=== PATIENT | female | born 1940 | race African-American/Black ===

== ENCOUNTER 2018-06-08 21:39 | Observation (INO) | payer OTHER ==
[2018-06-08] MEDS ORDERED: ONDANSETRON 4 MG/2 ML VIAL ONE ×2 (22:14→22:33)
[2018-06-08 22:22] LABS: Absolute Lymphocytes (CBC) 4.7 K/uL (0.7-4.9); Absolute Monocytes 1.2 K/uL (0.1-1.3); Absolute Neutrophil 7.5 K/uL (1.8-8.0); Basophils % 0.4 % (0-1.3); Eosinophils % 1.3 % (0-4.4); Hematocrit 39.9 % (36.0-45.0); Lymphocytes % 34.2 % (15.3-44.8); MCH 27.9 pg (27.0-35.0); MCV 85.3 fL (80-100); MPV 10.9 fL (7.6-11.3); Monocytes % 8.7 % (3.3-12.3); RBC Red Blood Cell Count 4.68 M/uL (3.86-4.86)
[2018-06-08 22:26] LABS: Protime INR 1.12
[2018-06-08 22:46] LABS: ALT/SGPT 33 U/L (12-78); AST/SGOT 23 U/L (15-37); Albumin 3.1 g/dL (3.4-5.0); Alkaline Phosphatase 57 U/L (45-117); BUN Blood Urea Nitrogen 24 mg/dL (7-18); Bicarbonate 27 mmol/L (21-32); Bilirubin Direct 0.1 mg/dL (0-0.2); Bilirubin Total 0.5 mg/dL (0.2-1.0); CKMB Creatine Kinase MB < 1.0 ng/mL (0.3-3.6); Creatine Phosphokinase 33 U/L (26-192); Glucose Level 104 mg/dL (74-106); Magnesium 1.8 mg/dL (1.8-2.4); NT PRO-BNP 140 pg/mL (<450); Potassium 3.7 mmol/L (3.5-5.1); Protein, Total 7.8 g/dL (6.4-8.2); Sodium Level 140 mmol/L (136-145)
[2018-06-08] MEDS ORDERED: NA CHLORIDE 0.9% 1,000 ML ONE (22:56)
[2018-06-09 02:22] LABS: Urine Blood NEGATIVE (NEG); Urine Glucose NEGATIVE (NEG); Urine Protein NEGATIVE (NEG); Urine Specific Gravity 1.015 (1.005-1.030)
--- NOTE | 2018-06-09 02:23 | EDPHYS ---
Physician Documentation [facility] Name: Kimmy Gamez Age: 78 yrs Sex: Female : 1940 Arrival Date: 06/08/2018 Time: 21:47 Bed 5 Private MD: ED Physician James Delgado HPI: 06/08 22:10 This 78 yrs old Black Female presents to ER via EMS with complaints of general weakness.cp 22:10 The patient has experienced syncope, became unresponsive, lost consciousness. Onset: cp The symptoms/episode began/occurred just prior to arrival. Duration: This was a single episode, that lasted 2 minute(s). Context: the episode(s) was witnessed, by a significant other, , occurred at home, occurred while the patient was sitting, Just prior to the episode the patient experienced dizziness, weakness. Associated injury: The patient did not suffer any apparent associated injury. Associated signs and symptoms: Pertinent positives: headache, vomiting, general weakness, Pertinent negatives: abdominal pain, chest pain, diaphoresis, diarrhea. reports patient was walking to kitchen to fix plate of food when she suddenly complained of general weakness and dizziness. Patient was able to sit down prior to losing consciousness for approximately 2 minutes. Historical: - Allergies: 21:55 No Known Allergies; bb - Home Meds: 21:55 aspirin 81 mg Oral chew 1 tab once daily [Active]; prednisone 10 mg Oral tab once daily bb [Active]; bisoprolol-hydrochlorothiazide 5-6.25 mg oral tab 1 tab once daily [Active]; losartan potassium 100 mg daily [Active]; furosemide 40 mg Oral tab 1 tab once daily [Active]; colestipol 1 gram oral tab 1 tab 2 times per day [Active]; omeprazole 40 mg Oral cpDR 1 cap once daily [Active]; timolol maleate 0.25 % Opht drop 1 drop 2 times per day [Active]; Travatan Z 0.004 % ophthalmic drop 1 drop once daily [Active]; Azopt 1 % ophthalmic drps 1 drop 3 times per day [Active]; - PMHx: 21:55 Hypertension; Glaucoma; OSTEOARTHRITIS; bb - PSHx: 21:55 BACK SURGERY X 3; NECK SURGERY; Cholecystectomy; PLATE R WRIST; GLAUCOMA SURGERY; bb CATARACT SURGERY; Hysterectomy; - Immunization history:: Adult Immunizations up to date. - Social history:: Smoking status: Patient/guardian denies using tobacco, Patient/guardian denies using alcohol, street drugs. - Ebola Screening: : No symptoms or risks identified at this time. ROS: 22:15 Constitutional: Negative for body aches, chills, fever, poor PO intake. cp 22:15 Eyes: Negative for injury, pain, redness, and discharge. cp 22:15 ENT: Negative for drainage from ear(s), ear pain, sore throat, difficulty swallowing, difficulty handling secretions. 22:15 Cardiovascular: Negative for chest pain, edema, palpitations. 22:15 Respiratory: Negative for cough, shortness of breath, wheezing. 22:15 Abdomen/GI: Positive for nausea, vomiting, Negative for abdominal pain, diarrhea, constipation, black/tarry stool, rectal bleeding. 22:15 Back: Negative for pain at rest, pain with movement, radiated pain. 22:15 : Negative for urinary symptoms. 22:15 Skin: Negative for cellulitis, rash. 22:15 Neuro: Positive for dizziness, headache, syncope, general weakness, Negative for altered mental status, seizure activity. 22:15 All other systems are negative. Exam: 22:20 Constitutional: The patient appears in no acute distress, alert, awake, cp non-diaphoretic, non-toxic, well developed, well nourished. 22:20 Head/Face: Normocephalic, atraumatic. cp 22:20 Eyes: Periorbital structures: appear normal, Pupils: equal, round, and reactive to light and accomodation, Extraocular movements: intact throughout, Conjunctiva: normal, no exudate, no injection, Sclera: no appreciated abnormality, Lids and lashes: appear normal, bilaterally. 22:20 ENT: External ear(s): are unremarkable, Ear canal(s): are normal, clear, TM's: bulging, is not appreciated, bilaterally, dullness, bilaterally, erythema, is not appreciated, bilaterally, Nose: is normal, Mouth: Lips: moist, Oral mucosa: pink and intact, moist, Posterior pharynx: is normal, airway is patent, no erythema, no exudate. 22:20 Neck: ROM/movement: is normal, is supple, without pain, no range of motions limitations, no meningismus, no nuchal rigidity. 22:20 Chest/axilla: Inspection: normal, Palpation: is normal, no crepitus, no tenderness. 22:20 Cardiovascular: Rate: normal, Rhythm: regular, JVD: is not appreciated. 22:20 Respiratory: the patient does not display signs of respiratory distress, Respirations: normal, no use of accessory muscles, no retractions, no splinting, no tachypnea, labored breathing, is not present, Breath sounds: are clear throughout, no decreased breath sounds, no stridor, no wheezing. 22:20 Abdomen/GI: Inspection: obese Bowel sounds: active, all quadrants, Palpation: soft, in all quadrants, mild abdominal tenderness, in all quadrants, rebound tenderness, is not appreciated, voluntary guarding, is not appreciated, involuntary guarding, is not appreciated. 22:20 Skin: cellulitis, is not appreciated, no rash present. 22:20 Neuro: Orientation: to person, place \T\ time. Mentation: able to follow commands, slow to respond, Cerebellar function: Romberg testing is negative, Motor: moves all fours, general weakness w/o focal deficits, Sensation: no obvious gross deficits. 22:25 ECG was reviewed by the Attending Physician. Vital Signs: 21:37 BP 154 / 103; Pulse 100; Resp 20 S; Temp 97.8(O); Pulse Ox 96% on R/A; Weight 104.33 kg bb (R); Height 5 ft. 3 in. (160.02 cm) (R); Pain 0/10; 22:07 BP 110 / 89; Pulse 71; Resp 19; Pulse Ox 99% on R/A; ak1 23:15 BP 133 / 60; Pulse 65; Resp 15; Pulse Ox 99% on R/A; ak1 06/09 02:51 BP 147 / 71; Pulse 62; Resp 14; Temp 98.1; Pulse Ox 96% on R/A; ak1 06/08 21:37 Body Mass Index 40.74 (104.33 kg, 160.02 cm) [facility]: 06/08 21:58 Patient medically screened. 06/09 02:25 Data reviewed: vital signs, nurses notes, lab test result(s), EKG, radiologic studies, cp CT scan, plain films, and as a result, I will admit patient. 02:25 Test interpretation: by ED physician or midlevel provider: ECG, plain radiologic cp studies. 06/08 22:05 Order name: Basic Metabolic Panel; Complete Time: 22:54 cp 06/08 22:54 Interpretation: Normal except: BUN 24; CRE 1.70; GFR 35. cp 06/08 22:05 Order name: CBC with Diff; Complete Time: 22:36 06/08 22:36 Interpretation: Normal except: WBC 13.6; PLT 131. cp 06/08 22:05 Order name: Ckmb; Complete Time: 22:54 cp 06/08 22:05 Order name: CPK; Complete Time: 22:54 cp 06/08 22:05 Order name: LFT's; Complete Time: 22:54 cp 06/09 02:20 Interpretation: Normal except: ALB 3.1; GLOB 4.7; A/G 0.7. cp 06/08 22:05 Order name: Magnesium; Complete Time: 22:54 06/08 22:05 Order name: NT PRO-BNP; Complete Time: 22:54 06/08 22:05 Order name: PT-INR; Complete Time: 22:36 06/08 22:05 Order name: Ptt, Activated; Complete Time: 22:36 06/08 22:05 Order name: Troponin (emerg Dept Use Only); Complete Time: 22:54 06/09 01:50 Order name: Urine Dipstick--Ancillary (enter results); Complete Time: 02:23 az 06/09 02:23 Interpretation: Reviewed. 06/09 02:35 Order name: Basic Metabolic Panel [facility] 06/09 02:35 Order name: Basic Metabolic Panel [facility] 06/09 02:35 Order name: Troponin I [facility] 06/08 22:05 Order name: XRAY Chest (1 view) 06/08 22:05 Order name: EKG; Complete Time: 22:06 cp 06/08 22:05 Order name: CT Head Brain wo Cont 06/08 22:55 Order name: Abdomen [facility] 06/09 02:35 Order name: Regular [facility] 06/09 02:35 Order name: Troponin I [facility] 06/09 02:35 Order name: Troponin I [facility] 06/09 02:36 Order name: Echo with Doppler [facility] 06/09 02:36 Order name: CBC with Automated Diff [facility] 06/09 02:36 Order name: CBC with Automated Diff [facility] 06/09 02:36 Order name: Carotid Artery Bilateral [facility] 06/08 22:05 Order name: Cardiac monitoring; Complete Time: 22:06 cp 06/08 22:05 Order name: EKG - Nurse/Tech; Complete Time: 22:22 cp 06/08 22:05 Order name: IV Saline Lock; Complete Time: 22:06 cp 06/08 22:05 Order name: Labs collected and sent; Complete Time: 22:06 cp 06/08 22:05 Order name: O2 Per Protocol; Complete Time: 22:06 cp 06/08 22:05 Order name: O2 Sat Monitoring; Complete Time: 22:06 cp 06/08 22:05 Order name: Urine Dipstick-Ancillary (obtain specimen); Complete Time: 01:51 cp 06/09 02:36 Order name: EKG Electrocardiogram [facility] 06/09 02:36 Order name: EKG Electrocardiogram [facility] 06/09 02:36 Order name: EKG Electrocardiogram [facility] 06/09 02:36 Order name: EKG Electrocardiogram [facility] 06/09 02:49 Order name: Diet Heart Healthy; Complete Time: 02:49 cp EC/18 22:25 Rate is 69 beats/min. Rhythm is regular. MT interval is normal. QRS interval is normal. cp QT interval is normal. No ST changes noted. Interpreted by me. Reviewed by me. Administered Medications: 22:14 Drug: Zofran 2 mg Route: IVP; Site: right antecubital; ak1 22:21 Follow up: Response: No adverse reaction ak1 22:34 Drug: Zofran 2 mg Route: IVP; Site: right antecubital; ak1 22:52 Follow up: Response: No adverse reaction ak1 23:00 Drug: NS 0.9% 250 ml Route: IV; Rate: bolus; Site: right antecubital; ak1 06/09 01:32 Follow up: IV Status: Completed infusion ak1 06/08 23:00 Drug: NS 0.9% 1000 ml Route: IV; Rate: 75 ml/hr; Site: right antecubital; ak1 06/09 04:04 Follow up: IV Status: Infusion continued upon admission ak1 Disposition: 06:25 Co-signature as Attending Physician, James Delgado MD. Disposition: 06/09/18 02:23 Hospitalization ordered by Adan Camacho for Observation. Preliminary diagnosis are Syncope and collapse, Weakness - General, Nausea and vomiting. - Bed requested for Telemetry/MedSurg (observation). - Status is Observation. ak1 - Condition is Stable. - Problem is new. - Symptoms have improved. UTI on Admission? No Signatures: Dispatcher [employer] [facility] Jany Oliva RN RN Sidra Jo RN RN Roxanna Zimmerman RN RN ak1 Robert Greene PA PA cp Starr, Gregory, MD MD gs Corrections: (The following items were deleted from the chart) 06/08 22:55 22:37 Abdomen Pelvis W Con+CT.RAD.BRZ ordered. [facility] 06/09 01:51 01:14 Marshall ordered. cp ak1 03:42 02:23 Hospitalization Ordered by Adan Camacho MD for Observation. Preliminary diagnosis mw is Syncope and collapse; Weakness - General; Nausea and vomiting. Bed requested for Telemetry/MedSurg (observation). Status is Observation. Condition is Stable. Problem is new. Symptoms have improved. UTI on Admission? No. cp 04:03 03:42 06/09/2018 02:23 Hospitalization Ordered by Adan Camacho MD for Observation. ak1 Preliminary diagnosis is Syncope and collapse; Weakness - General; Nausea and vomiting. Bed requested for Telemetry/MedSurg (observation). Status is Observation. Condition is Stable. Problem is new. Symptoms have improved. UTI on Admission? No. mw
--- NOTE | 2018-06-09 02:23 | ER ---
Nurse's Notes [facility] Name: Kimmy Gamez Age: 78 yrs Sex: Female : 1940 Arrival Date: 06/08/2018 Time: 21:47 Bed 5 Private MD: Diagnosis: Syncope and collapse;Weakness-General;Nausea and vomiting Presentation: 06/08 21:37 Presenting complaint: EMS states: they were toned out for report of pt having nausea, bb vomiting, and feeling weak and dizzy pt vomited x 1. Transition of care: patient was not received from another setting of care. Onset of symptoms was June 08, 2018. Risk Assessment: Do you want to hurt yourself or someone else? Patient reports no desire to harm self or others. Initial Sepsis Screen: Does the patient meet any 2 criteria? No. Patient's initial sepsis screen is negative. Does the patient have a suspected source of infection? No. Patient's initial sepsis screen is negative. Care prior to arrival: Medication(s) given: zofran 4 mg, IV initiated. 20 GA, in the right antecubital area, Glucose check: 197. 21:37 Method Of Arrival: EMS: [facility] bb 21:37 Acuity: DWIGHT 3 bb Triage Assessment: 06/09 04:02 Pain: Denies pain. ak1 Historical: - Allergies: 06/08 21:55 No Known Allergies; bb - Home Meds: 21:55 aspirin 81 mg Oral chew 1 tab once daily [Active]; prednisone 10 mg Oral tab once daily bb [Active]; bisoprolol-hydrochlorothiazide 5-6.25 mg oral tab 1 tab once daily [Active]; losartan potassium 100 mg daily [Active]; furosemide 40 mg Oral tab 1 tab once daily [Active]; colestipol 1 gram oral tab 1 tab 2 times per day [Active]; omeprazole 40 mg Oral cpDR 1 cap once daily [Active]; timolol maleate 0.25 % Opht drop 1 drop 2 times per day [Active]; Travatan Z 0.004 % ophthalmic drop 1 drop once daily [Active]; Azopt 1 % ophthalmic drps 1 drop 3 times per day [Active]; - PMHx: 21:55 Hypertension; Glaucoma; OSTEOARTHRITIS; bb - PSHx: 21:55 BACK SURGERY X 3; NECK SURGERY; Cholecystectomy; PLATE R WRIST; GLAUCOMA SURGERY; bb CATARACT SURGERY; Hysterectomy; - Immunization history:: Adult Immunizations up to date. - Social history:: Smoking status: Patient/guardian denies using tobacco, Patient/guardian denies using alcohol, street drugs. - Ebola Screening: : No symptoms or risks identified at this time. Screenin:03 Abuse screen: Denies threats or abuse. Denies injuries from another. Nutritional ak1 screening: No deficits noted. Tuberculosis screening: No symptoms or risk factors identified. Fall Risk None identified. Assessment: 22:01 General: Appears in no apparent distress. obese, Behavior is calm, cooperative, drowsy. ak1 Neuro: Level of Consciousness is awake, alert, obeys commands, Oriented to person, place, time, situation, Medical Insurance Biller are equal bilaterally Weakness Speech is normal, Facial symmetry appears normal, Pupils are PERRLA. Cardiovascular: No deficits noted. Respiratory: No deficits noted. GI: Reports diarrhea, nausea, vomiting. : No signs and/or symptoms were reported regarding the genitourinary system. EENT: No signs and/or symptoms were reported regarding the EENT system. Derm: No signs and/or symptoms reported regarding the dermatologic system. Musculoskeletal: Reports generalized weakness. 22:35 Reassessment: pt began vomiting in CT. pt had an orange LEASING ASSISTANT. ak1 23:16 Reassessment: pt finished half the oral contrast, CT notified. ak1 23:22 Reassessment: Patient appears in no apparent distress at this time. Patient and/or ak1 family updated on plan of care and expected duration. Pain level reassessed. Patient is alert, oriented x 3, equal unlabored respirations, skin warm/dry/pink. pt and family informed of CT scan at 0030. 06/09 02:51 Reassessment: Patient appears in no apparent distress at this time. Patient and/or ak1 family updated on plan of care and expected duration. Pain level reassessed. Patient is alert, oriented x 3, equal unlabored respirations, skin warm/dry/pink. Vital Signs: 06/08 21:37 BP 154 / 103; Pulse 100; Resp 20 S; Temp 97.8(O); Pulse Ox 96% on R/A; Weight 104.33 kg bb (R); Height 5 ft. 3 in. (160.02 cm) (R); Pain 0/10; 22:07 BP 110 / 89; Pulse 71; Resp 19; Pulse Ox 99% on R/A; ak1 23:15 BP 133 / 60; Pulse 65; Resp 15; Pulse Ox 99% on R/A; ak1 06/09 02:51 BP 147 / 71; Pulse 62; Resp 14; Temp 98.1; Pulse Ox 96% on R/A; ak1 06/08 21:37 Body Mass Index 40.74 (104.33 kg, 160.02 cm) bb ED Course: 06/08 21:37 Arm band placed on Patient placed in an exam room, on a stretcher, on associate director of biostatistics, bb on pulse oximetry. 21:47 Patient arrived in ED. ak1 21:49 Triage completed. bb 21:56 Roxanna Larios, RN is Primary Nurse. ak1 21:57 Maintain EMS IV. Dressing intact. Good blood return noted. Site clean \T\ dry. Gauge \T\ ak 1 site: 20g right AC. 21:58 Robert Greene PA is PHCP. cp 21:58 James Delgado MD is Attending Physician. cp 22:03 Patient has correct armband on for positive identification. Placed in gown. Bed in low ak1 position. Call light in reach. Side rails up X 1. Adult w/ patient. ornamental ironworking supervisor on. Pulse ox on. NIBP on. 22:24 X-ray completed. Portable x-ray completed in exam room. Patient tolerated procedure bb2 well. 22:26 XRAY Chest (1 view) In Process Unspecified. EDMS 22:39 Radiology exam delayed due to lab results not completed at this time. (BUN/Creatinine). nj 22:40 CT Head Brain wo Cont In Process Unspecified. EDMS 22:44 CT completed. Patient tolerated procedure well. Patient moved back from CT. wy 06/09 00:49 Abdomen In Process Unspecified. EDMS 01:23 CT completed. Patient tolerated procedure well. Patient moved to CT via stretcher. Patient moved back from CT. 01:33 No provider procedures requiring assistance completed. ak1 02:22 Adan Camacho MD is Hospitalizing Provider. cp 04:03 Patient admitted, IV remains in place. ak1 Administered Medications: 06/08 22:14 Drug: Zofran 2 mg Route: IVP; Site: right antecubital; ak1 22:21 Follow up: Response: No adverse reaction ak1 22:34 Drug: Zofran 2 mg Route: IVP; Site: right antecubital; ak1 22:52 Follow up: Response: No adverse reaction ak1 23:00 Drug: NS 0.9% 250 ml Route: IV; Rate: bolus; Site: right antecubital; ak1 06/09 01:32 Follow up: IV Status: Completed infusion ak1 06/08 23:00 Drug: NS 0.9% 1000 ml Route: IV; Rate: 75 ml/hr; Site: right antecubital; ak1 06/09 04:04 Follow up: IV Status: Infusion continued upon admission ak1 Outcome: 02:23 Decision to Hospitalize by Provider. cp 04:02 Admitted to Med/surg accompanied by tech, family with patient, via wheelchair, room ak1 405, with chart, Report called to Amina 04:02 Condition: good 04:02 Instructed on the need for admit. 04:03 Patient left the ED. ak1 Signatures: Dispatcher [employer] ED[facility] Nikolai Read Brenda, RN RN bb Roxanna Larios RN RN ak1 Robert Greene PA PA cp Jordan, Nathan nj Bock, Brittany bb2 Corrections: (The following items were deleted from the chart) 06/08 21:58 21:37 BP 154 / 103; Pulse 100bpm; Resp 20bpm; Spontaneous; Pulse Ox 96% RA; 104.33 kg bb Reported; Height 5 ft. 3 in. Reported; BMI: 40.7; Pain 0/10; bb 22:44 22:44 Patient moved back from [facility] 23:17 23:15 Pulse 65bpm; Resp 15bpm; Pulse Ox 99% RA; ak1 ak1
[2018-06-09] MEDS ORDERED: ACETAMINOPHEN 500 MG TAB PO PRN (02:30)
[2018-06-09] MEDS ORDERED: ONDANSETRON 4 MG/2 ML VIAL IV PRN (02:30)
[2018-06-09 04:53] VITALS: BMI 39.0
--- NOTE | 2018-06-09 07:54 | RAD REPORT ---
EXAM DESCRIPTION: Tomi Single View06/08/2018 10:26 pm CLINICAL HISTORY: Chest pain COMPARISON: 2011 FINDINGS: The lungs appear clear of acute infiltrate. The heart is mildly enlarged. An ununited fracture involves the mid right clavicle
[2018-06-09] MEDS: ASPIRIN EC 81 MG TAB PO SCH (08:17)
--- NOTE | 2018-06-09 08:45 | RAD REPORT ---
EXAM DESCRIPTION: CT - Abdomen Pelvis Wo Contrast - 06/09/2018 6:48 am CLINICAL HISTORY: Abdominal pain with nausea and vomiting COMPARISON: 2011 TECHNIQUE: Computed axial tomography of the abdomen and pelvis was obtained. IV contrast was not req uested. Oral contrast was given All CT scans are performed using dose optimization technique as appropriate and may include automated exposure control or mA/KV adjustment according to patient size. FINDINGS: The evaluation of solid organs, and vessels is limited secondary to the lack of contrast administration. The liver, spleen, pancreas, adrenals and kidneys appear grossly normal. A diverticulum stems from the duodenum. A large number of diverticula stem from the colon without evidence of diverticulitis. Laxity of the anterior abdominal wall is present. Diastases of the rectus abdominis muscles of 7 cent imeters is present. Spondylosis involves the lumbar spine resulting spinal stenosis The gallbladder has been removed IMPRESSION: No acute abnormality is displayed.
--- NOTE | 2018-06-09 10:46 | RAD REPORT ---
EXAM DESCRIPTION: CT - Head Brain Wo Cont - 06/09/2018 6:48 am CLINICAL HISTORY: Dizziness COMPARISON: 2016 brain MRI TECHNIQUE: Computed axial tomography of the head was obtained. IV contrast was not requested. All CT scans are performed using dose optimization technique as appropriate and may include automated exposure control or mA/KV adjustment according to patient size. FINDINGS: An intracranial bleed is not seen . The ventricles are normal in caliber. No extra-axial fluid collection is noted. Mild to moderate low-density areas within periventricular, deep and subcortical white matter likely represent ischemic changes secondary to small vessel disease . Fluid within the sinuses/ mastoids is not seen. IMPRESSION: No acute intracranial abnormality is seen. If patient's symptoms persist MRI of the bra in would be recommended.
--- NOTE | 2018-06-09 11:44 | RAD REPORT ---
EXAM DESCRIPTION: VASCarotid Artery Bilateral06/09/2018 11:06 am CLINICAL HISTORY: Syncope COMPARISON: None FINDINGS: The velocity of the right internal carotid artery equals 85 cm/sec. The right ICA/CCA rati o 1.1 The velocity of the left internal carotid artery equals 68 cm/sec. The left ICA/CCA ratio 0.9 Minimal plaque is present within the carotid arteries. The vertebral arteries demonstrate antegrade flow IMPRESSION: Minimal plaque within the carotid arteries without evidence of a hemodynamically signifi cant stenosis
--- NOTE | 2018-06-09 12:11 | RAD REPORT ---
EXAM DESCRIPTION: MRI - Brain Wo Cont - 06/09/2018 10:29 am CLINICAL HISTORY: Syncope COMPARISON: June [address] TECHNIQUE: Axial, sagittal, and coronal magnetic images of the brain were obtained. Contrast was not requested FINDINGS: Mild to moderate signal is present within periventricular, deep and subcortical white hardy er likely secondary to ischemic changes secondary to small vessel disease. Diffusion-weighted/ADC mapping does not reveal evidence of acute infarction. The ventricles are normal caliber. An extra-axial fluid collection is not present The sinuses and mastoids are clear. IMPRESSION: Mild to moderate signal is present within periventricular, deep and subcortical white ma tter likely secondary to ischemic changes secondary to small vessel disease. No acute intracranial abnormality is seen
--- NOTE | 2018-06-09 13:54 | EKG ---
Test Date: 2018-06-08 Test Time: 22:16:36 Career Developer: RAPHAEL MEASUREMENT RESULTS: Intervals: Rate: 69 [place]: 174 QRSD: 74 QT: 428 QTc: 458 [place]: P: 12 [place]: 174 QRS: -5 T: 21 INTERPRETIVE STATEMENTS: Normal sinus rhythm Normal ECG Compared to ECG 03/13/2015 12:24:10 Left ventricular hypertrophy no longer present Electronically Signed On 06-09-18 13:52:00 CDT by Nate Soares
--- NOTE | 2018-06-09 14:05 | ECHO ---
HEIGHT: 5 ft 3 in WEIGHT: 220 lb 6.4 oz DATE OF STUDY: 06/09/[address]: Robert Greene PAC 2-DIMENSIONAL: YES M.MODE: YES DOPPLER: YES COLOR FLOW: YES TDS: YES PORTABLE: DEFINITY: BUBBLE STUDY: DIAGNOSIS: SYNCOPE CARDIAC HISTORY: CATHERIZATION: NO SURGERY: NO PROSTHETIC VALVE: NO PACEMAKER: NO MEASUREMENTS (cm) DIASTOLIC (NORMALS) SYSTOLIC (NORMALS) IVSd 1.3 (0.6-1.2) LA Diam 2.9 (1.9-4.0) LVEF 72% LVIDd 3.5 (3.5-5.7) LVIDs 2.1 (2.0-3.5) %FS 40% LVPWd 1.3 (0.6-1.2) Ao Diam 2.3 (2.0-3.7) 2 DIMENSIONAL ASSESSMENT: RIGHT ATRIUM: NORMAL LEFT ATRIUM: NORMAL RIGHT VENTRICLE: NORMAL LEFT VENTRICLE: LEFT VENTRICULAR HYPERTROPHY TRICUSPID VALVE: NORMAL MITRAL VALVE: NORMAL PULMONIC VALVE: NORMAL AORTIC VALVE: NORMAL PERICARDIAL EFFUSION: NONE AORTIC ROOT: NORMAL LEFT VENTRICULAR WALL MOTION: NORMAL DOPPLER/COLOR FLOW: NORMAL COMMENTS: TECHNICALLY DIFFICULT STUDY. LEFT VENTRICULAR HYPERTROPHY. NO WALL MOTION ABNORMALITY. NORMAL EJECTION FRACTION. NO EFFUSION. TECHNOLOGIST: KISHA MOJICA
--- NOTE | 2018-06-09 18:01 | P.SSS ---
Patient History Date of Service: 06/09/18 Reason for admission: PASSED OUT AT HOME History of Present Illness: MS. ULRICH AT HOME TRYING TO GET BF READY, SITTING ON RECLINER, ROLLED EYES AND PASSED OUT FOR A MINUTE OR SO. THIS IS PER . SHE HAS HAD NO CHEST PAIN, DYSPNEA OR GI ISSUES. MS. ULRICH HAS CHRONIC COMPLAINTS OF GLAUCOMA, HTN, TA, PMR,CHR PAIN, HISTORY OF HEP C. SHE IS ON CHRONIC STEROID THERAPY FOR SEVERE PAIN AND PMR. Allergies No Known Allergies Allergy (Verified 06/09/18 04:59) Home Medications: Aspirin [Aspirin EC 81 MG] 81 mg PO DAILY 06/09/18 Bisoprolol Fumarate/Hctz [Bisoprolol-Hctz 5-6.25 mg Tab] 1 tab PO DAILY Brimonidine Tartrate [Alphagan P] 1 drop LEFT EYE TID 06/09/18 Brinzolamide [Azopt] 1 drop LEFT EYE TID 06/09/18 Colestipol HCl [Colestid] 1 gm PO BID PRN 06/09/18 Estradiol 1 appl VAG SEECOM 06/09/18 Furosemide [Lasix*] 40 mg PO DAILY 06/09/18 Losartan Potassium [Cozaar] 100 mg PO DAILY 06/09/18 Omeprazole [Prilosec] 40 mg PO DAILY 06/09/18 Spironolactone [Aldactone*] 25 mg PO DAILY 06/09/18 Timolol Maleate 1 drop LEFT EYE BID 06/09/18 Venlafaxine HCl [Venlafaxine HCl ER] 37.5 mg PO DAILY 06/09/18 predniSONE [Deltasone*] 10 mg PO DAILY 06/09/18 - Past Medical/Surgical History Has patient received pneumonia vaccine in the past: Yes Diabetic: No -: hep c -: osteoarthritis -: glaucoma ira eyes -: GERD -: HTN -: cholecystectomy -: hysterectomy -: r leg- skin graft -: cervical fusion x 2- 2007 -: plate in Right arm - due to CVA - Family History Father -: Heart disease Mother -: Diabetes Sister -: Diabetes, Cancer Notes: colon ca Brother -: Diabetes - Social History Smoking Status: Never smoker Alcohol use: No CD- Drugs: No Caffeine use: Yes Place of Residence: Home Review of Systems 10-point ROS is otherwise unremarkable General: Weakness, Malaise Physical Examination - Vital Signs Temperature: 97.7 F Blood Pressure: 111/58 Pulse: 69 Respirations: 16 Pulse Ox (%): 95 - Physical Exam General: Alert, Acute distress, Obese HEENT: Atraumatic, PERRLA, Mucous membr. moist/pink, EOMI, Sclerae nonicteric Neck: Supple, 2+ carotid pulse no bruit, No LAD, Without JVD or thyroid abnormality Respiratory: Clear to auscultation bilaterally, Normal air movement Cardiovascular: Regular rate/rhythm, Normal S1 S2 Gastrointestinal: Normal bowel sounds, No tenderness Musculoskeletal: No tenderness Integumentary: No rashes Neurological: Normal gait, Normal speech, Normal strength at 5/5 x4 extr, Normal tone, Normal affect Lymphatics: No axilla or inguinal lymphadenopathy - Studies Laboratory Data (last 24 hrs) 06/08/18 21:55: PT 13.2 H, INR 1.12, APTT 21.4 L 06/08/18 21:55: WBC 13.6 H, Hgb 13.1, Hct 39.9, Plt Count 131 L 06/08/18 21:55: Sodium 140, Potassium 3.7, BUN 24 H, Creatinine 1.70 H, Glucose 104, Magnesium 1.8, Total Bilirubin 0.5, AST 23, ALT 33, Alkaline Phosphatase 57 - Diagnosis (Problem(s)) (1) Syncope and collapse Onset Date: 06/09/18 Current Visit: Yes Status: Acute Plan: UNCLEAR ETIOLOGY CE NEG NOT ORTHOSTATIC NO NEURO SIGNS MRI NEG FOR STROKE THIS CAN BE ATYPICAL SEIZURE IF CONTINUES TO HAPPEN I WILL START KEPPRA BID EEG CAN'T BE DONE UNTIL AM. - Disposition Disposition: ROUTINE DISCHARGE
[2018-06-10 06:43] LABS: Absolute Lymphocytes (CBC) 3.2 K/uL (0.7-4.9); Absolute Neutrophil 6.2 K/uL (1.8-8.0); Basophils % 0.4 % (0-1.3); Eosinophils % 1.2 % (0-4.4); Lymphocytes % 30.5 % (15.3-44.8); MCH 28.4 pg (27.0-35.0); MCV 85.3 fL (80-100); MPV 10.7 fL (7.6-11.3); Monocytes % 9.1 % (3.3-12.3); RBC Red Blood Cell Count 4.46 M/uL (3.86-4.86)
[2018-06-10 06:51] LABS: Potassium 3.7 mmol/L (3.5-5.1)
[2018-06-10] MEDS: ASPIRIN EC 81 MG TAB PO SCH (08:52)
[2018-06-10 08:55] VITALS: O2SAT 97
[2018-06-10 12:37] VITALS: BP 140/80; TEMP 97.9
--- NOTE | 2018-06-10 13:52 | P.DS ---
Admission Date: 06/09/18 Discharge Date: 06/10/18 Disposition: ROUTINE DISCHARGE Discharge Condition: FAIR Reason for Admission: PASSED OUT AT HOME - Problems (1) Syncope and collapse Onset Date: 06/09/18 Current Visit: Yes Status: Acute Brief History of Present Illness: MS. ULRICH AT HOME TRYING TO GET BF READY, SITTING ON RECLINER, ROLLED EYES AND PASSED OUT FOR A MINUTE OR SO. THIS IS PER . SHE HAS HAD NO CHEST PAIN, DYSPNEA OR GI ISSUES. MS. ULRICH HAS CHRONIC COMPLAINTS OF GLAUCOMA, HTN, TA, PMR,CHR PAIN, HISTORY OF HEP C. SHE IS ON CHRONIC STEROID THERAPY FOR SEVERE PAIN AND PMR. MS ULRICH HAS MAINLY DEHYDRATION FROM LASIX AND ALDACTONE. SHE IS ON BOTH ONE DID NOT WORK AND SHE KEPT ON COMPLAINING ABOUT SEVERE EDEMA. HER EDEMA IS FROM CHRONIC PREDNISONE THERAPY FOR PMR. SHE IS STABLE TO GO ON SMALLER DOSE OF LASIX AND ADVISE ON LOW SALT DIET. TODAY ON HER PLAE I SAW CHEESE LOADED PASTA AND FRIED CHICKEN. I HAVE ADIVSED HER TO WATCH DIET AND LOSE WEIGHT IN THE PAST. Vital Signs/Physical Exam: Temp Pulse Resp BP Pulse Ox 97.9 F 67 18 140/80 96 06/10/18 12:00 06/10/18 12:00 06/10/18 12:00 06/10/18 12:00 06/10/18 12:00 Laboratory Data at Discharge: WBC 10.5 K/uL (4.3-10.9) D 06/10/18 05:46 Hgb 12.7 g/dL (12.0-15.0) 06/10/18 05:46 Hct 38.0 % (36.0-45.0) 06/10/18 05:46 Plt Count 118 K/uL (152-406) L 06/10/18 05:46 PT 13.2 SECONDS (9.5-12.5) H 06/08/18 21:55 INR 1.12 06/08/18 21:55 APTT 21.4 SECONDS (24.3-36.9) L 06/08/18 21:55 Sodium 142 mmol/L (136-145) 06/10/18 05:46 Potassium 3.7 mmol/L (3.5-5.1) 06/10/18 05:46 BUN 24 mg/dL (7-18) H 06/10/18 05:46 Creatinine 1.40 mg/dL (0.55-1.3) H 06/10/18 05:46 Glucose 84 mg/dL (74-106) 06/10/18 05:46 Magnesium 1.8 mg/dL (1.8-2.4) 06/08/18 21:55 Total Bilirubin 0.5 mg/dL (0.2-1.0) 06/08/18 21:55 AST 23 U/L (15-37) 06/08/18 21:55 ALT 33 U/L (12-78) 06/08/18 21:55 Alkaline Phosphatase 57 U/L (45-117) 06/08/18 21:55 Troponin I < 0.02 ng/mL (0.0-0.045) 06/09/18 08:15 Home Medications: Aspirin [Aspirin EC 81 MG] 81 mg PO DAILY 06/09/18 Bisoprolol Fumarate/Hctz [Bisoprolol-Hctz 5-6.25 mg Tab] 1 tab PO DAILY Brimonidine Tartrate [Alphagan P] 1 drop LEFT EYE TID 06/09/18 Brinzolamide [Azopt] 1 drop LEFT EYE TID 06/09/18 Colestipol HCl [Colestid] 1 gm PO BID PRN 06/09/18 Estradiol 1 appl VAG SEECOM 06/09/18 Losartan Potassium [Cozaar] 100 mg PO DAILY 06/09/18 Omeprazole [Prilosec] 40 mg PO DAILY 06/09/18 Spironolactone [Aldactone*] 25 mg PO DAILY 06/09/18 Timolol Maleate 1 drop LEFT EYE BID 06/09/18 Venlafaxine HCl [Venlafaxine HCl ER] 37.5 mg PO DAILY 06/09/18 predniSONE [Deltasone*] 10 mg PO DAILY 06/09/18 Furosemide 20 mg PO DAILY #100 tablet 06/10/18 New Medications: Furosemide 20 mg PO DAILY #100 tablet
--- NOTE | 2018-06-10 18:50 | EKG ---
Test Date: 2018-06-10 Test Time: 09:55:17 Mold Designer: SARY MEASUREMENT RESULTS: Intervals: Rate: 66 SD: 172 QRSD: 74 QT: 392 QTc: 410 [place]: P: 18 SD: 172 QRS: 9 T: 43 INTERPRETIVE STATEMENTS: Normal sinus rhythm Normal ECG Compared to ECG 06/08/2018 22:16:36 No significant changes Electronically Signed On 06-10-18 18:47:31 CDT by Nate Soares
--- NOTE | 2018-06-11 00:28 | CON ---
Date of Consultation: 06/10/2018 Reason For Consultation: Syncope. History Of Present Illness: Ms. Gamez is a 78-year-old black woman who has had a known extensive his tory of hypertension, polymyalgia rheumatica, temporal arteritis. She has had a normal echocardiogra m already. An MRA of her brain showed chronic ischemic changes and negative carotid Doppler was also done. Her creatinine is 1.4. She had a white count of 13.6. She came in with multiple symptoms bu t mostly weakness and presyncope. No PND, orthopnea, pedal edema, or palpitation. Denied any chest pain, nausea, vomiting, or diaphoresis. Past Medical History: As stated above. Allergies: NONE. Review of Systems: Negative. Social History: Negative. Family History: Noncontributory. Medications: Aspirin, Aldactone, prednisone, bisoprolol with hydrochlorothiazide, Lasix, Cozaar, and Prilosec. Physical Examination: General: She appeared her stated age. She was in no acute distress. Vital Signs: Stable. She was afebrile. HEENT: Negative. Neck: Supple without any bruit, lymphadenopathy, JVD, or thyromegaly. Chest: Clear to auscultation and percussion. Cardiac: Regular rhythm and rate with S4 gallops. No murmurs or rubs. Abdomen: Benign. Extremities: Reveal no clubbing, cyanosis, or edema. Diagnostic Data: As stated earlier. Impression And Plan: Presyncope and weakness, secondary to orthostatic hypotension. Her creatinine was slightly elevated, probably secondary to dehydration. She has a white count and she may have abhi e kind of viral syndrome or urinary tract infection. I do not think we need to do any more extensive workup. She has already had a normal echocardiogram and a normal carotid and a normal EKG without a ny telemetry changes. I am concerned about the combination of her diuretics including hydrochlorothi azide, Aldactone, and Lasix, and I think she can certainly do without the Lasix if she going to take the HCT and the Aldactone. I will discuss the case further with Dr. Camacho. From my standpoint, she can go home whenever it is okay with him. LUAN/JHONATHANL Voice ID: [id number] Report ID: [id number]
--- NOTE | 2018-06-15 18:07 | EEG ---
CHART: [id number] TEST ID#: [id number] DATE OF STUDY: 06/10/2018 THE EEG WAS RECORDED PORTABLE IN THE PATIENTS ROOM ON A 17 CHANNEL MACHINE. ELECTRODES WERE APPLIED IN THE USUAL MANNER USING THE INTERNATIONAL 10-20 SYSTEM. THE WAKING BACKGROUND RHYTHM IN THIS RECORD CONSISTS OF WELL DEVELOPED AND WELL ORGANIZED WAVES OF 9.5 HZ., MAXIMAL IN THE POSTERIOR HEAD REGIONS WHICH ATTENUATE NORMALLY WITH EYE OPENING. THERE ARE NO FOCAL OR LATERALIZING FEATURES. NO EPILEPTIFORM ACTIVITY APPEARS. SLEEP OCCURRED NATURALLY. IN ADDITION TO NORMAL SLEEP PATTERNS ARE PRESENT. HYPERVENTILATION WAS NOT PREFORMED. PHOTIC STIMULATION PRODUCED FAIR DRIVING BILATERALLY. IMPRESSION: NORMAL EEG FOR THE AGE OF THE PATIENT IN [place], DROWSINESS AND SLEEP.
== END 2018-06-10 16:19 | disposition home or self-care (01) ==
LOC: ER 21:39 → ERHOLD 06-09 02:29 → 4TH 06-09 03:46
PROVIDERS: ADMIT Internal Medicine; ATTEND Internal Medicine
DX: R55 Syncope and collapse (principal); E86.0 Dehydration; H40.9 Unspecified glaucoma; I10 Essential (primary) hypertension; Z86.19 Personal history of other infectious and parasitic diseases; Z79.82 Long term (current) use of aspirin; K21.9 Gastro-esophageal reflux disease without esophagitis; M19.90 Unspecified osteoarthritis, unspecified site
CPT/HCPCS: 36415 ×2; 70450; 70551; 71045; 74176; 80048 ×2; 80076; 81003; 82550; 82553; 83735; 83880; 84484 ×3; 85025 ×2; 85610; 85730; 93005 ×2; 93306; 93880; 95819; 96361; 96365; 96366; 96375; 97163; 99285; G0378 ×2; J2405 ×2; J7030

== ENCOUNTER 2019-04-25 09:26 | Day surgery (SDC) | payer OTHER ==
[2019-04-25 10:21] LABS: Potassium 3.9 mmol/L (3.5-5.1)
--- NOTE | 2019-04-25 10:30 | RAD REPORT ---
EXAM DESCRIPTION: RAD - Chest Pa And Lat (2 Views) - 04/25/2019 10:14 am CLINICAL HISTORY: PREOP SAME DAY SURGERY BED 1 Chest pain. COMPARISON: Chest Single View dated 06/08/2018; CHEST SINGLE VIEW dated 03/13/2015; CHEST PA AND LAT 2 VIEW dated 01/23/2015; CHEST SINGLE VIEW dated 01/11/2012 FINDINGS: The lungs are clear. The heart is moderately enlarged in size. No displaced fractures. IMPRESSION: No acute or concerning finding suspected.
[2019-04-25] MEDS ORDERED: CEFAZOLIN/SWI 1gm 1 GM/10 ML SYR ONE (10:51)
[2019-04-25] MEDS ORDERED: Ringers Lactate 1,000 ML IV ONE (10:51)
[2019-04-25] MEDS ORDERED: LIDOCAINE 1% MPF 30 ML VIAL ONE (11:35)
--- NOTE | 2019-04-25 11:36 | EKG ---
Test Date: 2019-04-25 Test Time: 09:53:30 Chucking And Sawing Machine Operator: DILLON MEASUREMENT RESULTS: Intervals: Rate: 76 [place]: 170 QRSD: 74 QT: 372 QTc: 418 [place]: P: 33 [place]: 170 QRS: -2 T: 40 INTERPRETIVE STATEMENTS: Normal sinus rhythm Minimal voltage criteria for LVH, may be normal variant Borderline ECG Compared to ECG 06/10/2018 09:55:17 Left ventricular hypertrophy now present Electronically Signed On 04-25-19 11:35:27 CDT by Nate Soares
[2019-04-25] MEDS ORDERED: LABETALOL 20 MG/4ML SYRINGE IV ONE (13:27)
[2019-04-25] MEDS: MORPHINE 4 MG/ML SYR ONE ×2 (13:55→14:04)
[2019-04-25] MEDS ORDERED: CODEINE 30MG/APAP 300MG TAB PO ONE (15:20)
[2019-04-25] MEDS ORDERED: CODEINE 30MG/APAP 300MG TAB ONE (15:36)
[2019-04-25 15:45] VITALS: BP 156/78; TEMP 97.1; O2SAT 99
--- NOTE | 2019-04-25 20:22 | OP ---
Date of Procedure: 04/25/2019 Surgeon: Tobias Murphy MD Computer Network Support Specialist: LINK Francis. Preoperative Diagnosis: Headaches, rule out temporal arteritis. Postoperative Diagnosis: Headaches, rule out temporal arteritis. Procedure: Bilateral temporal artery biopsy, doppler guided. Estimated Blood Loss: Minimal. Specimen: Left and right temporal artery. Finding: As above. Anesthesia: General. Complications: None. Disposition: The patient tolerated the procedure in stable condition. Taken to Recovery in good gen eral condition. Procedure In Detail: The patient was brought to the OR and placed in supine position. General anest hesia began. The patient was prepped and draped in the sterile fashion. We began on the left side. Doppler device was used to identify the branch of the temporal artery, anterior and superior to the left ear. Then a 4 cm incision made after Marcaine 0.5% was infiltrated locally. Subcutaneous tissu e divided and a 4 cm segment of the artery was identified proximal and distal, and lateral control ob tained, and then the section excised, sent to Pathology labeled appropriately, 4-0 silk used to tie t he cut off branches, and then wound irrigated. Bleeding controlled with cautery, and 4-0 chromic use d to approximate the subcutaneous tissue and close skin. Exact same operation occurred on the right side with similar findings, and subsequently after both wounds were closed, the patient was awakened and taken to Recovery in good general condition. /MODL Voice ID: [id number] Report ID: [id number]
--- NOTE | 2019-04-25 20:22 | DS ---
Date of Discharge: 04/25/2019 The patient will go to Day Surgery and home when stable. Disposition: Home. Condition: Stable. Discharge Instructions: Resume home medications and diet. Activity as tolerated. No heavy lifting. Remove outer dressing in 2 days. Shower. Keep wound clean and dry. Follow up in my office in 1 [address] [place]. Call for appointment. Follow with Dr. Engel in 1 week. Follow up with me in 2 weeks. Tylenol No. 3 one tablet p.o. q.4 p.r.n. pain, and keep Steri-Strips on at all times. /MODL Voice ID: [id number] Report ID: [id number]
== END 2019-04-25 15:52 | disposition home or self-care (01) ==
LOC: OR 09:26
PROVIDERS: ATTEND Surgery
PROC: 03BS3ZX Excision of Right Temporal Artery, Percutaneous Approach, Diagnostic (ICD-10-PCS; 2019-04-25)
PROC: 03BT3ZX Excision of Left Temporal Artery, Percutaneous Approach, Diagnostic (ICD-10-PCS; principal; 2019-04-25 11:15)
DX: R51 Headache (principal); M31.6 Other giant cell arteritis; H40.9 Unspecified glaucoma; I10 Essential (primary) hypertension; Z86.19 Personal history of other infectious and parasitic diseases; K21.9 Gastro-esophageal reflux disease without esophagitis; Z79.82 Long term (current) use of aspirin; Z79.52 Long term (current) use of systemic steroids; Z79.899 Other long term (current) drug therapy; Z83.3 Family history of diabetes mellitus; Z82.49 Family history of ischemic heart disease and other diseases of the circulatory system
CPT/HCPCS: 37609; 93005; 80048; 36415; 88305; 71046; J0690

== ENCOUNTER 2019-06-30 10:35 | Emergency (ER) | payer OTHER ==
--- NOTE | 2019-06-30 11:34 | RAD REPORT ---
EXAM DESCRIPTION: RAD - Chest Single View - 06/30/2019 11:25 am CLINICAL HISTORY: SOB Chest pain. COMPARISON: Chest Pa And Lat (2 Views) dated 04/25/2019; Chest Single View dated 06/08/2018; CHEST SING LE VIEW dated 03/13/2015; CHEST PA AND LAT 2 VIEW dated 01/23/2015 FINDINGS: Portable technique limits examination quality. Mild interstitial pulmonary edema. The heart is moderately enlarged in size. No displaced fractures.C ervical hardware plate. IMPRESSION: Mild CHF.
[2019-06-30 11:40] LABS: Absolute Lymphocytes (CBC) 1.4 K/uL (0.7-4.9); Basophils % 0.1 % (0-1.3); Hematocrit 41.6 % (36.0-45.0); Lymphocytes % 16.7 % (15.3-44.8); MPV 9.6 fL (7.6-11.3)
[2019-06-30 11:47] LABS: Protime INR 1.01
[2019-06-30 11:54] LABS: ALT/SGPT 64 U/L (12-78); AST/SGOT 28 U/L (15-37); Albumin 3.1 g/dL (3.4-5.0); Alkaline Phosphatase 71 U/L (45-117); BUN Blood Urea Nitrogen 26 mg/dL (7-18); Bicarbonate 26 mmol/L (21-32); Bilirubin Direct 0.3 mg/dL (0-0.2); Bilirubin Total 0.7 mg/dL (0.2-1.0); Glucose Level 137 mg/dL (74-106); NT PRO-BNP 311 pg/mL (<450); Potassium 3.8 mmol/L (3.5-5.1); Protein, Total 6.1 g/dL (6.4-8.2); Sodium Level 143 mmol/L (136-145); Troponin (Emerg Dept Use Only) < 0.02 ng/mL (0.0-0.045)
--- NOTE | 2019-06-30 12:31 | RAD REPORT ---
EXAM DESCRIPTION: CT - Chest For Pe Angio - 06/30/2019 12:14 pm CLINICAL HISTORY: Chest pain. SOB COMPARISON: No comparisons TECHNIQUE: CT angiogram of the pulmonary arteries was performed with MIP. All CT scans are performed using dose optimization technique as appropriate and may include automated exposure control or mA/KV adjustment according to patient size. FINDINGS: Filling defect is seen in the posterior right lower lobe segmental pulmonary arterial bran ch compatible with pulmonary embolism. No definitive findings of RV strain. 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 The lungs are clear. No significant pericardial or pleural fluid. No concerning bony finding. IMPRESSION: Positive for pulmonary embolism posterior right lower lobe segmental branch. 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 The findings were discussed with MARIO Farrell on 06/30/19 at 12:30 pm by telephone.
--- NOTE | 2019-06-30 12:57 | EDPHYS ---
Physician Documentation [facility] Name: Kimmy Gamez Age: 79 yrs Sex: Female : 1940 Arrival Date: 06/30/2019 Time: 10:43 Bed 8 Private MD: Adan Camacho V ED Physician Tutu Guillen HPI: 06/30 11:03 This 79 yrs old Black Female presents to ER via Wheelchair with complaints of Abnormal kdr Lab Results \T\ SOB. 11:03 The patient was sent from Dr. Camacho's office after she had c/o SOB and he had performed kdr some blood tests which revealed and elevated D-Dimer. Dr. Camacho has concern for possible PE given the patient is largely immobile.. Onset: The symptoms/episode began/occurred at an unknown time. Severity of symptoms: At their worst the symptoms were mild in the emergency department the symptoms have resolved. The patient has not experienced similar symptoms in the past. Historical: - Allergies: 10:42 No Known Allergies; aa5 10:52 No Known Allergies; ph - Home Meds: 12:49 Azopt 1 % ophthalmic drps 1 drop 3 times per day [Active]; colestipol 1 gram Oral tab 1 ph tab 2 times per day [Active]; furosemide 40 mg Oral tab 1 tab once daily [Active]; losartan potassium 100 mg daily [Active]; omeprazole 40 mg Oral cpDR 1 cap once daily [Active]; prednisone 10 mg Oral tab once daily [Active]; bisoprolol-hydrochlorothiazide 5-6.25 mg Oral tab 1 tab once daily [Active]; timolol maleate 0.25 % Opht drop 1 drop 2 times per day [Active]; Travatan Z 0.004 % ophthalmic drop 1 drop once daily [Active]; - PMHx: 10:42 Hypertension; osteoarthritis; aa5 10:52 Glaucoma; ph - PSHx: 10:42 Cholecystectomy; GLAUCOMA SURGERY; CATARACT SURGERY; Appendectomy; Skin graft to right aa5 lower leg; 10:52 BACK SURGERY X 3; NECK SURGERY; PLATE R WRIST; Hysterectomy; ph - Immunization history:: Flu vaccine is not up to date. - Social history:: Smoking status: Patient/guardian denies using tobacco. - Ebola Screening: : No symptoms or risks identified at this time. ROS: 11:03 Constitutional: Negative for fever, chills, and weight loss, Eyes: Negative for injury, kdr pain, redness, and discharge, Neck: Negative for injury, pain, and swelling, Cardiovascular: Negative for chest pain, palpitations, and edema, Abdomen/GI: Negative for abdominal pain, nausea, vomiting, diarrhea, and constipation, Back: Negative for injury and pain, : Negative for injury, bleeding, discharge, and swelling, Neuro: Negative for headache, weakness, numbness, tingling, and seizure activity. Psych: Negative for depression, anxiety, suicide ideation, homicidal ideation, and hallucinations, Allergy/Immunology: Negative for hives, rash, and allergies, Endocrine: Negative for neck swelling, polydipsia, polyuria, polyphagia, and marked weight changes, Hematologic/Lymphatic: Negative for swollen nodes, abnormal bleeding, and unusual bruising. 11:03 Respiratory: Positive for dyspnea on exertion, shortness of breath, on exertion. 11:03 Skin: Positive for discoloration, ecchymosis, erythema, The patient has been having weeping from her right lower extremity - normally has wraps but did not wrap today. Exam: 11:03 Constitutional: This is a well developed, well nourished patient who is awake, alert, kdr and in no acute distress. Head/Face: Normocephalic, atraumatic. Eyes: Pupils equal round and reactive to light, extra-ocular motions intact. Lids and lashes normal. Conjunctiva and sclera are non-icteric and not injected. Cornea within normal limits. Periorbital areas with no swelling, redness, or edema. Neck: Trachea midline, no thyromegaly or masses palpated, and no cervical lymphadenopathy. Supple, full range of motion without nuchal rigidity, or vertebral point tenderness. No Meningismus. Chest/axilla: Normal chest wall appearance and motion. Nontender with no deformity. No lesions are appreciated. Cardiovascular: Regular rate and rhythm with a normal S1 and S2. No gallops, murmurs, or rubs. Normal PMI, no JVD. No pulse deficits. Respiratory: Lungs have equal breath sounds bilaterally, clear to auscultation and percussion. No rales, rhonchi or wheezes noted. No increased work of breathing, no retractions or nasal flaring. Abdomen/GI: Soft, non-tender, with normal bowel sounds. No distension or tympany. No guarding or rebound. No evidence of tenderness throughout. Back: No spinal tenderness. No costovertebral tenderness. Full range of motion. Neuro: Awake and alert, GCS 15, oriented to person, place, time, and situation. Cranial nerves II-XII grossly intact. Motor strength 5/5 in all extremities. Sensory grossly intact. Cerebellar exam normal. Normal gait. Psych: Awake, alert, with orientation to person, place and time. Behavior, mood, and affect are within normal limits. 11:03 Skin: The patient has considerable disfiguration of the RLE that is chronic - there is no apparent weeping of fluid at this time.. Vital Signs: 10:44 BP 116 / 76; Pulse 97; Resp 18 S; Temp 97.6(TE); Pulse Ox 96% on R/A; Weight 99.79 kg aa5 (R); Height 5 ft. 3 in. (160.02 cm) (R); Pain 2/10; 12:30 BP 117 / 72; Pulse 84; Resp 18; Pulse Ox 97% on R/A; ph 13:30 BP 121 / 68; Pulse 82; Resp 18; Temp 97.9; Pulse Ox 98% on R/A; ph 10:44 Body Mass Index 38.97 (99.79 kg, 160.02 cm) aa5 MDM: 11:03 Data reviewed: vital signs, nurses notes, lab test result(s), radiologic studies. kdr 12:56 Patient medically screened. kdr 13:12 Physician consultation: Adan Camacho MD regarding consult, patient's condition, [facility] outpatient follow-up, and will see patient in office, in 2-3 days, next week, would like medications started, Xarelto 15 mg PO BID. 06/30 10:58 Order name: Basic Metabolic Panel kdr 06/30 10:58 Order name: CBC with Diff kdr 06/30 10:58 Order name: LFT's; Complete Time: 12:22 kdr 06/30 10:58 Order name: Magnesium; Complete Time: 12:22 kdr 06/30 10:58 Order name: NT PRO-BNP; Complete Time: 12:22 kdr 06/30 10:58 Order name: PT-INR; Complete Time: 12:22 kdr 06/30 10:58 Order name: Troponin (emerg Dept Use Only); Complete Time: 12:22 kdr 06/30 10:58 Order name: XRAY Chest (1 view); Complete Time: 12:22 kdr 06/30 10:58 Order name: D-Dimer; Complete Time: 12:22 kdr 06/30 10:58 Order name: CT Chest For PE Angio; Complete Time: 12:41 kdr 06/30 10:59 Order name: Basic Metabolic Panel; Complete Time: 12:22 EDMS 06/30 10:59 Order name: CBC with Automated Diff EDMS 06/30 11:48 Order name: CBC Smear Scan EDNE 06/30 10:58 Order name: EKG; Complete Time: 11:00 kdr 06/30 10:58 Order name: Cardiac monitoring; Complete Time: 11:00 kdr 06/30 10:58 Order name: EKG - Nurse/Tech; Complete Time: 11:54 kdr 06/30 10:58 Order name: IV Saline Lock; Complete Time: 11:54 kdr 06/30 10:58 Order name: Labs collected and sent; Complete Time: 11:54 [facility] 06/30 10:58 Order name: O2 Per Protocol; Complete Time: 11:00 kdr 06/30 10:58 Order name: O2 Sat Monitoring; Complete Time: 11:00 kdr Administered Medications: 13:50 Drug: Lovenox 1 mg/kg Route: Sub-Q; Site: right lower abdomen; iw 14:10 Follow up: Response: No adverse reaction iw Disposition: 06/30/19 12:56 Discharged to Home. Impression: Pulmonary embolism, Shortness of breath. - Condition is Stable. - Discharge Instructions: Pulmonary Embolism, Shortness of Breath, [id number]. - Medication Reconciliation Form, Thank You Letter form. - Follow up: Adan Camacho MD; When: 2 - 3 days; Reason: If symptoms return, Further diagnostic work-up, Recheck today's complaints, Continuance of care, Re-evaluation by your physician. - Problem is new. - Symptoms have improved. - Notes: RX given for Xarelto. Follow-up with Dr. Camacho on Wednesday Signatures: Dispatcher [employer] EDNE Tutu Guillen MD MD kdr Kiana Armstrong RN RN Nighat Parker RN RN aa5 Linda Rodriguez RN RN ph Corrections: (The following items were deleted from the chart) 12:49 10:42 PMHx: Glaucoma; aa5 ph 12:49 10:42 PSHx: BACK SURGERY X 3; aa5 ph 12:49 10:42 PSHx: NECK SURGERY; aa5 ph 12:49 10:42 PSHx: PLATE R WRIST; aa5 ph 12:49 10:42 PSHx: Hysterectomy; aa5 ph 12:49 10:52 PMHx: Hypertension; ph ph 12:49 10:52 PMHx: osteoarthritis; ph ph 12:49 10:52 PSHx: Cholecystectomy; ph ph 12:49 10:52 PSHx: GLAUCOMA SURGERY; ph ph 12:49 10:52 PSHx: CATARACT SURGERY; ph ph 14:11 12:56 06/30/2019 12:56 Discharged to Home. Impression: Pulmonary embolism; Shortness of iw breath. Condition is Stable. Forms are Medication Reconciliation Form, Thank You Letter, Antibiotic Education, Prescription Opioid Use. Follow up: Adan Camacho; When: 2 - 3 days; Reason: If symptoms return, Further diagnostic work-up, Recheck today's complaints, Continuance of care, Re-evaluation by your physician. Problem is new. Symptoms have improved. kdr
--- NOTE | 2019-06-30 12:57 | ER ---
Nurse's Notes [facility] Name: Kimmy Gamez Age: 79 yrs Sex: Female : 1940 Arrival Date: 06/30/2019 Time: 10:43 Bed 8 Private MD: Adan Camacho V Diagnosis: Pulmonary embolism;Shortness of breath Presentation: 06/30 10:43 Presenting complaint: Patient states: "Dr. Camacho did some blood work yesterday and he aa5 sent me here because he thinks I have a blood clot". pt reports ira lower extremity swelling x 2-3 months ago. Pt reports chronic knee pain. Pt states "the only recent surgery I've had was on April 23 and it was for a biopsy from my temples". 10:43 Transition of care: patient was not received from another setting of care. Onset of aa5 symptoms was June 30, 2019. Risk Assessment: Do you want to hurt yourself or someone else? Patient reports no desire to harm self or others. Initial Sepsis Screen: Does the patient meet any 2 criteria? No. Patient's initial sepsis screen is negative. Does the patient have a suspected source of infection? No. Patient's initial sepsis screen is negative. Care prior to arrival: None. 10:43 Acuity: DWIGHT 3 aa5 10:43 Method Of Arrival: Wheelchair aa5 Historical: - Allergies: 10:42 No Known Allergies; aa5 10:52 No Known Allergies; ph - Home Meds: 12:49 Azopt 1 % ophthalmic drps 1 drop 3 times per day [Active]; colestipol 1 gram Oral tab 1 ph tab 2 times per day [Active]; furosemide 40 mg Oral tab 1 tab once daily [Active]; losartan potassium 100 mg daily [Active]; omeprazole 40 mg Oral cpDR 1 cap once daily [Active]; prednisone 10 mg Oral tab once daily [Active]; bisoprolol-hydrochlorothiazide 5-6.25 mg Oral tab 1 tab once daily [Active]; timolol maleate 0.25 % Opht drop 1 drop 2 times per day [Active]; Travatan Z 0.004 % ophthalmic drop 1 drop once daily [Active]; - PMHx: 10:42 Hypertension; osteoarthritis; aa5 10:52 Glaucoma; ph - PSHx: 10:42 Cholecystectomy; GLAUCOMA SURGERY; CATARACT SURGERY; Appendectomy; Skin graft to right aa5 lower leg; 10:52 BACK SURGERY X 3; NECK SURGERY; PLATE R WRIST; Hysterectomy; ph - Immunization history:: Flu vaccine is not up to date. - Social history:: Smoking status: Patient/guardian denies using tobacco. - Ebola Screening: : No symptoms or risks identified at this time. Screenin:13 Abuse screen: Denies threats or abuse. Denies injuries from another. Nutritional ph screening: No deficits noted. Tuberculosis screening: No symptoms or risk factors identified. Fall Risk No fall in past 12 months (0 pts). No secondary diagnosis (0 pts). IV access (20 points). Ambulatory Aid- Crutches/Cane/Walker (15 pts). Gait- Normal/Bed Rest/Wheelchair (0 pts) Mental Status- Oriented to own ability (0 pts). Total Fitch Fall Scale indicates Low Risk Score (25-44 pts). Fall prevention measures have been instituted. Side Rails Up X 2 Family Present and informed to notify staff if they need to leave bedside As available Patient and Family Educated on Fall Prevention Program and strategies. Assessment: 11:12 General: Appears in no apparent distress. comfortable, obese, well groomed, Behavior is ph calm, cooperative, appropriate for age, Denies fever, feeling ill. Pain: Denies pain. Neuro: Level of Consciousness is awake, alert, obeys commands, Oriented to person, place, time, situation. Cardiovascular: Denies chest pain, nausea, shortness of breath, Capillary refill < 3 seconds in bilateral fingers Patient's skin is warm and dry. Respiratory: Airway is patent Respiratory effort is even, unlabored, Respiratory pattern is regular, symmetrical, Denies cough, shortness of breath. GI: No signs and/or symptoms were reported involving the gastrointestinal system. Patient currently denies abdominal pain, nausea. Derm: Skin is healthy with good turgor, Skin is pink, warm \\T\\ dry. Musculoskeletal: Circulation, motion, and sensation intact. Range of motion: intact in all extremities. 12:30 Reassessment: Patient appears in no apparent distress at this time. Patient and/or ph family updated on plan of care and expected duration. Pain level reassessed. Patient is alert, oriented x 3, equal unlabored respirations, skin warm/dry/pink. 13:30 Reassessment: Patient appears in no apparent distress at this time. Patient and/or ph family updated on plan of care and expected duration. Pain level reassessed. Patient is alert, oriented x 3, equal unlabored respirations, skin warm/dry/pink. Vital Signs: 10:44 BP 116 / 76; Pulse 97; Resp 18 S; Temp 97.6(TE); Pulse Ox 96% on R/A; Weight 99.79 kg aa5 (R); Height 5 ft. 3 in. (160.02 cm) (R); Pain 2/10; 12:30 BP 117 / 72; Pulse 84; Resp 18; Pulse Ox 97% on R/A; ph 13:30 BP 121 / 68; Pulse 82; Resp 18; Temp 97.9; Pulse Ox 98% on R/A; ph 10:44 Body Mass Index 38.97 (99.79 kg, 160.02 cm) aa5 ED Course: 10:42 Linda Rodriguez RN is Primary Nurse. ph 10:43 Patient arrived in ED. as 10:43 Adan Camacho MD is Private Physician. as 10:43 Arm band placed on Patient placed in an exam room, on a stretcher. aa5 10:45 Tutu Guillen MD is Attending Physician. kdr 10:55 Triage completed. aa5 11:13 Patient has correct armband on for positive identification. Placed in gown. Bed in low ph position. Call light in reach. Side rails up X 1. dental office assistant on. Pulse ox on. NIBP on. Door closed. Noise minimized. Warm blanket given. Head of bed elevated. 11:13 Missed attempt(s): 22 gauge in left antecubital area. Bleeding controlled, band aid ph applied, catheter tip intact. Patient maintains SpO2 saturation greater than 95% on room air. 11:16 Inserted saline lock: 22 gauge in right antecubital area, using aseptic technique. ph Blood collected. insertedc by Nighat Art RN. 11:24 XRAY Chest (1 view) In Process Unspecified. EDMS 12:13 CT completed. Patient tolerated procedure well. Patient moved back from CT. vm2 12:15 CT Chest For PE Angio In Process Unspecified. EDMS 12:55 Adan Camacho MD is Referral Physician. kdr 14:10 No provider procedures requiring assistance completed. IV discontinued, intact, iw bleeding controlled, No redness/swelling at site. Pressure dressing applied. Administered Medications: 13:50 Drug: Lovenox 1 mg/kg Route: Sub-Q; Site: right lower abdomen; iw 14:10 Follow up: Response: No adverse reaction iw Outcome: 12:56 Discharge ordered by . kdr 14:10 Discharged to home via wheelchair, with family. iw 14:10 Condition: good 14:10 Discharge instructions given to patient, family, Instructed on discharge instructions, follow up and referral plans. medication usage, Demonstrated understanding of instructions, follow-up care, medications, Prescriptions given X 1. 14:11 Patient left the ED. iw Signatures: Dispatcher [employer] EDMS Tutu Guillen MD MD kdr Leonela Rivas Irene RN RN Nighat Parker RN RN Linda Garrison RN RN Diandra Contreras [facility] Corrections: (The following items were deleted from the chart) 10:56 10:43 Presenting complaint: Patient states: "Dr. Camacho did some blood work yesterday aa5 and he sent me here because he thinks I have a blood clot". pt reports ira lower extremity swelling x 2-3 months ago. Pt reports chronic knee pain. aa5 12:49 10:42 PMHx: Glaucoma; aa5 ph 12:49 10:42 PSHx: BACK SURGERY X 3; aa5 ph 12:49 10:42 PSHx: NECK SURGERY; aa5 ph 12:49 10:42 PSHx: PLATE R WRIST; aa5 ph 12:49 10:42 PSHx: Hysterectomy; aa5 ph 12:49 10:52 PMHx: Hypertension; ph ph 12:49 10:52 PMHx: osteoarthritis; ph ph 12:49 10:52 PSHx: Cholecystectomy; ph ph 12:49 10:52 PSHx: GLAUCOMA SURGERY; ph ph 12:49 10:52 PSHx: CATARACT SURGERY; ph ph
[2019-06-30 13:11] LABS: Urine White Blood Cell Casts OK
[2019-06-30 13:12] LABS: Blood Morphology Comment NOT SEEN (NOT SEEN); Platelet Estimate DECR
[2019-06-30] MEDS ORDERED: ENOXAPARIN 100 MG/ML SYR SQ ONE (13:50)
[2019-06-30 14:20] VITALS: BP 116/76; TEMP 97.6; O2SAT 96
--- NOTE | 2019-06-30 14:26 | EKG ---
Test Date: 2019-06-30 Test Time: 11:09:48 Cushion Sewer: AMELIA MEASUREMENT RESULTS: Intervals: Rate: 95 CA: 160 QRSD: 70 QT: 348 QTc: 437 [place]: P: 52 CA: 160 QRS: -15 T: 26 INTERPRETIVE STATEMENTS: Sinus rhythm and premature atrial complexes Otherwise normal ECG Compared to ECG 04/25/2019 09:53:30 Atrial premature complex(es) now present Left ventricular hypertrophy no longer present Electronically Signed On 06-30-19 14:26:12 CDT by Oj Malcolm
== END 2019-06-30 14:11 | disposition home or self-care (01) ==
LOC: ER 10:35
DX: I26.99 Other pulmonary embolism without acute cor pulmonale (principal); I10 Essential (primary) hypertension
CPT/HCPCS: 93005; 85025; 80048; 36415; 83735; 85610; 85379; 80076; 84484; 83880; 71275; 71045; 96372; 99285; Q9967; J1650

== ENCOUNTER 2019-07-06 16:22 | Emergency (ER) | payer OTHER ==
[2019-07-06 17:51] LABS: Absolute Lymphocytes (CBC) 1.8 K/uL (0.7-4.9); Basophils % 0.6 % (0-1.3); Hematocrit 35.1 % (36.0-45.0); Lymphocytes % 19.1 % (15.3-44.8); MPV 10.2 fL (7.6-11.3); RBC Red Blood Cell Count 3.93 M/uL (3.86-4.86)
[2019-07-06 17:52] LABS: Protime INR 3.49
[2019-07-06 18:08] LABS: Albumin 2.7 g/dL (3.4-5.0); Bilirubin Direct 0.2 mg/dL (0-0.2); Bilirubin Total 0.6 mg/dL (0.2-1.0); Magnesium 1.8 mg/dL (1.8-2.4); Potassium 3.8 mmol/L (3.5-5.1); Protein, Total 5.2 g/dL (6.4-8.2); Troponin (Emerg Dept Use Only) 0.02 ng/mL (0.0-0.045)
--- NOTE | 2019-07-06 18:34 | ER ---
Nurse's Notes [facility] Name: Kimmy Gamez Age: 79 yrs Sex: Female : 1940 Arrival Date: 07/06/2019 Time: 16:36 Bed 14 Private MD: Diagnosis: Gastrointestinal hemorrhage, unspecified;Pulmonary embolism;Syncope and collapse Presentation: 07/06 16:25 Presenting complaint: EMS states: 79 yr. old c/o generalized weakness. Was diagnosed rb1 with a PE 6 days ago. reports that the pt. was lethargic this morning. BP 116/63, P 96, BS 203. SR on the monitor. Breath sounds are clear per report. Bilateral edema noted to the lower extremities. Recently started taking Xarelto. Transition of care: patient was not received from another setting of care. Onset of symptoms is unknown. Risk Assessment: Do you want to hurt yourself or someone else? Patient reports no desire to harm self or others. Care prior to arrival: None. 16:25 Method Of Arrival: EMS: [facility] [place] [id number] 16:25 Acuity: DWIGHT 3 rb1 16:25 Initial Sepsis Screen: Does the patient have a suspected source of infection? No. rb1 Patient's initial sepsis screen is negative. 16:47 Initial Sepsis Screen: Does the patient meet any 2 criteria?. rb1 Triage Assessment: 16:25 General: Appears obese, Behavior is drowsy. Pain: Complains of pain in right lower leg rb1 Pain currently is 7 out of 10 on a pain scale. Neuro: Level of Consciousness is awake, alert, obeys commands, Oriented to person, place, time, situation. Cardiovascular: Capillary refill < 3 seconds is brisk in bilateral fingers. Respiratory: Airway is patent Respiratory effort is even, unlabored, Respiratory pattern is regular, symmetrical. GI: Reports diarrhea, bloody stool. : No signs and/or symptoms were reported regarding the genitourinary system. Derm: Bruising that is dark purple, on bilateral arms. Musculoskeletal: Range of motion: intact in all extremities, pt. uses walker at home. Historical: - Allergies: 16:25 No Known Allergies; rb1 - Home Meds: 16:25 aspirin 81 mg Oral chew 1 tab once daily [Active]; Azopt 1 % ophthalmic drps 1 drop 3 rb1 times per day [Active]; bisoprolol-hydrochlorothiazide 5-6.25 mg Oral tab 1 tab once daily [Active]; colestipol 1 gram Oral tab 1 tab 2 times per day [Active]; furosemide 40 mg Oral tab 1 tab once daily [Active]; losartan potassium 100 mg daily [Active]; omeprazole 40 mg Oral cpDR 1 cap once daily [Active]; prednisone 10 mg Oral tab once daily [Active]; timolol maleate 0.25 % Opht drop 1 drop 2 times per day [Active]; Travatan Z 0.004 % ophthalmic drop 1 drop once daily [Active]; - PMHx: 16:25 PE; rb1 - PSHx: 16:25 Cholecystectomy; GLAUCOMA SURGERY; CATARACT SURGERY; Appendectomy; rb1 16:25 Skin graft to right lower leg; BACK SURGERY X 3; NECK SURGERY; PLATE R WRIST; rb1 Hysterectomy; - Immunization history:: Adult Immunizations up to date. - Social history:: Smoking status: Patient/guardian denies using tobacco. - Ebola Screening: : Patient negative for fever greater than or equal to 101.5 degrees Fahrenheit, and additional compatible Ebola Virus Disease symptoms. Screenin:25 Abuse screen: Denies threats or abuse. Nutritional screening: No deficits noted. rb1 Tuberculosis screening: No symptoms or risk factors identified. Fall Risk No fall in past 12 months (0 pts). Secondary diagnosis (15 points) impaired mobility, IV access (20 points). Ambulatory Aid- Crutches/Cane/Walker (15 pts). Gait- Impaired (20 pts.). Mental Status- Oriented to own ability (0 pts). Total Fitch Fall Scale indicates High Risk Score (45 or more points). Fall prevention measures have been instituted. Side Rails Up X 2 Placed Close to Nursing Station 1:1 Attendant Assigned Frequent Obs/Assessments Occuring Family Present and informed to notify staff if the need to leave the bedside As available patient and family educated on Fall Prevention Program and Strategies. Assessment: 16:25 General: See triage assessment. rb1 17:25 Reassessment: Patient appears in no apparent distress at this time. Patient and/or rb1 family updated on plan of care and expected duration. Pain level reassessed. Patient is alert, oriented x 3, equal unlabored respirations, skin warm/dry/pink. Pt. is only in pain if she moves her right leg. She is awake and talking with family that is at the bedside. 18:25 Reassessment: Patient appears in no apparent distress at this time. No changes from rb1 previously documented assessment. 19:00 General: Appears in no apparent distress. comfortable, Behavior is calm, cooperative, jb4 appropriate for age. Pain: Denies pain. Neuro: Level of Consciousness is awake, alert, obeys commands, Oriented to person, place, time, situation. Cardiovascular: Patient's skin is warm and dry. Rhythm is sinus tachycardia. Respiratory: Airway is patent Respiratory effort is even, unlabored, Respiratory pattern is regular, symmetrical. GI: Reports rectal bleeding, bloody stool. : No deficits noted. No signs and/or symptoms were reported regarding the genitourinary system. EENT: No deficits noted. No signs and/or symptoms were reported regarding the EENT system. Derm: Skin is intact, Skin is dry, Skin is normal, Skin temperature is warm. Musculoskeletal: Circulation, motion, and sensation intact. Range of motion: intact in all extremities. 19:30 Reassessment: Pt assisted with bedpan. jb4 20:00 Reassessment: Patient appears in no apparent distress at this time. Patient and/or jb4 family updated on plan of care and expected duration. Pain level reassessed. Patient is alert, oriented x 3, equal unlabored respirations, skin warm/dry/pink. 22g IV to RFA removed due to infiltration. 20:34 Reassessment: Report called to ROSALINDA Escalante at receiving facility. jb4 21:24 Reassessment: Patient appears in no apparent distress at this time. Patient and/or jb4 family updated on plan of care and expected duration. Pain level reassessed. Patient is alert, oriented x 3, equal unlabored respirations, skin warm/dry/pink. 22:20 Reassessment: Patient appears in no apparent distress at this time. Patient and/or jb4 family updated on plan of care and expected duration. Pain level reassessed. Patient is alert, oriented x 3, equal unlabored respirations, skin warm/dry/pink. Assisted EMS with transferring [facility] to [facility]. IV Fluid infusion continued upon transfer. Vital Signs: 16:25 BP 134 / 50; Pulse 96; Resp 24; Temp 98.9(O); Pulse Ox 99% on R/A; Weight 99.79 kg (R); rb1 Height 5 ft. 3 in. (160.02 cm) (R); Pain 0/10; 17:25 BP 113 / 71; Pulse 95; Resp 23; Temp 98.8; Pulse Ox 98% on R/A; Pain 0/10; rb1 18:25 BP 105 / 65; Pulse 96; Resp 18; Temp 98.3(O); Pulse Ox 96% on R/A; Pain 0/10; rb1 19:00 BP 96 / 61; Pulse 96; Resp 16; Pulse Ox 96% on R/A; jb4 20:00 BP 124 / 74; Pulse 88; Resp 12; Pulse Ox 93% on R/A; jb4 21:24 BP 109 / 72; Pulse 88; Resp 13; Temp 98.2; Pulse Ox 95% on R/A; jb4 16:25 Body Mass Index 38.97 (99.79 kg, 160.02 cm) rb1 ED Course: 16:25 Arm band placed on right wrist. rb1 16:25 Patient has correct armband on for positive identification. Bed in low position. Call rb1 light in reach. Side rails up X 1. rn informatics on. Pulse ox on. NIBP on. Warm blanket given. 16:36 Patient arrived in ED. rb1 16:37 Basia Sousa, ROSALINDA is Primary Nurse. rb1 16:37 Tomer Augustin PA is PHCP. jmm 16:37 Robert Pereira MD is Attending Physician. jmm 16:40 Triage completed. rb1 17:04 XRAY Chest (1 view) In Process Unspecified. EDMS 17:14 EKG done, by gi technician. reviewed by Tomer MARTIN. sm3 17:30 Inserted saline lock: 22 gauge in right forearm, using aseptic technique. ,using rb1 aseptic technique. IV inserted by NGA Joshi Tech. 18:32 Adan Camacho MD is Hospitalizing Provider. jmm 18:43 CT Head Brain wo Cont In Process Unspecified. EDMS 19:00 Report given to ROSALINDA Pettit. rb1 20:15 IV discontinued, intact, bleeding controlled, No redness/swelling at site. Pressure fc dressing applied. 20:15 Inserted 18 gauge 10 cm midline to right upper brachial vein on first attempt. Line fc with good blood return and flushes well. 22:20 No provider procedures requiring assistance completed. jb4 Administered Medications: 19:33 Drug: NS 0.9% 1000 ml Route: IV; Rate: 1 bolus; Site: right forearm; jb4 20:10 Drug: ProTONIX 40 mg Route: IVP; Site: right upper arm; jb4 20:30 Follow up: Response: No adverse reaction jb4 20:12 Drug: Octreotide Infusion (50 mcg/hr) - (Octreotide 500 mcg, NS 0.9% 500 ml) Route: IV; jb4 Rate: 50 ml/hr; Site: right upper arm; 22:20 Follow up: Response: No adverse reaction; IV Status: Infusion continued upon transfer jb4 Outcome: 18:33 Decision to Hospitalize by Provider. [facility] 19:45 ER care complete, transfer ordered by MD. [facility] 22:20 Transferred by ground EMS Transfer form completed. jb4 22:20 Condition: stable 22:20 Discharge instructions given to patient, family, Instructed on the need for transfer, Demonstrated understanding of instructions. 22:25 Patient left the ED. jb4 Signatures: Dispatcher [employer] EDMS Tomer Augustin PA PA jmm Chretien, Felicia, RN RN Basia Hardwick, RN RN Dylan Chen RN RN jb Giuliana Barksdale 3
--- NOTE | 2019-07-06 18:34 | EDPHYS ---
Physician Documentation [facility] Name: Kimmy Gamez Age: 79 yrs Sex: Female : 1940 Arrival Date: 07/06/2019 Time: 16:36 Bed 14 Private MD: ED Physician Robert Pereira HPI: 07/06 16:37 This 79 yrs old Black Female presents to ER via EMS with complaints of General Weakness.[facility] 16:37 Onset: The symptoms/episode began/occurred today. This is a 79 year old female with a jmm history of PE that presents to the ED with complaints of generalized weakness worsening today. Patient states he had difficulty waking her. Patient states having bloody stools. Patient is currently taking xarelto 15 mg BID for a PE diagnosed on the of this month. Patient also complains of ongoing pain to her right lower leg. . Historical: - Allergies: 16:25 No Known Allergies; rb1 - Home Meds: 16:25 aspirin 81 mg Oral chew 1 tab once daily [Active]; Azopt 1 % ophthalmic drps 1 drop 3 rb1 times per day [Active]; bisoprolol-hydrochlorothiazide 5-6.25 mg Oral tab 1 tab once daily [Active]; colestipol 1 gram Oral tab 1 tab 2 times per day [Active]; furosemide 40 mg Oral tab 1 tab once daily [Active]; losartan potassium 100 mg daily [Active]; omeprazole 40 mg Oral cpDR 1 cap once daily [Active]; prednisone 10 mg Oral tab once daily [Active]; timolol maleate 0.25 % Opht drop 1 drop 2 times per day [Active]; Travatan Z 0.004 % ophthalmic drop 1 drop once daily [Active]; - PMHx: 16:25 PE; rb1 - PSHx: 16:25 Cholecystectomy; GLAUCOMA SURGERY; CATARACT SURGERY; Appendectomy; rb1 16:25 Skin graft to right lower leg; BACK SURGERY X 3; NECK SURGERY; PLATE R WRIST; rb1 Hysterectomy; - Immunization history:: Adult Immunizations up to date. - Social history:: Smoking status: Patient/guardian denies using tobacco. - Ebola Screening: : Patient negative for fever greater than or equal to 101.5 degrees Fahrenheit, and additional compatible Ebola Virus Disease symptoms. ROS: 16:37 Cardiovascular: Negative for chest pain, palpitations, and edema, Respiratory: Negative [facility] for shortness of breath, cough, wheezing, and pleuritic chest pain. 16:37 MS/Extremity: Negative for injury and deformity. 16:37 MS/Extremity: Negative for injury and deformity. 16:37 Constitutional: Positive for fatigue. 16:37 Abdomen/GI: Positive for rectal bleeding. 16:37 : Positive for 16:37 Neuro: Positive for weakness. 16:37 All other systems are negative. Exam: 16:37 Constitutional: This is a well developed, well nourished patient who is awake, alert, jmm and in no acute distress. Head/Face: atraumatic. Eyes: EOMI, no conjunctival erythema appreciated ENT: Moist Mucus Membranes Neck: Trachea midline, Supple Chest/axilla: Normal chest wall appearance and motion. Cardiovascular: Regular rate and rhythm. No edema appreciated Respiratory: Normal respirations, no respiratory distress appreciated 16:37 Back: Normal ROM Skin: General appearance color normal MS/ Extremity: Moves all extremities, no obvious deformities appreciated, no edema noted to the lower extremities Neuro: Awake and alert, normal gait Psych: Behavior is normal, Mood is normal, Patient is cooperative and pleasant 16:37 Abdomen/GI: Inspection: obese Bowel sounds: normal, Palpation: abdomen is soft and non-tender, Rectal exam: Stool: grossly bloody. 17:11 ECG was reviewed by the Attending Physician. [facility] Vital Signs: 16:25 BP 134 / 50; Pulse 96; Resp 24; Temp 98.9(O); Pulse Ox 99% on R/A; Weight 99.79 kg (R); rb1 Height 5 ft. 3 in. (160.02 cm) (R); Pain 0/10; 17:25 BP 113 / 71; Pulse 95; Resp 23; Temp 98.8; Pulse Ox 98% on R/A; Pain 0/10; rb1 18:25 BP 105 / 65; Pulse 96; Resp 18; Temp 98.3(O); Pulse Ox 96% on R/A; Pain 0/10; rb1 19:00 BP 96 / 61; Pulse 96; Resp 16; Pulse Ox 96% on R/A; jb4 20:00 BP 124 / 74; Pulse 88; Resp 12; Pulse Ox 93% on R/A; jb4 21:24 BP 109 / 72; Pulse 88; Resp 13; Temp 98.2; Pulse Ox 95% on R/A; jb4 16:25 Body Mass Index 38.97 (99.79 kg, 160.02 cm) rb1 MDM: 16:37 Patient medically screened. norah 18:31 Data reviewed: vital signs, nurses notes. Counseling: I had a detailed discussion with saurav the patient and/or guardian regarding: the historical points, exam findings, and any diagnostic results supporting the discharge/admit diagnosis, lab results, radiology results, the need for further work-up and treatment in the hospital. ED course: I discussed the patient with Dr. Eli whom stated Dr. Claudio will evaluate the patient tomorrow. Dr. Pereira discussed the patient with Dr. Camacho whom accepted admission and advised to discontinue xarelto. 19:41 ED course: Blood pressure is trending down. I discussed this with Dr. Eli whom advised saurav to transfer to his service at [facility]. I discussed the patient with ED provider whom accepted admission. Patient transferred to [facility] for continuity of care. . 07/06 16:37 Order name: Basic Metabolic Panel; Complete Time: 18:09 [facility] 07/06 16:37 Order name: CBC with Diff [facility] 07/06 16:37 Order name: LFT's; Complete Time: 18:09 [facility] 07/06 16:37 Order name: Magnesium; Complete Time: 18:09 [facility] 07/06 16:37 Order name: NT PRO-BNP; Complete Time: 18:09 [facility] 07/06 16:37 Order name: PT-INR; Complete Time: 17:56 [facility] 07/06 16:37 Order name: Troponin (emerg Dept Use Only); Complete Time: 18:09 [facility] 07/06 16:37 Order name: XRAY Chest (1 view); Complete Time: 18:58 [facility] 07/06 16:37 Order name: Type And Screen; Complete Time: 18:51 [facility] 07/06 18:28 Order name: CT Head Brain wo Cont; Complete Time: 18:58 [facility] 07/06 20:04 Order name: Manual Differential [facility] 07/06 16:37 Order name: EKG; Complete Time: 16:39 [facility] 07/06 16:37 Order name: Cardiac monitoring; Complete Time: 17:38 [facility] 07/06 16:37 Order name: EKG - Nurse/Tech; Complete Time: 18:59 [facility] 07/06 16:37 Order name: IV Saline Lock; Complete Time: 17:38 [facility] 07/06 16:37 Order name: Labs collected and sent; Complete Time: 19:00 [facility] 07/06 16:37 Order name: O2 Per Protocol; Complete Time: 17:38 [facility] 07/06 16:37 Order name: O2 Sat Monitoring; Complete Time: 17:38 jm EC:11 Rate is 93 beats/min. Rhythm is regular. QRS [place] is Normal. GA interval is normal. QRS jmm interval is normal. QT interval is normal. No Q waves. T waves are Normal. No ST changes noted. Reviewed by me. Administered Medications: 19:33 Drug: NS 0.9% 1000 ml Route: IV; Rate: 1 bolus; Site: right forearm; jb4 20:10 Drug: ProTONIX 40 mg Route: IVP; Site: right upper arm; jb4 20:30 Follow up: Response: No adverse reaction jb4 20:12 Drug: Octreotide Infusion (50 mcg/hr) - (Octreotide 500 mcg, NS 0.9% 500 ml) Route: IV; jb4 Rate: 50 ml/hr; Site: right upper arm; 22:20 Follow up: Response: No adverse reaction; IV Status: Infusion continued upon transfer jb4 Disposition: 07/07 08:22 Co-signature as Attending Physician, Robert Pereira MD I agree with the assessment and [facility] plan of care. Disposition: 07/06/19 19:45 Transfer ordered to Other Acute Care Facility. Diagnosis are Gastrointestinal hemorrhage, unspecified, Pulmonary embolism, Syncope and collapse. - Reason for transfer: Higher level of care. - Accepting physician is Cano. - Condition is Stable. - Problem is new. - Symptoms are unchanged. Signatures: Dispatcher [employer] Robert Murillo MD MD cha Mickail, Joel, PA PA [facility] Basia Sousa, Dylan Warren RN, RN RN jb4 Corrections: (The following items were deleted from the chart) 07/06 19:43 18:33 Hospitalization Ordered by Adan Camacho MD for Inpatient Admission. Preliminary [facility] diagnosis is Gastrointestinal hemorrhage, unspecified; Syncope and collapse. Bed requested for Telemetry/MedSurg (Inpatient). Status is Inpatient Admission. Condition is Stable. Problem is new. Symptoms are unchanged. UTI on Admission? No. saurav 22:25 19:45 07/06/2019 19:45 Transfer ordered to Other Acute Care Facility. Diagnosis is jb4 Gastrointestinal hemorrhage, unspecified; Pulmonary embolism; Syncope and collapse. Reason for transfer: Higher level of care. Accepting physician is Cano. Condition is Stable. Problem is new. Symptoms are unchanged. saurav
--- NOTE | 2019-07-06 18:55 | RAD REPORT ---
EXAM DESCRIPTION: CT - Head Brain Wo Cont - 07/06/2019 6:42 pm CLINICAL HISTORY: Syncope COMPARISON: None TECHNIQUE: Computed axial tomography of the head was obtained. IV contrast was not requested. All CT scans are performed using dose optimization technique as appropriate and may include automated exposure control or mA/KV adjustment according to patient size. FINDINGS: An intracranial bleed is not seen . The ventricles are normal in caliber. No extra-axial fluid collection is noted. Mild to moderate low-density areas within periventricular, deep and subcortical white matter likely r epresent ischemic changes secondary to small vessel disease. Fluid within the sinuses/ mastoids is not seen. IMPRESSION: No acute intracranial abnormality is seen. If patient's symptoms persist MRI of the bra in would be recommended.
--- NOTE | 2019-07-06 18:56 | RAD REPORT ---
EXAM DESCRIPTION: Tomi Single View07/06/2019 5:00 pm CLINICAL HISTORY: Chest pain COMPARISON: June 30, 2019 FINDINGS: The lungs appear clear of acute infiltrate. The heart is mildly enlarged IMPRESSION: No acute abnormalities displayed
[2019-07-06] MEDS ORDERED: NA CHLORIDE 0.9% 1,000 ML ONE (19:21)
[2019-07-06] MEDS ORDERED: PANTOPRAZOLE 40 MG INJ ONE (19:38)
[2019-07-06] MEDS ORDERED: NA CHLORIDE 0.9% 500 ML ONE (19:38)
[2019-07-06] MEDS ORDERED: OCTREOTIDE ACETATE 100 MCG/ML ONE (19:39)
[2019-07-06 20:03] LABS: Blood Morphology Comment NOTED (NOT SEEN); Platelet Estimate DECR
[2019-07-06 20:05] LABS: Anisocytosis 1+
[2019-07-06 23:19] VITALS: BP 109/72; TEMP 98.2; O2SAT 95
--- NOTE | 2019-07-07 11:47 | EKG ---
Test Date: 2019-07-06 Test Time: 17:04:40 Natural Developer: DILLON MEASUREMENT RESULTS: Intervals: Rate: 93 SC: 162 QRSD: 68 QT: 348 QTc: 432 [place]: P: 61 SC: 162 QRS: -9 T: 47 INTERPRETIVE STATEMENTS: Normal sinus rhythm Normal ECG Compared to ECG 06/30/2019 11:09:48 Atrial premature complex(es) no longer present Electronically Signed On 07-07-19 11:45:06 CDT by Nate Soares
== END 2019-07-06 22:25 ==
LOC: ER 16:22
DX: K92.2 Gastrointestinal hemorrhage, unspecified (principal); R55 Syncope and collapse; I26.99 Other pulmonary embolism without acute cor pulmonale; Z79.01 Long term (current) use of anticoagulants; Z79.82 Long term (current) use of aspirin
CPT/HCPCS: 96365; 93005; 85025; 80048; 36415; 86900; 83735; 86850; 85610; 86901; 80076; 84484; 83880; 70450; 71045; 96375; 99285; J2354; C9113; J7030

== ENCOUNTER 2019-10-04 03:31 | Emergency (ER) | payer OTHER ==
--- OUTSIDE RECORDS SUMMARY | 2019-10-04 03:35 | XMS REPORT ---
:1940 [facility] Address [address] [place] [address] Care Team Providers Name Role Phone Unavailable Unavailable Unavailable Payers Payer Name Policy Type Policy Number Effective Date Expiration Date Problems This patient has no known problems. Allergies, Adverse Reactions, Alerts Allergy Allergy Status Severity Reaction(s) Onset Inactive Treating Comments Name Type Date Date Clinician No Known DA Active U 2019-06 Allergies -16 00:00:0 0 Medications This patient has no known medications. Results Test Description Test Time Test Comments Text Results Atomic Results Result Comments CBC W/AUTO DIFF 2019-07-18 04:58:00 Test Item Value Reference Range Comments WHITE BLOOD CELL (test code=WBC) 5.2 K/mm3 3.5-11.0 RED BLOOD CELL (test code=RBC) 2.61 M/mm3 4.70-6.10 HEMOGLOBIN (test code=HGB) 7.6 G/DL 10.4-14.9 HEMATOCRIT (test code=HCT) 25.4 % 31.5-44.1 MEAN CELL VOLUME (test code=MCV) 97.3 Fl 84.5-98.6 MEAN CELL HGB (test code=MCH) 29.1 pg 27.0-34.2 MEAN CELL HGB CONCETRATION (test 29.9 G/DL 31.5-34.0 code=MCHC) RED CELL DISTRIBUTION WIDTH (test 19.3 SD 11.5-14.5 code=RDW) PLATELET COUNT (test code=PLT) 96.0 K/mm3 150-450 MEAN PLATELET VOLUME (test 11.30 fL 7.0-10.5 code=MPV) NEUTROPHIL % (test code=NT%) 47.7 % 40-76 LYMPHOCYTE % (test code=LY%) 36.5 % 20.5-51.1 MONOCYTE % (test code=MO%) 13.7 % 1.7-9.3 EOSINOPHIL % (test code=EO%) 1.7 % 0.0-6.0 BASOPHIL % (test code=BA%) 0.4 % 0.0-2.0 NEUTROPHIL # (test code=NT#) 2.48 K/mm3 1.8-7.6 LYMPHOCYTE # (test code=LY#) 1.9 K/mm3 0.6-3.2 MONOCYTE # (test code=MO#) 0.7 K/mm3 0.3-1.1 EOSINOPHIL # (test code=EO#) 0.1 K/mm3 0.0-0.4 BASOPHIL # (test code=BA#) 0.0 K/mm3 0.0-0.1 MANUAL DIFF REQUIRED (test NO DIFF/SCN CRITERIA SLIDE REVIEW CONSISTANT WITH code=MDIFF) AUTO DIFFERENTIAL.PLATELET COUNT REVIEWED AND VERIFIED. CBC W/AUTO [id number] 14:32:00 Test Item Value Reference Range Comments WHITE BLOOD CELL (test code=WBC) 5.3 K/mm3 3.5-11.0 RED BLOOD CELL (test code=RBC) 2.51 M/mm3 4.70-6.10 HEMOGLOBIN (test code=HGB) 7.5 G/DL 10.4-14.9 HEMATOCRIT (test code=HCT) 24.2 % 31.5-44.1 MEAN CELL VOLUME (test code=MCV) 96.4 Fl 84.5-98.6 MEAN CELL HGB (test code=MCH) 29.9 pg 27.0-34.2 MEAN CELL HGB CONCETRATION (test code=MCHC) 31.0 G/DL 31.5-34.0 RED CELL DISTRIBUTION WIDTH (test code=RDW) 19.5 SD 11.5-14.5 PLATELET COUNT (test code=PLT) 83.0 K/mm3 150-450 MEAN PLATELET VOLUME (test code=MPV) 11.70 fL 7.0-10.5 MANUAL DIFF REQUIRED (test code=MDIFF) YES DIFF/SCN CRITERIA WBC [id number] 14:32:00 Test Item Value Reference Range Comments SEGMENTED NEUTROPHILS (test 72 % 40-75 code=SEG) LYMPHOCYTE (test 23 % 18.7-40.6 code=LYMPH) MONOCYTE (test code=MON) 5 % 3.8-11.4 PLATELET ESTIMATE (test DECREASED THOUSAND ADEQUATE PLATELET COUNT REVIEWED code=PLTEST) AND VERIFIED. PLATELET MORPHOLOGY (test NORMAL code=PLTMORPH) CBC W/AUTO [id number] 11:35:00 Test Item Value Reference Range Comments WHITE BLOOD CELL (test code=WBC) 5.3 K/mm3 3.5-11.0 RED BLOOD CELL (test code=RBC) 2.51 M/mm3 4.70-6.10 HEMOGLOBIN (test code=HGB) 7.5 G/DL 10.4-14.9 HEMATOCRIT (test code=HCT) 24.2 % 31.5-44.1 MEAN CELL VOLUME (test code=MCV) 96.4 Fl 84.5-98.6 MEAN CELL HGB (test code=MCH) 29.9 pg 27.0-34.2 MEAN CELL HGB CONCETRATION (test code=MCHC) 31.0 G/DL 31.5-34.0 RED CELL DISTRIBUTION WIDTH (test code=RDW) 19.5 SD 11.5-14.5 PLATELET COUNT (test code=PLT) 83.0 K/mm3 150-450 MEAN PLATELET VOLUME (test code=MPV) 11.70 fL 7.0-10.5 MANUAL DIFF REQUIRED (test code=MDIFF) YES DIFF/SCN CRITERIA WBC [id number] 11:35:00 Test Item Value Reference Range Comments SEGMENTED NEUTROPHILS (test code=SEG) % 40-75 LYMPHOCYTE (test code=LYMPH) % 18.7-40.6 CBC W/AUTO [id number] 11:35:00 Test Item Value Reference Range Comments WHITE BLOOD CELL (test code=WBC) 5.3 K/mm3 3.5-11.0 RED BLOOD CELL (test code=RBC) 2.51 M/mm3 4.70-6.10 HEMOGLOBIN (test code=HGB) 7.5 G/DL 10.4-14.9 HEMATOCRIT (test code=HCT) 24.2 % 31.5-44.1 MEAN CELL VOLUME (test code=MCV) 96.4 Fl 84.5-98.6 MEAN CELL HGB (test code=MCH) 29.9 pg 27.0-34.2 MEAN CELL HGB CONCETRATION (test code=MCHC) 31.0 G/DL 31.5-34.0 RED CELL DISTRIBUTION WIDTH (test code=RDW) 19.5 SD 11.5-14.5 PLATELET COUNT (test code=PLT) 83.0 K/mm3 150-450 MEAN PLATELET VOLUME (test code=MPV) 11.70 fL 7.0-10.5 MANUAL DIFF REQUIRED (test code=MDIFF) YES DIFF/SCN CRITERIA WBC [id number] 11:35:00 Test Item Value Reference Range Comments SEGMENTED NEUTROPHILS (test code=SEG) % 40-75 LYMPHOCYTE (test code=LYMPH) % 18.7-40.6 BASIC METABOLIC [id number] 09:36:00 Test Item Value Reference Range Comments SODIUM (test code=NA) 143 mmol/L 134-147 POTASSIUM (test code=K) 4.2 mmol/L 3.4-5.0 CHLORIDE (test code=CL) 111 mmol/L 100-108 CARBON DIOXIDE (test code=CO2) 23 mmol/L 21-32 ANION GAP (test code=GAP) 9.0 GAP calc 4.0-15.0 GLUCOSE (test code=GLU) 103 MG/DL 70-110 BLOOD UREA NITROGEN (test code=BUN) 16 MG/DL 7-18 GLOMERULAR FILTRATION RATE (test code=GFR) 56 estGFR >60 CREATININE (test code=CREAT) 1.2 MG/DL 0.6-1.0 CALCIUM (test code=CA) 8.1 MG/DL 8.5-10.1 CBC W/AUTO [id number] 09:13:00 Test Item Value Reference Range Comments WHITE BLOOD CELL (test code=WBC) 5.3 K/mm3 3.5-11.0 RED BLOOD CELL (test code=RBC) 2.51 M/mm3 4.70-6.10 HEMOGLOBIN (test code=HGB) 7.5 G/DL 10.4-14.9 HEMATOCRIT (test code=HCT) 24.2 % 31.5-44.1 MEAN CELL VOLUME (test code=MCV) 96.4 Fl 84.5-98.6 MEAN CELL HGB (test code=MCH) 29.9 pg 27.0-34.2 MEAN CELL HGB CONCETRATION (test code=MCHC) 31.0 G/DL 31.5-34.0 RED CELL DISTRIBUTION WIDTH (test code=RDW) 19.5 SD 11.5-14.5 PLATELET COUNT (test code=PLT) 83.0 K/mm3 150-450 MEAN PLATELET VOLUME (test code=MPV) 11.70 fL 7.0-10.5 NEUTROPHIL % (test code=NT%) % 40-76 LYMPHOCYTE % (test code=LY%) % 20.5-51.1 MONOCYTE % (test code=MO%) % 1.7-9.3 EOSINOPHIL % (test code=EO%) % 0.0-6.0 BASOPHIL % (test code=BA%) % 0.0-2.0 NEUTROPHIL # (test code=NT#) K/mm3 1.8-7.6 LYMPHOCYTE # (test code=LY#) K/mm3 0.6-3.2 MONOCYTE # (test code=MO#) K/mm3 0.3-1.1 EOSINOPHIL # (test code=EO#) K/mm3 0.0-0.4 BASOPHIL # (test code=BA#) K/mm3 0.0-0.1 MANUAL DIFF REQUIRED (test code=MDIFF) DIFF/SCN CRITERIA CBC W/AUTO [id number] 08:23:00 Test Item Value Reference Range Comments WHITE BLOOD CELL (test code=WBC) 4.8 K/mm3 3.5-11.0 RED BLOOD CELL (test code=RBC) 2.52 M/mm3 4.70-6.10 HEMOGLOBIN (test code=HGB) 7.4 G/DL 10.4-14.9 HEMATOCRIT (test code=HCT) 24.5 % 31.5-44.1 MEAN CELL VOLUME (test code=MCV) 97.2 Fl 84.5-98.6 MEAN CELL HGB (test code=MCH) 29.4 pg 27.0-34.2 MEAN CELL HGB CONCETRATION (test code=MCHC) 30.2 G/DL 31.5-34.0 RED CELL DISTRIBUTION WIDTH (test code=RDW) 19.3 SD 11.5-14.5 PLATELET COUNT (test code=PLT) 79.0 K/mm3 150-450 MEAN PLATELET VOLUME (test code=MPV) 10.90 fL 7.0-10.5 NEUTROPHIL % (test code=NT%) 50.3 % 40-76 LYMPHOCYTE % (test code=LY%) 36.1 % 20.5-51.1 MONOCYTE % (test code=MO%) 11.7 % 1.7-9.3 EOSINOPHIL % (test code=EO%) 1.5 % 0.0-6.0 BASOPHIL % (test code=BA%) 0.4 % 0.0-2.0 NEUTROPHIL # (test code=NT#) 2.40 K/mm3 1.8-7.6 LYMPHOCYTE # (test code=LY#) 1.7 K/mm3 0.6-3.2 MONOCYTE # (test code=MO#) 0.6 K/mm3 0.3-1.1 EOSINOPHIL # (test code=EO#) 0.1 K/mm3 0.0-0.4 BASOPHIL # (test code=BA#) 0.0 K/mm3 0.0-0.1 MANUAL DIFF REQUIRED (test code=MDIFF) NO DIFF/SCN CRITERIA RBC [id number] 08:23:00 Test Item Value Reference Range Comments POLYCHROMASIA (test 2+ ON SCAN NONE code=POLC) PLATELET ESTIMATE (test DECREASED THOUSAND ADEQUATE PLATELET COUNT code=PLTEST) REVIEWED AND VERIFIED. PLATELET MORPHOLOGY (test NORMAL code=PLTMORPH) CBC W/AUTO [id number] 08:22:00 Test Item Value Reference Range Comments WHITE BLOOD CELL (test code=WBC) 4.8 K/mm3 3.5-11.0 RED BLOOD CELL (test code=RBC) 2.52 M/mm3 4.70-6.10 HEMOGLOBIN (test code=HGB) 7.4 G/DL 10.4-14.9 HEMATOCRIT (test code=HCT) 24.5 % 31.5-44.1 MEAN CELL VOLUME (test code=MCV) 97.2 Fl 84.5-98.6 MEAN CELL HGB (test code=MCH) 29.4 pg 27.0-34.2 MEAN CELL HGB CONCETRATION (test code=MCHC) 30.2 G/DL 31.5-34.0 RED CELL DISTRIBUTION WIDTH (test code=RDW) 19.3 SD 11.5-14.5 PLATELET COUNT (test code=PLT) 79.0 K/mm3 150-450 MEAN PLATELET VOLUME (test code=MPV) 10.90 fL 7.0-10.5 NEUTROPHIL % (test code=NT%) 50.3 % 40-76 LYMPHOCYTE % (test code=LY%) 36.1 % 20.5-51.1 MONOCYTE % (test code=MO%) 11.7 % 1.7-9.3 EOSINOPHIL % (test code=EO%) 1.5 % 0.0-6.0 BASOPHIL % (test code=BA%) 0.4 % 0.0-2.0 NEUTROPHIL # (test code=NT#) 2.40 K/mm3 1.8-7.6 LYMPHOCYTE # (test code=LY#) 1.7 K/mm3 0.6-3.2 MONOCYTE # (test code=MO#) 0.6 K/mm3 0.3-1.1 EOSINOPHIL # (test code=EO#) 0.1 K/mm3 0.0-0.4 BASOPHIL # (test code=BA#) 0.0 K/mm3 0.0-0.1 MANUAL DIFF REQUIRED (test code=MDIFF) NO DIFF/SCN CRITERIA CBC W/AUTO [id number] 08:22:00 Test Item Value Reference Range Comments WHITE BLOOD CELL (test code=WBC) 4.8 K/mm3 3.5-11.0 RED BLOOD CELL (test code=RBC) 2.52 M/mm3 4.70-6.10 HEMOGLOBIN (test code=HGB) 7.4 G/DL 10.4-14.9 HEMATOCRIT (test code=HCT) 24.5 % 31.5-44.1 MEAN CELL VOLUME (test code=MCV) 97.2 Fl 84.5-98.6 MEAN CELL HGB (test code=MCH) 29.4 pg 27.0-34.2 MEAN CELL HGB CONCETRATION (test code=MCHC) 30.2 G/DL 31.5-34.0 RED CELL DISTRIBUTION WIDTH (test code=RDW) 19.3 SD 11.5-14.5 PLATELET COUNT (test code=PLT) 79.0 K/mm3 150-450 MEAN PLATELET VOLUME (test code=MPV) 10.90 fL 7.0-10.5 NEUTROPHIL % (test code=NT%) 50.3 % 40-76 LYMPHOCYTE % (test code=LY%) 36.1 % 20.5-51.1 MONOCYTE % (test code=MO%) 11.7 % 1.7-9.3 EOSINOPHIL % (test code=EO%) 1.5 % 0.0-6.0 BASOPHIL % (test code=BA%) 0.4 % 0.0-2.0 NEUTROPHIL # (test code=NT#) 2.40 K/mm3 1.8-7.6 LYMPHOCYTE # (test code=LY#) 1.7 K/mm3 0.6-3.2 MONOCYTE # (test code=MO#) 0.6 K/mm3 0.3-1.1 EOSINOPHIL # (test code=EO#) 0.1 K/mm3 0.0-0.4 BASOPHIL # (test code=BA#) 0.0 K/mm3 0.0-0.1 MANUAL DIFF REQUIRED (test code=MDIFF) NO DIFF/SCN CRITERIA BASIC METABOLIC [id number] 07:49:00 Test Item Value Reference Range Comments SODIUM (test code=NA) 140 mmol/L 134-147 POTASSIUM (test code=K) 3.6 mmol/L 3.4-5.0 CHLORIDE (test code=CL) 107 mmol/L 100-108 CARBON DIOXIDE (test code=CO2) 25 mmol/L 21-32 ANION GAP (test code=GAP) 8.0 GAP calc 4.0-15.0 GLUCOSE (test code=GLU) 91 MG/DL 70-110 BLOOD UREA NITROGEN (test code=BUN) 16 MG/DL 7-18 GLOMERULAR FILTRATION RATE (test >=60 max estimate estGFR >60 code=GFR) CREATININE (test code=CREAT) 1.1 MG/DL 0.6-1.0 CALCIUM (test code=CA) 8.2 MG/DL 8.5-10.1 CBC W/AUTO [id number] 07:40:00 Test Item Value Reference Range Comments WHITE BLOOD CELL (test code=WBC) 4.8 K/mm3 3.5-11.0 RED BLOOD CELL (test code=RBC) 2.52 M/mm3 4.70-6.10 HEMOGLOBIN (test code=HGB) 7.4 G/DL 10.4-14.9 HEMATOCRIT (test code=HCT) 24.5 % 31.5-44.1 MEAN CELL VOLUME (test code=MCV) 97.2 Fl 84.5-98.6 MEAN CELL HGB (test code=MCH) 29.4 pg 27.0-34.2 MEAN CELL HGB CONCETRATION (test code=MCHC) 30.2 G/DL 31.5-34.0 RED CELL DISTRIBUTION WIDTH (test code=RDW) 19.3 SD 11.5-14.5 PLATELET COUNT (test code=PLT) 79.0 K/mm3 150-450 MEAN PLATELET VOLUME (test code=MPV) 10.90 fL 7.0-10.5 NEUTROPHIL % (test code=NT%) % 40-76 LYMPHOCYTE % (test code=LY%) % 20.5-51.1 MONOCYTE % (test code=MO%) % 1.7-9.3 EOSINOPHIL % (test code=EO%) % 0.0-6.0 BASOPHIL % (test code=BA%) % 0.0-2.0 NEUTROPHIL # (test code=NT#) K/mm3 1.8-7.6 LYMPHOCYTE # (test code=LY#) K/mm3 0.6-3.2 MONOCYTE # (test code=MO#) K/mm3 0.3-1.1 EOSINOPHIL # (test code=EO#) K/mm3 0.0-0.4 BASOPHIL # (test code=BA#) K/mm3 0.0-0.1 MANUAL DIFF REQUIRED (test code=MDIFF) DIFF/SCN CRITERIA UR SODIUM [id number] 14:09:00 Test Item Value Reference Range Comments UR SODIUM RANDOM (test 88 MEQ/L () The Reference Range and Method code=MERI) Performance specificationshave not been established for this fluid. The test resultshould be correlated into the clinical context forinterpretation. UR POTASSIUM [id number] 14:09:00 Test Item Value Reference Range Comments UR POTASSIUM RANDOM (test 13.2 MEQ/L () The Reference Range and Method code=KU) Performance specificationshave not been established for this fluid. The test resultshould be correlated into the clinical context forinterpretation. UR CHLORIDE [id number] 14:09:00 Test Item Value Reference Range Comments UR CHLORIDE RANDOM (test 72 mmol/L Not Estab. Performed At: [facility] code=CLU) [id number] [place], [place] [id number] Kyle L MD Ph:[phone] UR PROTEIN [id number] 14:09:00 Test Item Value Reference Range Comments UR PROTEIN TOTAL (test code=PROTU) 5.6 MG/DL 0.0-12.0 UR CREATININE [id number] 14:09:00 Test Item Value Reference Range Comments UR CREATININE RANDOM (test code=CREATU) 36.4 MG/DL 30-125 UR OSMOLALITY [id number] 14:09:00 Test Item Value Reference Range Comments UR OSMOLALITY RANDOM (test code=OSMOU) 284 MOS/KG 390-1090 UR SODIUM [id number] 02:55:00 Test Item Value Reference Range Comments UR SODIUM RANDOM (test 88 MEQ/L The Reference Range and Method code=MERI) Performance specificationshave not been established for this fluid. The test resultshould be correlated into the clinical context forinterpretation. UR POTASSIUM [id number] 02:55:00 Test Item Value Reference Range Comments UR POTASSIUM RANDOM (test 13.2 MEQ/L The Reference Range and Method code=KU) Performance specificationshave not been established for this fluid. The test resultshould be correlated into the clinical context forinterpretation. UR OSMOLALITY [id number] 02:55:00 Test Item Value Reference Range Comments UR OSMOLALITY RANDOM (test code=OSMOU) 284 MOS/KG 390-1090 UR SODIUM [id number] 02:55:00 Test Item Value Reference Range Comments UR SODIUM RANDOM (test 88 MEQ/L () The Reference Range and Method code=MERI) Performance specificationshave not been established for this fluid. The test resultshould be correlated into the clinical context forinterpretation. UR POTASSIUM [id number] 02:55:00 Test Item Value Reference Range Comments UR POTASSIUM RANDOM (test 13.2 MEQ/L () The Reference Range and Method code=KU) Performance specificationshave not been established for this fluid. The test resultshould be correlated into the clinical context forinterpretation. UR CHLORIDE [id number] 02:55:00 Test Item Value Reference Range Comments UR CHLORIDE RANDOM (test code=CLU) mmol/L >10 UR PROTEIN [id number] 02:55:00 Test Item Value Reference Range Comments UR PROTEIN TOTAL (test code=PROTU) 5.6 MG/DL 0.0-12.0 UR CREATININE [id number] 02:55:00 Test Item Value Reference Range Comments UR CREATININE RANDOM (test code=CREATU) 36.4 MG/DL 30-125 UR OSMOLALITY [id number] 02:55:00 Test Item Value Reference Range Comments UR OSMOLALITY RANDOM (test code=OSMOU) 284 MOS/KG 390-1090 UR SODIUM [id number] 02:52:00 Test Item Value Reference Range Comments UR SODIUM RANDOM (test 88 MEQ/L The Reference Range and Method code=MERI) Performance specificationshave not been established for this fluid. The test resultshould be correlated into the clinical context forinterpretation. UR POTASSIUM [id number] 02:52:00 Test Item Value Reference Range Comments UR POTASSIUM RANDOM (test 13.2 MEQ/L The Reference Range and Method code=KU) Performance specificationshave not been established for this fluid. The test resultshould be correlated into the clinical context forinterpretation. UR OSMOLALITY [id number] 02:52:00 Test Item Value Reference Range Comments UR OSMOLALITY RANDOM (test code=OSMOU) MOS/KG 390-1090 UR SODIUM [id number] 02:52:00 Test Item Value Reference Range Comments UR SODIUM RANDOM (test 88 MEQ/L () The Reference Range and Method code=MERI) Performance specificationshave not been established for this fluid. The test resultshould be correlated into the clinical context forinterpretation. UR POTASSIUM [id number] 02:52:00 Test Item Value Reference Range Comments UR POTASSIUM RANDOM (test 13.2 MEQ/L () The Reference Range and Method code=KU) Performance specificationshave not been established for this fluid. The test resultshould be correlated into the clinical context forinterpretation. UR CHLORIDE [id number] 02:52:00 Test Item Value Reference Range Comments UR CHLORIDE RANDOM (test code=CLU) mmol/L >10 UR PROTEIN [id number] 02:52:00 Test Item Value Reference Range Comments UR PROTEIN TOTAL (test code=PROTU) 5.6 MG/DL 0.0-12.0 UR CREATININE [id number] 02:52:00 Test Item Value Reference Range Comments UR CREATININE RANDOM (test code=CREATU) 36.4 MG/DL 30-125 UR OSMOLALITY [id number] 02:52:00 Test Item Value Reference Range Comments UR OSMOLALITY RANDOM (test code=OSMOU) MMO/KG 500-800 UR SODIUM [id number] 16:08:00 Test Item Value Reference Range Comments UR SODIUM RANDOM (test code=MERI) MEQ/L UR POTASSIUM [id number] 16:08:00 Test Item Value Reference Range Comments UR POTASSIUM RANDOM (test code=KU) mmol/L >0 UR CHLORIDE [id number] 16:08:00 Test Item Value Reference Range Comments UR CHLORIDE RANDOM (test code=CLU) mmol/L >10 UR PROTEIN [id number] 16:08:00 Test Item Value Reference Range Comments UR PROTEIN TOTAL (test code=PROTU) 5.6 MG/DL 0.0-12.0 UR CREATININE [id number] 16:08:00 Test Item Value Reference Range Comments UR CREATININE RANDOM (test code=CREATU) 36.4 MG/DL 30-125 UR OSMOLALITY [id number] 16:08:00 Test Item Value Reference Range Comments UR OSMOLALITY RANDOM (test code=OSMOU) MMO/KG 500-800 CBC W/AUTO [id number] 04:37:00 Test Item Value Reference Range Comments WHITE BLOOD CELL (test code=WBC) 7.9 K/mm3 3.5-11.0 RED BLOOD CELL (test code=RBC) 2.93 M/mm3 4.70-6.10 HEMOGLOBIN (test code=HGB) 8.8 G/DL 10.4-14.9 HEMATOCRIT (test code=HCT) 27.7 % 31.5-44.1 MEAN CELL VOLUME (test code=MCV) 94.5 Fl 84.5-98.6 MEAN CELL HGB (test code=MCH) 30.0 pg 27.0-34.2 MEAN CELL HGB CONCETRATION (test code=MCHC) 31.8 G/DL 31.5-34.0 RED CELL DISTRIBUTION WIDTH (test code=RDW) 18.7 SD 11.5-14.5 PLATELET COUNT (test code=PLT) 78.0 K/mm3 150-450 MEAN PLATELET VOLUME (test code=MPV) 11.60 fL 7.0-10.5 MANUAL DIFF REQUIRED (test code=MDIFF) YES DIFF/SCN CRITERIA WBC [id number] 04:37:00 Test Item Value Reference Range Comments SEGMENTED NEUTROPHILS 69 % 40-75 (test code=SEG) LYMPHOCYTE (test 27 % 18.7-40.6 code=LYMPH) MONOCYTE (test code=MON) 4 % 3.8-11.4 NUCLEATED RED BLOOD CELL 8 #/100WBC 0-0 (test code=NRBC) ANISOCYTOSIS (test TRACE NONE code=ANISO) PLATELET ESTIMATE (test SLIGHTLY DECREASED ADEQUATE PLATELET COUNT code=PLTEST) THOUSAND REVIEWED AND VERIFIED. PLATELET MORPHOLOGY (test NORMAL code=PLTMORPH) CBC W/AUTO [id number] 04:36:00 Test Item Value Reference Range Comments WHITE BLOOD CELL (test code=WBC) 7.9 K/mm3 3.5-11.0 RED BLOOD CELL (test code=RBC) 2.93 M/mm3 4.70-6.10 HEMOGLOBIN (test code=HGB) 8.8 G/DL 10.4-14.9 HEMATOCRIT (test code=HCT) 27.7 % 31.5-44.1 MEAN CELL VOLUME (test code=MCV) 94.5 Fl 84.5-98.6 MEAN CELL HGB (test code=MCH) 30.0 pg 27.0-34.2 MEAN CELL HGB CONCETRATION (test code=MCHC) 31.8 G/DL 31.5-34.0 RED CELL DISTRIBUTION WIDTH (test code=RDW) 18.7 SD 11.5-14.5 PLATELET COUNT (test code=PLT) 78.0 K/mm3 150-450 MEAN PLATELET VOLUME (test code=MPV) 11.60 fL 7.0-10.5 MANUAL DIFF REQUIRED (test code=MDIFF) YES DIFF/SCN CRITERIA WBC [id number] 04:36:00 Test Item Value Reference Range Comments SEGMENTED NEUTROPHILS (test code=SEG) % 40-75 LYMPHOCYTE (test code=LYMPH) % 18.7-40.6 CBC W/AUTO [id number] 04:36:00 Test Item Value Reference Range Comments WHITE BLOOD CELL (test code=WBC) 7.9 K/mm3 3.5-11.0 RED BLOOD CELL (test code=RBC) 2.93 M/mm3 4.70-6.10 HEMOGLOBIN (test code=HGB) 8.8 G/DL 10.4-14.9 HEMATOCRIT (test code=HCT) 27.7 % 31.5-44.1 MEAN CELL VOLUME (test code=MCV) 94.5 Fl 84.5-98.6 MEAN CELL HGB (test code=MCH) 30.0 pg 27.0-34.2 MEAN CELL HGB CONCETRATION (test code=MCHC) 31.8 G/DL 31.5-34.0 RED CELL DISTRIBUTION WIDTH (test code=RDW) 18.7 SD 11.5-14.5 PLATELET COUNT (test code=PLT) 78.0 K/mm3 150-450 MEAN PLATELET VOLUME (test code=MPV) 11.60 fL 7.0-10.5 MANUAL DIFF REQUIRED (test code=MDIFF) YES DIFF/SCN CRITERIA WBC [id number] 04:36:00 Test Item Value Reference Range Comments SEGMENTED NEUTROPHILS (test code=SEG) % 40-75 LYMPHOCYTE (test code=LYMPH) % 18.7-40.6 CBC W/AUTO [id number] 04:18:00 Test Item Value Reference Range Comments WHITE BLOOD CELL (test code=WBC) 7.9 K/mm3 3.5-11.0 RED BLOOD CELL (test code=RBC) 2.93 M/mm3 4.70-6.10 HEMOGLOBIN (test code=HGB) 8.8 G/DL 10.4-14.9 HEMATOCRIT (test code=HCT) 27.7 % 31.5-44.1 MEAN CELL VOLUME (test code=MCV) 94.5 Fl 84.5-98.6 MEAN CELL HGB (test code=MCH) 30.0 pg 27.0-34.2 MEAN CELL HGB CONCETRATION (test code=MCHC) 31.8 G/DL 31.5-34.0 RED CELL DISTRIBUTION WIDTH (test code=RDW) 18.7 SD 11.5-14.5 PLATELET COUNT (test code=PLT) 78.0 K/mm3 150-450 MEAN PLATELET VOLUME (test code=MPV) 11.60 fL 7.0-10.5 NEUTROPHIL % (test code=NT%) % 40-76 LYMPHOCYTE % (test code=LY%) % 20.5-51.1 MONOCYTE % (test code=MO%) % 1.7-9.3 EOSINOPHIL % (test code=EO%) % 0.0-6.0 BASOPHIL % (test code=BA%) % 0.0-2.0 NEUTROPHIL # (test code=NT#) K/mm3 1.8-7.6 LYMPHOCYTE # (test code=LY#) K/mm3 0.6-3.2 MONOCYTE # (test code=MO#) K/mm3 0.3-1.1 EOSINOPHIL # (test code=EO#) K/mm3 0.0-0.4 BASOPHIL # (test code=BA#) K/mm3 0.0-0.1 MANUAL DIFF REQUIRED (test code=MDIFF) DIFF/SCN CRITERIA CBC W/AUTO [id number] 05:22:00 Test Item Value Reference Range Comments WHITE BLOOD CELL (test 8.4 K/mm3 3.5-11.0 code=WBC) RED BLOOD CELL (test code=RBC) 2.86 M/mm3 4.70-6.10 HEMOGLOBIN (test code=HGB) 8.5 G/DL 10.4-14.9 HEMATOCRIT (test code=HCT) 27.1 % 31.5-44.1 MEAN CELL VOLUME (test 94.8 Fl 84.5-98.6 code=MCV) MEAN CELL HGB (test code=MCH) 29.7 pg 27.0-34.2 MEAN CELL HGB CONCETRATION 31.4 G/DL 31.5-34.0 (test code=MCHC) RED CELL DISTRIBUTION WIDTH 18.3 SD 11.5-14.5 (test code=RDW) PLATELET COUNT (test code=PLT) 74.0 K/mm3 150-450 MEAN PLATELET VOLUME (test 11.40 fL 7.0-10.5 code=MPV) NEUTROPHIL % (test code=NT%) 57.3 % 40-76 LYMPHOCYTE % (test code=LY%) 34.0 % 20.5-51.1 MONOCYTE % (test code=MO%) 8.0 % 1.7-9.3 EOSINOPHIL % (test code=EO%) 0.6 % 0.0-6.0 BASOPHIL % (test code=BA%) 0.1 % 0.0-2.0 NEUTROPHIL # (test code=NT#) 4.80 K/mm3 1.8-7.6 LYMPHOCYTE # (test code=LY#) 2.9 K/mm3 0.6-3.2 MONOCYTE # (test code=MO#) 0.7 K/mm3 0.3-1.1 EOSINOPHIL # (test code=EO#) 0.1 K/mm3 0.0-0.4 BASOPHIL # (test code=BA#) 0.0 K/mm3 0.0-0.1 MANUAL DIFF REQUIRED (test NO DIFF/SCN CRITERIA SLIDE REVIEW CONSISTANT code=MDIFF) WITH AUTO DIFFERENTIAL. THROMBOPLASTIN TIME [id number] 05:08:00 Test Item Value Reference Range Comments THROMBOPLASTIN TIME PARTIAL (test code=PTT) 22.4 SECONDS 26-35 CBC W/AUTO [id number] 05:07:00 Test Item Value Reference Range Comments WHITE BLOOD CELL (test code=WBC) 8.4 K/mm3 3.5-11.0 RED BLOOD CELL (test code=RBC) 2.86 M/mm3 4.70-6.10 HEMOGLOBIN (test code=HGB) 8.5 G/DL 10.4-14.9 HEMATOCRIT (test code=HCT) 27.1 % 31.5-44.1 MEAN CELL VOLUME (test code=MCV) 94.8 Fl 84.5-98.6 MEAN CELL HGB (test code=MCH) 29.7 pg 27.0-34.2 MEAN CELL HGB CONCETRATION (test code=MCHC) 31.4 G/DL 31.5-34.0 RED CELL DISTRIBUTION WIDTH (test code=RDW) 18.3 SD 11.5-14.5 PLATELET COUNT (test code=PLT) 74.0 K/mm3 150-450 MEAN PLATELET VOLUME (test code=MPV) 11.40 fL 7.0-10.5 NEUTROPHIL % (test code=NT%) % 40-76 LYMPHOCYTE % (test code=LY%) % 20.5-51.1 MONOCYTE % (test code=MO%) % 1.7-9.3 EOSINOPHIL % (test code=EO%) % 0.0-6.0 BASOPHIL % (test code=BA%) % 0.0-2.0 NEUTROPHIL # (test code=NT#) K/mm3 1.8-7.6 LYMPHOCYTE # (test code=LY#) K/mm3 0.6-3.2 MONOCYTE # (test code=MO#) K/mm3 0.3-1.1 EOSINOPHIL # (test code=EO#) K/mm3 0.0-0.4 BASOPHIL # (test code=BA#) K/mm3 0.0-0.1 MANUAL DIFF REQUIRED (test code=MDIFF) DIFF/SCN CRITERIA CBC W/AUTO [id number] 21:56:00 Test Item Value Reference Range Comments WHITE BLOOD CELL (test code=WBC) 10.5 K/mm3 3.5-11.0 RED BLOOD CELL (test code=RBC) 3.07 M/mm3 4.70-6.10 HEMOGLOBIN (test code=HGB) 9.1 G/DL 10.4-14.9 HEMATOCRIT (test code=HCT) 28.8 % 31.5-44.1 MEAN CELL VOLUME (test code=MCV) 93.8 Fl 84.5-98.6 MEAN CELL HGB (test code=MCH) 29.6 pg 27.0-34.2 MEAN CELL HGB CONCETRATION (test code=MCHC) 31.6 G/DL 31.5-34.0 RED CELL DISTRIBUTION WIDTH (test code=RDW) 18.5 SD 11.5-14.5 PLATELET COUNT (test code=PLT) 66.0 K/mm3 150-450 MEAN PLATELET VOLUME (test code=MPV) 11.10 fL 7.0-10.5 NEUTROPHIL % (test code=NT%) 62.7 % 40-76 LYMPHOCYTE % (test code=LY%) 30.2 % 20.5-51.1 MONOCYTE % (test code=MO%) 6.8 % 1.7-9.3 EOSINOPHIL % (test code=EO%) 0.2 % 0.0-6.0 BASOPHIL % (test code=BA%) 0.1 % 0.0-2.0 NEUTROPHIL # (test code=NT#) 6.60 K/mm3 1.8-7.6 LYMPHOCYTE # (test code=LY#) 3.2 K/mm3 0.6-3.2 MONOCYTE # (test code=MO#) 0.7 K/mm3 0.3-1.1 EOSINOPHIL # (test code=EO#) 0.0 K/mm3 0.0-0.4 BASOPHIL # (test code=BA#) 0.0 K/mm3 0.0-0.1 MANUAL DIFF REQUIRED (test code=MDIFF) NO DIFF/SCN CRITERIA RBC [id number] 21:56:00 Test Item Value Reference Range Comments PLATELET ESTIMATE (test MARKEDLY DECREASED ADEQUATE PLT EST 48,000-60,000 code=PLTEST) THOUSAND PLATELET MORPHOLOGY NORMAL (test code=PLTMORPH) CBC W/AUTO [id number] 21:54:00 Test Item Value Reference Range Comments WHITE BLOOD CELL (test code=WBC) 10.5 K/mm3 3.5-11.0 RED BLOOD CELL (test code=RBC) 3.07 M/mm3 4.70-6.10 HEMOGLOBIN (test code=HGB) 9.1 G/DL 10.4-14.9 HEMATOCRIT (test code=HCT) 28.8 % 31.5-44.1 MEAN CELL VOLUME (test code=MCV) 93.8 Fl 84.5-98.6 MEAN CELL HGB (test code=MCH) 29.6 pg 27.0-34.2 MEAN CELL HGB CONCETRATION (test code=MCHC) 31.6 G/DL 31.5-34.0 RED CELL DISTRIBUTION WIDTH (test code=RDW) 18.5 SD 11.5-14.5 PLATELET COUNT (test code=PLT) 66.0 K/mm3 150-450 MEAN PLATELET VOLUME (test code=MPV) 11.10 fL 7.0-10.5 NEUTROPHIL % (test code=NT%) 62.7 % 40-76 LYMPHOCYTE % (test code=LY%) 30.2 % 20.5-51.1 MONOCYTE % (test code=MO%) 6.8 % 1.7-9.3 EOSINOPHIL % (test code=EO%) 0.2 % 0.0-6.0 BASOPHIL % (test code=BA%) 0.1 % 0.0-2.0 NEUTROPHIL # (test code=NT#) 6.60 K/mm3 1.8-7.6 LYMPHOCYTE # (test code=LY#) 3.2 K/mm3 0.6-3.2 MONOCYTE # (test code=MO#) 0.7 K/mm3 0.3-1.1 EOSINOPHIL # (test code=EO#) 0.0 K/mm3 0.0-0.4 BASOPHIL # (test code=BA#) 0.0 K/mm3 0.0-0.1 MANUAL DIFF REQUIRED (test code=MDIFF) NO DIFF/SCN CRITERIA CBC W/AUTO [id number] 21:54:00 Test Item Value Reference Range Comments WHITE BLOOD CELL (test code=WBC) 10.5 K/mm3 3.5-11.0 RED BLOOD CELL (test code=RBC) 3.07 M/mm3 4.70-6.10 HEMOGLOBIN (test code=HGB) 9.1 G/DL 10.4-14.9 HEMATOCRIT (test code=HCT) 28.8 % 31.5-44.1 MEAN CELL VOLUME (test code=MCV) 93.8 Fl 84.5-98.6 MEAN CELL HGB (test code=MCH) 29.6 pg 27.0-34.2 MEAN CELL HGB CONCETRATION (test code=MCHC) 31.6 G/DL 31.5-34.0 RED CELL DISTRIBUTION WIDTH (test code=RDW) 18.5 SD 11.5-14.5 PLATELET COUNT (test code=PLT) 66.0 K/mm3 150-450 MEAN PLATELET VOLUME (test code=MPV) 11.10 fL 7.0-10.5 NEUTROPHIL % (test code=NT%) 62.7 % 40-76 LYMPHOCYTE % (test code=LY%) 30.2 % 20.5-51.1 MONOCYTE % (test code=MO%) 6.8 % 1.7-9.3 EOSINOPHIL % (test code=EO%) 0.2 % 0.0-6.0 BASOPHIL % (test code=BA%) 0.1 % 0.0-2.0 NEUTROPHIL # (test code=NT#) 6.60 K/mm3 1.8-7.6 LYMPHOCYTE # (test code=LY#) 3.2 K/mm3 0.6-3.2 MONOCYTE # (test code=MO#) 0.7 K/mm3 0.3-1.1 EOSINOPHIL # (test code=EO#) 0.0 K/mm3 0.0-0.4 BASOPHIL # (test code=BA#) 0.0 K/mm3 0.0-0.1 MANUAL DIFF REQUIRED (test code=MDIFF) NO DIFF/SCN CRITERIA BASIC METABOLIC [id number] 20:43:00 Test Item Value Reference Range Comments SODIUM (test code=NA) 136 mmol/L 134-147 POTASSIUM (test code=K) 4.0 mmol/L 3.4-5.0 CHLORIDE (test code=CL) 100 mmol/L 100-108 CARBON DIOXIDE (test code=CO2) 24 mmol/L 21-32 ANION GAP (test code=GAP) 12.0 GAP calc 4.0-15.0 GLUCOSE (test code=GLU) 224 MG/DL 70-110 BLOOD UREA NITROGEN (test code=BUN) 21 MG/DL 7-18 GLOMERULAR FILTRATION RATE (test code=GFR) 37 estGFR >60 CREATININE (test code=CREAT) 1.7 MG/DL 0.6-1.0 CALCIUM (test code=CA) 8.7 MG/DL 8.5-10.1 BASIC METABOLIC [id number] 20:38:00 Test Item Value Reference Range Comments SODIUM (test code=NA) 136 mmol/L 134-147 POTASSIUM (test code=K) 4.0 mmol/L 3.4-5.0 CHLORIDE (test code=CL) 100 mmol/L 100-108 CARBON DIOXIDE (test code=CO2) 24 mmol/L 21-32 ANION GAP (test code=GAP) 12.0 GAP calc 4.0-15.0 GLUCOSE (test code=GLU) 224 MG/DL 70-110 BLOOD UREA NITROGEN (test code=BUN) 21 MG/DL 7-18 GLOMERULAR FILTRATION RATE (test code=GFR) estGFR >60 CREATININE (test code=CREAT) MG/DL 0.6-1.0 CALCIUM (test code=CA) 8.7 MG/DL 8.5-10.1 CBC W/AUTO [id number] 20:38:00 Test Item Value Reference Range Comments WHITE BLOOD CELL (test code=WBC) 10.5 K/mm3 3.5-11.0 RED BLOOD CELL (test code=RBC) 3.07 M/mm3 4.70-6.10 HEMOGLOBIN (test code=HGB) 9.1 G/DL 10.4-14.9 HEMATOCRIT (test code=HCT) 28.8 % 31.5-44.1 MEAN CELL VOLUME (test code=MCV) 93.8 Fl 84.5-98.6 MEAN CELL HGB (test code=MCH) 29.6 pg 27.0-34.2 MEAN CELL HGB CONCETRATION (test code=MCHC) 31.6 G/DL 31.5-34.0 RED CELL DISTRIBUTION WIDTH (test code=RDW) 18.5 SD 11.5-14.5 PLATELET COUNT (test code=PLT) 66.0 K/mm3 150-450 MEAN PLATELET VOLUME (test code=MPV) 11.10 fL 7.0-10.5 NEUTROPHIL % (test code=NT%) % 40-76 LYMPHOCYTE % (test code=LY%) % 20.5-51.1 MONOCYTE % (test code=MO%) % 1.7-9.3 EOSINOPHIL % (test code=EO%) % 0.0-6.0 BASOPHIL % (test code=BA%) % 0.0-2.0 NEUTROPHIL # (test code=NT#) K/mm3 1.8-7.6 LYMPHOCYTE # (test code=LY#) K/mm3 0.6-3.2 MONOCYTE # (test code=MO#) K/mm3 0.3-1.1 EOSINOPHIL # (test code=EO#) K/mm3 0.0-0.4 BASOPHIL # (test code=BA#) K/mm3 0.0-0.1 MANUAL DIFF REQUIRED (test code=MDIFF) DIFF/SCN CRITERIA GLUCOSE BEDSIDE [id number] 20:21:00 Test Item Value Reference Range Comments GLUCOSE BEDSIDE TESTING (test code=GLUBED) 241 mg/dL 70-110 - XR CHEST 1 [id number] 20:13:00 Name: DAVID ULRICH [facility]ly [facility] : 1940 Age/S: 79 / F [id number] [address] [place] Unit #: [id number] Loc: [place] [address] Phys: Isma Faust MD Acct: [id number] Dis Date: Status: ADM IN PHONE #: [phone] Exam Date: 07/11/20191954 FAX #: Reason: RAPID RESPONSE, NEAR SYNCOPE EXAMS: CPT: [id number] XR CHEST 1 V 00625 Fluoro Time: DAP (Gy m2): Air Kerma (mGy): EXAMINATION: - XR CHEST 1 V. LOCATION: B2. HISTORY : RAPID RESPONSE, NEAR SYNCOPE. COMPARISON: Radiograph dated 07/07. TECHNIQUE: Single AP view of the chest was obtained.FINDINGS: There has been interval removal of the right IJ line. The heart is enlarged in size. The lungs are clear. There has been prior cervical spine surgery. No acute osseous abnormality is identified. IMPRESSION: Cardiomegaly with no acutepulmonary process. at 2013 Reported and signed by: Inez Jin M.D. CC: Malinda MARTIN; Isma Faust MD PAGE 1 Signed ReportName: DAVID ULRICH : 1940 Age/S: 79 / F [id number] [address] [place] Unit #: [id number] Loc: [facility] [id number] Phys: Isma Faust MD Acct:[id number] Dis Date: Status: ADM IN PHONE #: [phone] Exam Date: 07/11/20191954 FAX #: Reason: RAPID RESPONSE, NEAR SYNCOPE EXAMS: CPT: [id number] XR CHEST 1 V 46426 Fluoro Time: DAP (Gy m2): Air Kerma (mGy) : <Continued> Technologist: Vahid Dean RT(R)(CT)(MRI) Trnscb Date/Time: 07/11/2019 (2012) [id number] Orig Print D/T : S: 07/11/2019 (2015) PAGE 2 Signed ReportACUTE HEPATITIS [id number] 06:09:00 Test Item Value Reference Range Comments AB HEPATITIS A IGM (test Negative Negative code=HAVMAB) AG HEPATITIS B SURFACE (test Negative Negative code=HBSAG) AB HEPATITIS B CORE IGM Negative Negative (test code=HBCMAB) AB HEPATITIS C (test >11.0 0.0-0.9 INFCE Result Units: s/co ratio code=HCVAB) Negative: < 0.8 Indeterminate: 0.8 - 0.9 Positive: > 0.9 The CDC recommends that a positive HCV antibody result be followed up with a HCV Nucleic Acid Amplification test (420772).Performed At: [facility] [id number] [place], [place] [id number] Kyle L MD Ph:[phone] CBC W/AUTO [id number] 04:38:00 Test Item Value Reference Range Comments WHITE BLOOD CELL (test 7.3 K/mm3 3.5-11.0 code=WBC) RED BLOOD CELL (test 2.82 M/mm3 4.70-6.10 code=RBC) HEMOGLOBIN (test code=HGB) 8.3 G/DL 10.4-14.9 HEMATOCRIT (test code=HCT) 26.7 % 31.5-44.1 MEAN CELL VOLUME (test 94.7 Fl 84.5-98.6 code=MCV) MEAN CELL HGB (test code=MCH) 29.4 pg 27.0-34.2 MEAN CELL HGB CONCETRATION 31.1 G/DL 31.5-34.0 (test code=MCHC) RED CELL DISTRIBUTION WIDTH 17.9 SD 11.5-14.5 (test code=RDW) PLATELET COUNT (test 68.0 K/mm3 150-450 code=PLT) MEAN PLATELET VOLUME (test 10.90 fL 7.0-10.5 code=MPV) NEUTROPHIL % (test code=NT%) 56.9 % 40-76 LYMPHOCYTE % (test code=LY%) 35.1 % 20.5-51.1 MONOCYTE % (test code=MO%) 7.4 % 1.7-9.3 EOSINOPHIL % (test code=EO%) 0.5 % 0.0-6.0 BASOPHIL % (test code=BA%) 0.1 % 0.0-2.0 NUCLEATED RBC % (test 3.00 /100WBC% 0.0-1.0 code=NRBC%) NEUTROPHIL # (test code=NT#) 4.17 K/mm3 1.8-7.6 LYMPHOCYTE # (test code=LY#) 2.6 K/mm3 0.6-3.2 MONOCYTE # (test code=MO#) 0.5 K/mm3 0.3-1.1 EOSINOPHIL # (test code=EO#) 0.0 K/mm3 0.0-0.4 BASOPHIL # (test code=BA#) 0.0 K/mm3 0.0-0.1 MANUAL DIFF REQUIRED (test NO DIFF/SCN CRITERIA SLIDE REVIEW CONSISTANT code=MDIFF) WITH AUTO DIFFERENTIAL.PLATELET COUNT REVIEWED AND VERIFIED. THROMBOPLASTIN TIME [id number] 04:28:00 Test Item Value Reference Range Comments THROMBOPLASTIN TIME PARTIAL (test code=PTT) 16.6 SECONDS 26-35 CBC W/AUTO [id number] 04:18:00 Test Item Value Reference Range Comments WHITE BLOOD CELL (test code=WBC) 7.3 K/mm3 3.5-11.0 RED BLOOD CELL (test code=RBC) 2.82 M/mm3 4.70-6.10 HEMOGLOBIN (test code=HGB) 8.3 G/DL 10.4-14.9 HEMATOCRIT (test code=HCT) 26.7 % 31.5-44.1 MEAN CELL VOLUME (test code=MCV) 94.7 Fl 84.5-98.6 MEAN CELL HGB (test code=MCH) 29.4 pg 27.0-34.2 MEAN CELL HGB CONCETRATION (test code=MCHC) 31.1 G/DL 31.5-34.0 RED CELL DISTRIBUTION WIDTH (test code=RDW) 17.9 SD 11.5-14.5 PLATELET COUNT (test code=PLT) 68.0 K/mm3 150-450 MEAN PLATELET VOLUME (test code=MPV) 10.90 fL 7.0-10.5 NEUTROPHIL % (test code=NT%) % 40-76 LYMPHOCYTE % (test code=LY%) % 20.5-51.1 MONOCYTE % (test code=MO%) % 1.7-9.3 EOSINOPHIL % (test code=EO%) % 0.0-6.0 BASOPHIL % (test code=BA%) % 0.0-2.0 NEUTROPHIL # (test code=NT#) K/mm3 1.8-7.6 LYMPHOCYTE # (test code=LY#) K/mm3 0.6-3.2 MONOCYTE # (test code=MO#) K/mm3 0.3-1.1 EOSINOPHIL # (test code=EO#) K/mm3 0.0-0.4 BASOPHIL # (test code=BA#) K/mm3 0.0-0.1 MANUAL DIFF REQUIRED (test code=MDIFF) DIFF/SCN CRITERIA [id number] 15:08:00 Test Item Value Reference Range Comments HAPTOGLOBIN (test code=HAPT) 110 mg/dL 34-200 Performed At: [facility] [id number] Sanjai MD Ph:[phone] THROMBOPLASTIN TIME [id number] 12:09:00 Test Item Value Reference Range Comments THROMBOPLASTIN TIME PARTIAL (test code=PTT) 88.0 SECONDS 26-35 CBC W/AUTO [id number] 05:05:00 Test Item Value Reference Range Comments WHITE BLOOD CELL (test code=WBC) 8.2 K/mm3 3.5-11.0 RED BLOOD CELL (test code=RBC) 2.75 M/mm3 4.70-6.10 HEMOGLOBIN (test code=HGB) 8.0 G/DL 10.4-14.9 HEMATOCRIT (test code=HCT) 25.5 % 31.5-44.1 MEAN CELL VOLUME (test code=MCV) 92.7 Fl 84.5-98.6 MEAN CELL HGB (test code=MCH) 29.1 pg 27.0-34.2 MEAN CELL HGB CONCETRATION (test code=MCHC) 31.4 G/DL 31.5-34.0 RED CELL DISTRIBUTION WIDTH (test code=RDW) 17.2 SD 11.5-14.5 PLATELET COUNT (test code=PLT) 69.0 K/mm3 150-450 MEAN PLATELET VOLUME (test code=MPV) 11.00 fL 7.0-10.5 MANUAL DIFF REQUIRED (test code=MDIFF) YES DIFF/SCN CRITERIA WBC [id number] 05:05:00 Test Item Value Reference Range Comments SEGMENTED NEUTROPHILS (test 69 % 40-75 code=SEG) BAND NEUTROPHIL (test 4 % 0-8 code=BAND) LYMPHOCYTE (test 25 % 18.7-40.6 code=LYMPH) MONOCYTE (test code=MON) 2 % 3.8-11.4 NUCLEATED RED BLOOD CELL 6 #/100WBC 0-0 (test code=NRBC) ANISOCYTOSIS (test NORMAL NONE code=ANISO) PLATELET ESTIMATE (test DECREASED THOUSAND ADEQUATE PLATELET COUNT REVIEWED code=PLTEST) AND VERIFIED. PLATELET MORPHOLOGY (test NORMAL code=PLTMORPH) CBC W/AUTO [id number] 05:04:00 Test Item Value Reference Range Comments WHITE BLOOD CELL (test code=WBC) 8.2 K/mm3 3.5-11.0 RED BLOOD CELL (test code=RBC) 2.75 M/mm3 4.70-6.10 HEMOGLOBIN (test code=HGB) 8.0 G/DL 10.4-14.9 HEMATOCRIT (test code=HCT) 25.5 % 31.5-44.1 MEAN CELL VOLUME (test code=MCV) 92.7 Fl 84.5-98.6 MEAN CELL HGB (test code=MCH) 29.1 pg 27.0-34.2 MEAN CELL HGB CONCETRATION (test code=MCHC) 31.4 G/DL 31.5-34.0 RED CELL DISTRIBUTION WIDTH (test code=RDW) 17.2 SD 11.5-14.5 PLATELET COUNT (test code=PLT) 69.0 K/mm3 150-450 MEAN PLATELET VOLUME (test code=MPV) 11.00 fL 7.0-10.5 MANUAL DIFF REQUIRED (test code=MDIFF) YES DIFF/SCN CRITERIA WBC [id number] 05:04:00 Test Item Value Reference Range Comments SEGMENTED NEUTROPHILS (test code=SEG) % 40-75 LYMPHOCYTE (test code=LYMPH) % 18.7-40.6 CBC W/AUTO [id number] 05:04:00 Test Item Value Reference Range Comments WHITE BLOOD CELL (test code=WBC) 8.2 K/mm3 3.5-11.0 RED BLOOD CELL (test code=RBC) 2.75 M/mm3 4.70-6.10 HEMOGLOBIN (test code=HGB) 8.0 G/DL 10.4-14.9 HEMATOCRIT (test code=HCT) 25.5 % 31.5-44.1 MEAN CELL VOLUME (test code=MCV) 92.7 Fl 84.5-98.6 MEAN CELL HGB (test code=MCH) 29.1 pg 27.0-34.2 MEAN CELL HGB CONCETRATION (test code=MCHC) 31.4 G/DL 31.5-34.0 RED CELL DISTRIBUTION WIDTH (test code=RDW) 17.2 SD 11.5-14.5 PLATELET COUNT (test code=PLT) 69.0 K/mm3 150-450 MEAN PLATELET VOLUME (test code=MPV) 11.00 fL 7.0-10.5 MANUAL DIFF REQUIRED (test code=MDIFF) YES DIFF/SCN CRITERIA WBC [id number] 05:04:00 Test Item Value Reference Range Comments SEGMENTED NEUTROPHILS (test code=SEG) % 40-75 LYMPHOCYTE (test code=LYMPH) % 18.7-40.6 BASIC METABOLIC [id number] 04:33:00 Test Item Value Reference Range Comments SODIUM (test code=NA) 140 mmol/L 134-147 POTASSIUM (test code=K) 3.5 mmol/L 3.4-5.0 CHLORIDE (test code=CL) 104 mmol/L 100-108 CARBON DIOXIDE (test code=CO2) 28 mmol/L 21-32 ANION GAP (test code=GAP) 8.0 GAP calc 4.0-15.0 GLUCOSE (test code=GLU) 144 MG/DL 70-110 BLOOD UREA NITROGEN (test code=BUN) 27 MG/DL 7-18 GLOMERULAR FILTRATION RATE (test code=GFR) 43 estGFR >60 CREATININE (test code=CREAT) 1.5 MG/DL 0.6-1.0 CALCIUM (test code=CA) 8.0 MG/DL 8.5-10.1 [id number] 04:33:00 Test Item Value Reference Range Comments MAGNESIUM (test code=MAG) 1.5 MG/DL 1.8-2.4 THROMBOPLASTIN TIME [id number] 04:27:00 Test Item Value Reference Range Comments THROMBOPLASTIN TIME PARTIAL (test code=PTT) 92.9 SECONDS 26-35 CBC W/AUTO [id number] 04:17:00 Test Item Value Reference Range Comments WHITE BLOOD CELL (test code=WBC) 8.2 K/mm3 3.5-11.0 RED BLOOD CELL (test code=RBC) 2.75 M/mm3 4.70-6.10 HEMOGLOBIN (test code=HGB) 8.0 G/DL 10.4-14.9 HEMATOCRIT (test code=HCT) 25.5 % 31.5-44.1 MEAN CELL VOLUME (test code=MCV) 92.7 Fl 84.5-98.6 MEAN CELL HGB (test code=MCH) 29.1 pg 27.0-34.2 MEAN CELL HGB CONCETRATION (test code=MCHC) 31.4 G/DL 31.5-34.0 RED CELL DISTRIBUTION WIDTH (test code=RDW) 17.2 SD 11.5-14.5 PLATELET COUNT (test code=PLT) 69.0 K/mm3 150-450 MEAN PLATELET VOLUME (test code=MPV) 11.00 fL 7.0-10.5 NEUTROPHIL % (test code=NT%) % 40-76 LYMPHOCYTE % (test code=LY%) % 20.5-51.1 MONOCYTE % (test code=MO%) % 1.7-9.3 EOSINOPHIL % (test code=EO%) % 0.0-6.0 BASOPHIL % (test code=BA%) % 0.0-2.0 NEUTROPHIL # (test code=NT#) K/mm3 1.8-7.6 LYMPHOCYTE # (test code=LY#) K/mm3 0.6-3.2 MONOCYTE # (test code=MO#) K/mm3 0.3-1.1 EOSINOPHIL # (test code=EO#) K/mm3 0.0-0.4 BASOPHIL # (test code=BA#) K/mm3 0.0-0.1 MANUAL DIFF REQUIRED (test code=MDIFF) DIFF/SCN CRITERIA THROMBOPLASTIN TIME [id number] 21:58:00 Test Item Value Reference Range Comments THROMBOPLASTIN TIME PARTIAL (test code=PTT) 68.4 SECONDS 26-35 THROMBOPLASTIN TIME [id number] 14:02:00 Test Item Value Reference Range Comments THROMBOPLASTIN TIME PARTIAL (test code=PTT) 37.8 SECONDS 26-35 THROMBOPLASTIN TIME [id number] 09:13:00 Test Item Value Reference Range Comments THROMBOPLASTIN TIME PARTIAL (test code=PTT) >400 SECONDS 26-35 THROMBOPLASTIN TIME [id number] 07:46:00 Test Item Value Reference Range Comments THROMBOPLASTIN TIME PARTIAL (test code=PTT) >400 SECONDS 26-35 CBC W/AUTO [id number] 07:29:00 Test Item Value Reference Range Comments WHITE BLOOD CELL (test code=WBC) 6.4 K/mm3 3.5-11.0 RED BLOOD CELL (test code=RBC) 2.84 M/mm3 4.70-6.10 HEMOGLOBIN (test code=HGB) 8.4 G/DL 10.4-14.9 HEMATOCRIT (test code=HCT) 26.7 % 31.5-44.1 MEAN CELL VOLUME (test code=MCV) 94.0 Fl 84.5-98.6 MEAN CELL HGB (test code=MCH) 29.6 pg 27.0-34.2 MEAN CELL HGB CONCETRATION (test code=MCHC) 31.5 G/DL 31.5-34.0 RED CELL DISTRIBUTION WIDTH (test code=RDW) 17.2 SD 11.5-14.5 PLATELET COUNT (test code=PLT) 66.0 K/mm3 150-450 MEAN PLATELET VOLUME (test code=MPV) 11.20 fL 7.0-10.5 MANUAL DIFF REQUIRED (test code=MDIFF) YES DIFF/SCN CRITERIA WBC [id number] 07:29:00 Test Item Value Reference Range Comments SEGMENTED NEUTROPHILS (test 67 % 40-75 code=SEG) BAND NEUTROPHIL (test 5 % 0-8 code=BAND) LYMPHOCYTE (test 26 % 18.7-40.6 code=LYMPH) MONOCYTE (test code=MON) 2 % 3.8-11.4 NUCLEATED RED BLOOD CELL 4 #/100WBC 0-0 (test code=NRBC) ANISOCYTOSIS (test NORMAL NONE code=ANISO) PLATELET ESTIMATE (test DECREASED THOUSAND ADEQUATE PLATELET COUNT REVIEWED code=PLTEST) AND VERIFIED. PLATELET MORPHOLOGY (test NORMAL code=PLTMORPH) CBC W/AUTO [id number] 07:28:00 Test Item Value Reference Range Comments WHITE BLOOD CELL (test code=WBC) 6.4 K/mm3 3.5-11.0 RED BLOOD CELL (test code=RBC) 2.84 M/mm3 4.70-6.10 HEMOGLOBIN (test code=HGB) 8.4 G/DL 10.4-14.9 HEMATOCRIT (test code=HCT) 26.7 % 31.5-44.1 MEAN CELL VOLUME (test code=MCV) 94.0 Fl 84.5-98.6 MEAN CELL HGB (test code=MCH) 29.6 pg 27.0-34.2 MEAN CELL HGB CONCETRATION (test code=MCHC) 31.5 G/DL 31.5-34.0 RED CELL DISTRIBUTION WIDTH (test code=RDW) 17.2 SD 11.5-14.5 PLATELET COUNT (test code=PLT) 66.0 K/mm3 150-450 MEAN PLATELET VOLUME (test code=MPV) 11.20 fL 7.0-10.5 MANUAL DIFF REQUIRED (test code=MDIFF) YES DIFF/SCN CRITERIA WBC [id number] 07:28:00 Test Item Value Reference Range Comments SEGMENTED NEUTROPHILS (test code=SEG) % 40-75 LYMPHOCYTE (test code=LYMPH) % 18.7-40.6 CBC W/AUTO [id number] 07:28:00 Test Item Value Reference Range Comments WHITE BLOOD CELL (test code=WBC) 6.4 K/mm3 3.5-11.0 RED BLOOD CELL (test code=RBC) 2.84 M/mm3 4.70-6.10 HEMOGLOBIN (test code=HGB) 8.4 G/DL 10.4-14.9 HEMATOCRIT (test code=HCT) 26.7 % 31.5-44.1 MEAN CELL VOLUME (test code=MCV) 94.0 Fl 84.5-98.6 MEAN CELL HGB (test code=MCH) 29.6 pg 27.0-34.2 MEAN CELL HGB CONCETRATION (test code=MCHC) 31.5 G/DL 31.5-34.0 RED CELL DISTRIBUTION WIDTH (test code=RDW) 17.2 SD 11.5-14.5 PLATELET COUNT (test code=PLT) 66.0 K/mm3 150-450 MEAN PLATELET VOLUME (test code=MPV) 11.20 fL 7.0-10.5 MANUAL DIFF REQUIRED (test code=MDIFF) YES DIFF/SCN CRITERIA WBC [id number] 07:28:00 Test Item Value Reference Range Comments SEGMENTED NEUTROPHILS (test code=SEG) % 40-75 LYMPHOCYTE (test code=LYMPH) % 18.7-40.6 CBC W/AUTO [id number] 06:18:00 Test Item Value Reference Range Comments WHITE BLOOD CELL (test code=WBC) 6.4 K/mm3 3.5-11.0 RED BLOOD CELL (test code=RBC) 2.84 M/mm3 4.70-6.10 HEMOGLOBIN (test code=HGB) 8.4 G/DL 10.4-14.9 HEMATOCRIT (test code=HCT) 26.7 % 31.5-44.1 MEAN CELL VOLUME (test code=MCV) 94.0 Fl 84.5-98.6 MEAN CELL HGB (test code=MCH) 29.6 pg 27.0-34.2 MEAN CELL HGB CONCETRATION (test code=MCHC) 31.5 G/DL 31.5-34.0 RED CELL DISTRIBUTION WIDTH (test code=RDW) 17.2 SD 11.5-14.5 PLATELET COUNT (test code=PLT) 66.0 K/mm3 150-450 MEAN PLATELET VOLUME (test code=MPV) 11.20 fL 7.0-10.5 NEUTROPHIL % (test code=NT%) % 40-76 LYMPHOCYTE % (test code=LY%) % 20.5-51.1 MONOCYTE % (test code=MO%) % 1.7-9.3 EOSINOPHIL % (test code=EO%) % 0.0-6.0 BASOPHIL % (test code=BA%) % 0.0-2.0 NEUTROPHIL # (test code=NT#) K/mm3 1.8-7.6 LYMPHOCYTE # (test code=LY#) K/mm3 0.6-3.2 MONOCYTE # (test code=MO#) K/mm3 0.3-1.1 EOSINOPHIL # (test code=EO#) K/mm3 0.0-0.4 BASOPHIL # (test code=BA#) K/mm3 0.0-0.1 MANUAL DIFF REQUIRED (test code=MDIFF) DIFF/SCN CRITERIA PROTEIN ELECTROPHORESIS [id number] 05:53:00 Test Item Value Reference Range Comments TOTAL PROTEIN (test TEST NOT PERFORMED g/dL () Please refer to the code=PROTE) following specimen for additional labresults.Please see specimen # [id number] for testing.07/08/2019-[facility] ALBUMIN (test TEST NOT PERFORMED () Test not performed code=ALBE) [id number] (test TEST NOT PERFORMED () Test not performed code=A1G) [id number] (test TEST NOT PERFORMED () Test not performed code=A2G) BETA GLOBULIN (test TEST NOT PERFORMED () Test not performed code=BG) GAMMA GLOBULIN (test TEST NOT PERFORMED () Test not performed code=GG) LACTIC DEHYDROGENASE(LDH)2019-07-09 05:53:00 Test Item Value Reference Range Comments LACTIC DEHYDROGENASE(LDH) (test code=LDH) 340 Unit/L 84-246 FE W/TOTAL IRON BINDING CAP.2019-07-09 05:53:00 Test Item Value Reference Range Comments SERUM IRON (test code=IRON) 110 mcG/DL 50-170 TOTAL IRON BINDING CAPACITY (test code=TIBC) 200 mcG/DL 250-450 IRON SATURATION (test code=FESAT) 55 % calc 12-57 VITAMIN [id number] 05:53:00 Test Item Value Reference Range Comments VITAMIN B12 (test code=VITB12) 2803 PG/ML 183-986 FOLIC [id number] 05:53:00 Test Item Value Reference Range Comments FOLIC ACID (test code=FOL) 14.70 NG/ML 3.10-17.50 THYROID STIMULATING [id number] 05:53:00 Test Item Value Reference Range Comments THYROID STIMULATING HORMONE (test code=TSH) 0.111 mcIU/ML 0.340-4.820 THROMBOPLASTIN TIME [id number] 22:44:00 Test Item Value Reference Range Comments THROMBOPLASTIN TIME PARTIAL (test code=PTT) 146.1 SECONDS 26-35 ANTINUCLEAR ANTIBODIES [id number] 15:28:00 Test Item Value Reference Range Comments HARSH TITER (test Negative () code=ANATITR) Negative <1:80 Borderline 1:80 Positive >1:80Performed At: [facility] [address] [id number] Patricio MD Ph:[phone] ANTINUCLEAR ANTIBODIES [id number] 13:09:00 Test Item Value Reference Range Comments HARSH TITER (test code=ANATITR) Negative () Negative <1:80 Borderline 1:80 Positive >1:80Performed At: [facility] [address] [id number] Patricio MD Ph:[phone] HARSH COMMENT (test code=ANACOM) PROTEIN ELECTROPHORESIS [id number] 10:09:00 Test Item Value Reference Range Comments TOTAL PROTEIN (test code=PROTE) g/dL () Please refer to the following specimen for additional labresults.Please see specimen # [id number] for testing.07/08/2019-[facility] ALBUMIN (test code=ALBE) () Test not performed [id number]-1-[id number] (test () Test not performed code=A1G) [id number]-[id number] (test () Test not performed code=A2G) BETA GLOBULIN (test code=BG) () Test not performed GAMMA GLOBULIN (test code=GG) () Test not performed LACTIC DEHYDROGENASE(LDH)2019-07-08 10:09:00 Test Item Value Reference Range Comments LACTIC DEHYDROGENASE(LDH) (test code=LDH) 340 Unit/L 84-246 FE W/TOTAL IRON BINDING CAP.2019-07-08 10:09:00 Test Item Value Reference Range Comments SERUM IRON (test code=IRON) 110 mcG/DL 50-170 TOTAL IRON BINDING CAPACITY (test code=TIBC) 200 mcG/DL 250-450 IRON SATURATION (test code=FESAT) 55 % calc 12-57 VITAMIN [id number] 10:09:00 Test Item Value Reference Range Comments VITAMIN B12 (test code=VITB12) 2803 PG/ML 183-986 FOLIC [id number] 10:09:00 Test Item Value Reference Range Comments FOLIC ACID (test code=FOL) 14.70 NG/ML 3.10-17.50 THYROID STIMULATING [id number] 10:09:00 Test Item Value Reference Range Comments THYROID STIMULATING HORMONE (test code=TSH) 0.111 mcIU/ML 0.340-4.820 CBC W/AUTO [id number] 08:39:00 Test Item Value Reference Range Comments WHITE BLOOD CELL (test 7.6 K/mm3 3.5-11.0 code=WBC) RED BLOOD CELL (test code=RBC) 2.91 M/mm3 4.70-6.10 HEMOGLOBIN (test code=HGB) 8.5 G/DL 10.4-14.9 HEMATOCRIT (test code=HCT) 27.0 % 31.5-44.1 MEAN CELL VOLUME (test 92.8 Fl 84.5-98.6 code=MCV) MEAN CELL HGB (test code=MCH) 29.2 pg 27.0-34.2 MEAN CELL HGB CONCETRATION 31.5 G/DL 31.5-34.0 (test code=MCHC) RED CELL DISTRIBUTION WIDTH 17.2 SD 11.5-14.5 (test code=RDW) PLATELET COUNT (test code=PLT) 68.0 K/mm3 150-450 MEAN PLATELET VOLUME (test 11.00 fL 7.0-10.5 code=MPV) NEUTROPHIL % (test code=NT%) 68.4 % 40-76 LYMPHOCYTE % (test code=LY%) 24.8 % 20.5-51.1 MONOCYTE % (test code=MO%) 6.3 % 1.7-9.3 EOSINOPHIL % (test code=EO%) 0.4 % 0.0-6.0 BASOPHIL % (test code=BA%) 0.1 % 0.0-2.0 NEUTROPHIL # (test code=NT#) 5.18 K/mm3 1.8-7.6 LYMPHOCYTE # (test code=LY#) 1.9 K/mm3 0.6-3.2 MONOCYTE # (test code=MO#) 0.5 K/mm3 0.3-1.1 EOSINOPHIL # (test code=EO#) 0.0 K/mm3 0.0-0.4 BASOPHIL # (test code=BA#) 0.0 K/mm3 0.0-0.1 MANUAL DIFF REQUIRED (test NO DIFF/SCN CRITERIA SLIDE REVIEW CONSISTANT code=MDIFF) WITH AUTO DIFFERENTIAL. RBC [id number] 08:39:00 Test Item Value Reference Range Comments PLATELET ESTIMATE (test SLIGHTLY DECREASED ADEQUATE PLT ESTIMATE 88,000 TO code=PLTEST) THOUSAND 110,000 PLATELET MORPHOLOGY LARGE PLATELETS (test code=PLTMORPH) CBC W/AUTO [id number] 08:38:00 Test Item Value Reference Range Comments WHITE BLOOD CELL (test 7.6 K/mm3 3.5-11.0 code=WBC) RED BLOOD CELL (test code=RBC) 2.91 M/mm3 4.70-6.10 HEMOGLOBIN (test code=HGB) 8.5 G/DL 10.4-14.9 HEMATOCRIT (test code=HCT) 27.0 % 31.5-44.1 MEAN CELL VOLUME (test 92.8 Fl 84.5-98.6 code=MCV) MEAN CELL HGB (test code=MCH) 29.2 pg 27.0-34.2 MEAN CELL HGB CONCETRATION 31.5 G/DL 31.5-34.0 (test code=MCHC) RED CELL DISTRIBUTION WIDTH 17.2 SD 11.5-14.5 (test code=RDW) PLATELET COUNT (test code=PLT) 68.0 K/mm3 150-450 MEAN PLATELET VOLUME (test 11.00 fL 7.0-10.5 code=MPV) NEUTROPHIL % (test code=NT%) 68.4 % 40-76 LYMPHOCYTE % (test code=LY%) 24.8 % 20.5-51.1 MONOCYTE % (test code=MO%) 6.3 % 1.7-9.3 EOSINOPHIL % (test code=EO%) 0.4 % 0.0-6.0 BASOPHIL % (test code=BA%) 0.1 % 0.0-2.0 NEUTROPHIL # (test code=NT#) 5.18 K/mm3 1.8-7.6 LYMPHOCYTE # (test code=LY#) 1.9 K/mm3 0.6-3.2 MONOCYTE # (test code=MO#) 0.5 K/mm3 0.3-1.1 EOSINOPHIL # (test code=EO#) 0.0 K/mm3 0.0-0.4 BASOPHIL # (test code=BA#) 0.0 K/mm3 0.0-0.1 MANUAL DIFF REQUIRED (test NO DIFF/SCN CRITERIA SLIDE REVIEW CONSISTANT code=MDIFF) WITH AUTO DIFFERENTIAL. CBC W/AUTO [id number] 08:38:00 Test Item Value Reference Range Comments WHITE BLOOD CELL (test 7.6 K/mm3 3.5-11.0 code=WBC) RED BLOOD CELL (test code=RBC) 2.91 M/mm3 4.70-6.10 HEMOGLOBIN (test code=HGB) 8.5 G/DL 10.4-14.9 HEMATOCRIT (test code=HCT) 27.0 % 31.5-44.1 MEAN CELL VOLUME (test 92.8 Fl 84.5-98.6 code=MCV) MEAN CELL HGB (test code=MCH) 29.2 pg 27.0-34.2 MEAN CELL HGB CONCETRATION 31.5 G/DL 31.5-34.0 (test code=MCHC) RED CELL DISTRIBUTION WIDTH 17.2 SD 11.5-14.5 (test code=RDW) PLATELET COUNT (test code=PLT) 68.0 K/mm3 150-450 MEAN PLATELET VOLUME (test 11.00 fL 7.0-10.5 code=MPV) NEUTROPHIL % (test code=NT%) 68.4 % 40-76 LYMPHOCYTE % (test code=LY%) 24.8 % 20.5-51.1 MONOCYTE % (test code=MO%) 6.3 % 1.7-9.3 EOSINOPHIL % (test code=EO%) 0.4 % 0.0-6.0 BASOPHIL % (test code=BA%) 0.1 % 0.0-2.0 NEUTROPHIL # (test code=NT#) 5.18 K/mm3 1.8-7.6 LYMPHOCYTE # (test code=LY#) 1.9 K/mm3 0.6-3.2 MONOCYTE # (test code=MO#) 0.5 K/mm3 0.3-1.1 EOSINOPHIL # (test code=EO#) 0.0 K/mm3 0.0-0.4 BASOPHIL # (test code=BA#) 0.0 K/mm3 0.0-0.1 MANUAL DIFF REQUIRED (test NO DIFF/SCN CRITERIA SLIDE REVIEW CONSISTANT code=MDIFF) WITH AUTO DIFFERENTIAL. COMPREHENSIVE METABOLIC [id number] 06:42:00 Test Item Value Reference Range Comments SODIUM (test code=NA) 142 mmol/L 134-147 POTASSIUM (test code=K) 3.7 mmol/L 3.4-5.0 CHLORIDE (test code=CL) 107 mmol/L 100-108 CARBON DIOXIDE (test code=CO2) 29 mmol/L 21-32 ANION GAP (test code=GAP) 6.0 GAP calc 4.0-15.0 GLUCOSE (test code=GLU) 147 MG/DL 70-110 BLOOD UREA NITROGEN (test code=BUN) 43 MG/DL 7-18 GLOMERULAR FILTRATION RATE (test code=GFR) 35 estGFR >60 CREATININE (test code=CREAT) 1.8 MG/DL 0.6-1.0 TOTAL PROTEIN (test code=PROT) 4.7 G/DL 6.4-8.2 ALBUMIN (test code=ALB) 2.6 G/DL 3.4-5.0 GLOBULIN (test code=GLOB) 2.1 GM/dL ALBUMIN/GLOBULIN RATIO (test code=A/G) 1.2 RATIO 1.2-2.2 CALCIUM (test code=CA) 8.3 MG/DL 8.5-10.1 BILIRUBIN TOTAL (test code=BILT) 0.60 MG/DL 0.2-1.2 SGOT/AST (test code=AST) 40 Unit/L 15-37 SGPT/ALT (test code=ALT) 77 Unit/L 12-78 ALKALINE PHOSPHATASE TOTAL (test code=ALKP) 34 Unit/L 45-117 PROTHROMBIN [id number] 06:41:00 Test Item Value Reference Range Comments PT PATIENT (test code=PTP) 19.0 SECONDS 9.3-12.9 INTERNATIONAL NORMAL RATIO (test code=INR) 1.64 INR Unit 0.8-1.2 THROMBOPLASTIN TIME [id number] 06:41:00 Test Item Value Reference Range Comments THROMBOPLASTIN TIME PARTIAL (test code=PTT) 20.4 SECONDS 26-35 COMPREHENSIVE METABOLIC [id number] 06:37:00 Test Item Value Reference Range Comments SODIUM (test code=NA) 142 mmol/L 134-147 POTASSIUM (test code=K) 3.7 mmol/L 3.4-5.0 CHLORIDE (test code=CL) 107 mmol/L 100-108 CARBON DIOXIDE (test code=CO2) 29 mmol/L 21-32 ANION GAP (test code=GAP) 6.0 GAP calc 4.0-15.0 GLUCOSE (test code=GLU) 147 MG/DL 70-110 BLOOD UREA NITROGEN (test code=BUN) 43 MG/DL 7-18 GLOMERULAR FILTRATION RATE (test code=GFR) estGFR >60 CREATININE (test code=CREAT) MG/DL 0.6-1.0 TOTAL PROTEIN (test code=PROT) G/DL 6.4-8.2 ALBUMIN (test code=ALB) G/DL 3.4-5.0 GLOBULIN (test code=GLOB) GM/dL ALBUMIN/GLOBULIN RATIO (test code=A/G) RATIO 1.2-2.2 CALCIUM (test code=CA) 8.3 MG/DL 8.5-10.1 BILIRUBIN TOTAL (test code=BILT) MG/DL 0.2-1.2 SGOT/AST (test code=AST) Unit/L 15-37 SGPT/ALT (test code=ALT) Unit/L 12-78 ALKALINE PHOSPHATASE TOTAL (test code=ALKP) Unit/L 45-117 CBC W/AUTO [id number] 06:30:00 Test Item Value Reference Range Comments WHITE BLOOD CELL (test code=WBC) 7.6 K/mm3 3.5-11.0 RED BLOOD CELL (test code=RBC) 2.91 M/mm3 4.70-6.10 HEMOGLOBIN (test code=HGB) 8.5 G/DL 10.4-14.9 HEMATOCRIT (test code=HCT) 27.0 % 31.5-44.1 MEAN CELL VOLUME (test code=MCV) 92.8 Fl 84.5-98.6 MEAN CELL HGB (test code=MCH) 29.2 pg 27.0-34.2 MEAN CELL HGB CONCETRATION (test code=MCHC) 31.5 G/DL 31.5-34.0 RED CELL DISTRIBUTION WIDTH (test code=RDW) 17.2 SD 11.5-14.5 PLATELET COUNT (test code=PLT) 68.0 K/mm3 150-450 MEAN PLATELET VOLUME (test code=MPV) 11.00 fL 7.0-10.5 NEUTROPHIL % (test code=NT%) % 40-76 LYMPHOCYTE % (test code=LY%) % 20.5-51.1 MONOCYTE % (test code=MO%) % 1.7-9.3 EOSINOPHIL % (test code=EO%) % 0.0-6.0 BASOPHIL % (test code=BA%) % 0.0-2.0 NEUTROPHIL # (test code=NT#) K/mm3 1.8-7.6 LYMPHOCYTE # (test code=LY#) K/mm3 0.6-3.2 MONOCYTE # (test code=MO#) K/mm3 0.3-1.1 EOSINOPHIL # (test code=EO#) K/mm3 0.0-0.4 BASOPHIL # (test code=BA#) K/mm3 0.0-0.1 MANUAL DIFF REQUIRED (test code=MDIFF) DIFF/SCN CRITERIA RETIC COUNT (AUTOMATED)2019-07-08 02:31:00 Test Item Value Reference Range Comments RETIC COUNT (AUTOMATED) (test code=RETICA) 2.6 % 0.3-2.3 RETIC COUNT (AUTOMATED)2019-07-08 02:30:00 Test Item Value Reference Range Comments RETIC COUNT (AUTOMATED) (test code=RETICA) 2.6 % 0.3-2.3 HGB [id number] 21:05:00 Test Item Value Reference Range Comments HEMOGLOBIN (test code=HGB) 9.1 G/DL 10.4-14.9 HEMATOCRIT (test code=HCT) 28.7 % 31.5-44.1 PROTEIN ELECTROPHORESIS [id number] 17:59:00 Test Item Value Reference Range Comments TOTAL PROTEIN (test code=PROTE) ALBUMIN (test code=ALBE) QCBPP-6-SDVNKEFZ (test code=A1G) CGOPK-8-SYBUEPLB (test code=A2G) BETA GLOBULIN (test code=BG) GAMMA GLOBULIN (test code=GG) M-SPIKE,SERUM (test code=MSPIKES) GLOBULIN ELECT (test code=GLOBE) ALBUMIN/GLOBULIN RATIO (test code=AGE) PROT.ELECTROPH.INTERPRETATION (test code=ELEINT) LACTIC DEHYDROGENASE(LDH)2019-07-07 17:59:00 Test Item Value Reference Range Comments LACTIC DEHYDROGENASE(LDH) (test code=LDH) 340 Unit/L 84-246 FE W/TOTAL IRON BINDING CAP.2019-07-07 17:59:00 Test Item Value Reference Range Comments SERUM IRON (test code=IRON) 110 mcG/DL 50-170 TOTAL IRON BINDING CAPACITY (test code=TIBC) 200 mcG/DL 250-450 IRON SATURATION (test code=FESAT) 55 % calc 12-57 VITAMIN [id number] 17:59:00 Test Item Value Reference Range Comments VITAMIN B12 (test code=VITB12) 2803 PG/ML 183-986 FOLIC [id number] 17:59:00 Test Item Value Reference Range Comments FOLIC ACID (test code=FOL) 14.70 NG/ML 3.10-17.50 THYROID STIMULATING [id number] 17:59:00 Test Item Value Reference Range Comments THYROID STIMULATING HORMONE (test code=TSH) 0.111 mcIU/ML 0.340-4.820 PROTEIN ELECTROPHORESIS [id number] 17:07:00 Test Item Value Reference Range Comments TOTAL PROTEIN (test code=PROTE) ALBUMIN (test code=ALBE) OVLIH-5-WXWBNEQP (test code=A1G) YSMHF-9-JSWRFZQH (test code=A2G) BETA GLOBULIN (test code=BG) GAMMA GLOBULIN (test code=GG) M-SPIKE,SERUM (test code=MSPIKES) GLOBULIN ELECT (test code=GLOBE) ALBUMIN/GLOBULIN RATIO (test code=AGE) PROT.ELECTROPH.INTERPRETATION (test code=ELEINT) LACTIC DEHYDROGENASE(LDH)2019-07-07 17:07:00 Test Item Value Reference Range Comments LACTIC DEHYDROGENASE(LDH) (test code=LDH) 340 Unit/L 84-246 FE W/TOTAL IRON BINDING CAP.2019-07-07 17:07:00 Test Item Value Reference Range Comments SERUM IRON (test code=IRON) 110 mcG/DL 50-170 TOTAL IRON BINDING CAPACITY (test code=TIBC) 200 mcG/DL 250-450 IRON SATURATION (test code=FESAT) 55 % calc 12-57 VITAMIN [id number] 17:07:00 Test Item Value Reference Range Comments VITAMIN B12 (test code=VITB12) PG/ML 183-986 FOLIC [id number] 17:07:00 Test Item Value Reference Range Comments FOLIC ACID (test code=FOL) 14.70 NG/ML 3.10-17.50 THYROID STIMULATING [id number] 17:07:00 Test Item Value Reference Range Comments THYROID STIMULATING HORMONE (test code=TSH) 0.111 mcIU/ML 0.340-4.820 PROTEIN ELECTROPHORESIS [id number] 16:11:00 Test Item Value Reference Range Comments TOTAL PROTEIN (test code=PROTE) ALBUMIN (test code=ALBE) CFMLH-6-UGHLVDTF (test code=A1G) KQFHF-6-QBIMGSLJ (test code=A2G) BETA GLOBULIN (test code=BG) GAMMA GLOBULIN (test code=GG) M-SPIKE,SERUM (test code=MSPIKES) GLOBULIN ELECT (test code=GLOBE) ALBUMIN/GLOBULIN RATIO (test code=AGE) PROT.ELECTROPH.INTERPRETATION (test code=ELEINT) LACTIC DEHYDROGENASE(LDH)2019-07-07 16:11:00 Test Item Value Reference Range Comments LACTIC DEHYDROGENASE(LDH) (test code=LDH) 340 Unit/L 84-246 FE W/TOTAL IRON BINDING CAP.2019-07-07 16:11:00 Test Item Value Reference Range Comments SERUM IRON (test code=IRON) 110 mcG/DL 50-170 TOTAL IRON BINDING CAPACITY (test code=TIBC) 200 mcG/DL 250-450 IRON SATURATION (test code=FESAT) 55 % calc 12-57 VITAMIN [id number] 16:11:00 Test Item Value Reference Range Comments VITAMIN B12 (test code=VITB12) PG/ML 183-986 FOLIC [id number] 16:11:00 Test Item Value Reference Range Comments FOLIC ACID (test code=FOL) NG/ML 3.10-17.50 THYROID STIMULATING [id number] 16:11:00 Test Item Value Reference Range Comments THYROID STIMULATING HORMONE (test code=TSH) 0.111 mcIU/ML 0.340-4.820 - US GUIDANCE VASC [id number] 15:35:00 [facility] 1940 Age/S: 79 / F [address] [address] Unit #: [id number] Loc: [place] [address] Phys: Isma Faust MD Acct: [id number] Dis Date: Status : ADM IN PHONE #: [phone] Exam Date: 07/07/2019 1500 FAX #: Reason: IV ACCESS EXAMS: CPT: [id number] US GUIDANCE VASC ACCESS 62064 C3 Central Venous Catheter Placement Under Ultrasound Guidance DATE OF EXAMINATION:07/07/2019 CLINICAL INDICATION: Central venous access. OPERATING PHYSICIANS: Mazin Morales M.D. ACCESS: Right internal jugular vein CONTRAST: None COMPLICATIONS: None CATHETER: 16 cm triple-lumen central venous catheter. TECHNIQUE: Informed, written consent was obtained from the patient after explaining the risks and benefits of the procedure. With the patient in the supine position, the right neck and upper chest were prepped and draped in the usual sterile fashion. The skin and subcutaneous tissues were infiltrated with 2% Lidocaine without epinephrine.Under direct ultrasound guidance, the right internal jugular vein was successfully cannulated using a micropuncture needle and an image was stored to PACS. An 0.018 wire was advanced through the needle into the vein and was exchanged for an 0.035 wire. The tract was dilated and the central venous catheter was advanced over the wire. The catheter was secured to the skin with 2-0 proline. A sterile dressing was applied. The patient tolerated the procedure well and remained in stable condition throughout the stay in the angiography suite. The catheter was flushed, heparinized, and a sterile dressing was applied. FINDINGS: 1. Patent right internal jugular vein by ultrasound. Needle entry was documented, and an image was stored to PACS. IMPRESSION: Successful image-guided placement of a central venous catheter as described above. PAGE 1 Signed Report (CONTINUED) Name: DAVID ULRICH [place] : 1939 Age/S: 79 / F [address] [address] Unit #: [id number] Loc: [place] [address] Phys: Isma Faust MD Acct: [id number] Dis Date: Status: ADM IN PHONE #: [phone] Exam Date: 07/07/2019 1500 FAX #: Reason: IV ACCESS EXAMS: CPT: [id number] US GUIDANCE VASC ACCESS 73658 <Continued> at 1535 Reported and signed by: Mazin Morales M.D.CC: Isma Faust MD Technologist: Ioana Townsend, RT(R),RDMS(AB) Trnscb Date/Time: 07/07/2019 (1535) t.ARNOLDR.SI1 PAGE 2 Signed Report Name: DAVID ULRICH [place] : 1940 Age/S: 79 / F [address] [address] Unit #: [id number] Loc: [place] [address] Phys: Isma Faust MD Acct: [id number] Dis Date: Status: ADM IN PHONE #: [phone] Exam Date: 1500 FAX #: Reason: IV ACCESS EXAMS: CPT: [id number] US GUIDANCE VASC ACCESS 02215 <Continued> Orig Print D/T: S: 07/07/2019 (1538) Probe: PAGE 3 Signed Report- XR CHEST 1 [id number] 15:33:00 Name: DAVID ULRICH [place] : 1940 Age/S: 79 / F [address] [address] Unit #: [id number] Loc: [place] [address] Phys: Mazin Morales MD Acct: [id number] Dis Date: Status: ADM IN PHONE #: [phone] Exam Date: 07/07/2019 1521 FAX #: Reason: S/P CENTRAL LINE PLACEMENT EXAMS: CPT: [id number] XR CHEST 1 V 82788 Fluoro Time: DAP (Gy m2): Air Kerma (mGy): C3 TIME OF STUDY: 07/07/2019 3:13 PM REASON FOR EXAM: S/P CENTRAL LINE PLACEMENT COMPARISON: None. FINDINGS: AP view of the chest was obtained. Support devices: Right-sided central venous catheter in place with the tip at the atriocaval junction. Lungs: Normal lung volume. No mass, or consolidation. Normal pulmonary vascularity. Pleura: No pleural effusion or pneumothorax. Heart and Mediastinum: Normal cardiomediastinal silhouette and mild central vascular congestion. Bones: Cervical fusion hardware seen. IMPRESSION : 1. Right-sided central venous catheter in place with the tip at the atriocaval junction. No pneumothorax. at 1533 Reported and signed by: Mazin Morales M.D. CC: Mazin Morales MD; Isma Faust MD PAGE 1 Signed Report Name: DAVID ULRICH CELESTINE [place] : 1940 Age/S: 79 / F [address] [address] Unit #: [id number] Loc: [place] [address] Phys : Mazin Morales MD Acct: [id number] Dis Date: Status: ADM IN PHONE #: [phone] Exam Date: 07/07/2019 1521 FAX #: Reason: S/P CENTRAL LINE PLACEMENT EXAMS: CPT: [id number] XR CHEST 1 V 89064 Fluoro Time: DAP (Gy m2): Air Kerma (mGy): <Continued> Technologist: Vahid Dean RT(R)(CT)(MRI) Trnscb Date /Time: 07/07/2019 (1533) EllieSI1 PAGE 2 Signed [id number] 14:54:00 Test Item Value Reference Range Comments FIBRINOGEN (test code=FIB) 141 mg/dL 185-453 - US ABDOMEN [id number] 14:16:00 Name: DAVID ULRICH CELESTINE [place] : 1940 Age/S: 79 / F [address] [address] Unit #: [id number] Loc: [place] [address] Phys: Adela Bejarano MD Acct: [id number] Dis Date: Status: ADM IN PHONE #: [phone] Exam Date: 07/07/2019 1312 FAX #: Reason: thrombocytopenia, evaluate for liver disease EXAMS: CPT: [id number] US ABDOMEN LTD 18725 C3 TIME OF STUDY: 07/07/2019 8:44 AM REASON FOR EXAM: thrombocytopenia, evaluate for liver disease COMPARISON: None. TECHNIQUE: Liver/gallbladder ultrasound. B- mode grayscale, color Doppler, and spectral Doppler images are obtained. FINDINGS: The liver is normal in size and shape. The liver echogenicity is diffusely increased. This limits evaluation for focal lesions. No intrahepatic biliary dilatation is present. Thecommon bile duct is age-appropriate and measures 8 mm. Doppler images demonstrate a patent portal vein with hepatopetal flow. Gallbladder is surgically absent. The pancreas is not well visualized due to overlying bowel gas. The right kidney measures approximately 8.8 cm in length and has a normal appearance. IMPRESSION: 1. Postcholecystectomy. 2. Hepatic steatosis. at 1416 Reported and signed by: Mazin Morales M.D. CC: Adela Bejarano MD; Isma Faust MD Technologist: Ioana Townsend, RT(R),RDMS(AB) Trnscb Date/Time: 07/07/2019 (1416) tLEIGHTONR.[email or web address] PAGE 1 Signed Report Name: DAVID ULRICH [facility] : 1940 Age/S: 79 / F [address] [facility] Unit #: [id number] Loc: [place] [address] Phys: Adela Bejarano MD Acct: [id number] Dis Date:Status: ADM IN PHONE #: [phone] Exam Date: 07/07/2019 1312 FAX #: Reason: thrombocytopenia, evaluate for liver disease EXAMS: CPT: [id number] US ABDOMEN LTD 07018 <Continued> Orig Print D/T : S: 07/07/2019 (7129) Probe: PAGE 2 Signed Report- DUP VEIN [id number] 14:16:00 Name: DAVID ULRICH : 1939 Age/S: 79 / F [address] [address] Unit #: [id number] Loc: [place] [address] Phys: Isma Faust MD Acct: [id number] Dis Date : Status: ADM IN PHONE #: [phone] Exam Date: 07/07/2019 1350 FAX #: Reason: HX OF PE, BLE EDEMA EXAMS: CPT: [id number] DUP VEIN CLIFF 03415 C3 TIME OF STUDY : 07/07/2019 12:09 AM REASON FOR EXAM: HX OF PE, BLE EDEMA COMPARISON: None. TECHNIQUE: Doppler, maharaj-scale and color-flow imaging of thebilateral lower extremity venous system was performed. FINDINGS: The common femoral vein, superficial femoral vein, profunda femoris, and popliteal veins are normal in appearance. The vessels show normal compressibility, color flow and doppler augmentation. Thedeep calf veins on the right demonstrate no distinct intraluminal thrombus. The left calf veins aren't able to be visualized due to swelling and patient body habitus. IMPRESSION: 1. No evidence of deep venous thrombosis in the bilateral lower extremities. 2. Soft tissue edema. at 1416 Reported and signed by: Mazin Morales M.D. CC: Malinda MARTIN; Isma Faust MD Technologist: Ioana Townsend, RT(R),ZACHARYMS(AB) Trnscb Date/Time: 07/07/2019 (1416) t.SDR.SI1 PAGE 1 Signed Report Name: DAVID ULRICH : 1940 Age/S: 79 / F [address] [address] Unit # : [id number] Loc: [place] [address] Phys: Isma Faust MD Acct: [id number] Dis Date: Status: ADM IN PHONE #: [phone] Exam Date: 07/07/2019 1350 FAX #: Reason: HX OF PE, BLE EDEMA EXAMS: CPT: [id number] DUP VEIN CLIFF [address] <Continued> Orig Print D/T: S: 07/07/2019 (9671) Probe: PAGE 2 Signed ReportPROTHROMBIN [id number] 14:10:00 Test Item Value Reference Range Comments PT PATIENT (test code=PTP) 28.8 SECONDS 9.3-12.9 INTERNATIONAL NORMAL RATIO (test code=INR) 2.46 INR Unit 0.8-1.2 HGB [id number] 14:00:00 Test Item Value Reference Range Comments HEMOGLOBIN (test code=HGB) 8.8 G/DL 10.4-14.9 HEMATOCRIT (test code=HCT) 28.3 % 31.5-44.1 HGB [id number] 07:53:00 Test Item Value Reference Range Comments HEMOGLOBIN (test code=HGB) 10.1 G/DL 10.4-14.9 HEMATOCRIT (test code=HCT) 31.8 % 31.5-44.1 COMPREHENSIVE METABOLIC [id number] 01:03:00 Test Item Value Reference Range Comments SODIUM (test code=NA) 143 mmol/L 134-147 POTASSIUM (test code=K) 4.7 mmol/L 3.4-5.0 CHLORIDE (test code=CL) 107 mmol/L 100-108 CARBON DIOXIDE (test code=CO2) 28 mmol/L 21-32 ANION GAP (test code=GAP) 8.0 GAP calc 4.0-15.0 GLUCOSE (test code=GLU) 194 MG/DL 70-110 BLOOD UREA NITROGEN (test code=BUN) 39 MG/DL 7-18 GLOMERULAR FILTRATION RATE (test code=GFR) 31 estGFR >60 CREATININE (test code=CREAT) 2.0 MG/DL 0.6-1.0 TOTAL PROTEIN (test code=PROT) 5.3 G/DL 6.4-8.2 ALBUMIN (test code=ALB) 2.9 G/DL 3.4-5.0 GLOBULIN (test code=GLOB) 2.4 GM/dL ALBUMIN/GLOBULIN RATIO (test code=A/G) 1.2 RATIO 1.2-2.2 CALCIUM (test code=CA) 8.6 MG/DL 8.5-10.1 BILIRUBIN TOTAL (test code=BILT) 0.90 MG/DL 0.2-1.2 SGOT/AST (test code=AST) 41 Unit/L 15-37 SGPT/ALT (test code=ALT) 83 Unit/L 12-78 ALKALINE PHOSPHATASE TOTAL (test code=ALKP) 41 Unit/L 45-117 NT PRO-BRAIN NATRIURETIC [id number] 01:03:00 Test Item Value Reference Range Comments NT PRO-BRAIN NATRIURETIC PEPTI (test code=PROBNP) 236 PG/ML 0-100 CBC W/AUTO [id number] 01:02:00 Test Item Value Reference Range Comments WHITE BLOOD CELL (test 9.0 K/mm3 3.5-11.0 code=WBC) RED BLOOD CELL (test code=RBC) 3.78 M/mm3 4.70-6.10 HEMOGLOBIN (test code=HGB) 11.0 G/DL 10.4-14.9 HEMATOCRIT (test code=HCT) 34.8 % 31.5-44.1 MEAN CELL VOLUME (test 92.1 Fl 84.5-98.6 code=MCV) MEAN CELL HGB (test code=MCH) 29.1 pg 27.0-34.2 MEAN CELL HGB CONCETRATION 31.6 G/DL 31.5-34.0 (test code=MCHC) RED CELL DISTRIBUTION WIDTH 17.4 SD 11.5-14.5 (test code=RDW) PLATELET COUNT (test code=PLT) 70.0 K/mm3 150-450 MEAN PLATELET VOLUME (test 11.60 fL 7.0-10.5 code=MPV) NEUTROPHIL % (test code=NT%) 85.6 % 40-76 LYMPHOCYTE % (test code=LY%) 10.6 % 20.5-51.1 MONOCYTE % (test code=MO%) 3.8 % 1.7-9.3 EOSINOPHIL % (test code=EO%) 0.0 % 0.0-6.0 BASOPHIL % (test code=BA%) 0.0 % 0.0-2.0 NEUTROPHIL # (test code=NT#) 7.72 K/mm3 1.8-7.6 LYMPHOCYTE # (test code=LY#) 1.0 K/mm3 0.6-3.2 MONOCYTE # (test code=MO#) 0.3 K/mm3 0.3-1.1 EOSINOPHIL # (test code=EO#) 0.0 K/mm3 0.0-0.4 BASOPHIL # (test code=BA#) 0.0 K/mm3 0.0-0.1 MANUAL DIFF REQUIRED (test NO DIFF/SCN CRITERIA SLIDE REVIEW CONSISTANT code=MDIFF) WITH AUTO DIFFERENTIAL.PLATELET COUNT REVIEWED AND VERIFIED. PROTHROMBIN [id number] 00:52:00 Test Item Value Reference Range Comments PT PATIENT (test code=PTP) 40.0 SECONDS 9.3-12.9 INTERNATIONAL NORMAL RATIO (test code=INR) 3.39 INR Unit 0.8-1.2 THROMBOPLASTIN TIME [id number] 00:52:00 Test Item Value Reference Range Comments THROMBOPLASTIN TIME PARTIAL (test code=PTT) 25.1 SECONDS 26-35 CBC W/AUTO [id number] 00:50:00 Test Item Value Reference Range Comments WHITE BLOOD CELL (test code=WBC) 9.0 K/mm3 3.5-11.0 RED BLOOD CELL (test code=RBC) 3.78 M/mm3 4.70-6.10 HEMOGLOBIN (test code=HGB) 11.0 G/DL 10.4-14.9 HEMATOCRIT (test code=HCT) 34.8 % 31.5-44.1 MEAN CELL VOLUME (test code=MCV) 92.1 Fl 84.5-98.6 MEAN CELL HGB (test code=MCH) 29.1 pg 27.0-34.2 MEAN CELL HGB CONCETRATION (test code=MCHC) 31.6 G/DL 31.5-34.0 RED CELL DISTRIBUTION WIDTH (test code=RDW) 17.4 SD 11.5-14.5 PLATELET COUNT (test code=PLT) 70.0 K/mm3 150-450 MEAN PLATELET VOLUME (test code=MPV) 11.60 fL 7.0-10.5 NEUTROPHIL % (test code=NT%) % 40-76 LYMPHOCYTE % (test code=LY%) % 20.5-51.1 MONOCYTE % (test code=MO%) % 1.7-9.3 EOSINOPHIL % (test code=EO%) % 0.0-6.0 BASOPHIL % (test code=BA%) % 0.0-2.0 NEUTROPHIL # (test code=NT#) K/mm3 1.8-7.6 LYMPHOCYTE # (test code=LY#) K/mm3 0.6-3.2 MONOCYTE # (test code=MO#) K/mm3 0.3-1.1 EOSINOPHIL # (test code=EO#) K/mm3 0.0-0.4 BASOPHIL # (test code=BA#) K/mm3 0.0-0.1 MANUAL DIFF REQUIRED (test code=MDIFF) DIFF/SCN CRITERIA
[2019-10-04] MEDS ORDERED: LIDOCAINE 1% W/EPI 1:100,000 MDV 20 ML VIAL ONE (03:53)
[2019-10-04] MEDS ORDERED: TETANUS & DIPHTHERIA TOX,ADULT 0.5 ML VIAL ONE (03:53)
[2019-10-04] MEDS ORDERED: Mastisol Adhesive Liq ONE (04:31)
[2019-10-04 04:51] LABS: Absolute Lymphocytes (CBC) 1.8 K/uL (0.7-4.9); Basophils % 0.4 % (0-1.3); Hematocrit 36.5 % (36.0-45.0); Lymphocytes % 23.2 % (15.3-44.8); MPV 10.4 fL (7.6-11.3); RBC Red Blood Cell Count 4.37 M/uL (3.86-4.86)
[2019-10-04 05:09] LABS: Platelet Estimate DECR; Urine White Blood Cell Casts OK
[2019-10-04 05:10] LABS: Anisocytosis 1+; Blood Morphology Comment NOTED (NOT SEEN)
--- NOTE | 2019-10-04 05:44 | ER ---
Nurse's Notes [facility] Name: Kimmy Gamez Age: 79 yrs Sex: Female : 1940 Arrival Date: 10/04/2019 Time: 03:33 Bed 7 Private MD: Diagnosis: Fall (on)(from) incline;Pain in left knee;Laceration without foreign body, right lower leg;Edema, unspecified;Obesity, unspecified Presentation: 10/04 03:35 Presenting complaint: EMS states: they were toned out for report of pt having fallen pt bb uses a walker at home and was trying to move a basket of laundry and fell back landing on her butt and shoulders receiving a laceration to lateral right lower extremity, pt denied LOC. Care prior to arrival: None. Mechanism of Injury: Fall from standing position. Trauma event details: Injury occurred in the [facility], Injury occurred: at home. Injury occurred: October 04, 2019. 03:35 Acuity: DWIGHT 3 bb 03:35 Method Of Arrival: EMS: [facility] bb 03:55 Transition of care: patient was not received from another setting of care. Onset of bb symptoms was October 04, 2019. Risk Assessment: Do you want to hurt yourself or someone else? Patient reports no desire to harm self or others. Initial Sepsis Screen: Does the patient meet any 2 criteria? No. Patient's initial sepsis screen is negative. Does the patient have a suspected source of infection? No. Patient's initial sepsis screen is negative. Trauma Activation: Alert Physician: ED Physician; Name: Randall; Notified At: 03:38; Arrived At: 03:38 Physician: General Surgeon; Name: ; Notified At: 03:38; Arrived At: Physician: Radiology; Name: ; Notified At: 03:38; Arrived At: Physician: Respiratory; Name: ; Notified At: 03:38; Arrived At: Physician: Lab; Name: ; Notified At: 03:38; Arrived At: Historical: - Allergies: 03:50 No Known Allergies; bb - Home Meds: 03:50 prednisone 15 mg Oral tab once daily [Active]; Lasix Oral [Active]; Eliquis oral oral bb [Active]; Meclizine Oral [Active]; Protonix Oral [Active]; Myrbetriq oral oral [Active]; Iron CR Oral [Active]; omeprazole 40 mg Oral cpDR 1 cap once daily [Active]; Travatan Z 0.004 % ophthalmic drop 1 drop once daily [Active]; Azopt 1 % ophthalmic drps 1 drop 3 times per day [Active]; - PMHx: 03:50 PE; Glaucoma; GERD; Bladder problem; bb - PSHx: 03:50 Hysterectomy; Cholecystectomy; eye surgery; right wrist surgery; bb - Immunization history: Last tetanus immunization: unknown. - Family history:: not pertinent. - Social history:: Smoking status: Patient/guardian denies using tobacco. - Ebola Screening: : No symptoms or risks identified at this time. Screenin:35 Abuse screen: Denies threats or abuse. Tuberculosis screening: No symptoms or risk bb factors identified. 03:50 Nutritional screening: No deficits noted. Fall Risk Fall in past 12 months (25 points). bb Secondary diagnosis (15 points) impaired mobility, IV access (20 points). Ambulatory Aid- Crutches/Cane/Walker (15 pts). Gait- Impaired (20 pts.). Mental Status- Oriented to own ability (0 pts). Total Fitch Fall Scale indicates High Risk Score (45 or more points). Fall prevention measures have been instituted. Side Rails Up X 2 Family Present and informed to notify staff if the need to leave the bedside As available patient and family educated on Fall Prevention Program and Strategies. Primary Survey: 03:35 NO uncontrolled hemorrhage observed. A: The patient is alert. Airway: patent. bb Breathing/Chest: Respiratory pattern: regular, Respiratory effort: spontaneous, unlabored, Breath sounds: clear, Chest inspection: symmetrical rise and fall of the chest. Circulation: Heart tones present. Disability Alert. Exposure/Environment: All clothing and personal items were removed. Forensic evidence collection is not deemed to be indicated at this time. Items placed in patient belonging bag. 04:21 Reassessment Airway Airway Patent Breathing/Chest Respiratory pattern Regular bb Respiratory effort Spontaneous Circulation Heart tones Present Disability Alert. Secondary Survey: 03:35 HEENT: No deficits noted. Gastrointestinal: No deficits noted. : No deficits noted. bb No signs and/or symptoms were reported regarding the genitourinary system. Musculoskeletal: Swelling present in bilateral lower extremities. Assessment: 03:35 General: Appears in no apparent distress. uncomfortable, Behavior is calm, cooperative. bb Pain: Complains of pain in buttocks Pain currently is 3 out of 10 on a pain scale. Neuro: Level of Consciousness is awake, alert, obeys commands, Oriented to person, place, time, situation. Cardiovascular: Heart tones S1 S2 present Capillary refill < 3 seconds Patient's skin is warm and dry. Edema is 3+ to left midcalf, left ankle, left foot, right midcalf, right ankle and right foot. Respiratory: Respiratory effort is even, unlabored, Respiratory pattern is regular, symmetrical. GI: No deficits noted. No signs and/or symptoms were reported involving the gastrointestinal system. Derm: Wound noted lateral aspect of right calf. Musculoskeletal: Circulation, motion, and sensation intact. Reports pain in right leg and left leg since one month ago. 03:55 Reassessment: pt to CT via stretcher with die cast technician. bb 04:20 Reassessment: Patient is alert, oriented x 3, equal unlabored respirations, skin bb warm/dry/pink. Dr Pereira at bedside for laceration repair of right leg. 05:30 Reassessment: Patient is alert, oriented x 3, equal unlabored respirations, skin bb warm/dry/pink. sutures to right lower leg in place with steri-strips, awaiting diagnostic results, family at bedside. 06:23 Reassessment: Patient is alert, oriented x 3, equal unlabored respirations, skin bb warm/dry/pink. pt verbalized understanding of and agrees to plan of care discharge instructions given, suture line intact, pt assisted to exit via wheelchair accompanied by family. Vital Signs: 03:35 BP 161 / 99; Pulse 84; Resp 16 S; Temp 98.5(O); Pulse Ox 99% on R/A; Weight 99.79 kg bb (R); Height 5 ft. 3 in. (160.02 cm) (R); Pain 3/10; 04:21 BP 159 / 98; Pulse 81; Resp 16 S; Pulse Ox 100% on R/A; bb 05:00 BP 155 / 87; Pulse 83; Resp 16 S; Pulse Ox 99% on R/A; bb 05:45 BP 154 / 85; Pulse 79; Resp 16 S; Pulse Ox 98% on R/A; bb 03:35 Body Mass Index 38.97 (99.79 kg, 160.02 cm) bb [place] Coma Score: 03:35 Eye Response: spontaneous(4). Verbal Response: oriented(5). Motor Response: obeys bb commands(6). Total: 15. Trauma Score (Adult): 03:35 Eye Response: spontaneous(1); Verbal Response: oriented(1); Motor Response: obeys bb commands(2); Systolic BP: > 89 mm Hg(4); Respiratory Rate: 10 to 29 per min(4); Ibis Score: 15; Trauma Score: 12 ED Course: 03:33 Patient arrived in ED. bb 03:34 Sidra Jo, RN is Primary Nurse. bb 03:35 Patient has correct armband on for positive identification. Placed in gown. Bed in low bb position. Call light in reach. Side rails up X2. Pulse ox on. NIBP on. 03:35 Patient maintains SpO2 saturation greater than 95% on room air. bb 03:38 Triage completed. bb 03:40 Robert Pereira MD is Attending Physician. norah 03:45 Thermoregulation: warm blanket given to patient. bb 03:55 Arm band placed on. bb 04:17 Assist provider with laceration repair on right leg that was between 2.6 to 7.5 cm bb using sutures. Set up tray. Performed by Robert Pereira MD Patient tolerated well. 04:22 CT Head C Spine In Process Unspecified. EDMS 04:46 Dressings: Steri strips 1/4 " X 1;. jb5 05:10 Lab(s) recollected, by me, sent to lab. jb5 06:24 Patient did not have IV access during this emergency room visit. bb 06:53 Tib Fib Right XRAY In Process Unspecified. EDMS 06:53 Knee Left 2 View XRAY In Process Unspecified. EDMS 06:53 Ankle Right 3 View XRAY In Process Unspecified. EDMS Administered Medications: 04:16 Drug: Lidocaine-Epinephrine -1%: (1:100,000) 10 ml {Note: by Dr Pereira to affected bb area.} Volume: 20 ml; Route: Infiltration; 04:35 Follow up: Response: No adverse reaction bb 04:35 Drug: Tetanus-Diphtheria Toxoid Adult 0.5 ml {Port Warden: [email or web address]. Exp: bb 04/27/2021. Lot #: [id number]. } Route: IM; Site: right deltoid; 05:40 Not Given (Duplicate Order): Ancef 1 grams IVPB once [facility] 06:04 Drug: KeFLEX 500 mg Route: PO; lp1 06:20 Follow up: Response: No adverse reaction bb Intake: 03:35 PO: 0ml; Total: 0ml. bb Outcome: 05:43 Discharge ordered by . norah 06:24 Discharged to home via wheelchair, with family. bb 06:24 Condition: stable 06:24 Discharge instructions given to patient, Instructed on discharge instructions, follow up and referral plans. medication usage, wound care, Demonstrated understanding of instructions, follow-up care, medications, wound care, Prescriptions given X 2. 06:24 Patient's length of stay in the Emergency Department was greater than 2 hours. bb 06:24 Patient left the ED. bb Signatures: Dispatcher [employer] EDRobert Starks MD MD cha Ballard, Brenda, RN RN Мария Conde, RN RN lp1 Valery Sellers jb5
--- NOTE | 2019-10-04 05:44 | EDPHYS ---
Physician Documentation [facility] Name: Kimmy Gamez Age: 79 yrs Sex: Female : 1940 Arrival Date: 10/04/2019 Time: 03:33 Bed 7 Private MD: ED Physician Robert Pereira HPI: 10/04 03:44 This 79 yrs old Black Female presents to ER via EMS with complaints of Fall Injury. [facility] 03:44 Details of fall: The patient fell from an upright position, while standing, while norah walking. Onset: The symptoms/episode began/occurred just prior to arrival. Associated injuries: The patient sustained injury to the head, neck injury, lateral aspect of right calf, laceration, painful injury, swelling. Historical: - Allergies: 03:50 No Known Allergies; bb - Home Meds: 03:50 prednisone 15 mg Oral tab once daily [Active]; Lasix Oral [Active]; Eliquis oral oral bb [Active]; Meclizine Oral [Active]; Protonix Oral [Active]; Myrbetriq oral oral [Active]; Iron CR Oral [Active]; omeprazole 40 mg Oral cpDR 1 cap once daily [Active]; Travatan Z 0.004 % ophthalmic drop 1 drop once daily [Active]; Azopt 1 % ophthalmic drps 1 drop 3 times per day [Active]; - PMHx: 03:50 PE; Glaucoma; GERD; Bladder problem; bb - PSHx: 03:50 Hysterectomy; Cholecystectomy; eye surgery; right wrist surgery; bb - Immunization history: Last tetanus immunization: unknown. - Family history:: not pertinent. - Social history:: Smoking status: Patient/guardian denies using tobacco. - Ebola Screening: : No symptoms or risks identified at this time. ROS: 03:44 Constitutional: Negative for fever, chills, and weight loss, Eyes: Negative for injury, norah pain, redness, and discharge, ENT: Negative for injury, pain, and discharge, Neck: Negative for injury, pain, and swelling, Cardiovascular: Negative for chest pain, palpitations, and edema, Respiratory: Negative for shortness of breath, cough, wheezing, and pleuritic chest pain, Abdomen/GI: Negative for abdominal pain, nausea, vomiting, diarrhea, and constipation, Back: Negative for injury and pain, : Negative for injury, bleeding, discharge, and swelling, Skin: Negative for injury, rash, and discoloration, Neuro: Negative for headache, weakness, numbness, tingling, and seizure, Psych: Negative for depression, anxiety, suicide ideation, homicidal ideation, and hallucinations, Allergy/Immunology: Negative for hives, rash, and allergies, Endocrine: Negative for neck swelling, polydipsia, polyuria, polyphagia, and marked weight changes, Hematologic/Lymphatic: Negative for swollen nodes, abnormal bleeding, and unusual bruising. 03:44 MS/extremity: Positive for decreased range of motion, pain, tenderness, of the right leg and left leg. Exam: 03:44 Constitutional: This is a well developed, well nourished patient who is awake, alert, norah and in no acute distress. Head/Face: Normocephalic, atraumatic. Eyes: Pupils equal round and reactive to light, extra-ocular motions intact. Lids and lashes normal. Conjunctiva and sclera are non-icteric and not injected. Cornea within normal limits. Periorbital areas with no swelling, redness, or edema. ENT: Nares patent. No nasal discharge, no septal abnormalities noted. Tympanic membranes are normal and external auditory canals are clear. Oropharynx with no redness, swelling, or masses, exudates, or evidence of obstruction, uvula midline. Mucous membranes moist. Chest/axilla: Normal chest wall appearance and motion. Nontender with no deformity. No lesions are appreciated. Cardiovascular: Regular rate and rhythm with a normal S1 and S2. No gallops, murmurs, or rubs. Normal PMI, no JVD. No pulse deficits. Respiratory: Lungs have equal breath sounds bilaterally, clear to auscultation and percussion. No rales, rhonchi or wheezes noted. No increased work of breathing, no retractions or nasal flaring. Abdomen/GI: Soft, non-tender, with normal bowel sounds. No distension or tympany. No guarding or rebound. No evidence of tenderness throughout. Back: No spinal tenderness. No costovertebral tenderness. Full range of motion. Female : Normal external genitalia. Skin: Warm, dry with normal turgor. Normal color with no rashes, no lesions, and no evidence of cellulitis. Neuro: Awake and alert, GCS 15, oriented to person, place, time, and situation. Cranial nerves II-XII grossly intact. Motor strength 5/5 in all extremities. Sensory grossly intact. Cerebellar exam normal. Normal gait. Psych: Awake, alert, with orientation to person, place and time. Behavior, mood, and affect are within normal limits. 03:44 Neck: External neck: is normal, C-spine: appears grossly normal, no acute changes, Thyroid: appears normal, no acute changes, Trachea: is midline with no obvious abnormalities, no acute changes, ROM/movement: limited range of motion, that is mild, with flexion, with extension. Vital Signs: 03:35 BP 161 / 99; Pulse 84; Resp 16 S; Temp 98.5(O); Pulse Ox 99% on R/A; Weight 99.79 kg bb (R); Height 5 ft. 3 in. (160.02 cm) (R); Pain 3/10; 04:21 BP 159 / 98; Pulse 81; Resp 16 S; Pulse Ox 100% on R/A; bb 05:00 BP 155 / 87; Pulse 83; Resp 16 S; Pulse Ox 99% on R/A; bb 05:45 BP 154 / 85; Pulse 79; Resp 16 S; Pulse Ox 98% on R/A; bb 03:35 Body Mass Index 38.97 (99.79 kg, 160.02 cm) bb [place] Coma Score: 03:35 Eye Response: spontaneous(4). Verbal Response: oriented(5). Motor Response: obeys bb commands(6). Total: 15. Trauma Score (Adult): 03:35 Eye Response: spontaneous(1); Verbal Response: oriented(1); Motor Response: obeys bb commands(2); Systolic BP: > 89 mm Hg(4); Respiratory Rate: 10 to 29 per min(4); Ibis Score: 15; Trauma Score: 12 Laceration: 03:44 Wound Repair of 6cm ( 2.4in ) subcutaneous laceration to lateral aspect of right calf. norah Irregularly shaped.. Skin/tissue flap noted.. Distal neuro/vascular/tendon intact. Anesthesia: Local anesthetic administered with 10 mls of 1% lidocaine w/ Epi. Wound prep: Moderate cleansing by mt. Skin closed with 5 4-0 Prolene using vertical mattress sutures and sterile technique. Dressed with Neosporin. MDM: 03:44 Data reviewed: vital signs, nurses notes, lab test result(s), EKG, radiologic studies, [facility] CT scan, plain films. 03:[address] [facility] 10/04 03:43 Order name: CBC with Diff; Complete Time: 05:17 [facility] 10/04 03:43 Order name: Comprehensive Metabolic Panel; Complete Time: 06:13 [facility] 10/04 03:43 Order name: Tib Fib Right XRAY [facility] 10/04 03:43 Order name: CT Head C Spine [facility] 10/04 03:43 Order name: Knee Left [address] [facility] 10/04 05:11 Order name: CBC Smear Scan; Complete Time: 05:17 EDMS 10/04 03:43 Order name: EKG - Nurse/Tech; Complete Time: 05:54 [facility] 10/04 03:43 Order name: Prolene, Sutures; Complete Time: 03:51 [facility] 10/04 05:17 Order name: Ankle Right [address] [facility] 10/04 03:43 Order name: Dressing - Wound; Complete Time: 04:16 [facility] 10/04 03:43 Order name: Gloves, Sterile; Complete Time: 03:51 [facility] 10/04 03:43 Order name: Setup Suture Tray; Complete Time: 03:51 [facility] 10/04 05:42 Order name: Misc. Order: mastisol, steristrips; Complete Time: 05:53 [facility] Administered Medications: 04:16 Drug: Lidocaine-Epinephrine -1%: (1:100,000) 10 ml {Note: by Dr Pereira to affected bb area.} Volume: 20 ml; Route: Infiltration; 04:35 Follow up: Response: No adverse reaction 04:35 Drug: Tetanus-Diphtheria Toxoid Adult 0.5 ml {Legal Entity Controller: [employer]. Exp: bb 04/27/2021. Lot #: [id number]. } Route: IM; Site: right deltoid; 05:40 Not Given (Duplicate Order): Ancef [address] [facility] 06:04 Drug: KeFLEX 500 mg Route: PO; lp1 06:20 Follow up: Response: No adverse reaction bb Disposition: 10/04/19 05:43 Discharged to Home. Impression: Fall (on)(from) incline, Pain in left knee, Laceration without foreign body, right lower leg, Edema, unspecified, Obesity, unspecified. - Condition is Stable. - Discharge Instructions: Edema, Laceration Care, Adult, Musculoskeletal Pain, Knee Pain, Laceration Care, Adult, [id number], Edema, [id number]-[id number], Knee Pain, [id number]-[id number], Peripheral Edema. - Prescriptions for Keflex 500 mg Oral Capsule - take 1 capsule by ORAL route every 6 hours for 7 days; 28 capsule. Tylenol- Codeine #3 300-30 mg Oral Tablet - take 2 tablets by ORAL route every 6 hours As needed; 24 tablet. - Medication Reconciliation Form, Thank You Letter, Antibiotic Education, Prescription Opioid Use form. - Follow up: Private Physician; When: 2 - 3 days; Reason: Recheck today's complaints, Continuance of care, Re-evaluation by your physician. - Problem is new. - Symptoms have improved. Signatures: Dispatcher [employer] EDRobert Starks MD MD cha Ballard, Brenda, RN RN bb Мария Ordonez RN RN lp1 Corrections: (The following items were deleted from the chart) 06:24 05:43 10/04/2019 05:43 Discharged to Home. Impression: Fall (on)(from) incline; Pain in bb left knee; Laceration without foreign body, right lower leg; Edema, unspecified; Obesity, unspecified. Condition is Stable. Discharge Instructions: Edema, Laceration Care, Adult, Musculoskeletal Pain, Knee Pain, Laceration Care, Adult, [id number], Edema, Ojym-ml-[id number], Knee Pain, Ywxw-[id number], Peripheral Edema. Prescriptions for Keflex 500 mg Oral Capsule - take 1 capsule by ORAL route every 6 hours for 7 days; 28 capsule, Tylenol-Codeine #3 300-30 mg Oral Tablet - take 2 tablets by ORAL route every 6 hours As needed; 24 tablet. and Forms are Medication Reconciliation Form, Thank You Letter, Antibiotic Education, Prescription Opioid Use. Follow up: Private Physician; When: 2 - 3 days; Reason: Recheck today's complaints, Continuance of care, Re-evaluation by your physician. Problem is new. Symptoms have improved. norah
[2019-10-04 05:58] LABS: Albumin 3.3 g/dL (3.4-5.0); Bilirubin Total 0.2 mg/dL (0.2-1.0); Potassium 3.5 mmol/L (3.5-5.1)
[2019-10-04] MEDS ORDERED: CEPHALEXIN 250 MG CAP ONE (05:58)
--- NOTE | 2019-10-04 08:42 | RAD REPORT ---
EXAM DESCRIPTION: RAD - Tib Fib Right - 10/04/2019 6:52 am CLINICAL HISTORY: Fall, right leg pain COMPARISON: None. FINDINGS: No fracture is identified. There is no dislocation or periosteal reaction noted. Degenerat elba changes present at the knee joint with spurring and meniscal calcifications. Knee joint and ankle joint are not adequately visualized for full assessment. Edema changes are present in the soft tissues. No foreign body. IMPRESSION: No fracture of the tibia or fibula identified. Knee and ankle joints are too obscured to allow assessment.
--- NOTE | 2019-10-04 08:44 | RAD REPORT ---
EXAM DESCRIPTION: RAD - Knee Left 2 View - 10/04/2019 6:52 am CLINICAL HISTORY: Fall, left knee pain COMPARISON: February 2019 FINDINGS: No fracture, dislocation or periosteal reaction.No joint effusion seen. Narrowing of the m ediolateral compartments noted with meniscal calcifications. Spurring is present at the patella origi n and quadriceps insertion to the patella. Medial and lateral compartment marginal spurs are present along with spurring at the articular margins of the patella. Soft tissue edema is present. No air or foreign body in the soft tissues. Knee is not substantially different from comparison. IMPRESSION: Prominent knee joint degenerative change as detailed. No fracture or acute finding.
--- NOTE | 2019-10-04 08:45 | RAD REPORT ---
EXAM DESCRIPTION: RAD - Ankle Right 3 View - 10/04/2019 6:52 am CLINICAL HISTORY: Fall, right ankle pain COMPARISON: None. FINDINGS: No fracture, dislocation or periosteal reaction. No joint effusion seen. Tibiotalar joint space is narrowed slightly. There degenerative changes along the articular margins of the fibula, sg us and distal tibia. Plantar arch is flattened. Talus -navicular joint degenerative changes are prese nt. Degenerative changes are present at the calcaneus articulation with the cuboid. Soft tissue edema surrounds the ankle joint. No air or foreign body. IMPRESSION: Soft tissue swelling and degenerative changes are present. No fracture identified.
[2019-10-04 11:28] VITALS: TEMP 98.5
--- NOTE | 2019-10-04 11:33 | RAD REPORT ---
EXAM DESCRIPTION: CT - [id number] - 10/04/2019 5:08 am CLINICAL HISTORY: PAIN COMPARISON: 07/06/2019 TECHNIQUE: Axial CT of the head obtained from the skull apex to the skull base without contrast. Axi al CT images of the cervical spine obtained from the skull base through the thoracic inlet. Sagittal and coronal reformatted images available. FINDINGS: CT head: No acute intracranial hemorrhage identified. No mass, mass effect, shift of the midline, abnormal ext ra-axial fluid collection or CT evidence of acute ischemic change identified. The ventricular system is unremarkable. Scattered areas of hypodensity throughout the supratentorial white matter are nons pecific and may represent sequela of chronic small vessel ischemic change. Mucosal thickening of the paranasal sinuses. Mastoid air cells are well aerated. No skull fracture id entified. Visualized orbits and globes are unremarkable. Cervical CT: Straightening of the cervical lordosis may be secondary to patient positioning. ACDF at C3-C6 without hardware abnormality. The atlantoaxial, atlantodental, and occipitoatlantal intervals are preserve d. No fracture identified. Vertebral body height preserved. Prevertebral soft tissues are unremar kable. Endplate spondylosis and facet arthropathy throughout the cervical spine. Visualized skull base is intact. No fracture of the visualized facial bones. Visualized mastoid air c ells and paranasal sinuses are well aerated. Visualized thyroid is unremarkable. No cervical lymphadenopathy. No pneumothorax in the visualized lung apices. IMPRESSION: 1. No acute intracranial abnormality. 2. No acute fracture or subluxation of the cervical spine. 3. ACDF at C3-C6. This exam was performed according to our departmental dose-optimization program, which includes autom ated exposure control, adjustment of the mA and/or kV according to patient size and/or use of iterati ve reconstruction technique. Electronically signed by: Kvng Lara 10/04/2019 4:33 AM NUCLEAR POWERPLANT MECHANIC HELPER Due to temporary technical issues with the PACS/Fluency reporting system, reports are being signed by the in house radiologist as a courtesy to ensure prompt reporting. The interpreting radiologist is f ully responsible for the content of the report.
[2019-10-04 11:34] VITALS: BP 154/85; O2SAT 98
== END 2019-10-04 06:24 | disposition home or self-care (01) ==
LOC: ER 03:31
PROC: 0JQN0ZZ Repair Right Lower Leg Subcutaneous Tissue and Fascia, Open Approach (ICD-10-PCS; principal; 2019-10-04)
DX: S81.811A Laceration without foreign body, right lower leg, initial encounter (principal); R60.9 Edema, unspecified; E66.9 Obesity, unspecified; W19.XXXA Unspecified fall, initial encounter; Y93.01 Activity, walking, marching and hiking; Y92.9 Unspecified place or not applicable; Z79.01 Long term (current) use of anticoagulants; Z23 Encounter for immunization
CPT/HCPCS: 36415; 70450; 72125; 80053; 85025; 90471; 90714; 99285

== ENCOUNTER 2019-10-29 11:55 | Inpatient (IN) | payer OTHER ==
--- OUTSIDE RECORDS SUMMARY | 2019-10-29 12:00 | XMS REPORT ---
:1940 [facility] Address [address] [place] [address] Care Team Providers Name Role Phone Unavailable [...] DIFFERENTIAL.PLATELET COUNT REVIEWED AND VERIFIED. CBC W/AUTO [id number] 14:32:00 Test Item Value Reference Range Comments [...] REQUIRED (test code=MDIFF) YES DIFF/SCN CRITERIA WBC [id number] 14:32:00 Test Item Value Reference Range Comments SEGMENTED NEUTROPHILS (test 72 % 40-75 code=SEG) LYMPHOCYTE (test 23 % 18.7-40.6 code=LYMPH) MONOCYTE (test code=MON) 5 % 3.8-11.4 PLATELET ESTIMATE (test DECREASED THOUSAND ADEQUATE PLATELET COUNT REVIEWED code=PLTEST) AND VERIFIED. PLATELET MORPHOLOGY (test NORMAL code=PLTMORPH) CBC W/AUTO [id number] 11:35:00 Test Item Value Reference Range Comments [...] REQUIRED (test code=MDIFF) YES DIFF/SCN CRITERIA WBC [id number] 11:35:00 Test Item Value Reference Range Comments SEGMENTED NEUTROPHILS (test code=SEG) % 40-75 LYMPHOCYTE (test code=LYMPH) % 18.7-40.6 CBC W/AUTO [id number] 11:35:00 Test Item Value Reference Range Comments [...] REQUIRED (test code=MDIFF) YES DIFF/SCN CRITERIA WBC [id number] 11:35:00 Test Item Value Reference Range Comments SEGMENTED NEUTROPHILS (test code=SEG) % 40-75 LYMPHOCYTE (test code=LYMPH) % 18.7-40.6 BASIC METABOLIC [id number] 09:36:00 Test Item Value Reference Range Comments [...] (test code=CA) 8.1 MG/DL 8.5-10.1 CBC W/AUTO [id number] 09:13:00 Test Item Value Reference Range Comments [...] REQUIRED (test code=MDIFF) DIFF/SCN CRITERIA CBC W/AUTO [id number] 08:23:00 Test Item Value Reference Range Comments [...] REQUIRED (test code=MDIFF) NO DIFF/SCN CRITERIA RBC [id number] 08:23:00 Test Item Value Reference Range Comments POLYCHROMASIA (test 2+ ON SCAN NONE code=POLC) PLATELET ESTIMATE (test DECREASED THOUSAND ADEQUATE PLATELET COUNT code=PLTEST) REVIEWED AND VERIFIED. PLATELET MORPHOLOGY (test NORMAL code=PLTMORPH) CBC W/AUTO [id number] 08:22:00 Test Item Value Reference Range Comments [...] (test code=MDIFF) NO DIFF/SCN CRITERIA CBC W/AUTO [id number] 08:22:00 Test Item Value Reference Range Comments [...] (test code=MDIFF) NO DIFF/SCN CRITERIA BASIC METABOLIC [id number] 07:49:00 Test Item Value Reference Range Comments [...] (test code=CA) 8.2 MG/DL 8.5-10.1 CBC W/AUTO [id number] 07:40:00 Test Item Value Reference Range Comments [...] REQUIRED (test code=MDIFF) DIFF/SCN CRITERIA UR SODIUM [id number] 14:09:00 Test Item Value Reference Range Comments UR SODIUM RANDOM (test 88 MEQ/L () The Reference Range and Method code=MERI) Performance specificationshave not been established for this fluid. The test resultshould be correlated into the clinical context forinterpretation. UR POTASSIUM [id number] 14:09:00 Test Item Value Reference Range Comments UR POTASSIUM RANDOM (test 13.2 MEQ/L () The Reference Range and Method code=KU) Performance specificationshave not been established for this fluid. The test resultshould be correlated into the clinical context forinterpretation. UR CHLORIDE [id number] 14:09:00 Test Item Value Reference Range Comments UR CHLORIDE RANDOM (test 72 mmol/L Not Estab. Performed At: [facility] code=CLU) [id number] [place], [place] [id number] Kyle L MD Ph:[phone] UR PROTEIN [id number] 14:09:00 Test Item Value Reference Range Comments UR PROTEIN TOTAL (test code=PROTU) 5.6 MG/DL 0.0-12.0 UR CREATININE [id number] 14:09:00 Test Item Value Reference Range Comments UR CREATININE RANDOM (test code=CREATU) 36.4 MG/DL 30-125 UR OSMOLALITY [id number] 14:09:00 Test Item Value Reference Range Comments UR OSMOLALITY RANDOM (test code=OSMOU) 284 MOS/KG 390-1090 UR SODIUM [id number] 02:55:00 Test Item Value Reference Range Comments UR SODIUM RANDOM (test 88 MEQ/L The Reference Range and Method code=MERI) Performance specificationshave not been established for this fluid. The test resultshould be correlated into the clinical context forinterpretation. UR POTASSIUM [id number] 02:55:00 Test Item Value Reference Range Comments UR POTASSIUM RANDOM (test 13.2 MEQ/L The Reference Range and Method code=KU) Performance specificationshave not been established for this fluid. The test resultshould be correlated into the clinical context forinterpretation. UR OSMOLALITY [id number] 02:55:00 Test Item Value Reference Range Comments UR OSMOLALITY RANDOM (test code=OSMOU) 284 MOS/KG 390-1090 UR SODIUM [id number] 02:55:00 Test Item Value Reference Range Comments UR SODIUM RANDOM (test 88 MEQ/L () The Reference Range and Method code=MERI) Performance specificationshave not been established for this fluid. The test resultshould be correlated into the clinical context forinterpretation. UR POTASSIUM [id number] 02:55:00 Test Item Value Reference Range Comments UR POTASSIUM RANDOM (test 13.2 MEQ/L () The Reference Range and Method code=KU) Performance specificationshave not been established for this fluid. The test resultshould be correlated into the clinical context forinterpretation. UR CHLORIDE [id number] 02:55:00 Test Item Value Reference Range Comments UR CHLORIDE RANDOM (test code=CLU) mmol/L >10 UR PROTEIN [id number] 02:55:00 Test Item Value Reference Range Comments UR PROTEIN TOTAL (test code=PROTU) 5.6 MG/DL 0.0-12.0 UR CREATININE [id number] 02:55:00 Test Item Value Reference Range Comments UR CREATININE RANDOM (test code=CREATU) 36.4 MG/DL 30-125 UR OSMOLALITY [id number] 02:55:00 Test Item Value Reference Range Comments UR OSMOLALITY RANDOM (test code=OSMOU) 284 MOS/KG 390-1090 UR SODIUM [id number] 02:52:00 Test Item Value Reference Range Comments UR SODIUM RANDOM (test 88 MEQ/L The Reference Range and Method code=MERI) Performance specificationshave not been established for this fluid. The test resultshould be correlated into the clinical context forinterpretation. UR POTASSIUM [id number] 02:52:00 Test Item Value Reference Range Comments UR POTASSIUM RANDOM (test 13.2 MEQ/L The Reference Range and Method code=KU) Performance specificationshave not been established for this fluid. The test resultshould be correlated into the clinical context forinterpretation. UR OSMOLALITY [id number] 02:52:00 Test Item Value Reference Range Comments UR OSMOLALITY RANDOM (test code=OSMOU) MOS/KG 390-1090 UR SODIUM [id number] 02:52:00 Test Item Value Reference Range Comments UR SODIUM RANDOM (test 88 MEQ/L () The Reference Range and Method code=MERI) Performance specificationshave not been established for this fluid. The test resultshould be correlated into the clinical context forinterpretation. UR POTASSIUM [id number] 02:52:00 Test Item Value Reference Range Comments UR POTASSIUM RANDOM (test 13.2 MEQ/L () The Reference Range and Method code=KU) Performance specificationshave not been established for this fluid. The test resultshould be correlated into the clinical context forinterpretation. UR CHLORIDE [id number] 02:52:00 Test Item Value Reference Range Comments UR CHLORIDE RANDOM (test code=CLU) mmol/L >10 UR PROTEIN [id number] 02:52:00 Test Item Value Reference Range Comments UR PROTEIN TOTAL (test code=PROTU) 5.6 MG/DL 0.0-12.0 UR CREATININE [id number] 02:52:00 Test Item Value Reference Range Comments UR CREATININE RANDOM (test code=CREATU) 36.4 MG/DL 30-125 UR OSMOLALITY [id number] 02:52:00 Test Item Value Reference Range Comments UR OSMOLALITY RANDOM (test code=OSMOU) MMO/KG 500-800 UR SODIUM [id number] 16:08:00 Test Item Value Reference Range Comments UR SODIUM RANDOM (test code=MERI) MEQ/L UR POTASSIUM [id number] 16:08:00 Test Item Value Reference Range Comments UR POTASSIUM RANDOM (test code=KU) mmol/L >0 UR CHLORIDE [id number] 16:08:00 Test Item Value Reference Range Comments UR CHLORIDE RANDOM (test code=CLU) mmol/L >10 UR PROTEIN [id number] 16:08:00 Test Item Value Reference Range Comments UR PROTEIN TOTAL (test code=PROTU) 5.6 MG/DL 0.0-12.0 UR CREATININE [id number] 16:08:00 Test Item Value Reference Range Comments UR CREATININE RANDOM (test code=CREATU) 36.4 MG/DL 30-125 UR OSMOLALITY [id number] 16:08:00 Test Item Value Reference Range Comments UR OSMOLALITY RANDOM (test code=OSMOU) MMO/KG 500-800 CBC W/AUTO [id number] 04:37:00 Test Item Value Reference Range Comments [...] REQUIRED (test code=MDIFF) YES DIFF/SCN CRITERIA WBC [id number] 04:37:00 Test Item Value Reference Range Comments SEGMENTED NEUTROPHILS 69 % 40-75 (test code=SEG) LYMPHOCYTE (test 27 % 18.7-40.6 code=LYMPH) MONOCYTE (test code=MON) 4 % 3.8-11.4 NUCLEATED RED BLOOD CELL 8 #/100WBC 0-0 (test code=NRBC) ANISOCYTOSIS (test TRACE NONE code=ANISO) PLATELET ESTIMATE (test SLIGHTLY DECREASED ADEQUATE PLATELET COUNT code=PLTEST) THOUSAND REVIEWED AND VERIFIED. PLATELET MORPHOLOGY (test NORMAL code=PLTMORPH) CBC W/AUTO [id number] 04:36:00 Test Item Value Reference Range Comments [...] REQUIRED (test code=MDIFF) YES DIFF/SCN CRITERIA WBC [id number] 04:36:00 Test Item Value Reference Range Comments SEGMENTED NEUTROPHILS (test code=SEG) % 40-75 LYMPHOCYTE (test code=LYMPH) % 18.7-40.6 CBC W/AUTO [id number] 04:36:00 Test Item Value Reference Range Comments [...] REQUIRED (test code=MDIFF) YES DIFF/SCN CRITERIA WBC [id number] 04:36:00 Test Item Value Reference Range Comments SEGMENTED NEUTROPHILS (test code=SEG) % 40-75 LYMPHOCYTE (test code=LYMPH) % 18.7-40.6 CBC W/AUTO [id number] 04:18:00 Test Item Value Reference Range Comments [...] REQUIRED (test code=MDIFF) DIFF/SCN CRITERIA CBC W/AUTO [id number] 05:22:00 Test Item Value Reference Range Comments [...] CONSISTANT code=MDIFF) WITH AUTO DIFFERENTIAL. THROMBOPLASTIN TIME [id number] 05:08:00 Test Item Value Reference Range Comments THROMBOPLASTIN TIME PARTIAL (test code=PTT) 22.4 SECONDS 26-35 CBC W/AUTO [id number] 05:07:00 Test Item Value Reference Range Comments [...] REQUIRED (test code=MDIFF) DIFF/SCN CRITERIA CBC W/AUTO [id number] 21:56:00 Test Item Value Reference Range Comments [...] REQUIRED (test code=MDIFF) NO DIFF/SCN CRITERIA RBC [id number] 21:56:00 Test Item Value Reference Range Comments PLATELET ESTIMATE (test MARKEDLY DECREASED ADEQUATE PLT EST 48,000-60,000 code=PLTEST) THOUSAND PLATELET MORPHOLOGY NORMAL (test code=PLTMORPH) CBC W/AUTO [id number] 21:54:00 Test Item Value Reference Range Comments [...] (test code=MDIFF) NO DIFF/SCN CRITERIA CBC W/AUTO [id number] 21:54:00 Test Item Value Reference Range Comments [...] (test code=MDIFF) NO DIFF/SCN CRITERIA BASIC METABOLIC [id number] 20:43:00 Test Item Value Reference Range Comments [...] (test code=CA) 8.7 MG/DL 8.5-10.1 BASIC METABOLIC [id number] 20:38:00 Test Item Value Reference Range Comments [...] (test code=CA) 8.7 MG/DL 8.5-10.1 CBC W/AUTO [id number] 20:38:00 Test Item Value Reference Range Comments [...] REQUIRED (test code=MDIFF) DIFF/SCN CRITERIA GLUCOSE BEDSIDE [id number] 20:21:00 Test Item Value Reference Range Comments GLUCOSE BEDSIDE TESTING (test code=GLUBED) 241 mg/dL 70-110 - XR CHEST 1 [id number] 20:13:00 Name: DAVID ULRICH [facility] : 1940 Age/S: 79 / F [address] Unit #: [id number] Loc: [place] [address] Phys: Isma Faust MD Acct: [id number] Dis Date: Status: ADM IN PHONE #: [phone] Exam Date: 07/11/20191954 FAX #: Reason: RAPID RESPONSE, NEAR SYNCOPE EXAMS: CPT: [id number] XR CHEST 1 V 23372 Fluoro Time: DAP (Gy m2): Air Kerma [...] ULRICH : 1940 Age/S: 79 / F [address] Unit #: [id number] Loc: [place], [place] Phys: Isma Faust MD Acct:[id number] Dis Date: Status: ADM IN PHONE #: [phone] Exam Date: 07/11/20191954 FAX #: Reason: RAPID RESPONSE, NEAR SYNCOPE EXAMS: CPT: [id number] XR CHEST 1 V 40481 Fluoro Time: DAP (Gy m2): Air Kerma (mGy) : <Continued> Technologist: Vahid Dean RT(R)(CT)(MRI) Trnscb Date/Time: 07/11/2019 (2012) ElliePR7 Orig Print D/T : S: 07/11/2019 (2015) PAGE 2 Signed ReportACUTE HEPATITIS [id number] 06:09:00 Test Item Value Reference Range Comments [...] with a HCV Nucleic Acid Amplification test ([id number]).Performed At: [facility] [id number] [place], [place] [id number] Eduard Patricio MD Ph:[phone] CBC W/AUTO [id number] 04:38:00 Test Item Value Reference Range Comments [...] DIFFERENTIAL.PLATELET COUNT REVIEWED AND VERIFIED. THROMBOPLASTIN TIME [id number] 04:28:00 Test Item Value Reference Range Comments THROMBOPLASTIN TIME PARTIAL (test code=PTT) 16.6 SECONDS 26-35 CBC W/AUTO [id number] 04:18:00 Test Item Value Reference Range Comments [...] MANUAL DIFF REQUIRED (test code=MDIFF) DIFF/SCN CRITERIA [id number] 15:08:00 Test Item Value Reference Range Comments HAPTOGLOBIN (test code=HAPT) 110 mg/dL 34-200 Performed At: [address] [id number] Sanjai MD Ph:[phone] THROMBOPLASTIN TIME [id number] 12:09:00 Test Item Value Reference Range Comments THROMBOPLASTIN TIME PARTIAL (test code=PTT) 88.0 SECONDS 26-35 CBC W/AUTO [id number] 05:05:00 Test Item Value Reference Range Comments [...] REQUIRED (test code=MDIFF) YES DIFF/SCN CRITERIA WBC [id number] 05:05:00 Test Item Value Reference Range Comments [...] PLATELET MORPHOLOGY (test NORMAL code=PLTMORPH) CBC W/AUTO [id number] 05:04:00 Test Item Value Reference Range Comments [...] REQUIRED (test code=MDIFF) YES DIFF/SCN CRITERIA WBC [id number] 05:04:00 Test Item Value Reference Range Comments SEGMENTED NEUTROPHILS (test code=SEG) % 40-75 LYMPHOCYTE (test code=LYMPH) % 18.7-40.6 CBC W/AUTO [id number] 05:04:00 Test Item Value Reference Range Comments [...] REQUIRED (test code=MDIFF) YES DIFF/SCN CRITERIA WBC [id number] 05:04:00 Test Item Value Reference Range Comments SEGMENTED NEUTROPHILS (test code=SEG) % 40-75 LYMPHOCYTE (test code=LYMPH) % 18.7-40.6 BASIC METABOLIC [id number] 04:33:00 Test Item Value Reference Range Comments [...] 0.6-1.0 CALCIUM (test code=CA) 8.0 MG/DL 8.5-10.1 [id number] 04:33:00 Test Item Value Reference Range Comments MAGNESIUM (test code=MAG) 1.5 MG/DL 1.8-2.4 THROMBOPLASTIN TIME [id number] 04:27:00 Test Item Value Reference Range Comments THROMBOPLASTIN TIME PARTIAL (test code=PTT) 92.9 SECONDS 26-35 CBC W/AUTO [id number] 04:17:00 Test Item Value Reference Range Comments [...] REQUIRED (test code=MDIFF) DIFF/SCN CRITERIA THROMBOPLASTIN TIME [id number] 21:58:00 Test Item Value Reference Range Comments THROMBOPLASTIN TIME PARTIAL (test code=PTT) 68.4 SECONDS 26-35 THROMBOPLASTIN TIME [id number] 14:02:00 Test Item Value Reference Range Comments THROMBOPLASTIN TIME PARTIAL (test code=PTT) 37.8 SECONDS 26-35 THROMBOPLASTIN TIME [id number] 09:13:00 Test Item Value Reference Range Comments THROMBOPLASTIN TIME PARTIAL (test code=PTT) >400 SECONDS 26-35 THROMBOPLASTIN TIME [id number] 07:46:00 Test Item Value Reference Range Comments THROMBOPLASTIN TIME PARTIAL (test code=PTT) >400 SECONDS 26-35 CBC W/AUTO [id number] 07:29:00 Test Item Value Reference Range Comments [...] REQUIRED (test code=MDIFF) YES DIFF/SCN CRITERIA WBC [id number] 07:29:00 Test Item Value Reference Range Comments [...] PLATELET MORPHOLOGY (test NORMAL code=PLTMORPH) CBC W/AUTO [id number] 07:28:00 Test Item Value Reference Range Comments [...] REQUIRED (test code=MDIFF) YES DIFF/SCN CRITERIA WBC [id number] 07:28:00 Test Item Value Reference Range Comments SEGMENTED NEUTROPHILS (test code=SEG) % 40-75 LYMPHOCYTE (test code=LYMPH) % 18.7-40.6 CBC W/AUTO [id number] 07:28:00 Test Item Value Reference Range Comments [...] REQUIRED (test code=MDIFF) YES DIFF/SCN CRITERIA WBC [id number] 07:28:00 Test Item Value Reference Range Comments SEGMENTED NEUTROPHILS (test code=SEG) % 40-75 LYMPHOCYTE (test code=LYMPH) % 18.7-40.6 CBC W/AUTO [id number] 06:18:00 Test Item Value Reference Range Comments [...] REQUIRED (test code=MDIFF) DIFF/SCN CRITERIA PROTEIN ELECTROPHORESIS [id number] 05:53:00 Test Item Value Reference Range Comments TOTAL PROTEIN (test TEST NOT PERFORMED g/dL () Please refer to the code=PROTE) following specimen for additional labresults.Please see specimen # [id number] for testing.07/08/2019-[facility]ugan ALBUMIN (test TEST NOT PERFORMED () Test not performed code=ALBE) [id number]-7-[id number] (test TEST NOT PERFORMED () Test not performed code=A1G) [id number]-3-[id number] (test TEST NOT PERFORMED () Test not [...] (test code=FESAT) 55 % calc 12-57 VITAMIN [id number] 05:53:00 Test Item Value Reference Range Comments VITAMIN B12 (test code=VITB12) 2803 PG/ML 183-986 FOLIC [id number] 05:53:00 Test Item Value Reference Range Comments FOLIC ACID (test code=FOL) 14.70 NG/ML 3.10-17.50 THYROID STIMULATING [id number] 05:53:00 Test Item Value Reference Range Comments THYROID STIMULATING HORMONE (test code=TSH) 0.111 mcIU/ML 0.340-4.820 THROMBOPLASTIN TIME [id number] 22:44:00 Test Item Value Reference Range Comments THROMBOPLASTIN TIME PARTIAL (test code=PTT) 146.1 SECONDS 26-35 ANTINUCLEAR ANTIBODIES [id number] 15:28:00 Test Item Value Reference Range Comments HARSH TITER (test Negative () code=ANATITR) Negative <1:80 Borderline 1:80 Positive >1:80Performed At: [facility] [address] [id number] Patricio MD Ph:[phone] ANTINUCLEAR ANTIBODIES [id number] 13:09:00 Test Item Value Reference Range Comments HARSH TITER (test code=ANATITR) Negative () Negative <1:80 Borderline 1:80 Positive >1:80Performed At: [facility] [address] [id number] Patricio MD Ph:[phone] HARSH COMMENT (test code=ANACOM) PROTEIN ELECTROPHORESIS [id number] 10:09:00 Test Item Value Reference Range Comments TOTAL PROTEIN (test code=PROTE) g/dL () Please refer to the following specimen for additional labresults.Please see specimen # [id number] for testing.07/08/2019-Dugan ALBUMIN (test code=ALBE) () Test not performed BYTIX-9-NQQWPTOT (test () Test not performed code=A1G) [id number]-9-[id number] (test () Test not performed code=A2G) BETA [...] (test code=FESAT) 55 % calc 12-57 VITAMIN [id number] 10:09:00 Test Item Value Reference Range Comments VITAMIN B12 (test code=VITB12) 2803 PG/ML 183-986 FOLIC [id number] 10:09:00 Test Item Value Reference Range Comments FOLIC ACID (test code=FOL) 14.70 NG/ML 3.10-17.50 THYROID STIMULATING [id number] 10:09:00 Test Item Value Reference Range Comments THYROID STIMULATING HORMONE (test code=TSH) 0.111 mcIU/ML 0.340-4.820 CBC W/AUTO [id number] 08:39:00 Test Item Value Reference Range Comments [...] REVIEW CONSISTANT code=MDIFF) WITH AUTO DIFFERENTIAL. RBC [id number] 08:39:00 Test Item Value Reference Range Comments PLATELET ESTIMATE (test SLIGHTLY DECREASED ADEQUATE PLT ESTIMATE 88,000 TO code=PLTEST) THOUSAND 110,000 PLATELET MORPHOLOGY LARGE PLATELETS (test code=PLTMORPH) CBC W/AUTO [id number] 08:38:00 Test Item Value Reference Range Comments [...] CONSISTANT code=MDIFF) WITH AUTO DIFFERENTIAL. CBC W/AUTO [id number] 08:38:00 Test Item Value Reference Range Comments [...] CONSISTANT code=MDIFF) WITH AUTO DIFFERENTIAL. COMPREHENSIVE METABOLIC [id number] 06:42:00 Test Item Value Reference Range Comments [...] TOTAL (test code=ALKP) 34 Unit/L 45-117 PROTHROMBIN [id number] 06:41:00 Test Item Value Reference Range Comments PT PATIENT (test code=PTP) 19.0 SECONDS 9.3-12.9 INTERNATIONAL NORMAL RATIO (test code=INR) 1.64 INR Unit 0.8-1.2 THROMBOPLASTIN TIME [id number] 06:41:00 Test Item Value Reference Range Comments THROMBOPLASTIN TIME PARTIAL (test code=PTT) 20.4 SECONDS 26-35 COMPREHENSIVE METABOLIC [id number] 06:37:00 Test Item Value Reference Range Comments [...] TOTAL (test code=ALKP) Unit/L 45-117 CBC W/AUTO [id number] 06:30:00 Test Item Value Reference Range Comments [...] (AUTOMATED) (test code=RETICA) 2.6 % 0.3-2.3 HGB [id number] 21:05:00 Test Item Value Reference Range Comments HEMOGLOBIN (test code=HGB) 9.1 G/DL 10.4-14.9 HEMATOCRIT (test code=HCT) 28.7 % 31.5-44.1 PROTEIN ELECTROPHORESIS [id number] 17:59:00 Test Item Value Reference Range Comments TOTAL PROTEIN (test code=PROTE) ALBUMIN (test code=ALBE) MGLPW-4-NBYOOSKM (test code=A1G) SKBKE-5-QXSKUJMW (test code=A2G) BETA GLOBULIN (test code=BG) GAMMA [...] (test code=FESAT) 55 % calc 12-57 VITAMIN [id number] 17:59:00 Test Item Value Reference Range Comments VITAMIN B12 (test code=VITB12) 2803 PG/ML 183-986 FOLIC [id number] 17:59:00 Test Item Value Reference Range Comments FOLIC ACID (test code=FOL) 14.70 NG/ML 3.10-17.50 THYROID STIMULATING [id number] 17:59:00 Test Item Value Reference Range Comments THYROID STIMULATING HORMONE (test code=TSH) 0.111 mcIU/ML 0.340-4.820 PROTEIN ELECTROPHORESIS [id number] 17:07:00 Test Item Value Reference Range Comments TOTAL PROTEIN (test code=PROTE) ALBUMIN (test code=ALBE) LXFVA-8-RBMBOMRP (test code=A1G) CJYIU-7-LPANVGWU (test code=A2G) BETA GLOBULIN (test code=BG) GAMMA [...] (test code=FESAT) 55 % calc 12-57 VITAMIN [id number] 17:07:00 Test Item Value Reference Range Comments VITAMIN B12 (test code=VITB12) PG/ML 183-986 FOLIC [id number] 17:07:00 Test Item Value Reference Range Comments FOLIC ACID (test code=FOL) 14.70 NG/ML 3.10-17.50 THYROID STIMULATING [id number] 17:07:00 Test Item Value Reference Range Comments THYROID STIMULATING HORMONE (test code=TSH) 0.111 mcIU/ML 0.340-4.820 PROTEIN ELECTROPHORESIS [id number] 16:11:00 Test Item Value Reference Range Comments TOTAL PROTEIN (test code=PROTE) ALBUMIN (test code=ALBE) WSIZF-4-XWADDCDI (test code=A1G) AILQL-1-BDOTBCJJ (test code=A2G) BETA GLOBULIN (test code=BG) GAMMA [...] (test code=FESAT) 55 % calc 12-57 VITAMIN [id number] 16:11:00 Test Item Value Reference Range Comments VITAMIN B12 (test code=VITB12) PG/ML 183-986 FOLIC [id number] 16:11:00 Test Item Value Reference Range Comments FOLIC ACID (test code=FOL) NG/ML 3.10-17.50 THYROID STIMULATING [id number] 16:11:00 Test Item Value Reference Range Comments THYROID STIMULATING HORMONE (test code=TSH) 0.111 mcIU/ML 0.340-4.820 - [place] GUIDANCE VASC [id number] 15:35:00 Name: DAVID ULRICH [facility] : 1940 Age/S: 79 / F [address] Unit #: [id number] Loc: [place] [address] Phys: Isma Faust MD Acct: [id number] Dis Date: Status : ADM IN PHONE #: [phone] Exam Date: 07/07/2019 1500 FAX #: Reason: IV ACCESS EXAMS: CPT: [id number] US GUIDANCE VASC ACCESS 40091 C3 Central Venous Catheter Placement Under Ultrasound [...] PAGE 1 Signed Report (CONTINUED) Name: DAVID ULRICHland : 1939 Age/S: 79 / F [address] Unit #: [id number] Loc: [place] [address] Phys: Isma Faust MD Acct: [id number] Dis Date: Status: ADM IN PHONE #: [phone] Exam Date: 07/07/2019 1500 FAX #: Reason: IV ACCESS EXAMS: CPT: [id number] US GUIDANCE VASC ACCESS 37035 <Continued> at 1535 Reported and signed by: Mazin Moraels M.D.CC: Isma Faust MD Technologist: Ioana Townsend, RT(R),RDMS(AB) Trnmsb Date/Time: 07/07/2019 (1535) [email or web address] PAGE 2 Signed Report Name: DAVID ULRICH [place] : 1940 Age/S: 79 / F [id number] [address] Unit #: [id number] Loc: [place] [address] Phys: Isma Faust MD Acct: [id number] Dis Date: Status: ADM IN PHONE #: [phone] Exam Date: 1500 FAX #: Reason: IV ACCESS EXAMS: CPT: [id number] US GUIDANCE VASC ACCESS 05544 <Continued> Orig Print D/T: S: 07/07/2019 (1538) Probe: PAGE 3 Signed Report- XR CHEST 1 [id number] 15:33:00 Name: DAVID ULRICH [place] : 1940 Age/S: 79 / F [id number] [address] Unit #: [id number] Loc: [place] [address] Phys: Mazin Morales MD Acct: [id number] Dis Date: Status: ADM IN PHONE #: [phone] Exam Date: 07/07/2019 1521 FAX #: Reason: S/P CENTRAL LINE PLACEMENT EXAMS: CPT: [id number] XR CHEST 1 V 78524 Fluoro Time: DAP (Gy m2): Air Kerma [...] and signed by: Mazin Morales M.D. CC: Mzain Morales MD; Isma Faust MD PAGE 1 Signed Report Name: DAVID ULRICH [place] : 1940 Age/S: 79 / F [id number] Unit #: [id number] Loc: [place] [address] Phys : Mazin Morales MD Acct: [id number] Dis Date: Status: ADM IN PHONE #: [phone] Exam Date: 07/07/2019 1521 FAX #: Reason: S/P CENTRAL LINE PLACEMENT EXAMS: CPT: [id number] XR CHEST 1 V 92800 Fluoro Time: DAP (Gy m2): Air Kerma (mGy): <Continued> Technologist: Vahid Dean RT(R)(CT)(MRI) Trnscb Date /Time: 07/07/2019 (1533) EllieSI1 PAGE 2 Signed [id number]- 16 14:54:00 Test Item Value Reference Range Comments FIBRINOGEN (test code=FIB) 141 mg/dL 185-453 - US ABDOMEN [id number] 14:16:00 Name: DAVID ULRICH : 1940 Age/S: 79 / F [id number] Unit #: [id number] Loc: [place] [address] Phys: Adela Bejarano MD Acct: [id number] Dis Date: Status: ADM IN PHONE #: [phone] Exam Date: 07/07/2019 1312 FAX #: Reason: thrombocytopenia, evaluate for liver disease EXAMS: CPT: [id number] US ABDOMEN LTD 02849 C3 TIME OF STUDY: 07/07/2019 8:44 AM [...] Bejarano MD; Isma Faust MD Technologist: Ioana Townsend RT(R),RDMS(AB) Trnscb Date/Time: 07/07/2019 (8676) t.[email or web address].[email or web address] PAGE 1 Signed Report Name: DAVID ULRICH [facility] : 1940 Age/S: 79 / F [address] [facility] Unit #: [id number] Loc: [place] [address] Phys: Adela Bejarano MD Acct: [id number] Dis Date:Status: ADM IN PHONE #: [phone] Exam Date: 07/07/2019 1312 FAX #: Reason: thrombocytopenia, evaluate for liver disease EXAMS: CPT: [id number] US ABDOMEN LTD [address] <Continued> Orig Print D/T : S: 07/07/2019 (8438) Probe: PAGE 2 Signed Report- DUP VEIN [id number] 14:16:00 Name: DAVID ULRICH [place] : 1939 Age/S: 79 / F [address] Unit #: [id number] Loc: [place] [address] Phys: Isma Faust MD Acct: [id number] Dis Date : Status: ADM IN PHONE #: [phone] Exam Date: 07/07/2019 1350 FAX #: Reason: HX OF PE, BLE EDEMA EXAMS: CPT: [id number] [place] [address] C3 TIME OF STUDY : 07/07/2019 12:09 [...] Isma Faust MD Technologist: Ioana Townsend, RT(R),ZACHARYMS(AB) Trnmsb Date/Time: 07/07/2019 (1416) t.[email or web address].[email or web address] PAGE 1 Signed Report Name: DAVID ULRICH : 1940 Age/S: 79 / F [address] # : [id number] Loc: [place] [address] Phys: Isma Faust MD Acct: [id number] Dis Date: Status: ADM IN PHONE #: [phone] Exam Date: 07/07/2019 1350 FAX #: Reason: HX OF PE, BLE EDEMA EXAMS: CPT: [id number] [place] [address] <Continued> Orig Print D/T: S: 07/07/2019 (1419) Probe: PAGE 2 Signed ReportPROTHROMBIN [id number] 14:10:00 Test Item Value Reference Range Comments PT PATIENT (test code=PTP) 28.8 SECONDS 9.3-12.9 INTERNATIONAL NORMAL RATIO (test code=INR) 2.46 INR Unit 0.8-1.2 HGB [id number] 14:00:00 Test Item Value Reference Range Comments HEMOGLOBIN (test code=HGB) 8.8 G/DL 10.4-14.9 HEMATOCRIT (test code=HCT) 28.3 % 31.5-44.1 HGB [id number] 07:53:00 Test Item Value Reference Range Comments HEMOGLOBIN (test code=HGB) 10.1 G/DL 10.4-14.9 HEMATOCRIT (test code=HCT) 31.8 % 31.5-44.1 COMPREHENSIVE METABOLIC [id number] 01:03:00 Test Item Value Reference Range Comments [...] code=ALKP) 41 Unit/L 45-117 NT PRO-BRAIN NATRIURETIC [id number] 01:03:00 Test Item Value Reference Range Comments NT PRO-BRAIN NATRIURETIC PEPTI (test code=PROBNP) 236 PG/ML 0-100 CBC W/AUTO [id number] 01:02:00 Test Item Value Reference Range Comments [...] AUTO DIFFERENTIAL.PLATELET COUNT REVIEWED AND VERIFIED. PROTHROMBIN [id number] 00:52:00 Test Item Value Reference Range Comments PT PATIENT (test code=PTP) 40.0 SECONDS 9.3-12.9 INTERNATIONAL NORMAL RATIO (test code=INR) 3.39 INR Unit 0.8-1.2 THROMBOPLASTIN TIME [id number] 00:52:00 Test Item Value Reference Range Comments THROMBOPLASTIN TIME PARTIAL (test code=PTT) 25.1 SECONDS 26-35 CBC W/AUTO [id number] 00:50:00 Test Item Value Reference Range Comments [...]
[2019-10-29] MEDS ORDERED: PANTOPRAZOLE 40 MG INJ ONE (12:10)
[2019-10-29] MEDS ORDERED: WATER FOR INJ,STERILE 20 ML ONE (12:10)
[2019-10-29] MEDS ORDERED: NA CHLORIDE 0.9% 0 ML ONE (12:50)
[2019-10-29 13:26] LABS: Albumin 2.9 g/dL (3.4-5.0); Bilirubin Direct 0.1 mg/dL (0-0.2); Bilirubin Total 0.4 mg/dL (0.2-1.0); Potassium 3.8 mmol/L (3.5-5.1); Protein, Total 5.6 g/dL (6.4-8.2)
--- NOTE | 2019-10-29 14:41 | RAD REPORT ---
EXAM DESCRIPTION: CT - Abdomen Pelvis W Contrast - 10/29/2019 2:03 pm CLINICAL HISTORY: Abd pain;GI bleed COMPARISON: CT study December 2011 TECHNIQUE: Biphasic, helical CT imaging of the abdomen and pelvis was performed following 100 ml non -ionic IV contrast. No oral contrast. All CT scans are performed using dose optimization technique as appropriate and may include automated exposure control or mA/KV adjustment according to patient size. FINDINGS: No suspicious findings in the lung bases. The liver, spleen, and pancreas show no suspicious findings. Gallbladder is absent. Biliary tree is p rominent but not outside of normal range for post cholecystectomy status. Symmetric renal function is seen with no hydronephrosis or suspicious renal mass. No pyelonephritis o r acute parenchymal process. Urinary bladder is mostly contracted. No abnormality seen. Uterus is abs ent. Ovaries are absent or atrophic. No adrenal abnormalities. No stomach or small bowel abnormality. Patient has prominent diverticulosis most notable in the sigmo id colon. No mass or diverticulitis findings identifiable. No free air, free fluid or inflammatory stranding. No mass or bulky lymphadenopathy. There is foca l laxity of the abdominal wall of the umbilicus. No acute finding in this region. Then abdominal wall fascia extends to the skin surface. Prominent disc and bony degenerative change present without acute finding. IMPRESSION: Prominent colonic diverticulosis without diverticulitis. No acute GI process seen. No acute finding. Contracted bladder shows no suspicious finding.
[2019-10-29 15:06] LABS: Absolute Lymphocytes (CBC) 2.4 K/uL (0.7-4.9); Basophils % 0.3 % (0-1.3); Lymphocytes % 26.3 % (15.3-44.8); MPV 9.8 fL (7.6-11.3); RBC Red Blood Cell Count 4.19 M/uL (3.86-4.86)
[2019-10-29 15:07] LABS: Protime INR 1.11
[2019-10-29 15:33] LABS: Anisocytosis 1+; Blood Morphology Comment NOTED (NOT SEEN); Platelet Estimate DECR; Urine White Blood Cell Casts OK
--- NOTE | 2019-10-29 15:33 | ER ---
Nurse's Notes [facility] Name: Kimmy Gamez Age: 79 yrs Sex: Female : 1940 Arrival Date: 10/29/2019 Time: 11:57 Bed 3 Private MD: Diagnosis: Syncope and collapse;GI Bleed Presentation: 10/29 11:57 Presenting complaint: EMS states: patient's said that the patient slumped over sr5 while on the toilet this morning, for approx 1 min. Bright red in toilet. Reports taking Eloquist. EMS states patient was AA\T\Ox4 upon arrival, FSBS 140, BP 93/54, HR 82. Skin cool/dry/nc. Denies CP/SOB/abd pain. Reports history of GI bleed, PE, HTN, lymphedema with wound care currently treating wound on RIGHT lower leg. Transition of care: patient was not received from another setting of care. Onset of symptoms was October 29, 2019. Risk Assessment: Do you want to hurt yourself or someone else? Patient reports no desire to harm self or others. Initial Sepsis Screen: Does the patient meet any 2 criteria? No. Patient's initial sepsis screen is negative. Does the patient have a suspected source of infection? Yes: Skin breakdown/wound. Care prior to arrival: IV initiated. 20 GA, in the right antecubital area, Glucose check: 140. 11:57 Method Of Ar[facility]: [facility] 11:57 Acuity: DWIGHT 2 sr5 Triage Assessment: 12:20 General: Appears in no apparent distress. Behavior is calm, cooperative. Pain: Denies sr5 pain. Neuro: Level of Consciousness is awake, alert, obeys commands, Oriented to person, place, time, situation, Speech is normal, Reports reports pt had a syncopal event while on the toilet this AM. Cardiovascular: skin cool/dry/nc. Rhythm is sinus rhythm. Respiratory: Respiratory effort is even, unlabored, Respiratory pattern is regular, symmetrical. GI: Reports bright red stool Patient currently denies abdominal pain. : No signs and/or symptoms were reported regarding the genitourinary system. Derm: Reports wound care visits on Wednesday for wound on RIGHT lower leg. Musculoskeletal: No signs and/or symptoms reported regarding the musculoskeletal system. 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 - Social history:: Smoking status: Patient/guardian denies using tobacco. - Ebola Screening: : Patient negative for fever greater than or equal to 101.5 degrees Fahrenheit, and additional compatible Ebola Virus Disease symptoms Patient denies exposure to infectious person Patient denies travel to an Ebola-affected area in the 21 days before illness onset No symptoms or risks identified at this time. Screenin:32 Abuse screen: Denies threats or abuse. Denies injuries from another. Nutritional ca1 screening: No deficits noted. Tuberculosis screening: No symptoms or risk factors identified. Fall Risk Fall in past 12 months (25 points). Secondary diagnosis (15 points) impaired mobility, IV access (20 points). Ambulatory Aid- Crutches/Cane/Walker (15 pts). Gait- Weak (10 pts.). Total Fitch Fall Scale indicates High Risk Score (45 or more points). Fall prevention measures have been instituted. Side Rails Up X 2 Family Present and informed to notify staff if the need to leave the bedside As available patient and family educated on Fall Prevention Program and Strategies. Assessment: 12:32 General: Appears in no apparent distress. comfortable, ill, Behavior is calm, ca1 cooperative, appropriate for age. Pain: Denies pain. Neuro: Level of Consciousness is awake, alert, obeys commands, Oriented to person, place, time, situation. Cardiovascular: Heart tones S1 S2 present Capillary refill is > 3 seconds Rhythm is. Respiratory: Airway is patent Respiratory effort is even, unlabored, Respiratory pattern is regular, symmetrical, Breath sounds are clear bilaterally. GI: Abdomen is round non-distended, Bowel sounds present X 4 quads. Abd is soft and non tender X 4 quads. Reports rectal bleeding, since this morning. : No deficits noted. No signs and/or symptoms were reported regarding the genitourinary system. EENT: No deficits noted. No signs and/or symptoms were reported regarding the EENT system. Derm: Skin is intact, is healthy with good turgor, Skin is dry, Skin is pale, Skin temperature is warm. Musculoskeletal: Circulation, motion, and sensation intact. Capillary refill is > 3 seconds, is sluggish, Range of motion: intact in all extremities. 12:50 Reassessment: engine test cell technician was able to draw 2mls of blood. Notified Dr. Guillen. IVF ca1 ordered. 12:50 Reassessment: Family at bedside. ca1 13:41 Reassessment: PT TO CT. bp 14:33 Reassessment: Patient appears in no apparent distress at this time. Patient is alert, ca1 oriented x 3, equal unlabored respirations, skin warm/dry/pink. 15:52 Reassessment: Patient appears in no apparent distress at this time. Patient and/or ca1 family updated on plan of care and expected duration. Pain level reassessed. Patient is alert, oriented x 3, equal unlabored respirations, skin warm/dry/pink. Consent for EGD signed. Daughter at bedside. 17:30 Reassessment: PT NOTED TO BE GROSSLY HYPOTENSIVE, MD NOTIFIED AND AT B/S FOR RE-EVAL. bp 18:00 Reassessment: MD AT B/S FOR CVC PLACEMENT. bp 19:51 Reassessment: pt earrings and ring given to family at bedside. OR nurses assisted with ak1 linen and brief change. pt A\T\OX4 given history to OR crew. pt family followed OR crew and pt to OR. pt left with NS 1L bolus, dopamine at 10 and cipro infusing to central line at left jaw. Vital Signs: 12:20 BP 121 / 70; Pulse 88; Resp 18; Temp 98.1(O); Pulse Ox 96% on R/A; Pain 0/10; sr5 13:03 BP 138 / 100; Pulse 94; Resp 19 S; Pulse Ox 96% on R/A; ca1 13:30 BP 157 / 102; Pulse 87; Resp 12 S; Pulse Ox 98% on R/A; ca1 14:33 BP 152 / 94; Pulse 87; Resp 15 S; Pulse Ox 95% on R/A; ca1 15:30 BP 131 / 76; Pulse 89; Resp 14 S; Pulse Ox 99% on R/A; ca1 16:00 BP 127 / 82; Pulse 86; Resp 15 S; Pulse Ox 100% on R/A; ca1 16:30 BP 140 / 93; Pulse 89; Resp 14 S; Pulse Ox 100% on R/A; ca1 17:00 BP 113 / 63; Pulse 92; Resp 13 S; Pulse Ox 99% on R/A; ca1 17:00 BP 63 / 47; Pulse 70; Resp 21 S; Pulse Ox 98% on R/A; ca1 17:38 BP 53 / 37; Pulse 67; Resp 17 S; Pulse Ox 96% on R/A; ca1 17:43 BP 58 / 33; Pulse 67; Resp 21 S; Pulse Ox 96% on R/A; ca1 17:58 BP 145 / 67; Pulse 84; Resp 24 S; Pulse Ox 100% on R/A; ca1 18:00 BP 139 / 80; Pulse 90; Resp 17 S; Pulse Ox 98% on R/A; ca1 18:04 BP 160 / 77; Pulse 103; Resp 21; Pulse Ox 98% on R/A; ca1 18:08 BP 166 / 90; Pulse 111; Resp 30; Pulse Ox 98% on R/A; ca1 18:10 BP 148 / 66; Pulse 112; Resp 28; Pulse Ox 100% on R/A; ca1 18:12 BP 158 / 127; Pulse 112; Resp 29 S; Pulse Ox 100% on R/A; ca1 18:16 BP 93 / 72; Pulse 114; Resp 18; Pulse Ox 100% on R/A; ca1 18:28 BP 137 / 76; Pulse 106; Resp 15; Pulse Ox 100% on R/A; ca1 18:40 BP 128 / 78; Pulse 110; Resp 20; Pulse Ox 97% on R/A; ca1 18:50 BP 167 / 77; Pulse 124; Resp 24 S; Pulse Ox 94% on R/A; ca1 19:00 BP 93 / 68; Pulse 97; Resp 15 S; Pulse Ox 95% on R/A; ca1 19:10 BP 63 / 43; Pulse 78; Resp 17 S; Pulse Ox 97% on R/A; ca1 19:12 BP 72 / 45; Pulse 95; Resp 17; Pulse Ox 100% on R/A; ak1 19:14 BP 87 / 61; Pulse 94; Resp 17; Pulse Ox 100% on R/A; ak1 19:20 BP 143 / 77; Pulse 86; Resp 21; Pulse Ox 97% on R/A; ak1 19:22 BP 151 / 82; Pulse 84; Resp 16; Pulse Ox 96% ; ak1 19:23 BP 150 / 83; Pulse 103; Resp 23; Pulse Ox 94% on R/A; ak1 19:32 BP 94 / 61; Pulse 107; Resp 15; Pulse Ox 96% on R/A; ak1 19:42 BP 98 / 72; Pulse 93; Resp 21; Pulse Ox 100% on R/A; ak1 19:44 BP 140 / 82; Pulse 119; Resp 24; Pulse Ox 98% on R/A; ak1 19:14 dopamine increased to 10 ak1 19:23 pt nausea and vomiting. ak1 19:42 dopamine remains at 10 ak1 19:44 pt vomiting, zofran 4mg IV adminitered, pt taking via OR team. ak1 ED Course: 11:57 Patient arrived in ED. bp 11:59 Aletha Mercedes, ROSALINDA is Primary Nurse. ca1 12:02 Tutu Guillen MD is Attending Physician. kdr 12:17 Triage completed. sr5 12:20 Arm band placed on Patient placed in an exam room, on a stretcher, on director of cardiac rehabilitation, sr5 on pulse oximetry. 12:25 Missed attempt(s): 22 gauge in left forearm. Bleeding controlled, band aid applied, ca1 catheter tip intact. 12:32 Patient has correct armband on for positive identification. Placed in gown. Bed in low ca1 position. Call light in reach. Side rails up X2. cardiac rehabilitation program director on. Pulse ox on. NIBP on. 12:32 Inserted saline lock: 22 gauge in right hand, using aseptic technique. ,using aseptic ca1 technique. by ROSALINDA Epperson. 12:50 Radiology exam delayed due to lab results not completed at this time. (BUN/Creatinine). bq 14:03 CT completed. Patient tolerated procedure well. Patient moved back from CT. bq 14:04 CT Abd/Pelvis - IV Contrast Only In Process Unspecified. EDMS 14:49 No provider procedures requiring assistance completed. Lab(s) recollected, by me, sent ca1 to lab. 15:28 Adan Camacho MD is Hospitalizing Provider. kdr 15:[address] Guillen explained procedure and risks. ca1 18:20 Radiology exam delayed due to at B/S, nurse to call when pt is stable to come to CT.mw3 19:41 Chest Single View XRAY In Process Unspecified. EDMS 19:56 Patient admitted, IV remains in place. left IJ central line in place by Dr. Guillen and ak1 Anesthesiologist. Administered Medications: 12:10 Drug: ProTONIX 80 mg Route: IVP; Site: right antecubital; ca1 14:49 Follow up: Response: No adverse reaction ca1 12:51 Drug: NS 0.9% 500 ml Route: IV; Rate: bolus; Site: right antecubital; ca1 13:30 Follow up: Response: No adverse reaction; IV Status: Completed infusion ca1 17:25 Drug: Flagyl 500 mg Volume: 100 ml; Route: IVPB; Rate: 200 ml/hr; Infused Over: 30 ca1 mins; Site: right hand; 18:00 Drug: Dopamine drip 5 mcg/kg/min - (DOPamine 400 mg, D5W 250 ml) Route: IV; Rate: bp calculated rate; Site: right wrist; 19:58 Follow up: IV Status: Infusion continued upon admission ak1 18:00 Drug: Zofran 4 mg Route: IVP; Site: right antecubital; bp 18:00 Drug: NS 0.9% 1000 ml Route: IV; Rate: 1 bolus; Site: left wrist; bp 19:45 Drug: Cipro 400 mg Volume: 200 ml; Route: IVPB; Infused Over: 60 mins; Site: Other; ak1 19:58 Follow up: IV Status: Infusion continued upon admission ak1 19:50 Drug: Zofran 4 mg Route: IVP; Site: Other; ak1 19:57 Follow up: Response: No adverse reaction; Nausea is decreased ak1 19:51 Drug: NS 0.9% 1000 ml Route: IV; Rate: 1 bolus; Site: Other; ak1 19:57 Follow up: IV Status: Infusion continued upon admission ak1 Outcome: 15:32 Decision to Hospitalize by Provider. kdr 19:55 Admitted to OR accompanied by nurse, accompanied by tech, family with patient, via ak1 stretcher, on monitor, with chart. 19:55 critical 19:55 Instructed on the need for admit. 19:58 Patient left the ED. ak1 Signatures: Dispatcher [employer] EDMS Tutu Guillen MD MD kdr Quilty, Betty bq Krenek, Roxanna, RN RN ak1 Elliot Rankin, RN RN sr5 Zhou Ashton, RN RN bp Radha Olivo mw3 Aletha Mercedes, RN RN ca1
--- NOTE | 2019-10-29 15:33 | EDPHYS ---
Physician Documentation [facility] Name: Kimmy Gamez Age: 79 yrs Sex: Female : 1940 Arrival Date: 10/29/2019 Time: 11:57 Bed 3 Private MD: ED Physician Tutu Guillen HPI: 10/29 15:32 This 79 yrs old Black Female presents to ER via EMS with complaints of GI Bleeding. kdr 15:32 The patient presents to the emergency department with rectal bleeding, a small amount, kdr in toilet bowl. Onset: The symptoms/episode began/occurred The patient was sitting on the toilet this morning when she had a syncopal episode and according to her was unresponsive for about a minute. He then noted blood in the toilet. She indicated that she has had dark stools for a day or more. Abdominal pain: none is appreciated. Modifying factors: The symptoms are alleviated by nothing, the symptoms are aggravated by nothing. Associated signs and symptoms: Pertinent positives: dizziness when standing, syncope, Pertinent negatives: anorexia, chest pain, diarrhea. Severity of symptoms: At their worst the symptoms were mild in the emergency department the symptoms have improved. The patient has not recently seen a physician, The patient had a similar episode back in June and was transferred to [place]. 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 - Social history:: Smoking status: Patient/guardian denies using tobacco. - Ebola Screening: : Patient negative for fever greater than or equal to 101.5 degrees Fahrenheit, and additional compatible Ebola Virus Disease symptoms Patient denies exposure to infectious person Patient denies travel to an Ebola-affected area in the 21 days before illness onset No symptoms or risks identified at this time. ROS: 15:32 Constitutional: Negative for fever, chills, and weight loss, Eyes: Negative for injury, kdr pain, redness, and discharge, Neck: Negative for injury, pain, and swelling, Cardiovascular: Negative for chest pain, palpitations, and edema, Respiratory: Negative for shortness of breath, cough, wheezing, and pleuritic chest pain, Back: Negative for injury and pain, : Negative for injury, bleeding, discharge, and swelling, MS/Extremity: Negative for injury and deformity, Skin: Negative for injury, rash, and discoloration, Neuro: Negative for headache, weakness, numbness, tingling, and seizure activity. Psych: Negative for depression, anxiety, suicide ideation, homicidal ideation, and hallucinations, Allergy/Immunology: Negative for hives, rash, and allergies, Endocrine: Negative for neck swelling, polydipsia, polyuria, polyphagia, and marked weight changes, Hematologic/Lymphatic: Negative for swollen nodes, abnormal bleeding, and unusual bruising. 15:32 Abdomen/GI: Positive for abdominal pain, nausea, rectal bleeding. 15:32 Neuro: Positive for dizziness, loss of consciousness, syncope. Exam: 15:32 Constitutional: This is a well developed, well nourished patient who is awake, alert, kdr and in no acute distress. Head/Face: Normocephalic, atraumatic. Eyes: Pupils equal round and reactive to light, extra-ocular motions intact. Lids and lashes normal. Conjunctiva and sclera are non-icteric and not injected. Cornea within normal limits. Periorbital areas with no swelling, redness, or edema. Neck: Trachea midline, no thyromegaly or masses palpated, and no cervical lymphadenopathy. Supple, full range of motion without nuchal rigidity, or vertebral point tenderness. No Meningismus. Chest/axilla: Normal chest wall appearance and motion. Nontender with no deformity. No lesions are appreciated. Cardiovascular: Regular rate and rhythm with a normal S1 and S2. No gallops, murmurs, or rubs. Normal PMI, no JVD. No pulse deficits. Respiratory: Lungs have equal breath sounds bilaterally, clear to auscultation and percussion. No rales, rhonchi or wheezes noted. No increased work of breathing, no retractions or nasal flaring. Back: No spinal tenderness. No costovertebral tenderness. Full range of motion. Skin: Warm, dry with normal turgor. Normal color with no rashes, no lesions, and no evidence of cellulitis. MS/ Extremity: Pulses equal, no cyanosis. Neurovascular intact. Full, normal range of motion. Neuro: Awake and alert, GCS 15, oriented to person, place, time, and situation. Cranial nerves II-XII grossly intact. Motor strength 5/5 in all extremities. Sensory grossly intact. Psych: Awake, alert, with orientation to person, place and time. Behavior, mood, and affect are within normal limits. 15:32 Abdomen/GI: Inspection: obese Bowel sounds: active, diminished, in all quadrants, Palpation: soft, mild abdominal tenderness, in all quadrants, Very minor, Rectal exam: rectal tone normal, Stool: guaiac positive, black. Vital Signs: 12:20 BP 121 / 70; Pulse 88; Resp 18; Temp 98.1(O); Pulse Ox 96% on R/A; Pain 0/10; sr5 13:03 BP 138 / 100; Pulse 94; Resp 19 S; Pulse Ox 96% on R/A; ca1 13:30 BP 157 / 102; Pulse 87; Resp 12 S; Pulse Ox 98% on R/A; ca1 14:33 BP 152 / 94; Pulse 87; Resp 15 S; Pulse Ox 95% on R/A; ca1 15:30 BP 131 / 76; Pulse 89; Resp 14 S; Pulse Ox 99% on R/A; ca1 16:00 BP 127 / 82; Pulse 86; Resp 15 S; Pulse Ox 100% on R/A; ca1 16:30 BP 140 / 93; Pulse 89; Resp 14 S; Pulse Ox 100% on R/A; ca1 17:00 BP 113 / 63; Pulse 92; Resp 13 S; Pulse Ox 99% on R/A; ca1 17:00 BP 63 / 47; Pulse 70; Resp 21 S; Pulse Ox 98% on R/A; ca1 17:38 BP 53 / 37; Pulse 67; Resp 17 S; Pulse Ox 96% on R/A; ca1 17:43 BP 58 / 33; Pulse 67; Resp 21 S; Pulse Ox 96% on R/A; ca1 17:58 BP 145 / 67; Pulse 84; Resp 24 S; Pulse Ox 100% on R/A; ca1 18:00 BP 139 / 80; Pulse 90; Resp 17 S; Pulse Ox 98% on R/A; ca1 18:04 BP 160 / 77; Pulse 103; Resp 21; Pulse Ox 98% on R/A; ca1 18:08 BP 166 / 90; Pulse 111; Resp 30; Pulse Ox 98% on R/A; ca1 18:10 BP 148 / 66; Pulse 112; Resp 28; Pulse Ox 100% on R/A; ca1 18:12 BP 158 / 127; Pulse 112; Resp 29 S; Pulse Ox 100% on R/A; ca1 18:16 BP 93 / 72; Pulse 114; Resp 18; Pulse Ox 100% on R/A; ca1 18:28 BP 137 / 76; Pulse 106; Resp 15; Pulse Ox 100% on R/A; ca1 18:40 BP 128 / 78; Pulse 110; Resp 20; Pulse Ox 97% on R/A; ca1 18:50 BP 167 / 77; Pulse 124; Resp 24 S; Pulse Ox 94% on R/A; ca1 19:00 BP 93 / 68; Pulse 97; Resp 15 S; Pulse Ox 95% on R/A; ca1 19:10 BP 63 / 43; Pulse 78; Resp 17 S; Pulse Ox 97% on R/A; ca1 19:12 BP 72 / 45; Pulse 95; Resp 17; Pulse Ox 100% on R/A; ak1 19:14 BP 87 / 61; Pulse 94; Resp 17; Pulse Ox 100% on R/A; ak1 19:20 BP 143 / 77; Pulse 86; Resp 21; Pulse Ox 97% on R/A; ak1 19:22 BP 151 / 82; Pulse 84; Resp 16; Pulse Ox 96% ; ak1 19:23 BP 150 / 83; Pulse 103; Resp 23; Pulse Ox 94% on R/A; ak1 19:32 BP 94 / 61; Pulse 107; Resp 15; Pulse Ox 96% on R/A; ak1 19:42 BP 98 / 72; Pulse 93; Resp 21; Pulse Ox 100% on R/A; ak1 19:44 BP 140 / 82; Pulse 119; Resp 24; Pulse Ox 98% on R/A; ak1 19:14 dopamine increased to 10 ak1 19:23 pt nausea and vomiting. ak1 19:42 dopamine remains at 10 ak1 19:44 pt vomiting, zofran 4mg IV adminitered, pt taking via OR team. ak1 MDM: 15:32 Patient medically screened. kdr 15:32 Data reviewed: vital signs, nurses notes, lab test result(s), radiologic studies. kdr Counseling: I had a detailed discussion with the patient and/or guardian regarding: the historical points, exam findings, and any diagnostic results supporting the discharge/admit diagnosis, lab results, radiology results, the need for further work-up and treatment in the hospital. Physician consultation: Adan Camacho MD regarding admission, patient's condition, and will see patient in inpatient room, tomorrow. Physician consultation: Kael Lovett MD was called at 15:15, was contacted at 15:16, regarding consult, patient's condition, need to evaluate the patient as soon as possible, and will see patient in inpatient room, in OR, immediately, shortly. Admission orders: after a detailed discussion of the patient's condition and case, the admit orders are written by me. 10/29 12:04 Order name: Basic Metabolic Panel; Complete Time: 13:47 kdr 10/29 12:04 Order name: CBC with Diff; Complete Time: 17:07 kdr 10/29 12:04 Order name: Creatinine for Radiology; Complete Time: 14:11 kdr 10/29 12:04 Order name: Hepatic Function; Complete Time: 13:47 kdr 10/29 12:04 Order name: Lipase; Complete Time: 13:47 kdr 10/29 12:05 Order name: Type And Screen; Complete Time: 15:18 kdr 10/29 12:05 Order name: CT Abd/Pelvis - IV Contrast Only; Complete Time: 15:18 kdr 10/29 12:50 Order name: PT-INR; Complete Time: 15:18 kdr 10/29 15:08 Order name: CBC Smear Scan; Complete Time: 17:07 EDMS 10/29 18:00 Order name: Lactate bp 10/29 18:05 Order name: Procalcitonin bp 10/29 18:05 Order name: Blood Culture Adult (2) bp 10/29 19:24 Order name: Hemoglobin bb 10/29 19:24 Order name: Hematocrit bb 10/29 12:04 Order name: IV Saline Lock; Complete Time: 12:31 kdr 10/29 12:04 Order name: Labs collected and sent; Complete Time: 12:31 kdr 10/29 13:06 Order name: Labs - recollect needed: cbc and chemistries recollet please; Complete eb Time: 14:49 10/29 15:26 Order name: Misc. Order: consent for EGD ; Complete Time: 15:51 iw 10/29 19:24 Order name: Chest Single View XRAY [id number] Administered Medications: 12:10 Drug: ProTONIX 80 mg Route: IVP; Site: right antecubital; ca1 14:49 Follow up: Response: No adverse reaction ca1 12:51 Drug: NS 0.9% 500 ml Route: IV; Rate: bolus; Site: right antecubital; ca1 13:30 Follow up: Response: No adverse reaction; IV Status: Completed infusion ca1 17:25 Drug: Flagyl 500 mg Volume: 100 ml; Route: IVPB; Rate: 200 ml/hr; Infused Over: 30 ca1 mins; Site: right hand; 18:00 Drug: Dopamine drip 5 mcg/kg/min - (DOPamine 400 mg, D5W 250 ml) Route: IV; Rate: bp calculated rate; Site: right wrist; 19:58 Follow up: IV Status: Infusion continued upon admission ak1 18:00 Drug: Zofran 4 mg Route: IVP; Site: right antecubital; bp 18:00 Drug: NS 0.9% 1000 ml Route: IV; Rate: 1 bolus; Site: left wrist; bp 19:45 Drug: Cipro 400 mg Volume: 200 ml; Route: IVPB; Infused Over: 60 mins; Site: Other; ak1 19:58 Follow up: IV Status: Infusion continued upon admission ak1 19:50 Drug: Zofran 4 mg Route: IVP; Site: Other; ak1 19:57 Follow up: Response: No adverse reaction; Nausea is decreased ak1 19:51 Drug: NS 0.9% 1000 ml Route: IV; Rate: 1 bolus; Site: Other; ak1 19:57 Follow up: IV Status: Infusion continued upon admission ak1 Disposition: 10/29/19 15:32 Hospitalization ordered by Adan Camacho for Inpatient Admission. Preliminary diagnosis are Syncope and collapse, GI Bleed. - Bed requested for Telemetry/MedSurg (Inpatient). - Status is Inpatient Admission. ak1 - Condition is Fair. - Problem is new. - Symptoms have improved. UTI on Admission? No Signatures: Dispatcher [employer] EDMS Tutu Guillen MD MD kdr Williams, Irene, RN RN iw Roxanna Larios RN RN ak1 Elliot Rankin RN ROSALINDA sr5 Zhou Ashton RN RN bp Brianna Harvey Cheryl, RN RN ca1 Corrections: (The following items were deleted from the chart) 19:49 17:37 Head Brain Wo Cont+CT.RAD.BRZ ordered. EDMS EDMS 19:58 15:32 Hospitalization Ordered by Adan Camacho MD for Inpatient Admission. Preliminary ak1 diagnosis is Syncope and collapse; GI Bleed. Bed requested for Telemetry/MedSurg (Inpatient). Status is Inpatient Admission. Condition is Fair. Problem is new. Symptoms have improved. UTI on Admission? No. kdr
[2019-10-29] MEDS ORDERED: CIPROFLOXACIN 400mg IV 400 MG/200 ML BAG IV ONE (17:19)
[2019-10-29] MEDS ORDERED: METRONIDAZOLE 500mg IVPB 500 MG/100 ML BAG IV ONE (17:19)
[2019-10-29] MEDS ORDERED: NA CHLORIDE 0.9% 1,000 ML ONE ×3 (17:45→21:09)
[2019-10-29] MEDS ORDERED: DOPAMINE/D5W 400 MG/250 ML BAG IV ONE (17:51)
[2019-10-29] MEDS ORDERED: LIDOCAINE 2% MPF 5 ML VIAL ONE ×2 (18:04→18:31)
[2019-10-29] MEDS ORDERED: LIDOCAINE 1% MPF 30 ML VIAL ONE (18:05)
[2019-10-29] MEDS ORDERED: ONDANSETRON 4 MG/2 ML VIAL ONE ×2 (19:36→19:44)
[2019-10-29] MEDS ORDERED: PROPOFOL 200 MG/20 ML VIAL IV ONE (19:37)
[2019-10-29] MEDS ORDERED: LIDOCAINE 1% MPF 5 ML VIAL ONE (19:40)
[2019-10-29 19:44] LABS: Hematocrit 32.5 % (36.0-45.0)
--- NOTE | 2019-10-29 20:46 | RAD REPORT ---
EXAM DESCRIPTION: RAD - Chest Single View - 10/29/2019 7:40 pm CLINICAL HISTORY: Central line placement COMPARISON: July 06 TECHNIQUE: AP portable chest image was obtained 1919 hours . FINDINGS: No acute lung parenchymal process. Left-sided jugular line has been placed. Tip is at the brachiocephalic SVC junction. Tip is directed laterally towards the right lateral side wall. Heart an d vasculature are normal. No measurable pleural effusion and no pneumothorax. No acute bony abnormali ty seen. No acute aortic findings suspected. IMPRESSION: Left jugular central line placement with no pneumothorax. Tip is at the brachiocephalic vein -SVC junction. Tip is directed towards the right lateral side wall .
--- OUTSIDE RECORDS SUMMARY | 2019-10-29 20:46 | XMS REPORT ---
:1940 Author Organization [facility] Address [address] [place] [address] Care Team Providers Name Role Phone Unavailable [...] DIFFERENTIAL.PLATELET COUNT REVIEWED AND VERIFIED. CBC W/AUTO [id number] 14:32:00 Test Item Value Reference Range Comments [...] REQUIRED (test code=MDIFF) YES DIFF/SCN CRITERIA WBC [id number] 14:32:00 Test Item Value Reference Range Comments SEGMENTED NEUTROPHILS (test 72 % 40-75 code=SEG) LYMPHOCYTE (test 23 % 18.7-40.6 code=LYMPH) MONOCYTE (test code=MON) 5 % 3.8-11.4 PLATELET ESTIMATE (test DECREASED THOUSAND ADEQUATE PLATELET COUNT REVIEWED code=PLTEST) AND VERIFIED. PLATELET MORPHOLOGY (test NORMAL code=PLTMORPH) CBC W/AUTO [id number] 11:35:00 Test Item Value Reference Range Comments [...] REQUIRED (test code=MDIFF) YES DIFF/SCN CRITERIA WBC [id number] 11:35:00 Test Item Value Reference Range Comments SEGMENTED NEUTROPHILS (test code=SEG) % 40-75 LYMPHOCYTE (test code=LYMPH) % 18.7-40.6 CBC W/AUTO [id number] 11:35:00 Test Item Value Reference Range Comments [...] REQUIRED (test code=MDIFF) YES DIFF/SCN CRITERIA WBC [id number] 11:35:00 Test Item Value Reference Range Comments SEGMENTED NEUTROPHILS (test code=SEG) % 40-75 LYMPHOCYTE (test code=LYMPH) % 18.7-40.6 BASIC METABOLIC [id number] 09:36:00 Test Item Value Reference Range Comments [...] (test code=CA) 8.1 MG/DL 8.5-10.1 CBC W/AUTO [id number] 09:13:00 Test Item Value Reference Range Comments [...] REQUIRED (test code=MDIFF) DIFF/SCN CRITERIA CBC W/AUTO [id number] 08:23:00 Test Item Value Reference Range Comments [...] REQUIRED (test code=MDIFF) NO DIFF/SCN CRITERIA RBC [id number] 08:23:00 Test Item Value Reference Range Comments POLYCHROMASIA (test 2+ ON SCAN NONE code=POLC) PLATELET ESTIMATE (test DECREASED THOUSAND ADEQUATE PLATELET COUNT code=PLTEST) REVIEWED AND VERIFIED. PLATELET MORPHOLOGY (test NORMAL code=PLTMORPH) CBC W/AUTO [id number] 08:22:00 Test Item Value Reference Range Comments [...] (test code=MDIFF) NO DIFF/SCN CRITERIA CBC W/AUTO [id number] 08:22:00 Test Item Value Reference Range Comments [...] (test code=MDIFF) NO DIFF/SCN CRITERIA BASIC METABOLIC [id number] 07:49:00 Test Item Value Reference Range Comments [...] (test code=CA) 8.2 MG/DL 8.5-10.1 CBC W/AUTO [id number] 07:40:00 Test Item Value Reference Range Comments [...] REQUIRED (test code=MDIFF) DIFF/SCN CRITERIA UR SODIUM [id number] 14:09:00 Test Item Value Reference Range Comments UR SODIUM RANDOM (test 88 MEQ/L () The Reference Range and Method code=MERI) Performance specificationshave not been established for this fluid. The test resultshould be correlated into the clinical context forinterpretation. UR POTASSIUM [id number] 14:09:00 Test Item Value Reference Range Comments UR POTASSIUM RANDOM (test 13.2 MEQ/L () The Reference Range and Method code=KU) Performance specificationshave not been established for this fluid. The test resultshould be correlated into the clinical context forinterpretation. UR CHLORIDE [id number] 14:09:00 Test Item Value Reference Range Comments UR CHLORIDE RANDOM (test 72 mmol/L Not Estab. Performed At: [facility] code=CLU) [address] [place], [place] [id number] Kyle L MD Ph:[phone] UR PROTEIN [id number] 14:09:00 Test Item Value Reference Range Comments UR PROTEIN TOTAL (test code=PROTU) 5.6 MG/DL 0.0-12.0 UR CREATININE [id number] 14:09:00 Test Item Value Reference Range Comments UR CREATININE RANDOM (test code=CREATU) 36.4 MG/DL 30-125 UR OSMOLALITY [id number] 14:09:00 Test Item Value Reference Range Comments UR OSMOLALITY RANDOM (test code=OSMOU) 284 MOS/KG 390-1090 UR SODIUM [id number] 02:55:00 Test Item Value Reference Range Comments UR SODIUM RANDOM (test 88 MEQ/L The Reference Range and Method code=MERI) Performance specificationshave not been established for this fluid. The test resultshould be correlated into the clinical context forinterpretation. UR POTASSIUM [id number] 02:55:00 Test Item Value Reference Range Comments UR POTASSIUM RANDOM (test 13.2 MEQ/L The Reference Range and Method code=KU) Performance specificationshave not been established for this fluid. The test resultshould be correlated into the clinical context forinterpretation. UR OSMOLALITY [id number] 02:55:00 Test Item Value Reference Range Comments UR OSMOLALITY RANDOM (test code=OSMOU) 284 MOS/KG 390-1090 UR SODIUM [id number] 02:55:00 Test Item Value Reference Range Comments UR SODIUM RANDOM (test 88 MEQ/L () The Reference Range and Method code=MERI) Performance specificationshave not been established for this fluid. The test resultshould be correlated into the clinical context forinterpretation. UR POTASSIUM [id number] 02:55:00 Test Item Value Reference Range Comments UR POTASSIUM RANDOM (test 13.2 MEQ/L () The Reference Range and Method code=KU) Performance specificationshave not been established for this fluid. The test resultshould be correlated into the clinical context forinterpretation. UR CHLORIDE [id number] 02:55:00 Test Item Value Reference Range Comments UR CHLORIDE RANDOM (test code=CLU) mmol/L >10 UR PROTEIN [id number] 02:55:00 Test Item Value Reference Range Comments UR PROTEIN TOTAL (test code=PROTU) 5.6 MG/DL 0.0-12.0 UR CREATININE [id number] 02:55:00 Test Item Value Reference Range Comments UR CREATININE RANDOM (test code=CREATU) 36.4 MG/DL 30-125 UR OSMOLALITY [id number] 02:55:00 Test Item Value Reference Range Comments UR OSMOLALITY RANDOM (test code=OSMOU) 284 MOS/KG 390-1090 UR SODIUM [id number] 02:52:00 Test Item Value Reference Range Comments UR SODIUM RANDOM (test 88 MEQ/L The Reference Range and Method code=MERI) Performance specificationshave not been established for this fluid. The test resultshould be correlated into the clinical context forinterpretation. UR POTASSIUM [id number] 02:52:00 Test Item Value Reference Range Comments UR POTASSIUM RANDOM (test 13.2 MEQ/L The Reference Range and Method code=KU) Performance specificationshave not been established for this fluid. The test resultshould be correlated into the clinical context forinterpretation. UR OSMOLALITY [id number] 02:52:00 Test Item Value Reference Range Comments UR OSMOLALITY RANDOM (test code=OSMOU) MOS/KG 390-1090 UR SODIUM [id number] 02:52:00 Test Item Value Reference Range Comments UR SODIUM RANDOM (test 88 MEQ/L () The Reference Range and Method code=MERI) Performance specificationshave not been established for this fluid. The test resultshould be correlated into the clinical context forinterpretation. UR POTASSIUM [id number] 02:52:00 Test Item Value Reference Range Comments UR POTASSIUM RANDOM (test 13.2 MEQ/L () The Reference Range and Method code=KU) Performance specificationshave not been established for this fluid. The test resultshould be correlated into the clinical context forinterpretation. UR CHLORIDE [id number] 02:52:00 Test Item Value Reference Range Comments UR CHLORIDE RANDOM (test code=CLU) mmol/L >10 UR PROTEIN [id number] 02:52:00 Test Item Value Reference Range Comments UR PROTEIN TOTAL (test code=PROTU) 5.6 MG/DL 0.0-12.0 UR CREATININE [id number] 02:52:00 Test Item Value Reference Range Comments UR CREATININE RANDOM (test code=CREATU) 36.4 MG/DL 30-125 UR OSMOLALITY [id number] 02:52:00 Test Item Value Reference Range Comments UR OSMOLALITY RANDOM (test code=OSMOU) MMO/KG 500-800 UR SODIUM [id number] 16:08:00 Test Item Value Reference Range Comments UR SODIUM RANDOM (test code=MERI) MEQ/L UR POTASSIUM [id number] 16:08:00 Test Item Value Reference Range Comments UR POTASSIUM RANDOM (test code=KU) mmol/L >0 UR CHLORIDE [id number] 16:08:00 Test Item Value Reference Range Comments UR CHLORIDE RANDOM (test code=CLU) mmol/L >10 UR PROTEIN [id number] 16:08:00 Test Item Value Reference Range Comments UR PROTEIN TOTAL (test code=PROTU) 5.6 MG/DL 0.0-12.0 UR CREATININE [id number] 16:08:00 Test Item Value Reference Range Comments UR CREATININE RANDOM (test code=CREATU) 36.4 MG/DL 30-125 UR OSMOLALITY [id number] 16:08:00 Test Item Value Reference Range Comments UR OSMOLALITY RANDOM (test code=OSMOU) MMO/KG 500-800 CBC W/AUTO [id number] 04:37:00 Test Item Value Reference Range Comments [...] REQUIRED (test code=MDIFF) YES DIFF/SCN CRITERIA WBC [id number] 04:37:00 Test Item Value Reference Range Comments SEGMENTED NEUTROPHILS 69 % 40-75 (test code=SEG) LYMPHOCYTE (test 27 % 18.7-40.6 code=LYMPH) MONOCYTE (test code=MON) 4 % 3.8-11.4 NUCLEATED RED BLOOD CELL 8 #/100WBC 0-0 (test code=NRBC) ANISOCYTOSIS (test TRACE NONE code=ANISO) PLATELET ESTIMATE (test SLIGHTLY DECREASED ADEQUATE PLATELET COUNT code=PLTEST) THOUSAND REVIEWED AND VERIFIED. PLATELET MORPHOLOGY (test NORMAL code=PLTMORPH) CBC W/AUTO [id number] 04:36:00 Test Item Value Reference Range Comments [...] REQUIRED (test code=MDIFF) YES DIFF/SCN CRITERIA WBC [id number] 04:36:00 Test Item Value Reference Range Comments SEGMENTED NEUTROPHILS (test code=SEG) % 40-75 LYMPHOCYTE (test code=LYMPH) % 18.7-40.6 CBC W/AUTO [id number] 04:36:00 Test Item Value Reference Range Comments [...] REQUIRED (test code=MDIFF) YES DIFF/SCN CRITERIA WBC [id number] 04:36:00 Test Item Value Reference Range Comments SEGMENTED NEUTROPHILS (test code=SEG) % 40-75 LYMPHOCYTE (test code=LYMPH) % 18.7-40.6 CBC W/AUTO [id number] 04:18:00 Test Item Value Reference Range Comments [...] REQUIRED (test code=MDIFF) DIFF/SCN CRITERIA CBC W/AUTO [id number] 05:22:00 Test Item Value Reference Range Comments [...] CONSISTANT code=MDIFF) WITH AUTO DIFFERENTIAL. THROMBOPLASTIN TIME [id number] 05:08:00 Test Item Value Reference Range Comments THROMBOPLASTIN TIME PARTIAL (test code=PTT) 22.4 SECONDS 26-35 CBC W/AUTO [id number] 05:07:00 Test Item Value Reference Range Comments [...] REQUIRED (test code=MDIFF) DIFF/SCN CRITERIA CBC W/AUTO [id number] 21:56:00 Test Item Value Reference Range Comments [...] REQUIRED (test code=MDIFF) NO DIFF/SCN CRITERIA RBC [id number] 21:56:00 Test Item Value Reference Range Comments PLATELET ESTIMATE (test MARKEDLY DECREASED ADEQUATE PLT EST 48,000-60,000 code=PLTEST) THOUSAND PLATELET MORPHOLOGY NORMAL (test code=PLTMORPH) CBC W/AUTO [id number] 21:54:00 Test Item Value Reference Range Comments [...] (test code=MDIFF) NO DIFF/SCN CRITERIA CBC W/AUTO [id number] 21:54:00 Test Item Value Reference Range Comments [...] (test code=MDIFF) NO DIFF/SCN CRITERIA BASIC METABOLIC [id number] 20:43:00 Test Item Value Reference Range Comments [...] (test code=CA) 8.7 MG/DL 8.5-10.1 BASIC METABOLIC [id number] 20:38:00 Test Item Value Reference Range Comments [...] (test code=CA) 8.7 MG/DL 8.5-10.1 CBC W/AUTO [id number] 20:38:00 Test Item Value Reference Range Comments [...] REQUIRED (test code=MDIFF) DIFF/SCN CRITERIA GLUCOSE BEDSIDE [id number] 20:21:00 Test Item Value Reference Range Comments GLUCOSE BEDSIDE TESTING (test code=GLUBED) 241 mg/dL 70-110 - XR CHEST 1 [id number] 20:13:00 Name: DAVID ULRICH [facility]ly [facility] : 1940 Age/S: 79 / F [address] Unit #: [id number] Loc: [place] [address] Phys: Isma Faust MD Acct: [id number] Dis Date: Status: ADM IN PHONE #: [phone] Exam Date: 07/11/20191954 FAX #: Reason: RAPID RESPONSE, NEAR SYNCOPE EXAMS: CPT: [id number] XR CHEST 1 V 30414 Fluoro Time: DAP (Gy m2): Air Kerma [...] ULRICH : 1940 Age/S: 79 / F [address] [address] Unit #: [id number] Loc: [place], [place] Phys: Isma Faust MD Acct:[id number] Dis Date: Status: ADM IN PHONE #: [phone] Exam Date: 07/11/20191954 FAX #: Reason: RAPID RESPONSE, NEAR SYNCOPE EXAMS: CPT: [id number] XR CHEST 1 V 57163 Fluoro Time: DAP (Gy m2): Air Kerma (mGy) : <Continued> Technologist: Vahid Dean RT(R)(CT)(MRI) Trnscb Date/Time: 07/11/2019 (2012) ElliePR7 Orig Print D/T : S: 07/11/2019 (2015) PAGE 2 Signed ReportACUTE HEPATITIS [id number] 06:09:00 Test Item Value Reference Range Comments [...] with a HCV Nucleic Acid Amplification test (354510).Performed At: [facility] [address] [place], [place] [id number] Kyle L MD Ph:[phone] CBC W/AUTO [id number] 04:38:00 Test Item Value Reference Range Comments [...] DIFFERENTIAL.PLATELET COUNT REVIEWED AND VERIFIED. THROMBOPLASTIN TIME [id number] 04:28:00 Test Item Value Reference Range Comments THROMBOPLASTIN TIME PARTIAL (test code=PTT) 16.6 SECONDS 26-35 CBC W/AUTO [id number] 04:18:00 Test Item Value Reference Range Comments [...] MANUAL DIFF REQUIRED (test code=MDIFF) DIFF/SCN CRITERIA [id number] 15:08:00 Test Item Value Reference Range Comments HAPTOGLOBIN (test code=HAPT) 110 mg/dL 34-200 Performed At: [facility] [id number] Sanjai MD Ph:[phone] THROMBOPLASTIN TIME [id number] 12:09:00 Test Item Value Reference Range Comments THROMBOPLASTIN TIME PARTIAL (test code=PTT) 88.0 SECONDS 26-35 CBC W/AUTO [id number] 05:05:00 Test Item Value Reference Range Comments [...] REQUIRED (test code=MDIFF) YES DIFF/SCN CRITERIA WBC [id number] 05:05:00 Test Item Value Reference Range Comments [...] PLATELET MORPHOLOGY (test NORMAL code=PLTMORPH) CBC W/AUTO [id number] 05:04:00 Test Item Value Reference Range Comments [...] REQUIRED (test code=MDIFF) YES DIFF/SCN CRITERIA WBC [id number] 05:04:00 Test Item Value Reference Range Comments SEGMENTED NEUTROPHILS (test code=SEG) % 40-75 LYMPHOCYTE (test code=LYMPH) % 18.7-40.6 CBC W/AUTO [id number] 05:04:00 Test Item Value Reference Range Comments [...] REQUIRED (test code=MDIFF) YES DIFF/SCN CRITERIA WBC [id number] 05:04:00 Test Item Value Reference Range Comments SEGMENTED NEUTROPHILS (test code=SEG) % 40-75 LYMPHOCYTE (test code=LYMPH) % 18.7-40.6 BASIC METABOLIC [id number] 04:33:00 Test Item Value Reference Range Comments [...] 0.6-1.0 CALCIUM (test code=CA) 8.0 MG/DL 8.5-10.1 [id number] 04:33:00 Test Item Value Reference Range Comments MAGNESIUM (test code=MAG) 1.5 MG/DL 1.8-2.4 THROMBOPLASTIN TIME [id number] 04:27:00 Test Item Value Reference Range Comments THROMBOPLASTIN TIME PARTIAL (test code=PTT) 92.9 SECONDS 26-35 CBC W/AUTO [id number] 04:17:00 Test Item Value Reference Range Comments [...] REQUIRED (test code=MDIFF) DIFF/SCN CRITERIA THROMBOPLASTIN TIME [id number] 21:58:00 Test Item Value Reference Range Comments THROMBOPLASTIN TIME PARTIAL (test code=PTT) 68.4 SECONDS 26-35 THROMBOPLASTIN TIME [id number] 14:02:00 Test Item Value Reference Range Comments THROMBOPLASTIN TIME PARTIAL (test code=PTT) 37.8 SECONDS 26-35 THROMBOPLASTIN TIME [id number] 09:13:00 Test Item Value Reference Range Comments THROMBOPLASTIN TIME PARTIAL (test code=PTT) >400 SECONDS 26-35 THROMBOPLASTIN TIME [id number] 07:46:00 Test Item Value Reference Range Comments THROMBOPLASTIN TIME PARTIAL (test code=PTT) >400 SECONDS 26-35 CBC W/AUTO [id number] 07:29:00 Test Item Value Reference Range Comments [...] REQUIRED (test code=MDIFF) YES DIFF/SCN CRITERIA WBC [id number] 07:29:00 Test Item Value Reference Range Comments [...] PLATELET MORPHOLOGY (test NORMAL code=PLTMORPH) CBC W/AUTO [id number] 07:28:00 Test Item Value Reference Range Comments [...] REQUIRED (test code=MDIFF) YES DIFF/SCN CRITERIA WBC [id number] 07:28:00 Test Item Value Reference Range Comments SEGMENTED NEUTROPHILS (test code=SEG) % 40-75 LYMPHOCYTE (test code=LYMPH) % 18.7-40.6 CBC W/AUTO [id number] 07:28:00 Test Item Value Reference Range Comments [...] REQUIRED (test code=MDIFF) YES DIFF/SCN CRITERIA WBC [id number] 07:28:00 Test Item Value Reference Range Comments SEGMENTED NEUTROPHILS (test code=SEG) % 40-75 LYMPHOCYTE (test code=LYMPH) % 18.7-40.6 CBC W/AUTO [id number] 06:18:00 Test Item Value Reference Range Comments [...] REQUIRED (test code=MDIFF) DIFF/SCN CRITERIA PROTEIN ELECTROPHORESIS [id number] 05:53:00 Test Item Value Reference Range Comments TOTAL PROTEIN (test TEST NOT PERFORMED g/dL () Please refer to the code=PROTE) following specimen for additional labresults.Please see specimen # [id number] for testing.07/08/2019-[facility] ALBUMIN (test TEST NOT PERFORMED () Test not performed code=ALBE) [id number]-[id number] (test TEST NOT PERFORMED () Test not performed code=A1G) [id number]-7-STBRMXYT (test TEST NOT PERFORMED () Test not [...] (test code=FESAT) 55 % calc 12-57 VITAMIN [id number] 05:53:00 Test Item Value Reference Range Comments VITAMIN B12 (test code=VITB12) 2803 PG/ML 183-986 FOLIC [id number] 05:53:00 Test Item Value Reference Range Comments FOLIC ACID (test code=FOL) 14.70 NG/ML 3.10-17.50 THYROID STIMULATING [id number] 05:53:00 Test Item Value Reference Range Comments THYROID STIMULATING HORMONE (test code=TSH) 0.111 mcIU/ML 0.340-4.820 THROMBOPLASTIN TIME [id number] 22:44:00 Test Item Value Reference Range Comments THROMBOPLASTIN TIME PARTIAL (test code=PTT) 146.1 SECONDS 26-35 ANTINUCLEAR ANTIBODIES [id number] 15:28:00 Test Item Value Reference Range Comments HARSH TITER (test Negative () code=ANATITR) Negative <1:80 Borderline 1:80 Positive >1:80Performed At: [facility] [address] [id number] Patricio MD Ph:[phone] ANTINUCLEAR ANTIBODIES [id number] 13:09:00 Test Item Value Reference Range Comments HARSH TITER (test code=ANATITR) Negative () Negative <1:80 Borderline 1:80 Positive >1:80Performed At: [facility] [address] [id number] Patricio MD Ph:[phone] HARSH COMMENT (test code=ANACOM) PROTEIN ELECTROPHORESIS [id number] 10:09:00 Test Item Value Reference Range Comments TOTAL PROTEIN (test code=PROTE) g/dL () Please refer to the following specimen for additional labresults.Please see specimen # [id number] for testing.07/08/2019-[facility] ALBUMIN (test code=ALBE) () Test not performed [id number]-5-LXOXJVPM (test () Test not performed code=A1G) [id number]-[id number] (test () Test not performed code=A2G) BETA [...] (test code=FESAT) 55 % calc 12-57 VITAMIN [id number] 10:09:00 Test Item Value Reference Range Comments VITAMIN B12 (test code=VITB12) 2803 PG/ML 183-986 FOLIC [id number] 10:09:00 Test Item Value Reference Range Comments FOLIC ACID (test code=FOL) 14.70 NG/ML 3.10-17.50 THYROID STIMULATING [id number] 10:09:00 Test Item Value Reference Range Comments THYROID STIMULATING HORMONE (test code=TSH) 0.111 mcIU/ML 0.340-4.820 CBC W/AUTO [id number] 08:39:00 Test Item Value Reference Range Comments [...] REVIEW CONSISTANT code=MDIFF) WITH AUTO DIFFERENTIAL. RBC [id number] 08:39:00 Test Item Value Reference Range Comments PLATELET ESTIMATE (test SLIGHTLY DECREASED ADEQUATE PLT ESTIMATE 88,000 TO code=PLTEST) THOUSAND 110,000 PLATELET MORPHOLOGY LARGE PLATELETS (test code=PLTMORPH) CBC W/AUTO [id number] 08:38:00 Test Item Value Reference Range Comments [...] CONSISTANT code=MDIFF) WITH AUTO DIFFERENTIAL. CBC W/AUTO [id number] 08:38:00 Test Item Value Reference Range Comments [...] CONSISTANT code=MDIFF) WITH AUTO DIFFERENTIAL. COMPREHENSIVE METABOLIC [id number] 06:42:00 Test Item Value Reference Range Comments [...] TOTAL (test code=ALKP) 34 Unit/L 45-117 PROTHROMBIN [id number] 06:41:00 Test Item Value Reference Range Comments PT PATIENT (test code=PTP) 19.0 SECONDS 9.3-12.9 INTERNATIONAL NORMAL RATIO (test code=INR) 1.64 INR Unit 0.8-1.2 THROMBOPLASTIN TIME [id number] 06:41:00 Test Item Value Reference Range Comments THROMBOPLASTIN TIME PARTIAL (test code=PTT) 20.4 SECONDS 26-35 COMPREHENSIVE METABOLIC [id number] 06:37:00 Test Item Value Reference Range Comments [...] TOTAL (test code=ALKP) Unit/L 45-117 CBC W/AUTO [id number] 06:30:00 Test Item Value Reference Range Comments [...] (AUTOMATED) (test code=RETICA) 2.6 % 0.3-2.3 HGB [id number] 21:05:00 Test Item Value Reference Range Comments HEMOGLOBIN (test code=HGB) 9.1 G/DL 10.4-14.9 HEMATOCRIT (test code=HCT) 28.7 % 31.5-44.1 PROTEIN ELECTROPHORESIS [id number] 17:59:00 Test Item Value Reference Range Comments TOTAL PROTEIN (test code=PROTE) ALBUMIN (test code=ALBE) OINGA-9-NPMLDWOC (test code=A1G) [id number]-[id number] (test code=A2G) BETA GLOBULIN (test code=BG) GAMMA [...] (test code=FESAT) 55 % calc 12-57 VITAMIN [id number] 17:59:00 Test Item Value Reference Range Comments VITAMIN B12 (test code=VITB12) 2803 PG/ML 183-986 FOLIC [id number] 17:59:00 Test Item Value Reference Range Comments FOLIC ACID (test code=FOL) 14.70 NG/ML 3.10-17.50 THYROID STIMULATING [id number] 17:59:00 Test Item Value Reference Range Comments THYROID STIMULATING HORMONE (test code=TSH) 0.111 mcIU/ML 0.340-4.820 PROTEIN ELECTROPHORESIS [id number] 17:07:00 Test Item Value Reference Range Comments TOTAL PROTEIN (test code=PROTE) ALBUMIN (test code=ALBE) OCFFA-1-YQXWBDYZ (test code=A1G) QMFOB-6-[id number] (test code=A2G) BETA GLOBULIN (test code=BG) GAMMA [...] (test code=FESAT) 55 % calc 12-57 VITAMIN [id number] 17:07:00 Test Item Value Reference Range Comments VITAMIN B12 (test code=VITB12) PG/ML 183-986 FOLIC [id number] 17:07:00 Test Item Value Reference Range Comments FOLIC ACID (test code=FOL) 14.70 NG/ML 3.10-17.50 THYROID STIMULATING [id number] 17:07:00 Test Item Value Reference Range Comments THYROID STIMULATING HORMONE (test code=TSH) 0.111 mcIU/ML 0.340-4.820 PROTEIN ELECTROPHORESIS [id number] 16:11:00 Test Item Value Reference Range Comments TOTAL PROTEIN (test code=PROTE) ALBUMIN (test code=ALBE) QEAVP-1-UPCDTYFI (test code=A1G) FWQDS-9-YWTDUTXB (test code=A2G) BETA GLOBULIN (test code=BG) GAMMA [...] (test code=FESAT) 55 % calc 12-57 VITAMIN [id number] 16:11:00 Test Item Value Reference Range Comments VITAMIN B12 (test code=VITB12) PG/ML 183-986 FOLIC [id number] 16:11:00 Test Item Value Reference Range Comments FOLIC ACID (test code=FOL) NG/ML 3.10-17.50 THYROID STIMULATING [id number] 16:11:00 Test Item Value Reference Range Comments THYROID STIMULATING HORMONE (test code=TSH) 0.111 mcIU/ML 0.340-4.820 - [place] GUIDANCE VASC [id number] 15:35:00 Name: DAVID ULRICH [facility]ly [facility] : 1940 Age/S: 79 / F [id number] Unit #: [id number] Loc: [place] [address] Phys: Isma Faust MD Acct: [id number] Dis Date: Status : ADM IN PHONE #: [phone] Exam Date: 07/07/2019 1500 FAX #: Reason: IV ACCESS EXAMS: CPT: [id number] US GUIDANCE VASC ACCESS 81147 C3 Central Venous Catheter Placement Under Ultrasound [...] 1 Signed Report (CONTINUED) Name: DAVID ULRICH [place] : 1939 Age/S: 79 / F [address] Unit #: [id number] Loc: [place] [address] Phys: Isma Faust MD Acct: [id number] Dis Date: Status: ADM IN PHONE #: [phone] Exam Date: 07/07/2019 1500 FAX #: Reason: IV ACCESS EXAMS: CPT: [id number] US GUIDANCE VASC ACCESS 59604 <Continued> at 1535 Reported and signed by: Mazin Morales M.D.CC: Isma Faust MD Technologist: Ioana Townsend, RT(R),RDMS(AB) Trnmob Date/Time: 07/07/2019 (1535) [email or web address] PAGE 2 Signed Report Name: DAVID ULRICH Desha : 1940 Age/S: 79 / F [id number] [address] Unit #: [id number] Loc: [place] [address] Phys: Isma Faust MD Acct: [id number] Dis Date: Status: ADM IN PHONE #: [phone] Exam Date: 1500 FAX #: Reason: IV ACCESS EXAMS: CPT: [id number] US GUIDANCE VASC ACCESS 81815 <Continued> Orig Print D/T: S: 07/07/2019 (1538) Probe: PAGE 3 Signed Report- XR CHEST 1 [id number] 15:33:00 Name: DAVID ULRICH Desha : 1940 Age/S: 79 / F [id number] [address] Unit #: [id number] Loc: [place] [address] Phys: Mazin Morales MD Acct: [id number] Dis Date: Status: ADM IN PHONE #: [phone] Exam Date: 07/07/2019 1521 FAX #: Reason: S/P CENTRAL LINE PLACEMENT EXAMS: CPT: [id number] XR CHEST 1 V 33138 Fluoro Time: DAP (Gy m2): Air Kerma [...] 1 Signed Report Name: DAVID ULRICH CELESTINE Desha : 1940 Age/S: 79 / F [address] [address] Unit #: [id number] Loc: [place] [address] Phys : Mazin Morales MD Acct: [id number] Dis Date: Status: ADM IN PHONE #: [phone] Exam Date: 07/07/2019 1521 FAX #: Reason: S/P CENTRAL LINE PLACEMENT EXAMS: CPT: [id number] XR CHEST 1 V 02532 Fluoro Time: DAP (Gy m2): Air Kerma (mGy): <Continued> Technologist: Vahid Dean RT(R)(CT)(MRI) Trnscb Date /Time: 07/07/2019 (1533) [email or web address] PAGE 2 Signed [id number] 14:54:00 Test Item Value Reference Range Comments FIBRINOGEN (test code=FIB) 141 mg/dL 185-453 - US ABDOMEN [id number] 14:16:00 Name: MONTSERRAT ULRICHCOOKIE SPRAGUE Desha : 1940 Age/S: 79 / F [address] Unit #: [id number] Loc: [place] [address] Phys: Adela Bejarano MD Acct: [id number] Dis Date: Status: ADM IN PHONE #: [phone] Exam Date: 07/07/2019 1312 FAX #: Reason: thrombocytopenia, evaluate for liver disease EXAMS: CPT: [id number] US ABDOMEN LTD 86519 C3 TIME OF STUDY: 07/07/2019 8:44 AM [...] Technologist: Ioana Townsend, RT(R),RDMS(AB) Trnscb Date/Time: 07/07/2019 (1716) [email or web address] PAGE 1 Signed Report Name: DAVID ULRICH [facility] : 1940 Age/S: 79 / F [address] [facility] Unit #: [id number] Loc: [place] [address] Phys: Adela Bejarano MD Acct: [id number] Dis Date:Status: ADM IN PHONE #: [phone] Exam Date: 07/07/2019 1312 FAX #: Reason: thrombocytopenia, evaluate for liver disease EXAMS: CPT: [id number] US ABDOMEN LTD [address]2746 <Continued> Orig Print D/T : S: 07/07/2019 (7314) Probe: PAGE 2 Signed Report- DUP VEIN [id number] 14:16:00 Name: DAVID ULRICH Desha : 1939 Age/S: 79 / F [address] [address] Unit #: [id number] Loc: [place] [address] Phys: Isma Faust MD Acct: [id number] Dis Date : Status: ADM IN PHONE #: [phone] Exam Date: 07/07/2019 1350 FAX #: Reason: HX OF PE, BLE EDEMA EXAMS: CPT: [id number] [place] [address] C3 TIME OF STUDY : 07/07/2019 12:09 [...] PAGE 1 Signed Report Name: DAVID ULRICH Desha : 1940 Age/S: 79 / F [address] [address] Unit # : [id number] Loc: [place] [address] Phys: Isma Faust MD Acct: [id number] Dis Date: Status: ADM IN PHONE #: [phone] Exam Date: 07/07/2019 1350 FAX #: Reason: HX OF PE, BLE EDEMA EXAMS: CPT: [id number] [place] [address] <Continued> Orig Print D/T: S: 07/07/2019 (5129) Probe: PAGE 2 Signed ReportPROTHROMBIN [id number] 14:10:00 Test Item Value Reference Range Comments PT PATIENT (test code=PTP) 28.8 SECONDS 9.3-12.9 INTERNATIONAL NORMAL RATIO (test code=INR) 2.46 INR Unit 0.8-1.2 HGB [id number] 14:00:00 Test Item Value Reference Range Comments HEMOGLOBIN (test code=HGB) 8.8 G/DL 10.4-14.9 HEMATOCRIT (test code=HCT) 28.3 % 31.5-44.1 HGB [id number] 07:53:00 Test Item Value Reference Range Comments HEMOGLOBIN (test code=HGB) 10.1 G/DL 10.4-14.9 HEMATOCRIT (test code=HCT) 31.8 % 31.5-44.1 COMPREHENSIVE METABOLIC [id number] 01:03:00 Test Item Value Reference Range Comments [...] code=ALKP) 41 Unit/L 45-117 NT PRO-BRAIN NATRIURETIC [id number] 01:03:00 Test Item Value Reference Range Comments NT PRO-BRAIN NATRIURETIC PEPTI (test code=PROBNP) 236 PG/ML 0-100 CBC W/AUTO [id number] 01:02:00 Test Item Value Reference Range Comments [...] AUTO DIFFERENTIAL.PLATELET COUNT REVIEWED AND VERIFIED. PROTHROMBIN [id number] 00:52:00 Test Item Value Reference Range Comments PT PATIENT (test code=PTP) 40.0 SECONDS 9.3-12.9 INTERNATIONAL NORMAL RATIO (test code=INR) 3.39 INR Unit 0.8-1.2 THROMBOPLASTIN TIME [id number] 00:52:00 Test Item Value Reference Range Comments THROMBOPLASTIN TIME PARTIAL (test code=PTT) 25.1 SECONDS 26-35 CBC W/AUTO [id number] 00:50:00 Test Item Value Reference Range Comments [...]
--- NOTE | 2019-10-29 20:49 | ENDO RPT ---
[address], [address] EGD PROCEDURE REPORT EXAM DATE: 10/29/2019 PATIENT NAME: Kimmy Gamez MR#: [id number] BIRTHDATE: 1940 ATTENDING: Kael Lovett Dr STATUS: inpatient - 7 MICROCOMPUTER TECHNICIAN: Chato Metcalf and Gin Santos Lead RN INDICATIONS: The patient is a 79 yr old Female here for an EGD due to anemia (hgb 11.4 down to 10.4 in ER, with hypotension requiring IV Dopamine) and red rectal bleeding PROCEDURE PERFORMED: EGD, diagnostic MEDICATIONS: Per Anesthesia. TOPICAL ANESTHETIC: none CONSENT: The patient understands the risks and benefits of the procedure and understands that these risks include, but are not limited to: sedation, allergic reaction, infection, perforation and/or bleeding. Alternative means of evaluation and treatment include, among others: physical exam, x-rays, and/or surgical intervention. The patient elects to proceed with this endoscopic procedure. DESCRIPTION OF PROCEDURE: During intra-op preparation period all mechanical medical equipment was checked for proper function. Hand hygiene and appropriate measures for infection prevention was taken. Procedure, possible complications, and alternatives including but not limited to the possibility of bleeding, perforation, tear, infection, sepsis, need for surgery, need for blood transfusion, and anesthesia related complications were explained to the patient. After the risks, benefits and alternatives of the procedure were thoroughly explained, Informed consent was verified, confirmed and timeout was successfully executed by the treatment team. The patient was placed in the left lateral position. The patient was anesthetized with topical anesthesia. Through the anesthetized oropharyngeal area, the scope was passed without any difficulty. The [id number] ([id number]) endoscope was introduced through the mouth and advanced to the second portion of the duodenum. Retroflexion was not performed. The gastroscope was then slowly withdrawn and removed. The upper, middle, and distal third of the esophagus were carefully inspected and no abnormalities were noted. The z-line was well seen at the GEJ. The endoscope was pushed into the fundus which was normal including a retroflexed view. The antrum, first and second part of the duodenum were unremarkable. ADVERSE EVENTS: hypoxemia down to 10% O2 saturation 10/29/2019 8:44 PM, quickly extubated with limited fundus / cardia evaluation and prompt recovery by anesthesia and team with ambu-bag IMPRESSIONS: Normal EGD RECOMMENDATIONS: 1. ICU monitoring with further resuscitation (on IV pressor Dopamine now from ER) with IVFs and blood products as indicated with 2. and then colonoscopy REPEAT EXAM: Kael Lovett Dr eSigned: Kael Lovett Dr 10/29/2019 8:49 PM cc: Adan Camacho M.D. CPT CODES: ICD9 CODES: PATIENT NAME: Kimmy Gamez MR#: [id number]
[2019-10-29] MEDS ORDERED: ACETAMINOPHEN 500 MG TAB PO PRN (21:25)
[2019-10-29] MEDS ORDERED: D5 0.45 NS 1,000 ML IV SCH (22:00)
[2019-10-29] MEDS ORDERED: DOPAMINE/D5W 400 MG/250 ML BAG IV PRN (22:06)
[2019-10-29] MEDS ORDERED: ONDANSETRON 4 MG/2 ML VIAL IV PRN (22:07)
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
[2019-10-29] MEDS: OCTREOTIDE 500 MCG in NA CHLORIDE 0.9% 500 ML IV SCH (23:00)
[2019-10-29] MEDS ORDERED: NA CHLORIDE 0.9% 500 ML ONE (23:16)
[2019-10-29] MEDS ORDERED: OCTREOTIDE ACETATE 500 MCG/ML ONE (23:16)
[2019-10-29] MEDS ORDERED: WATER FOR INJ,STERILE 10 ML ONE (23:17)
[2019-10-29 23:21] LABS: Hematocrit 36.8 % (36.0-45.0)
[2019-10-29] MEDS: D5 0.45 NS 1,000 ML IV SCH (23:23)
[2019-10-29] MEDS: HYDROCORTISONE SUC 100 MG INJ IV SCH (23:23)
--- NOTE | 2019-10-30 01:59 | CON ---
Date of Consultation: 10/29/2019 Reason For Consultation: Hematochezia with hypotension, on IV pressors in the ER. Hemoglobin is 11. 4, down to 10.4 on repeat test. History Of Present Illness: This patient is an 79-year-old female with history of t emporal arteritis; polymyalgia rheumatica; degenerative joint disease; rheumatoid arthritis; anemia; previous pulmonary embolism, on Eliquis; chronic severe pain; right leg laceration; obesity; cervical radiculitis; osteoarthritis; prior history of syncope and collapse; prior diverticular bleed, it jorge luis ears to be in June of this year with transfer to [facility] with colonoscopy perfor med at that time, conservative therapy, and patient went home. Patient presented to the hospital wit h recurrent hematochezia and syncope while sitting on the toilet according to the . Hemoglobi n on admission in the emergency room was 11.4. Repeat test in the ER revealed a hemoglobin of 10.4. Patient had elevated pulse with hypotension, requiring IV pressors and IV dopamine to sustain her bl ood pressure while in the emergency room. Patient denies any melena. She does have hematochezia. D enies any hematemesis, coffee-ground emesis, nausea, vomiting, abdominal pain, fevers, chills, night sweats, depression, anxiety. Physical Examination: Vital Signs: Patient is afebrile with a pulse of about 125; blood pressure about 100/50, on IV press ors and it will go on up to like 140/80 with increased dopamine. On the last visit, she was 225 poun ds, 5 feet 3 inches with a BMI of 40 kg/sq m. General: Obese female, lying in bed, in mild distress. HEENT: Normocephalic, atraumatic. Anicteric. Pupils equal, round, and reactive to light. Extraocu lar movements are intact. Oropharynx is clear. Neck: Supple. No masses. Respirations: Clear to auscultation bilaterally. Cardiac: Tachycardia. Abdomen: Positive bowel sounds. Soft, nontender. No hepatosplenomegaly. Obese. No peritoneal sig n. No rebound. Extremities: No clubbing or cyanosis with lower extremity edema, mild. Neuro: Alert and oriented x3. Able to move extremities. Data: Patient's hemoglobin was 11.4 on admission, down to 10.4, although the date is not available. PT of 13.0, INR of 1.1. We got a sodium of 145, potassium 3.8, chloride 113, bicarb 26, BUN 21, cre atinine of 1.3, glucose 96, calcium 8.3. Total bilirubin 0.4, direct bilirubin 0.1, AST of 32, ALT o f 43, alkaline phosphatase 75, total protein is 5.6, albumin 2.9. Lipase 278. CT abdomen and pelvis reveals prominent colonic diverticulosis without diverticulitis. No acute GI process seen. Chest x -ray: Left jugular central line placement. No pneumothorax. Impression: 1.Hematochezia with hypotension, requiring IV dopamine to keep pressures adequate. Hemoglobin initi ally 11.4, down to 10.4 in the emergency room. With resuscitation, will probably drop lower. 2.History of diverticular bleed in June 2016 and was transferred to [facility], seen by Dr. Maxwell there with evaluation with colonoscopy, since conservative therapy was maintained. 3.Temporal arteritis, history of glaucoma, pulmonary embolism, polymyalgia rheumatica, degenerative joint disease, and others as per above. Recommendations: 1.EGD with probably colonoscopy on this admission since she may have recurrent diverticular bleed. 2.Continue resuscitation. 3.Interventional Radiology for possible diverticular bleed and arterial embolization. I am not avai lable in this hospital, but would be available at [facility] and other hospitals versus surgery for recurren t diverticular bleed if not could be identified and stop with colonoscopy, Interventional Radiology, or other. 4.Would obtain surgical consultation in this patient with recurrent diverticular bleeding and hypote nsion, on IV pressors. MISTY/ESTEFANIA Voice ID: [id number] Report ID: [id number]
[2019-10-30 05:17] LABS: Basophils % 0.2 % (0-1.3); Hematocrit 32.6 % (36.0-45.0); Lymphocytes % 8.7 % (15.3-44.8); MPV 10.2 fL (7.6-11.3)
[2019-10-30 05:32] LABS: Albumin 2.8 g/dL (3.4-5.0); Bilirubin Direct 0.2 mg/dL (0-0.2); Bilirubin Total 0.5 mg/dL (0.2-1.0); Potassium 4.1 mmol/L (3.5-5.1); Protein, Total 5.3 g/dL (6.4-8.2)
[2019-10-30] MEDS: HYDROCORTISONE SUC 100 MG INJ IV SCH ×2 (06:42→12:22)
--- NOTE | 2019-10-30 08:54 | EKG ---
Test Date: 2019-10-29 Test Time: 12:28:56 Bulkhead Carpenter: RAGINI MEASUREMENT RESULTS: Intervals: Rate: 79 TX: 152 QRSD: 66 QT: 384 QTc: 440 [place]: P: 19 TX: 152 QRS: -2 T: 36 INTERPRETIVE STATEMENTS: Normal sinus rhythm Nonspecific T wave abnormality Abnormal ECG Compared to ECG 07/06/2019 17:04:40 T-wave abnormality now present Electronically Signed On 10-30-19 08:53:56 [employer] INTERN by Oj Malcolm
[2019-10-30] MEDS: LIDOCAINE 4% PATCH TOP SCH (09:00)
[2019-10-30] MEDS: OCTREOTIDE 500 MCG in NA CHLORIDE 0.9% 500 ML IV SCH ×2 (09:40→20:44)
[2019-10-30 11:46] LABS: Hematocrit 31.1 % (36.0-45.0)
[2019-10-30] MEDS ORDERED: WATER FOR INJ,STERILE 10 ML ONE (12:16)
[2019-10-30] MEDS: D5 0.45 NS 1,000 ML IV SCH (12:22)
[2019-10-30] MEDS ORDERED: HEPARIN 500 UNIT/5 ML SYR IV ONE (12:29)
[2019-10-30] MEDS: predniSONE 20 MG TAB PO SCH (16:52)
[2019-10-30 17:09] LABS: Hematocrit 31.1 % (36.0-45.0); Lymphocytes % 8.1 % (15.3-44.8); MPV 10.4 fL (7.6-11.3); RBC Red Blood Cell Count 3.58 M/uL (3.86-4.86)
[2019-10-30 18:23] LABS: Anisocytosis 1+; Blood Morphology Comment NOTED (NOT SEEN); Platelet Estimate DECR; Poikilocytosis 2+; Urine White Blood Cell Casts OK
[2019-10-30] MEDS ORDERED: HOME MED 1 EA UNK (Netarsudil Mesylate [Rhopressa] 1 DROP) OP SCH (21:00)
[2019-10-30] MEDS ORDERED: BRIMONIDINE TARTRATE OP SCH (21:00)
[2019-10-30] MEDS ORDERED: TIMOLOL OP SCH (21:00)
--- NOTE | 2019-10-30 23:12 | PN ---
Subjective: Ms. Gamez is doing lot better. Denies chest pain, nausea, vomiting. Her blood pressure improved on IV steroids. Physical Examination: Vital Signs: Her BP is 158/99; pulse 86; temperature, she is afebrile, 96.0 Fahrenheit. HEENT: No JVD. No carotid bruits. CHEST: Clear. HEART: Regular. ABDOMEN: No guarding, no rebound, no rigidity. She is morbidly obese. Has chronic edema. Laboratory Examination: White count is 12,500 on steroids IV, hemoglobin 9.7, hematocrit 31, platele ts of 77,000. This has been low for last 3 months before this episode. Assessment And Plannin.Questionable positive blood cultures. One positive blood culture is anaerobic gram-positive cocci . Second one is aerobic gram-positive cocci. I suspect this could be contamination as I do not see any source of infection in this patient. She had this culture done in emergency room and I am not matute re exactly what location, whether it was from femoral vein or whether it was from peripheral vein, bu t I am doing 2 more blood cultures here and checking procalcitonin. If procalcitonin is normal or lo w, I will not give her any antibiotics at this point watching her clinically. I changed over IV ster oids to p.o. prednisone. 2.Addisonian crises as described above, IV to p.o. now, currently stable. Continue IV fluids, gentl e hydration. 3.Lower gastrointestinal bleed. She had a minimal lower GI bleed and the reason she came to the [facility] was lower GI bleed, but she was admitted and kept in the hospital because of hypertension now and that I believe it is because of add isonian crisis. MOIZ/ESTEFANIA Voice ID: [id number] Report ID: [id number]
[2019-10-30 23:38] LABS: Hematocrit 29.6 % (36.0-45.0)
[2019-10-31] MEDS: D5 0.45 NS 1,000 ML IV SCH ×2 (01:29→15:43)
[2019-10-31] MEDS: OCTREOTIDE 500 MCG in NA CHLORIDE 0.9% 500 ML IV SCH ×2 (04:02→15:43)
[2019-10-31 05:46] LABS: Absolute Lymphocytes (CBC) 1.3 K/uL (0.7-4.9); Basophils % 0.2 % (0-1.3); Hematocrit 29.8 % (36.0-45.0); Lymphocytes % 9.7 % (15.3-44.8); MPV 10.7 fL (7.6-11.3); RBC Red Blood Cell Count 3.43 M/uL (3.86-4.86)
[2019-10-31 07:32] LABS: Anisocytosis 1+; Blood Morphology Comment NOTED (NOT SEEN); Ovalocytes 1+; Platelet Estimate DECR; Urine White Blood Cell Casts OK
[2019-10-31] MEDS: predniSONE 20 MG TAB PO SCH (08:09)
[2019-10-31] MEDS: LIDOCAINE 4% PATCH TOP SCH (08:10)
[2019-10-31] MEDS ORDERED: HOME MED 1 EA UNK (Pantoprazole Sodium [Protonix] 40 MG) PO SCH (09:00)
[2019-10-31] MEDS ORDERED: DORZOLAMIDE HCL OP SCH (09:00)
[2019-10-31] MEDS ORDERED: TRAVOPROST OP SCH (09:00)
[2019-10-31 18:28] LABS: Platelet Estimate DECR
[2019-10-31] MEDS ORDERED: POTASSIUM CHLORIDE 20 MEQ PO SCH (21:00)
[2019-10-31] MEDS ORDERED: POTASSIUM CL SA 10 MEQ TAB PO SCH (21:00)
[2019-11-01] MEDS: OCTREOTIDE 500 MCG in NA CHLORIDE 0.9% 500 ML IV SCH ×3 (00:50→21:01)
[2019-11-01] MEDS: D5 0.45 NS 1,000 ML IV SCH ×3 (03:49→21:00)
[2019-11-01 04:12] LABS: Absolute Lymphocytes (CBC) 1.8 K/uL (0.7-4.9); Basophils % 0.3 % (0-1.3); Hematocrit 27.2 % (36.0-45.0); Lymphocytes % 16.6 % (15.3-44.8); MPV 9.7 fL (7.6-11.3); RBC Red Blood Cell Count 3.13 M/uL (3.86-4.86)
[2019-11-01 04:28] LABS: Potassium 3.9 mmol/L (3.5-5.1)
[2019-11-01 06:11] VITALS: BMI 41.5
[2019-11-01] MEDS: FUROSEMIDE 40 MG TABLET PO SCH (08:36)
[2019-11-01] MEDS: LIDOCAINE 4% PATCH TOP SCH (08:36)
[2019-11-01] MEDS: predniSONE 20 MG TAB PO SCH (08:36)
[2019-11-01] MEDS ORDERED: ENOXAPARIN 40 MG/0.4 ML SQ SCH (09:00)
--- NOTE | 2019-11-01 13:39 | ECHO ---
HEIGHT: 5 ft 3 in WEIGHT: 234 lb 3.2 oz DATE OF STUDY: 11/01/[address]: Adan Camacho MD 2-DIMENSIONAL: YES M.MODE: YES DOPPLER: YES COLOR FLOW: YES TDS: NO PORTABLE: NO DEFINITY: NO BUBBLE STUDY: NO DIAGNOSIS: VALVE STRUCTURE CARDIAC HISTORY: CATHERIZATION: NO SURGERY: NO PROSTHETIC VALVE: NO PACEMAKER: NO MEASUREMENTS (cm) DIASTOLIC (NORMALS) SYSTOLIC (NORMALS) IVSd 1.1 (0.6-1.2) LA Diam (1.9-4.0) LVEF 70% LVIDd 3.8 (3.5-5.7) LVIDs 2.3 (2.0-3.5) %FS 39% LVPWd 1.1 (0.6-1.2) Ao Diam 2.4 (2.0-3.7) 2 DIMENSIONAL ASSESSMENT: RIGHT ATRIUM: NORMAL LEFT ATRIUM: NORMAL RIGHT VENTRICLE: NORMAL LEFT VENTRICLE: NORMAL TRICUSPID VALVE: NORMAL MITRAL VALVE: NORMAL PULMONIC VALVE: NORMAL AORTIC VALVE: NORMAL PERICARDIAL EFFUSION: NONE AORTIC ROOT: NORMAL LEFT VENTRICULAR WALL MOTION: NORMAL DOPPLER/COLOR FLOW: MILD MITRAL, TRICUSPID AND AORTIC REGURGITATION. NORMAL RIGHT VENTRICULAR SYSTOLIC PRESSURE. COMMENTS: NORMAL 2D ECHOCARDIOGRAM. MILD MITRAL, TRICUSPID AND AORTIC REGURGITATION. TECHNOLOGIST: Ben SALOMON
[2019-11-01] MEDS: MEDIHONEY 44 ML TOPICAL TUBE TOP SCH (14:22)
--- NOTE | 2019-11-01 15:19 | PN ---
Subjective: Patient is feeling lot better. She is sitting up on chair. Denies any chest pain, naus ea, or vomiting. She is much more comfortable. Physical Examination: VITAL SIGNS: Blood pressure has gone up to 156/79, afebrile. Pulse is good at 80. Chest: Clear. Heart: Regular. Abdomen: No guarding. No rebound or rigidity. She is morbidly obese. Lab: White count 13,000 on steroids, hemoglobin 9.4, stable. Chem 7 shows sugar of 205, calcium 7.8 , lactic acid is 6.0 after being hypotensive which could be because of low blood pressure. Procalcit onin has been less than normal twice. Assessment And Planning: Positive blood cultures, possibly contamination had withdrawal in the emerg ency room. The emergency room has drawn blood cultures before without much cleaning up the skin area and I suspect this will happen again. Have 2 more blood cultures growing so far none of them showin g any problems. I do not suspect she has sepsis. She does not act like she is septic. Her low bloo d pressure was because of addisonian crisis and not because of infection. Even without antibiotics c urrently she looks totally asymptomatic, has no symptoms of any kind of infection. Prognosis is guar ded. I am holding 1 more day until the cultures show any more findings by tomorrow. MOIZ/ESTEFANIA Voice ID: [id number] Report ID: [id number]
--- NOTE | 2019-11-02 00:13 | PN ---
Subjective: Ms. Gamez is doing a lot better, is sitting up. Denies any chest pain, nausea, vomiting. She is able to eat breakfast. She is starting to ambulate now. Objective: Vital Signs: Blood pressure 165/82, pulse is 76, temperature 97.5. HEENT: No JVD. No carotid bruits. Chest: Clear. Heart: Regular. Abdomen: No guarding. No rebound. No rigidity. Extremities: Right leg examination, her ulcer seems to be healing slowly because she has severe edema. Currently, we will put her on Santyl, but Santyl is costly for the hospital. They are recommending Medihoney, so we will be placing Medihoney currently until [facility]. Assessment And Plannin. 2 positive blood cultures for Staphylococcus epidermidis. I have a serious concern here that this is a contamination. She does not show any signs of infection. She is feeling great at this point, is afebrile and has normal white count now. It was slightly high because of steroids in the first 2 days. Her blood pressure was low because of addisonian crisis and not because of sepsis. I have done 2 more cultures, which are negative totally and I suspect the ER collection of blood cultures, the first 2 sets were poor, which showed contamination. I have seen the ER staff doing blood cultures just by using alcohol swab and collecting 2 samples from the same site, which is what I suspect happened here. I talked to Dr. Guillen to investigate this further. I also asked the ER pathology lab technician, who did the draw, to call me so I can discuss with her. Until then, I am not giving her antibiotics because I do not suspect there is a need of antibiotics, but she is closely observed for any signs of sepsis. Currently, she shows no signs of sepsis. 2. Addisonian crisis. She is now on smaller dose of prednisone instead of IV steroids and blood pressure is stable. 3. Severe polymyalgia rheumatica, temporal arteritis, osteoarthritis, currently stable on medications. 4. Morbid obesity. She needs to really watch and lose some weight because that is affecting her joints seriously. JUMANAD/MODL Voice ID: [id number] Report ID: [id number] STANISLAV
[2019-11-02 05:39] LABS: Absolute Lymphocytes (CBC) 2.1 K/uL (0.7-4.9); Basophils % 0.2 % (0-1.3); Hematocrit 25.6 % (36.0-45.0); Lymphocytes % 22.7 % (15.3-44.8); MPV 9.7 fL (7.6-11.3); RBC Red Blood Cell Count 2.97 M/uL (3.86-4.86)
[2019-11-02] MEDS: OCTREOTIDE 500 MCG in NA CHLORIDE 0.9% 500 ML IV SCH (05:43)
[2019-11-02 05:55] LABS: Potassium 3.5 mmol/L (3.5-5.1)
[2019-11-02] MEDS: predniSONE 20 MG TAB PO SCH (08:54)
[2019-11-02] MEDS: LIDOCAINE 4% PATCH TOP SCH (08:54)
[2019-11-02] MEDS: FUROSEMIDE 40 MG TABLET PO SCH (08:54)
[2019-11-02] MEDS ORDERED: COLLAGENASE 30 GM OINTMENT TOP SCH (09:00)
[2019-11-02 09:02] VITALS: O2SAT 98
[2019-11-02 09:07] LABS: Hematocrit 28.1 % (36.0-45.0)
[2019-11-02 12:41] VITALS: TEMP 97.2
[2019-11-02 13:39] VITALS: BP 150/72
[2019-11-02] MEDS: MEDIHONEY 44 ML TOPICAL TUBE TOP SCH (15:20)
[2019-11-02] MEDS: D5 0.45 NS 1,000 ML IV SCH (16:20)
--- NOTE | 2019-11-03 07:11 | DS ---
Date of Discharge: 11/02/2019 Final Diagnosis: Addisonian crisis. Secondary Diagnoses: Acute lower GI bleed, fibromyalgia, polymyalgia rheumatica , temporal arteritis, high blood pressure, anemia, thrombocytopenia. Hospital Course: Patient is an 79-year-old lady with past medical history of multiple medical problems. She is on chronic prednisone therapy. Dr. Zuleta is trying to taper her prednisone. She comes in with mild lower GI bleed, but developed hypotension in the hospital in the emergency room. I suspect that she was in Addisonian crisis. I gave her IV Solu-Cortef, within 24 hours she is back to normal at her baseline. She never had fever. At ER, they did 2 cultures and I talked to the nurse who did the culture. She took the culture from 1 port of the central line, which was placed by anesthesiologist and both cultures from that port grew Staph epidermidis, so I am inclined not to believe this culture as she has no symptoms of infection. Her procalcitonin is normal. Her lactic acid was high because she had hypotension which will give high lactate because of tissue damage from hypotension. She had 2 more cultures done on her, which are both negative 48 hours after they are being done , so I suspect she does not have infection. She will continue prednisone at home 10 mg once a day she has been on, and will be tapering it slowly. This is done by Dr. Zuleta. Other medications will remain the same as before. I am stopping her Eliquis now because she has finished 3 months of therapy for pulmonary embolism, which is very small artery anyway and that at this point, she is at a high risk of bleeding, so we will do without anticoagulation unless she has any more episodes of PE or DVT. She is at high risk of DVT and PE because she is morbidly obese and quite deconditioned. I discussed all these in detail with the daughter when she called office. MOIZ/ESTEFANIA Voice ID: [id number] Report ID: [id number] STANISLAV
== END 2019-11-02 18:45 | disposition home or self-care (01) | DRG 644 ==
LOC: ER 11:55 → DS 19:30 → 3RD-ICU 21:25 → 4TH 10-31 02:00
PROVIDERS: ADMIT Internal Medicine; ATTEND Internal Medicine
PROC: 0DJ08ZZ Inspection of Upper Intestinal Tract, Via Natural or Artificial Opening Endoscopic (ICD-10-PCS; principal; 2019-10-29 19:21)
DX: E27.2 Addisonian crisis (principal); K62.5 Hemorrhage of anus and rectum; Z68.41 Body mass index [BMI] 40.0-44.9, adult; M19.90 Unspecified osteoarthritis, unspecified site; I95.9 Hypotension, unspecified; I10 Essential (primary) hypertension; E66.9 Obesity, unspecified; M79.7 Fibromyalgia; M35.3 Polymyalgia rheumatica; M31.6 Other giant cell arteritis; D69.6 Thrombocytopenia, unspecified
CPT/HCPCS: 36415; 71045; 74177; 80048; 80076; 82947; 83605; 83690; 84145; 85014; 85018; 85025; 85049; 85610; 85652; 86850; 86900; 86901; 87040; 87070; 87075; 87077; 87186; 87205; 93005; 93306; 96361; 96365; 96366; 96375; 97112; 97116; 97161; 97530; 99285; C9113; J0744; J1265; J1642; J1720; J2354; J2405; J2704; J7030; J7040; J7512; J7799; Q9967

== ENCOUNTER 2019-12-27 04:26 | Inpatient (IN) | payer OTHER ==
--- OUTSIDE RECORDS SUMMARY | 2019-12-27 04:32 | XMS REPORT ---
:1940 [facility] Address [address] [place] [address] Care Team Providers Name Role Phone Unavailable [...] DIFFERENTIAL.PLATELET COUNT REVIEWED AND VERIFIED. CBC W/AUTO [id number] 14:32:00 Test Item Value Reference Range Comments [...] REQUIRED (test code=MDIFF) YES DIFF/SCN CRITERIA WBC [id number] 14:32:00 Test Item Value Reference Range Comments SEGMENTED NEUTROPHILS (test 72 % 40-75 code=SEG) LYMPHOCYTE (test 23 % 18.7-40.6 code=LYMPH) MONOCYTE (test code=MON) 5 % 3.8-11.4 PLATELET ESTIMATE (test DECREASED THOUSAND ADEQUATE PLATELET COUNT REVIEWED code=PLTEST) AND VERIFIED. PLATELET MORPHOLOGY (test NORMAL code=PLTMORPH) CBC W/AUTO [id number] 11:35:00 Test Item Value Reference Range Comments [...] REQUIRED (test code=MDIFF) YES DIFF/SCN CRITERIA WBC [id number] 11:35:00 Test Item Value Reference Range Comments SEGMENTED NEUTROPHILS (test code=SEG) % 40-75 LYMPHOCYTE (test code=LYMPH) % 18.7-40.6 CBC W/AUTO [id number] 11:35:00 Test Item Value Reference Range Comments [...] REQUIRED (test code=MDIFF) YES DIFF/SCN CRITERIA WBC [id number] 11:35:00 Test Item Value Reference Range Comments SEGMENTED NEUTROPHILS (test code=SEG) % 40-75 LYMPHOCYTE (test code=LYMPH) % 18.7-40.6 BASIC METABOLIC [id number] 09:36:00 Test Item Value Reference Range Comments [...] (test code=CA) 8.1 MG/DL 8.5-10.1 CBC W/AUTO [id number] 09:13:00 Test Item Value Reference Range Comments [...] REQUIRED (test code=MDIFF) DIFF/SCN CRITERIA CBC W/AUTO [id number] 08:23:00 Test Item Value Reference Range Comments [...] REQUIRED (test code=MDIFF) NO DIFF/SCN CRITERIA RBC [id number] 08:23:00 Test Item Value Reference Range Comments POLYCHROMASIA (test 2+ ON SCAN NONE code=POLC) PLATELET ESTIMATE (test DECREASED THOUSAND ADEQUATE PLATELET COUNT code=PLTEST) REVIEWED AND VERIFIED. PLATELET MORPHOLOGY (test NORMAL code=PLTMORPH) CBC W/AUTO [id number] 08:22:00 Test Item Value Reference Range Comments [...] (test code=MDIFF) NO DIFF/SCN CRITERIA CBC W/AUTO [id number] 08:22:00 Test Item Value Reference Range Comments [...] (test code=MDIFF) NO DIFF/SCN CRITERIA BASIC METABOLIC [id number] 07:49:00 Test Item Value Reference Range Comments [...] (test code=CA) 8.2 MG/DL 8.5-10.1 CBC W/AUTO [id number] 07:40:00 Test Item Value Reference Range Comments [...] REQUIRED (test code=MDIFF) DIFF/SCN CRITERIA UR SODIUM [id number] 14:09:00 Test Item Value Reference Range Comments UR SODIUM RANDOM (test 88 MEQ/L () The Reference Range and Method code=MERI) Performance specificationshave not been established for this fluid. The test resultshould be correlated into the clinical context forinterpretation. UR POTASSIUM [id number] 14:09:00 Test Item Value Reference Range Comments UR POTASSIUM RANDOM (test 13.2 MEQ/L () The Reference Range and Method code=KU) Performance specificationshave not been established for this fluid. The test resultshould be correlated into the clinical context forinterpretation. UR CHLORIDE [id number] 14:09:00 Test Item Value Reference Range Comments UR CHLORIDE RANDOM (test 72 mmol/L Not Estab. Performed At: [facility] code=CLU) [address] [place], [place] [id number] Kyle L MD Ph:[phone] UR PROTEIN [id number] 14:09:00 Test Item Value Reference Range Comments UR PROTEIN TOTAL (test code=PROTU) 5.6 MG/DL 0.0-12.0 UR CREATININE [id number] 14:09:00 Test Item Value Reference Range Comments UR CREATININE RANDOM (test code=CREATU) 36.4 MG/DL 30-125 UR OSMOLALITY [id number] 14:09:00 Test Item Value Reference Range Comments UR OSMOLALITY RANDOM (test code=OSMOU) 284 MOS/KG 390-1090 UR SODIUM [id number] 02:55:00 Test Item Value Reference Range Comments UR SODIUM RANDOM (test 88 MEQ/L The Reference Range and Method code=MERI) Performance specificationshave not been established for this fluid. The test resultshould be correlated into the clinical context forinterpretation. UR POTASSIUM [id number] 02:55:00 Test Item Value Reference Range Comments UR POTASSIUM RANDOM (test 13.2 MEQ/L The Reference Range and Method code=KU) Performance specificationshave not been established for this fluid. The test resultshould be correlated into the clinical context forinterpretation. UR OSMOLALITY [id number] 02:55:00 Test Item Value Reference Range Comments UR OSMOLALITY RANDOM (test code=OSMOU) 284 MOS/KG 390-1090 UR SODIUM [id number] 02:55:00 Test Item Value Reference Range Comments UR SODIUM RANDOM (test 88 MEQ/L () The Reference Range and Method code=MERI) Performance specificationshave not been established for this fluid. The test resultshould be correlated into the clinical context forinterpretation. UR POTASSIUM [id number] 02:55:00 Test Item Value Reference Range Comments UR POTASSIUM RANDOM (test 13.2 MEQ/L () The Reference Range and Method code=KU) Performance specificationshave not been established for this fluid. The test resultshould be correlated into the clinical context forinterpretation. UR CHLORIDE [id number] 02:55:00 Test Item Value Reference Range Comments UR CHLORIDE RANDOM (test code=CLU) mmol/L >10 UR PROTEIN [id number] 02:55:00 Test Item Value Reference Range Comments UR PROTEIN TOTAL (test code=PROTU) 5.6 MG/DL 0.0-12.0 UR CREATININE [id number] 02:55:00 Test Item Value Reference Range Comments UR CREATININE RANDOM (test code=CREATU) 36.4 MG/DL 30-125 UR OSMOLALITY [id number] 02:55:00 Test Item Value Reference Range Comments UR OSMOLALITY RANDOM (test code=OSMOU) 284 MOS/KG 390-1090 UR SODIUM [id number] 02:52:00 Test Item Value Reference Range Comments UR SODIUM RANDOM (test 88 MEQ/L The Reference Range and Method code=MERI) Performance specificationshave not been established for this fluid. The test resultshould be correlated into the clinical context forinterpretation. UR POTASSIUM [id number] 02:52:00 Test Item Value Reference Range Comments UR POTASSIUM RANDOM (test 13.2 MEQ/L The Reference Range and Method code=KU) Performance specificationshave not been established for this fluid. The test resultshould be correlated into the clinical context forinterpretation. UR OSMOLALITY [id number] 02:52:00 Test Item Value Reference Range Comments UR OSMOLALITY RANDOM (test code=OSMOU) MOS/KG 390-1090 UR SODIUM [id number] 02:52:00 Test Item Value Reference Range Comments UR SODIUM RANDOM (test 88 MEQ/L () The Reference Range and Method code=MERI) Performance specificationshave not been established for this fluid. The test resultshould be correlated into the clinical context forinterpretation. UR POTASSIUM [id number] 02:52:00 Test Item Value Reference Range Comments UR POTASSIUM RANDOM (test 13.2 MEQ/L () The Reference Range and Method code=KU) Performance specificationshave not been established for this fluid. The test resultshould be correlated into the clinical context forinterpretation. UR CHLORIDE [id number] 02:52:00 Test Item Value Reference Range Comments UR CHLORIDE RANDOM (test code=CLU) mmol/L >10 UR PROTEIN [id number] 02:52:00 Test Item Value Reference Range Comments UR PROTEIN TOTAL (test code=PROTU) 5.6 MG/DL 0.0-12.0 UR CREATININE [id number] 02:52:00 Test Item Value Reference Range Comments UR CREATININE RANDOM (test code=CREATU) 36.4 MG/DL 30-125 UR OSMOLALITY [id number] 02:52:00 Test Item Value Reference Range Comments UR OSMOLALITY RANDOM (test code=OSMOU) MMO/KG 500-800 UR SODIUM [id number] 16:08:00 Test Item Value Reference Range Comments UR SODIUM RANDOM (test code=MERI) MEQ/L UR POTASSIUM [id number] 16:08:00 Test Item Value Reference Range Comments UR POTASSIUM RANDOM (test code=KU) mmol/L >0 UR CHLORIDE [id number] 16:08:00 Test Item Value Reference Range Comments UR CHLORIDE RANDOM (test code=CLU) mmol/L >10 UR PROTEIN [id number] 16:08:00 Test Item Value Reference Range Comments UR PROTEIN TOTAL (test code=PROTU) 5.6 MG/DL 0.0-12.0 UR CREATININE [id number] 16:08:00 Test Item Value Reference Range Comments UR CREATININE RANDOM (test code=CREATU) 36.4 MG/DL 30-125 UR OSMOLALITY [id number] 16:08:00 Test Item Value Reference Range Comments UR OSMOLALITY RANDOM (test code=OSMOU) MMO/KG 500-800 CBC W/AUTO [id number] 04:37:00 Test Item Value Reference Range Comments [...] REQUIRED (test code=MDIFF) YES DIFF/SCN CRITERIA WBC [id number] 04:37:00 Test Item Value Reference Range Comments SEGMENTED NEUTROPHILS 69 % 40-75 (test code=SEG) LYMPHOCYTE (test 27 % 18.7-40.6 code=LYMPH) MONOCYTE (test code=MON) 4 % 3.8-11.4 NUCLEATED RED BLOOD CELL 8 #/100WBC 0-0 (test code=NRBC) ANISOCYTOSIS (test TRACE NONE code=ANISO) PLATELET ESTIMATE (test SLIGHTLY DECREASED ADEQUATE PLATELET COUNT code=PLTEST) THOUSAND REVIEWED AND VERIFIED. PLATELET MORPHOLOGY (test NORMAL code=PLTMORPH) CBC W/AUTO [id number] 04:36:00 Test Item Value Reference Range Comments [...] REQUIRED (test code=MDIFF) YES DIFF/SCN CRITERIA WBC [id number] 04:36:00 Test Item Value Reference Range Comments SEGMENTED NEUTROPHILS (test code=SEG) % 40-75 LYMPHOCYTE (test code=LYMPH) % 18.7-40.6 CBC W/AUTO [id number] 04:36:00 Test Item Value Reference Range Comments [...] REQUIRED (test code=MDIFF) YES DIFF/SCN CRITERIA WBC [id number] 04:36:00 Test Item Value Reference Range Comments SEGMENTED NEUTROPHILS (test code=SEG) % 40-75 LYMPHOCYTE (test code=LYMPH) % 18.7-40.6 CBC W/AUTO [id number] 04:18:00 Test Item Value Reference Range Comments [...] REQUIRED (test code=MDIFF) DIFF/SCN CRITERIA CBC W/AUTO [id number] 05:22:00 Test Item Value Reference Range Comments [...] CONSISTANT code=MDIFF) WITH AUTO DIFFERENTIAL. THROMBOPLASTIN TIME [id number] 05:08:00 Test Item Value Reference Range Comments THROMBOPLASTIN TIME PARTIAL (test code=PTT) 22.4 SECONDS 26-35 CBC W/AUTO [id number] 05:07:00 Test Item Value Reference Range Comments [...] REQUIRED (test code=MDIFF) DIFF/SCN CRITERIA CBC W/AUTO [id number] 21:56:00 Test Item Value Reference Range Comments [...] REQUIRED (test code=MDIFF) NO DIFF/SCN CRITERIA RBC [id number] 21:56:00 Test Item Value Reference Range Comments PLATELET ESTIMATE (test MARKEDLY DECREASED ADEQUATE PLT EST 48,000-60,000 code=PLTEST) THOUSAND PLATELET MORPHOLOGY NORMAL (test code=PLTMORPH) CBC W/AUTO [id number] 21:54:00 Test Item Value Reference Range Comments [...] (test code=MDIFF) NO DIFF/SCN CRITERIA CBC W/AUTO [id number] 21:54:00 Test Item Value Reference Range Comments [...] (test code=MDIFF) NO DIFF/SCN CRITERIA BASIC METABOLIC [id number] 20:43:00 Test Item Value Reference Range Comments [...] (test code=CA) 8.7 MG/DL 8.5-10.1 BASIC METABOLIC [id number] 20:38:00 Test Item Value Reference Range Comments [...] (test code=CA) 8.7 MG/DL 8.5-10.1 CBC W/AUTO [id number] 20:38:00 Test Item Value Reference Range Comments [...] REQUIRED (test code=MDIFF) DIFF/SCN CRITERIA GLUCOSE BEDSIDE [id number] 20:21:00 Test Item Value Reference Range Comments GLUCOSE BEDSIDE TESTING (test code=GLUBED) 241 mg/dL 70-110 - XR CHEST 1 [id number] 20:13:00 Name: DAVID ULRICH [facility] : 1940 Age/S: 79 / F [address] Unit #: [id number] Loc: [place] [address] Phys: Isma Faust MD Acct: [id number] Dis Date: Status: ADM IN PHONE #: [phone] Exam Date: 07/11/20191954 FAX #: Reason: RAPID RESPONSE, NEAR SYNCOPE EXAMS: CPT: [id number] XR CHEST 1 V 84955 Fluoro Time: DAP (Gy m2): Air Kerma [...] ULRICH : 1940 Age/S: 79 / F [address] Unit #: [id number] Loc: [place], [place] Phys: Isma Faust MD Acct:[id number] Dis Date: Status: ADM IN PHONE #: [phone] Exam Date: 07/11/20191954 FAX #: Reason: RAPID RESPONSE, NEAR SYNCOPE EXAMS: CPT: [id number] XR CHEST 1 V 27254 Fluoro Time: DAP (Gy m2): Air Kerma (mGy) : <Continued> Technologist: Vahid Dean RT(R)(CT)(MRI) Trnscb Date/Time: 07/11/2019 (2012) ElliePR7 Orig Print D/T : S: 07/11/2019 (2015) PAGE 2 Signed ReportACUTE HEPATITIS [id number] 06:09:00 Test Item Value Reference Range Comments [...] with a HCV Nucleic Acid Amplification test (805431).Performed At: [facility] [address] [place], [place] [id number] Eduard Patricio MD Ph:[phone] CBC W/AUTO [id number] 04:38:00 Test Item Value Reference Range Comments [...] DIFFERENTIAL.PLATELET COUNT REVIEWED AND VERIFIED. THROMBOPLASTIN TIME [id number] 04:28:00 Test Item Value Reference Range Comments THROMBOPLASTIN TIME PARTIAL (test code=PTT) 16.6 SECONDS 26-35 CBC W/AUTO [id number] 04:18:00 Test Item Value Reference Range Comments [...] MANUAL DIFF REQUIRED (test code=MDIFF) DIFF/SCN CRITERIA [id number] 15:08:00 Test Item Value Reference Range Comments HAPTOGLOBIN (test code=HAPT) 110 mg/dL 34-200 Performed At: [address] [id number] Sanjai MD Ph:[phone] THROMBOPLASTIN TIME [id number] 12:09:00 Test Item Value Reference Range Comments THROMBOPLASTIN TIME PARTIAL (test code=PTT) 88.0 SECONDS 26-35 CBC W/AUTO [id number] 05:05:00 Test Item Value Reference Range Comments [...] REQUIRED (test code=MDIFF) YES DIFF/SCN CRITERIA WBC [id number] 05:05:00 Test Item Value Reference Range Comments [...] PLATELET MORPHOLOGY (test NORMAL code=PLTMORPH) CBC W/AUTO [id number] 05:04:00 Test Item Value Reference Range Comments [...] REQUIRED (test code=MDIFF) YES DIFF/SCN CRITERIA WBC [id number] 05:04:00 Test Item Value Reference Range Comments SEGMENTED NEUTROPHILS (test code=SEG) % 40-75 LYMPHOCYTE (test code=LYMPH) % 18.7-40.6 CBC W/AUTO [id number] 05:04:00 Test Item Value Reference Range Comments [...] REQUIRED (test code=MDIFF) YES DIFF/SCN CRITERIA WBC [id number] 05:04:00 Test Item Value Reference Range Comments SEGMENTED NEUTROPHILS (test code=SEG) % 40-75 LYMPHOCYTE (test code=LYMPH) % 18.7-40.6 BASIC METABOLIC [id number] 04:33:00 Test Item Value Reference Range Comments [...] 0.6-1.0 CALCIUM (test code=CA) 8.0 MG/DL 8.5-10.1 [id number] 04:33:00 Test Item Value Reference Range Comments MAGNESIUM (test code=MAG) 1.5 MG/DL 1.8-2.4 THROMBOPLASTIN TIME [id number] 04:27:00 Test Item Value Reference Range Comments THROMBOPLASTIN TIME PARTIAL (test code=PTT) 92.9 SECONDS 26-35 CBC W/AUTO [id number] 04:17:00 Test Item Value Reference Range Comments [...] REQUIRED (test code=MDIFF) DIFF/SCN CRITERIA THROMBOPLASTIN TIME [id number] 21:58:00 Test Item Value Reference Range Comments THROMBOPLASTIN TIME PARTIAL (test code=PTT) 68.4 SECONDS 26-35 THROMBOPLASTIN TIME [id number] 14:02:00 Test Item Value Reference Range Comments THROMBOPLASTIN TIME PARTIAL (test code=PTT) 37.8 SECONDS 26-35 THROMBOPLASTIN TIME [id number] 09:13:00 Test Item Value Reference Range Comments THROMBOPLASTIN TIME PARTIAL (test code=PTT) >400 SECONDS 26-35 THROMBOPLASTIN TIME [id number] 07:46:00 Test Item Value Reference Range Comments THROMBOPLASTIN TIME PARTIAL (test code=PTT) >400 SECONDS 26-35 CBC W/AUTO [id number] 07:29:00 Test Item Value Reference Range Comments [...] REQUIRED (test code=MDIFF) YES DIFF/SCN CRITERIA WBC [id number] 07:29:00 Test Item Value Reference Range Comments [...] PLATELET MORPHOLOGY (test NORMAL code=PLTMORPH) CBC W/AUTO [id number] 07:28:00 Test Item Value Reference Range Comments [...] REQUIRED (test code=MDIFF) YES DIFF/SCN CRITERIA WBC [id number] 07:28:00 Test Item Value Reference Range Comments SEGMENTED NEUTROPHILS (test code=SEG) % 40-75 LYMPHOCYTE (test code=LYMPH) % 18.7-40.6 CBC W/AUTO [id number] 07:28:00 Test Item Value Reference Range Comments [...] REQUIRED (test code=MDIFF) YES DIFF/SCN CRITERIA WBC [id number] 07:28:00 Test Item Value Reference Range Comments SEGMENTED NEUTROPHILS (test code=SEG) % 40-75 LYMPHOCYTE (test code=LYMPH) % 18.7-40.6 CBC W/AUTO [id number] 06:18:00 Test Item Value Reference Range Comments [...] REQUIRED (test code=MDIFF) DIFF/SCN CRITERIA PROTEIN ELECTROPHORESIS [id number] 05:53:00 Test Item Value Reference Range Comments TOTAL PROTEIN (test TEST NOT PERFORMED g/dL () Please refer to the code=PROTE) following specimen for additional labresults.Please see specimen # [id number] for testing.07/08/2019-[facility] ALBUMIN (test TEST NOT PERFORMED () Test not performed code=ALBE) [id number]-5-[id number] (test TEST NOT PERFORMED () Test not performed code=A1G) CNION-1-KEEZBXVK (test TEST NOT PERFORMED () Test not [...] (test code=FESAT) 55 % calc 12-57 VITAMIN [id number] 05:53:00 Test Item Value Reference Range Comments VITAMIN B12 (test code=VITB12) 2803 PG/ML 183-986 FOLIC [id number] 05:53:00 Test Item Value Reference Range Comments FOLIC ACID (test code=FOL) 14.70 NG/ML 3.10-17.50 THYROID STIMULATING [id number] 05:53:00 Test Item Value Reference Range Comments THYROID STIMULATING HORMONE (test code=TSH) 0.111 mcIU/ML 0.340-4.820 THROMBOPLASTIN TIME [id number] 22:44:00 Test Item Value Reference Range Comments THROMBOPLASTIN TIME PARTIAL (test code=PTT) 146.1 SECONDS 26-35 ANTINUCLEAR ANTIBODIES [id number] 15:28:00 Test Item Value Reference Range Comments HARSH TITER (test Negative () code=ANATITR) Negative <1:80 Borderline 1:80 Positive >1:80Performed At: [facility] [address] [id number] Patricio MD Ph:[phone] ANTINUCLEAR ANTIBODIES [id number] 13:09:00 Test Item Value Reference Range Comments HARSH TITER (test code=ANATITR) Negative () Negative <1:80 Borderline 1:80 Positive >1:80Performed At: [facility] [address] [id number] Patricio MD Ph:[phone] HARSH COMMENT (test code=ANACOM) PROTEIN ELECTROPHORESIS [id number] 10:09:00 Test Item Value Reference Range Comments TOTAL PROTEIN (test code=PROTE) g/dL () Please refer to the following specimen for additional labresults.Please see specimen # [id number] for testing.07/08/2019-[facility]an ALBUMIN (test code=ALBE) () Test not performed MYMJL-2-CCYSRABE (test () Test not performed code=A1G) SKDOC-1-JOGSAEHH (test () Test not performed code=A2G) BETA [...] (test code=FESAT) 55 % calc 12-57 VITAMIN [id number] 10:09:00 Test Item Value Reference Range Comments VITAMIN B12 (test code=VITB12) 2803 PG/ML 183-986 FOLIC [id number] 10:09:00 Test Item Value Reference Range Comments FOLIC ACID (test code=FOL) 14.70 NG/ML 3.10-17.50 THYROID STIMULATING [id number] 10:09:00 Test Item Value Reference Range Comments THYROID STIMULATING HORMONE (test code=TSH) 0.111 mcIU/ML 0.340-4.820 CBC W/AUTO [id number] 08:39:00 Test Item Value Reference Range Comments [...] REVIEW CONSISTANT code=MDIFF) WITH AUTO DIFFERENTIAL. RBC [id number] 08:39:00 Test Item Value Reference Range Comments PLATELET ESTIMATE (test SLIGHTLY DECREASED ADEQUATE PLT ESTIMATE 88,000 TO code=PLTEST) THOUSAND 110,000 PLATELET MORPHOLOGY LARGE PLATELETS (test code=PLTMORPH) CBC W/AUTO [id number] 08:38:00 Test Item Value Reference Range Comments [...] CONSISTANT code=MDIFF) WITH AUTO DIFFERENTIAL. CBC W/AUTO [id number] 08:38:00 Test Item Value Reference Range Comments [...] CONSISTANT code=MDIFF) WITH AUTO DIFFERENTIAL. COMPREHENSIVE METABOLIC [id number] 06:42:00 Test Item Value Reference Range Comments [...] TOTAL (test code=ALKP) 34 Unit/L 45-117 PROTHROMBIN [id number] 06:41:00 Test Item Value Reference Range Comments PT PATIENT (test code=PTP) 19.0 SECONDS 9.3-12.9 INTERNATIONAL NORMAL RATIO (test code=INR) 1.64 INR Unit 0.8-1.2 THROMBOPLASTIN TIME [id number] 06:41:00 Test Item Value Reference Range Comments THROMBOPLASTIN TIME PARTIAL (test code=PTT) 20.4 SECONDS 26-35 COMPREHENSIVE METABOLIC [id number] 06:37:00 Test Item Value Reference Range Comments [...] TOTAL (test code=ALKP) Unit/L 45-117 CBC W/AUTO [id number] 06:30:00 Test Item Value Reference Range Comments [...] (AUTOMATED) (test code=RETICA) 2.6 % 0.3-2.3 HGB [id number] 21:05:00 Test Item Value Reference Range Comments HEMOGLOBIN (test code=HGB) 9.1 G/DL 10.4-14.9 HEMATOCRIT (test code=HCT) 28.7 % 31.5-44.1 PROTEIN ELECTROPHORESIS [id number] 17:59:00 Test Item Value Reference Range Comments TOTAL PROTEIN (test code=PROTE) ALBUMIN (test code=ALBE) LRAVQ-5-HPNSDZDM (test code=A1G) GCVIF-3-CXESZFFQ (test code=A2G) BETA GLOBULIN (test code=BG) GAMMA [...] (test code=FESAT) 55 % calc 12-57 VITAMIN [id number] 17:59:00 Test Item Value Reference Range Comments VITAMIN B12 (test code=VITB12) 2803 PG/ML 183-986 FOLIC [id number] 17:59:00 Test Item Value Reference Range Comments FOLIC ACID (test code=FOL) 14.70 NG/ML 3.10-17.50 THYROID STIMULATING [id number] 17:59:00 Test Item Value Reference Range Comments THYROID STIMULATING HORMONE (test code=TSH) 0.111 mcIU/ML 0.340-4.820 PROTEIN ELECTROPHORESIS [id number] 17:07:00 Test Item Value Reference Range Comments TOTAL PROTEIN (test code=PROTE) ALBUMIN (test code=ALBE) IVHRP-2-HYBWLKWB (test code=A1G) TMXDV-3-BICGLPWZ (test code=A2G) BETA GLOBULIN (test code=BG) GAMMA [...] (test code=FESAT) 55 % calc 12-57 VITAMIN [id number] 17:07:00 Test Item Value Reference Range Comments VITAMIN B12 (test code=VITB12) PG/ML 183-986 FOLIC [id number] 17:07:00 Test Item Value Reference Range Comments FOLIC ACID (test code=FOL) 14.70 NG/ML 3.10-17.50 THYROID STIMULATING [id number] 17:07:00 Test Item Value Reference Range Comments THYROID STIMULATING HORMONE (test code=TSH) 0.111 mcIU/ML 0.340-4.820 PROTEIN ELECTROPHORESIS [id number] 16:11:00 Test Item Value Reference Range Comments TOTAL PROTEIN (test code=PROTE) ALBUMIN (test code=ALBE) RBEWK-3-JAYAUYZY (test code=A1G) BPLGB-7-YCWCPKBL (test code=A2G) BETA GLOBULIN (test code=BG) GAMMA [...] (test code=FESAT) 55 % calc 12-57 VITAMIN [id number] 16:11:00 Test Item Value Reference Range Comments VITAMIN B12 (test code=VITB12) PG/ML 183-986 FOLIC [id number] 16:11:00 Test Item Value Reference Range Comments FOLIC ACID (test code=FOL) NG/ML 3.10-17.50 THYROID STIMULATING [id number] 16:11:00 Test Item Value Reference Range Comments THYROID STIMULATING HORMONE (test code=TSH) 0.111 mcIU/ML 0.340-4.820 - [place] GUIDANCE VASC [id number] 15:35:00 Name: DAVID ULRICH [facility] : 1940 Age/S: 79 / F [address] Unit #: [id number] Loc: [place] [address] Phys: Isma Faust MD Acct: [id number] Dis Date: Status : ADM IN PHONE #: [phone] Exam Date: 07/07/2019 1500 FAX #: Reason: IV ACCESS EXAMS: CPT: [id number] US GUIDANCE VASC ACCESS 58905 C3 Central Venous Catheter Placement Under Ultrasound [...] [place] : 1939 Age/S: 79 / F [address] Unit #: [id number] Loc: [place] [address] Phys: Isma Faust MD Acct: [id number] Dis Date: Status: ADM IN PHONE #: [phone] Exam Date: 07/07/2019 1500 FAX #: Reason: IV ACCESS EXAMS: CPT: [id number] US GUIDANCE VASC ACCESS [id number] <Continued> at 1535 Reported and signed by: Mazin Morales M.D.CC: Isma Faust MD Technologist: Ioana Townsend, RT(R),RDMS(AB) Trnorb Date/Time: 07/07/2019 (1535) [email or web address] PAGE 2 Signed Report Name: DAVID ULR[place] : 1940 Age/S: 79 / F [address] [address] Unit #: [id number] Loc: [place] [address] Phys: Isma Faust MD Acct: [id number] Dis Date: Status: ADM IN PHONE #: [phone] Exam Date: 1500 FAX #: Reason: IV ACCESS EXAMS: CPT: [id number] US GUIDANCE VASC ACCESS 77153 <Continued> Orig Print D/T: S: 07/07/2019 (1538) Probe: PAGE 3 Signed Report- XR CHEST 1 [id number] 15:33:00 Name: DAVID ULRICH [place] : 1940 Age/S: 79 / F [id number] [address] Unit #: [id number] Loc: [place] [address] Phys: Mazin Morales MD Acct: [id number] Dis Date: Status: ADM IN PHONE #: [phone] Exam Date: 07/07/2019 1521 FAX #: Reason: S/P CENTRAL LINE PLACEMENT EXAMS: CPT: [id number] XR CHEST 1 V 26668 Fluoro Time: DAP (Gy m2): Air Kerma [...] 1 Signed Report Name: DAVID ULRICH CELEST[place] : 1940 Age/S: 79 / F [id number] [address] Unit #: [id number] Loc: [place] [address] Phys : Mazin Morales MD Acct: [id number] Dis Date: Status: ADM IN PHONE #: [phone] Exam Date: 07/07/2019 1521 FAX #: Reason: S/P CENTRAL LINE PLACEMENT EXAMS: CPT: [id number] XR CHEST 1 V 87684 Fluoro Time: DAP (Gy m2): Air Kerma (mGy): <Continued> Technologist: Vahid Dean RT(R)(CT)(MRI) Trnscb Date /Time: 07/07/2019 (1533) [email or web address] PAGE 2 Signed [id number] 14:54:00 Test Item Value Reference Range Comments FIBRINOGEN (test code=FIB) 141 mg/dL 185-453 - US ABDOMEN [id number] 14:16:00 Name: DAVID ULRICH : 1940 Age/S: 79 / F [id number] Unit #: [id number] Loc: [place] [address] Phys: Adela Bejarano MD Acct: [id number] Dis Date: Status: ADM IN PHONE #: [phone] Exam Date: 07/07/2019 1312 FAX #: Reason: thrombocytopenia, evaluate for liver disease EXAMS: CPT: [id number] US ABDOMEN LTD 67745 C3 TIME OF STUDY: 07/07/2019 8:44 AM [...] Technologist: Ioana Townsend RT(R),RDMS(AB) Trnscb Date/Time: 07/07/2019 (2316) [email or web address] PAGE 1 Signed Report Name: DAVID ULRICH [facility] : 1940 Age/S: 79 / F [address] [facility] Unit #: [id number] Loc: [place] [address] Phys: Adela Bejarano MD Acct: [id number] Dis Date:Status: ADM IN PHONE #: [phone] Exam Date: 07/07/2019 1312 FAX #: Reason: thrombocytopenia, evaluate for liver disease EXAMS: CPT: [id number] US ABDOMEN LTD [address]1859 <Continued> Orig Print D/T : S: 07/07/2019 (2590) Probe: PAGE 2 Signed Report- DUP VEIN [id number] 14:16:00 Name: DAVID ULRICH [place] : 1939 Age/S: 79 / F [address] [address] Unit #: [id number] Loc: [place] [address] Phys: Isma Faust MD Acct: [id number] Dis Date : Status: ADM IN PHONE #: [phone] Exam Date: 07/07/2019 1350 FAX #: Reason: HX OF PE, BLE EDEMA EXAMS: CPT: [id number] [place] [address] C3 TIME OF STUDY : 07/07/2019 12:09 [...] Isma Faust MD Technologist: Ioana Townsend, RT(R),ZACHARYMS(AB) Trnorb Date/Time: 07/07/2019 (1416) [email or web address] PAGE 1 Signed Report Name: DAVID ULRICH : 1940 Age/S: 79 / F [address] [address] Unit # : [id number] Loc: [place] [address] Phys: Isma Faust MD Acct: [id number] Dis Date: Status: ADM IN PHONE #: [phone] Exam Date: 07/07/2019 1350 FAX #: Reason: HX OF PE, BLE EDEMA EXAMS: CPT: [id number] [place] [address] <Continued> Orig Print D/T: S: 07/07/2019 (1419) Probe: PAGE 2 Signed ReportPROTHROMBIN [id number] 14:10:00 Test Item Value Reference Range Comments PT PATIENT (test code=PTP) 28.8 SECONDS 9.3-12.9 INTERNATIONAL NORMAL RATIO (test code=INR) 2.46 INR Unit 0.8-1.2 HGB [id number] 14:00:00 Test Item Value Reference Range Comments HEMOGLOBIN (test code=HGB) 8.8 G/DL 10.4-14.9 HEMATOCRIT (test code=HCT) 28.3 % 31.5-44.1 HGB [id number] 07:53:00 Test Item Value Reference Range Comments HEMOGLOBIN (test code=HGB) 10.1 G/DL 10.4-14.9 HEMATOCRIT (test code=HCT) 31.8 % 31.5-44.1 COMPREHENSIVE METABOLIC [id number] 01:03:00 Test Item Value Reference Range Comments [...] code=ALKP) 41 Unit/L 45-117 NT PRO-BRAIN NATRIURETIC [id number] 01:03:00 Test Item Value Reference Range Comments NT PRO-BRAIN NATRIURETIC PEPTI (test code=PROBNP) 236 PG/ML 0-100 CBC W/AUTO [id number] 01:02:00 Test Item Value Reference Range Comments [...] AUTO DIFFERENTIAL.PLATELET COUNT REVIEWED AND VERIFIED. PROTHROMBIN [id number] 00:52:00 Test Item Value Reference Range Comments PT PATIENT (test code=PTP) 40.0 SECONDS 9.3-12.9 INTERNATIONAL NORMAL RATIO (test code=INR) 3.39 INR Unit 0.8-1.2 THROMBOPLASTIN TIME [id number] 00:52:00 Test Item Value Reference Range Comments THROMBOPLASTIN TIME PARTIAL (test code=PTT) 25.1 SECONDS 26-35 CBC W/AUTO [id number] 00:50:00 Test Item Value Reference Range Comments [...]
--- NOTE | 2019-12-27 05:01 | ER ---
Nurse's Notes [facility] Name: Kimmy Gamez Age: 79 yrs Sex: Female : 1940 Arrival Date: 12/27/2019 Time: 04: Bed 14 Private MD: Diagnosis: Gastrointestinal hemorrhage, unspecified;Anemia, unspecified;Obesity, unspecified;Hypomagnesemia;Diverticulitis of large intestine without perforation or abscess with bleeding Presentation: 12/27 04:31 Presenting complaint: EMS states: Pt went to go to the restroom and noticed bleeding. jb4 Pt called for her and denies passing out. We initiated a 20g to the left forearm and 150cc on NS. 04:31 Transition of care: patient was not received from another setting of care. Onset of jb4 symptoms was December 27, 2019. Risk Assessment: Do you want to hurt yourself or someone else? Patient reports no desire to harm self or others. Initial Sepsis Screen: Does the patient meet any 2 criteria? No. Patient's initial sepsis screen is negative. Does the patient have a suspected source of infection? No. Patient's initial sepsis screen is negative. Care prior to arrival: None. 04:31 Method Of Arrival: EMS: [facility] jb4 04:31 Acuity: DWIGHT 3 jb4 Historical: - Allergies: : No Known Allergies; jb4 - Home Meds: 04:31 folic acid 1 mg Oral tab 1 tab once daily [Active]; Lasix 40 mg oral tab 1 tab jb4 [Active]; Protonix 40 mg oral TbEC 1 tab once daily [Active]; prednisone 5 mg oral tab 3 tabs once daily [Active]; potassium chloride 20 mEq Oral TbER 1 tab 2 times per day [Active]; prednisone 10 mg Oral tab once daily [Active]; meclizine 25 mg oral tab 1 tab 3 times per day [Active]; - PMHx: 04:31 Bladder problem; GERD; Hypertension; lymphedema; PE; wound RIGHT lower leg; Glaucoma; jb4 Arthritis; GI Bleed; - PSHx: 04:31 eye; Hysterectomy; Cholecystectomy; arm; jb4 - Immunization history:: Adult Immunizations up to date. - Coronavirus screen:: The patient has NOT traveled to [place], [place], or [place] in the past 14 days. Proceed with normal triage process as indicated. The patient has NOT had contact with known/suspected case of Coronavirus? Proceed with normal triage procedures. - Social history:: Smoking status: Patient denies any tobacco usage or history of. Patient/guardian denies using alcohol, street drugs. - Family history:: not pertinent. - Ebola Screening: : No symptoms or risks identified at this time. Screenin:45 Abuse screen: Denies threats or abuse. Nutritional screening: No deficits noted. jb4 Tuberculosis screening: No symptoms or risk factors identified. Fall Risk None identified. Assessment: 04:56 General: Appears in no apparent distress. comfortable, Behavior is calm, cooperative, jb4 appropriate for age. Pain: Complains of pain in Headache. Pain does not radiate. Pain currently is 8 out of 10 on a pain scale. Is continuous. Neuro: Level of Consciousness is awake, alert, obeys commands, Oriented to person, place, time. Cardiovascular: Patient's skin is warm and dry. Respiratory: Airway is patent Respiratory effort is even, unlabored, Respiratory pattern is regular, symmetrical. GI: Reports diarrhea, nausea. : No signs and/or symptoms were reported regarding the genitourinary system. EENT: No signs and/or symptoms were reported regarding the EENT system. Derm: Skin is intact, Skin is dry, Skin is pale, Skin temperature is warm. Musculoskeletal: Circulation, motion, and sensation intact. Range of motion: intact in all extremities. 05:34 Reassessment: Patient appears in no apparent distress at this time. Patient and/or jb4 family updated on plan of care and expected duration. Pain level reassessed. Patient is alert, oriented x 3, equal unlabored respirations, skin warm/dry/pink. 08:18 Reassessment: Patient appears in no apparent distress at this time. Patient and/or ph family updated on plan of care and expected duration. Pain level reassessed. Patient is alert, oriented x 3, equal unlabored respirations, skin warm/dry/pink. Attempted to call report to 4th floor, no answer at nurses station, will call again. Vital Signs: 04:31 BP 138 / 77; Pulse 82; Resp 16; Temp 97.8(O); Pulse Ox 97% on R/A; Weight 98.88 kg (R); jb4 Height 5 ft. 3 in. (160.02 cm); Pain 8/10; 05:30 BP 117 / 81; Pulse 81; Resp 16; Pulse Ox 97% on R/A; jb4 07:15 BP 101 / 72; Pulse 82; Resp 18; Pulse Ox 99% on R/A; ph 08:07 BP 116 / 70; Pulse 85; Resp 18; Temp 97.4; Pulse Ox 99% on R/A; ph 04:31 Body Mass Index 38.62 (98.88 kg, 160.02 cm) jb4 ED Course: 04:31 Patient arrived in ED. fc 04:31 Robert Pereira MD is Attending Physician. norah 04:31 Arm band placed on right wrist. jb4 04:34 Dylan Aguilera, ROSALINDA is Primary Nurse. jb4 04:39 Triage completed. jb4 04:45 Patient has correct armband on for positive identification. Placed in gown. Bed in low jb4 position. Call light in reach. Side rails up X 1. personnel monitor on. Pulse ox on. NIBP on. 04:59 Adan Camacho MD is Hospitalizing Provider. norah 05:00 Initial lab(s) drawn, by ED staff, sent to lab. Inserted saline lock: 20 gauge in right jb4 forearm, using aseptic technique. Blood collected. 05:14 Radiology exam delayed due to lab results not completed at this time. (BUN/Creatinine). 2 05:33 EKG done, by ED staff, reviewed by Robert Pereira MD. ds4 05:38 No provider procedures requiring assistance completed. Patient admitted, IV remains in jb4 place. 05:58 Type And Screen Sent. ds4 05:58 Lipase Sent. ds4 05:58 Basic Metabolic Panel Sent. ds4 05:58 CBC with Diff Sent. ds4 05:58 PT-INR Sent. ds4 05:58 Troponin (emerg Dept Use Only) Sent. ds4 05:58 LFT's Sent. ds4 05:58 Magnesium Sent. ds4 05:58 NT PRO-BNP Sent. ds4 Administered Medications: 05:10 Drug: Rocephin 1 grams Route: IV; Rate: per protocol; Site: right forearm; jb4 05:12 Follow up: Response: No adverse reaction; IV Status: Completed infusion; IV Intake: [id number] 05:13 Drug: ProTONIX 40 mg Route: IVP; Site: right forearm; jb4 07:06 Follow up: Response: No adverse reaction jb4 05:15 Drug: Flagyl 500 mg Volume: 100 ml; Route: IVPB; Rate: 200 ml/hr; Infused Over: 30 jb4 mins; Site: right forearm; 05:45 Follow up: Response: No adverse reaction; IV Status: Completed infusion jb4 07:59 Drug: Magnesium Sulfate 1 grams Route: IVPB; Infused Over: 1 hrs; Site: right forearm; Intake: 05:12 IV: 10ml; Total: 10ml. jb4 Outcome: 05:00 Decision to Hospitalize by Provider. norah 05:38 Admitted to Tele accompanied by tech, via stretcher, room 415, with chart. jb4 05:38 Condition: stable 05:38 Discharge instructions given to patient, family, Instructed on the need for admit, Demonstrated understanding of instructions. 08:46 Patient left the ED. aa5 Signatures: Robert Pereira MD MD cha Chretien, Felicia, RN RN Nighat Parker RN RN aa5 Praveen Cortez ds4 Linda Rodriguez RN RN Dylan Aguilera RN RN jb4 Diandra Contreras [facility] Corrections: (The following items were deleted from the chart) 05:40 05:30 BP 117 / 81; Pulse 81bpm; Resp 74bpm; Pulse Ox 97% RA; jb4 jb4
--- NOTE | 2019-12-27 05:02 | EDPHYS ---
Physician Documentation [facility] Name: Kimmy Gamez Age: 79 yrs Sex: Female : 1940 Arrival Date: 12/27/2019 Time: 04:31 Bed 14 Private MD: ED Physician Robert Pereira HPI: 12/27 04:55 This 79 yrs old Black Female presents to ER via EMS with complaints of Rectal Bleeding. norah 04:55 The patient presents to the emergency department with bleeding from the rectum/anus. norah Onset: The symptoms/episode began/occurred just prior to arrival, this morning. Context: the patient has no known special context relating to the rectal area complaint(s). Modifying factors: The symptoms are alleviated by nothing. The patient has experienced similar episodes in the past, several times. Historical: - Allergies: 04:31 No Known Allergies; jb4 - Home Meds: 04:31 folic acid 1 mg Oral tab 1 tab once daily [Active]; Lasix 40 mg oral tab 1 tab jb4 [Active]; Protonix 40 mg oral TbEC 1 tab once daily [Active]; prednisone 5 mg oral tab 3 tabs once daily [Active]; potassium chloride 20 mEq Oral TbER 1 tab 2 times per day [Active]; prednisone 10 mg Oral tab once daily [Active]; meclizine 25 mg oral tab 1 tab 3 times per day [Active]; - PMHx: 04:31 Bladder problem; GERD; Hypertension; lymphedema; PE; wound RIGHT lower leg; Glaucoma; jb4 Arthritis; GI Bleed; - PSHx: 04:31 eye; Hysterectomy; Cholecystectomy; arm; jb4 - Immunization history:: Adult Immunizations up to date. - Coronavirus screen:: The patient has NOT traveled to [place], [place], or [place] in the past 14 days. Proceed with normal triage process as indicated. The patient has NOT had contact with known/suspected case of Coronavirus? Proceed with normal triage procedures. - Social history:: Smoking status: Patient denies any tobacco usage or history of. Patient/guardian denies using alcohol, street drugs. - Family history:: not pertinent. - Ebola Screening: : No symptoms or risks identified at this time. ROS: 04:55 Constitutional: Negative for fever, chills, and weight loss, Eyes: Negative for injury, norah pain, redness, and discharge, ENT: Negative for injury, pain, and discharge, Neck: Negative for injury, pain, and swelling, Cardiovascular: Negative for chest pain, palpitations, and edema, Respiratory: Negative for shortness of breath, cough, wheezing, and pleuritic chest pain, Back: Negative for injury and pain, : Negative for injury, bleeding, discharge, and swelling, MS/Extremity: Negative for injury and deformity, Skin: Negative for injury, rash, and discoloration, Neuro: Negative for headache, weakness, numbness, tingling, and seizure, Psych: Negative for depression, anxiety, suicide ideation, homicidal ideation, and hallucinations, Allergy/Immunology: Negative for hives, rash, and allergies, Endocrine: Negative for neck swelling, polydipsia, polyuria, polyphagia, and marked weight changes, Hematologic/Lymphatic: Negative for swollen nodes, abnormal bleeding, and unusual bruising. 04:55 Abdomen/GI: Positive for abdominal pain, rectal bleeding, of the left upper quadrant and left lower quadrant. Exam: 04:55 Constitutional: This is a well developed, well nourished patient who is awake, alert, norah and in no acute distress. Head/Face: Normocephalic, atraumatic. Eyes: Pupils equal round and reactive to light, extra-ocular motions intact. Lids and lashes normal. Conjunctiva and sclera are non-icteric and not injected. Cornea within normal limits. Periorbital areas with no swelling, redness, or edema. Neck: Trachea midline, no thyromegaly or masses palpated, and no cervical lymphadenopathy. Supple, full range of motion without nuchal rigidity, or vertebral point tenderness. No Meningismus. Chest/axilla: Normal chest wall appearance and motion. Nontender with no deformity. No lesions are appreciated. Cardiovascular: Regular rate and rhythm with a normal S1 and S2. No gallops, murmurs, or rubs. Normal PMI, no JVD. No pulse deficits. Respiratory: Lungs have equal breath sounds bilaterally, clear to auscultation and percussion. No rales, rhonchi or wheezes noted. No increased work of breathing, no retractions or nasal flaring. Back: No spinal tenderness. No costovertebral tenderness. Full range of motion. Female : Normal external genitalia. MS/ Extremity: Pulses equal, no cyanosis. Neurovascular intact. Full, normal range of motion. Neuro: Awake and alert, GCS 15, oriented to person, place, time, and situation. Cranial nerves II-XII grossly intact. Motor strength 5/5 in all extremities. Sensory grossly intact. Cerebellar exam normal. Normal gait. Psych: Awake, alert, with orientation to person, place and time. Behavior, mood, and affect are within normal limits. 04:55 Eyes: Conjunctiva: pale. 04:55 ENT: Mouth: Gums: pale. 04:55 Abdomen/GI: Rectal exam: is unremarkable, rectal tone normal, Stool: grossly bloody, guaiac positive, hemorrhoid(s), are not appreciated, mass, is not appreciated, swelling, is not appreciated, tenderness, is not appreciated. Vital Signs: 04:31 BP 138 / 77; Pulse 82; Resp 16; Temp 97.8(O); Pulse Ox 97% on R/A; Weight 98.88 kg (R); jb4 Height 5 ft. 3 in. (160.02 cm); Pain 8/10; 05:30 BP 117 / 81; Pulse 81; Resp 16; Pulse Ox 97% on R/A; jb4 07:15 BP 101 / 72; Pulse 82; Resp 18; Pulse Ox 99% on R/A; ph 08:07 BP 116 / 70; Pulse 85; Resp 18; Temp 97.4; Pulse Ox 99% on R/A; ph 04:31 Body Mass Index 38.62 (98.88 kg, 160.02 cm) jb4 MDM: 04:31 Patient medically screened. [facility] 04:58 Data reviewed: vital signs, nurses notes, lab test result(s), EKG, radiologic studies, [facility] CT scan, plain films. 12/27 04:54 Order name: Basic Metabolic Panel 12/27 04:54 Order name: CBC with Diff 12/27 04:54 Order name: LFT's 12/27 04:54 Order name: Magnesium 12/27 04:54 Order name: NT PRO-BNP 12/27 04:54 Order name: PT-INR 12/27 04:54 Order name: Troponin (emerg Dept Use Only) 12/27 04:54 Order name: Type And Screen 12/27 04:54 Order name: Lipase 12/27 04:54 Order name: Urine Culture [facility] 12/27 05:43 Order name: CBC with Automated Diff EDMS 12/27 05:55 Order name: Basic Metabolic Panel; Complete Time: 06:27 EDMS 12/27 05:55 Order name: Liver (Hepatic) Function; Complete Time: 06:27 EDMS 12/27 05:55 Order name: Troponin (Emerg Dept Use Only); Complete Time: 06:27 EDMS 12/27 04:54 Order name: XRAY Chest (1 view) [facility] 12/27 04:54 Order name: EKG; Complete Time: 05:11 [facility] 12/27 04:54 Order name: Cardiac monitoring; Complete Time: 05:17 [facility] 12/27 04:54 Order name: EKG - Nurse/Tech; Complete Time: 05:34 [facility] 12/27 04:54 Order name: CT Abd/Pelvis - IV Contrast Only [facility] 12/27 05:55 Order name: NT PRO-BNP; Complete Time: 06:27 EDMS 12/27 05:55 Order name: Magnesium; Complete Time: 06:27 EDMS 12/27 05:55 Order name: Lipase; Complete Time: 06:27 EDMS 12/27 06:10 Order name: Protime (+INR); Complete Time: 06:27 EDMS 12/27 06:43 Order name: Type and Screen EDMO 12/27 07:36 Order name: CBC Smear Scan EDMS 12/27 08:44 Order name: RAD EDMO 12/27 04:54 Order name: IV Saline Lock; Complete Time: 05:18 [facility] 12/27 04:54 Order name: Labs collected and sent; Complete Time: 05:18 [facility] 12/27 04:54 Order name: O2 Per Protocol; Complete Time: 05:18 [facility] 12/27 04:54 Order name: O2 Sat Monitoring; Complete Time: 05:18 [facility] 12/27 04:54 Order name: IV Saline Lock - Large Bore; Complete Time: 05:17 [facility] Administered Medications: 05:10 Drug: Rocephin 1 grams Route: IV; Rate: per protocol; Site: right forearm; jb4 05:12 Follow up: Response: No adverse reaction; IV Status: Completed infusion; IV Intake: 40lqud6 05:13 Drug: ProTONIX 40 mg Route: IVP; Site: right forearm; jb4 07:06 Follow up: Response: No adverse reaction jb4 05:15 Drug: Flagyl 500 mg Volume: 100 ml; Route: IVPB; Rate: 200 ml/hr; Infused Over: 30 jb4 mins; Site: right forearm; 05:45 Follow up: Response: No adverse reaction; IV Status: Completed infusion jb4 07:59 Drug: Magnesium Sulfate 1 grams Route: IVPB; Infused Over: 1 hrs; Site: right forearm; Disposition: 12/27/19 05:00 Hospitalization ordered by Adan Camacho for Inpatient Admission. Preliminary diagnosis are Gastrointestinal hemorrhage, unspecified, Anemia, unspecified, Obesity, unspecified, Hypomagnesemia, Diverticulitis of large intestine without perforation or abscess with bleeding. - Bed requested for Telemetry/MedSurg (Inpatient). - Status is Inpatient Admission. aa5 - Condition is Fair. - Problem is new. - Symptoms have improved. Signatures: Dispatcher [employer] EDMS Jany Oliva RN RN mw Anderson, Corey, MD MD cha Calderon, Audri RN RN aa5 Linda Rodriguez RN RN ph Bryson, James, RN RN jb4 Corrections: (The following items were deleted from the chart) 05:20 05:00 Hospitalization Ordered by Adan Camacho MD for Inpatient Admission. Preliminary diagnosis is Gastrointestinal hemorrhage, unspecified; Anemia, unspecified; Obesity, unspecified. Bed requested for Telemetry/MedSurg (Inpatient). Status is Inpatient Admission. Condition is Fair. Problem is new. Symptoms have improved. norah 06:29 05:20 12/27/2019 05:00 Hospitalization Ordered by Adan Camacho MD for Inpatient norah Admission. Preliminary diagnosis is Gastrointestinal hemorrhage, unspecified; Anemia, unspecified; Obesity, unspecified. Bed requested for Telemetry/MedSurg (Inpatient). Status is Inpatient Admission. Condition is Fair. Problem is new. Symptoms have improved. 07:29 06:29 12/27/2019 05:00 Hospitalization Ordered by Adan Camacho MD for Inpatient norah Admission. Preliminary diagnosis is Gastrointestinal hemorrhage, unspecified; Anemia, unspecified; Obesity, unspecified; Hypomagnesemia. Bed requested for Telemetry/MedSurg (Inpatient). Status is Inpatient Admission. Condition is Fair. Problem is new. Symptoms have improved. norah 08:46 07:29 12/27/2019 05:00 Hospitalization Ordered by Adan Camacho MD for Inpatient aa5 Admission. Preliminary diagnosis is Gastrointestinal hemorrhage, unspecified; Anemia, unspecified; Obesity, unspecified; Hypomagnesemia; Diverticulitis of large intestine without perforation or abscess with bleeding. Bed requested for Telemetry/MedSurg (Inpatient). Status is Inpatient Admission. Condition is Fair. Problem is new. Symptoms have improved. norah
[2019-12-27] MEDS ORDERED: PANTOPRAZOLE 40 MG INJ ONE (05:07)
[2019-12-27] MEDS ORDERED: CEFTRIAXONE/SWI 1gm 1 GM/10 ML SYR ONE (05:08)
[2019-12-27] MEDS ORDERED: METRONIDAZOLE 500mg IVPB 500 MG/100 ML BAG IV ONE (05:08)
[2019-12-27 05:38] LABS: Absolute Lymphocytes (CBC) 2.4 K/uL (0.7-4.9); Basophils % 0.1 % (0-1.3); Hematocrit 38.4 % (36.0-45.0); Lymphocytes % 23.7 % (15.3-44.8); MPV 11.2 fL (7.6-11.3); RBC Red Blood Cell Count 4.18 M/uL (3.86-4.86)
[2019-12-27 05:48] LABS: Protime INR 1.03
[2019-12-27 05:55] LABS: ALT/SGPT 37 U/L (12-78); AST/SGOT 24 U/L (15-37); Albumin 2.9 g/dL (3.4-5.0); Alkaline Phosphatase 72 U/L (45-117); BUN Blood Urea Nitrogen 23 mg/dL (7-18); Bicarbonate 25 mmol/L (21-32); Bilirubin Direct < 0.1 mg/dL (0-0.2); Bilirubin Total 0.2 mg/dL (0.2-1.0); Glucose Level 95 mg/dL (74-106); Lipase 277 U/L (73-393); Magnesium 1.6 mg/dL (1.8-2.4); NT PRO-BNP 225 pg/mL (<450); Potassium 3.8 mmol/L (3.5-5.1); Protein, Total 5.5 g/dL (6.4-8.2); Sodium Level 147 mmol/L (136-145); Troponin (Emerg Dept Use Only) < 0.02 ng/mL (0.0-0.045)
[2019-12-27] MEDS ORDERED: MAGNESIUM SULFATE 1 gm IVPB 1 GM/100 ML BAG IV ONE (07:35)
[2019-12-27 07:36] LABS: Blood Morphology Comment NOT SEEN (NOT SEEN); Platelet Estimate DECR; Urine White Blood Cell Casts OK
--- NOTE | 2019-12-27 08:43 | RAD REPORT ---
EXAM DESCRIPTION: Tomi Single View12/27/2019 5:27 am CLINICAL HISTORY: Cough COMPARISON: 2018 FINDINGS: The lungs appear clear of acute infiltrate. The heart is mildly enlarged IMPRESSION: No acute abnormalities displayed
[2019-12-27] MEDS ORDERED: ACETAMINOPHEN 325 MG TABLET PO PRN (08:59)
[2019-12-27] MEDS ORDERED: ONDANSETRON 4 MG/2 ML VIAL IV PRN (08:59)
[2019-12-27] MEDS ORDERED: SODIUM CHLORIDE 0.9% 10ML INJ IV PRN (08:59)
--- NOTE | 2019-12-27 09:08 | EKG ---
Test Date: 2019-12-27 Test Time: 05:28:48 Fine Wire Drawer: TIO MEASUREMENT RESULTS: Intervals: Rate: 93 MN: 154 QRSD: 66 QT: 410 QTc: 509 [place]: P: 73 MN: 154 QRS: 30 T: 56 INTERPRETIVE STATEMENTS: Sinus rhythm with occasional premature ventricular complexes and premature atrial complexes Low voltage QRS Prolonged QT Abnormal ECG Compared to ECG 10/29/2019 12:28:56 Atrial premature complex(es) now present Ventricular premature complex(es) now present Low QRS voltage now present Prolonged QT interval now present T-wave abnormality no longer present Electronically Signed On 12-27-19 09:08:05 [employer] by Oj Malcolm
[2019-12-27 09:45] VITALS: BMI 39.3
[2019-12-27] MEDS: NA CHLORIDE 0.9% 1,000 ML IV SCH ×2 (09:51→16:59)
--- NOTE | 2019-12-27 11:28 | RAD REPORT ---
EXAM DESCRIPTION: CT - Abdomen Pelvis W Contrast - 12/27/2019 7:06 am CLINICAL HISTORY: 79-year-old female with abdominal pain TECHNIQUE: Axial CT imaging of the abdomen and pelvis was performed following the administration of intravenous contrast.. Sagittal and coronal reconstructed images were then performed. The CT stud y is performed according to ALARA (as low as reasonably achievable) or ALARA/IMAGE GENTLY, with autom atic adjustment of mA and/or kV according to patient size. Performed on: 12/27/2019 6:22 AM. COMPARISON: 10/29/2019 FINDINGS: Lung bases: The lung bases are clear. Liver: The liver is normal in size and configuration. No focal hepatic abnormalities are identified. Liver attenuation is within normal limits. Spleen: The spleen is normal is size, configuration and attenuation. Gallbladder and bile duct: The gallbladder is surgically absent. There is no biliary ductal dilatat ion. Pancreas: The pancreas is grossly normal in size and configuration. Adrenal Glands: The adrenal glands are normal in size and configuration. Kidneys: The kidneys are normal in size and configuration. There is no evidence of hydronephrosis. Th ere is no definite nephrolithiasis. No definite solid or cystic renal mass lesions are identified. Stomach: The stomach is grossly normal. There is no definite hiatal hernia. Bowel: The bowel gas pattern is non specific and non obstructive. There is scattered colonic divertic ulosis. There is minimal pericolonic inflammation surrounding the distal transverse colon. Early acut e diverticulitis is not excluded. There is attenuation of the anterior abdominal wall muscles in the midline with protrusion of bowel loops through the defect without tomy herniation. Appendix: There is no CT evidence of acute appendicitis. Free air: There is no evidence of free air. Free fluid: There is no evidence of free fluid. Vasculature: The aorta is normal in caliber and contour. The inferior vena cava is grossly unremarkab le. Lymphadenopathy: No pathologic lymphadenopathy is identified. Bladder: The bladder is incompletely distended on this examination. Reproductive: The uterus is surgically absent. Bones: No acute osseous abnormalities are identified. Soft tissues: There is minimal air in the subcutaneous soft tissues along the left anterior abdominal wall which may be iatrogenic in nature. IMPRESSION: 1. Scattered colonic diverticulosis with very minimal pericolonic inflammation adjacent to the distal transverse colon suggesting possible early acute diverticulitis. There is no evidence o f perforation or peridiverticular abscess. 2. Remote cholecystectomy and hysterectomy. 3. Attenuation of the anterior abdominal wall muscles in the midline with protrusion of bowel loops t hrough the area of weakend musculature without tomy herniation. Electronically signed by: Rebecca Roberts DO 12/27/2019 6:53 AM CARGO SURVEYOR Due to temporary technical issues with the PACS/Fluency reporting system, reports are being signed by the in house radiologist as a courtesy to ensure prompt reporting. The interpreting radiologist is f ully responsible for the content of the report.
[2019-12-27] MEDS: METRONIDAZOLE 500mg IVPB 500 MG/100 ML BAG IV SCH ×3 (11:57→23:55)
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
[2019-12-27] MEDS: POTASSIUM CL SA 10 MEQ TAB PO SCH (20:53)
[2019-12-27] MEDS: MECLIZINE HCL 12.5 MG TAB PO SCH (20:58)
[2019-12-27] MEDS ORDERED: POTASSIUM CHLORIDE 20 MEQ PO SCH (21:00)
[2019-12-27] MEDS ORDERED: HOME MED 1 EA UNK (Meclizine Hcl [Meclizine Hcl] 25 MG) PO SCH (21:00)
[2019-12-28] MEDS: METRONIDAZOLE 500mg IVPB 500 MG/100 ML BAG IV SCH ×3 (05:15→18:24)
[2019-12-28 05:41] LABS: Absolute Lymphocytes (CBC) 2.3 K/uL (0.7-4.9); Basophils % 0.3 % (0-1.3); Hematocrit 33.4 % (36.0-45.0); Lymphocytes % 28.7 % (15.3-44.8); RBC Red Blood Cell Count 3.66 M/uL (3.86-4.86)
[2019-12-28 05:58] LABS: Albumin 2.6 g/dL (3.4-5.0); Bilirubin Direct 0.1 mg/dL (0-0.2); Bilirubin Total 0.4 mg/dL (0.2-1.0); Potassium 3.9 mmol/L (3.5-5.1); Protein, Total 4.6 g/dL (6.4-8.2)
[2019-12-28] MEDS ORDERED: PANTOPRAZOLE 40 MG INJ ONE (06:11)
[2019-12-28] MEDS ORDERED: NA CHLORIDE 0.9% 250 ML ONE (06:12)
[2019-12-28] MEDS: PANTOPRAZOLE INJ 80 MG in NA CHLORIDE 0.9% 250 ML IV SCH ×2 (06:20→16:35)
[2019-12-28] MEDS: MECLIZINE HCL 12.5 MG TAB PO SCH ×3 (09:00→21:00)
[2019-12-28] MEDS: FUROSEMIDE 40 MG TABLET PO SCH ×2 (09:00→09:04)
[2019-12-28] MEDS ORDERED: predniSONE 5 MG TAB PO SCH (09:00)
[2019-12-28] MEDS: PANTOPRAZOLE 40 MG INJ IVP SCH ×2 (09:00→09:05)
[2019-12-28] MEDS: FOLIC ACID 1 MG TABLET PO SCH (09:04)
[2019-12-28] MEDS: POTASSIUM CL SA 10 MEQ TAB PO SCH ×2 (09:04→21:04)
[2019-12-28] MEDS: predniSONE 10 MG TAB PO SCH (09:04)
[2019-12-28] MEDS: CEFTRIAXONE/SWI 1gm 1 GM/10 ML SYR IV SCH (09:05)
[2019-12-28 11:57] LABS: Hematocrit 34.4 % (36.0-45.0)
[2019-12-28] MEDS ORDERED: Ringers Lactate 1,000 ML IV ONE (13:13)
[2019-12-28] MEDS ORDERED: HYDROCORTISONE SUC 100 MG INJ ONE (13:28)
[2019-12-28] MEDS ORDERED: WATER FOR INJ,STERILE 10 ML ONE (13:34)
[2019-12-28] MEDS ORDERED: HYDROCORTISONE SUC 100 MG INJ IV ONE (13:39)
[2019-12-28] MEDS ORDERED: propofoL 200 MG/20 ML VIAL IV ONE (14:00)
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
--- NOTE | 2019-12-28 22:48 | PN ---
Subjective: Ms. Gamez is doing better. Denies chest pain, nausea, vomiting. She had a second episo de of large clots overnight. Physical Examination: General: She is still clinically stable. Vital Signs: Blood pressure 141/70, pulse is 82, temperature 96.7. HEENT: No JVD. No carotid bruits. Morbid obese. Chest: Clear. Heart: Regular. Abdomen: No guarding, no rebound, no rigidity. Laboratory Data: Hemoglobin is down to 10.7 g. Sodium 148, BUN 20, creatinine 1.0. Assessment And Plan: Dr. Lovett performed a colonoscopy, found diverticular bleeding in transverse c olon. She is not a surgical candidate for major intervention, but she may have to go for partial col ectomy, which would be a major surgery for her. Other option is radiology intervention with coil lashell cement in the bleeding area if the bleeding area is the same every single time, but it will be diffic ult to define. At this point I think she would wait and see if any more episodes are happening, if i t does happen next time we will be transferring her to tertiary care facility for radiology intervent ion. MOIZ/ESTEFANIA Voice ID: [id number] Report ID: [id number]
[2019-12-29] MEDS: METRONIDAZOLE 500mg IVPB 500 MG/100 ML BAG IV SCH ×4 (00:17→17:13)
[2019-12-29 00:46] VITALS: O2SAT 95
[2019-12-29] MEDS: PANTOPRAZOLE INJ 80 MG in NA CHLORIDE 0.9% 250 ML IV SCH ×2 (03:00→08:42)
[2019-12-29] MEDS ORDERED: PANTOPRAZOLE 40MG TABLET PO SCH (06:00)
[2019-12-29 08:47] LABS: Absolute Lymphocytes (CBC) 2.2 K/uL (0.7-4.9); Basophils % 0.1 % (0-1.3); Hematocrit 34.4 % (36.0-45.0); Lymphocytes % 18.4 % (15.3-44.8); MPV 11.1 fL (7.6-11.3); RBC Red Blood Cell Count 3.75 M/uL (3.86-4.86)
[2019-12-29] MEDS: CEFTRIAXONE/SWI 1gm 1 GM/10 ML SYR IV SCH (08:48)
[2019-12-29] MEDS: FOLIC ACID 1 MG TABLET PO SCH (08:51)
[2019-12-29] MEDS: predniSONE 10 MG TAB PO SCH (08:52)
[2019-12-29] MEDS: MECLIZINE HCL 12.5 MG TAB PO SCH ×2 (08:52→13:39)
[2019-12-29] MEDS: POTASSIUM CL SA 10 MEQ TAB PO SCH (08:55)
[2019-12-29 09:00] LABS: Potassium 3.7 mmol/L (3.5-5.1)
[2019-12-29] MEDS ORDERED: FUROSEMIDE 20 MG TABLET PO SCH (09:00)
[2019-12-29 17:43] VITALS: BP 133/76; TEMP 97
--- NOTE | 2019-12-30 07:53 | DS ---
Date of Discharge: 12/29/2019 Final Diagnoses: 1.Lower gastrointestinal bleed from transverse colon, diverticulosis, mild diverticulitis. 2.Polymyalgia rheumatica. 3.Temporal arteritis. 4.Degenerative joint disease. 5.Lymphedema. 6.Osteoarthritis. 7.History of pulmonary embolism, off all the medications now because of recurrent bleeding. Hospital Course: Patient is 79 years old lady, comes in with profuse bleeding, lower GI, stabilized without any blood transfusion. Hemoglobin is stable at time of discharge. She had a colonoscopy, wh ich revealed a diverticulosis in transverse colon bleeding. The patient was discharged in stable con dition. Dr. Lovett has discussed with me that if she bleeds again, she should possibly transfer from here to so we can have interventional radiologist take care of the bleeding from vascular direction as she is not a surgical candidate for partial colectomy. Otherwise, clinically she is st able. JUMANAD/MODL Voice ID: [id number] Report ID: [id number]
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
== END 2019-12-29 18:30 | disposition home or self-care (01) | DRG 379 ==
LOC: ER 04:26 → ERHOLD 06:21 → INTOOBSV 06:21 → 4TH 08:41 → OBSVTOIN 12-28 13:35
PROVIDERS: ADMIT Internal Medicine; ATTEND Internal Medicine
PROC: 0DB68ZX Excision of Stomach, Via Natural or Artificial Opening Endoscopic, Diagnostic (ICD-10-PCS; principal; 2019-12-28 09:30)
DX: K57.33 Diverticulitis of large intestine without perforation or abscess with bleeding (principal); M35.3 Polymyalgia rheumatica; M31.6 Other giant cell arteritis; M19.90 Unspecified osteoarthritis, unspecified site; I89.0 Lymphedema, not elsewhere classified; I10 Essential (primary) hypertension; K21.9 Gastro-esophageal reflux disease without esophagitis; E66.9 Obesity, unspecified; Z68.39 Body mass index [BMI] 39.0-39.9, adult; K22.2 Esophageal obstruction; K44.9 Diaphragmatic hernia without obstruction or gangrene; K29.70 Gastritis, unspecified, without bleeding; Z86.711 Personal history of pulmonary embolism; Z86.19 Personal history of other infectious and parasitic diseases
CPT/HCPCS: 36415; 71045; 74177; 80048; 80076; 83690; 83735; 83880; 84484; 85014; 85018; 85025; 85610; 86850; 86900; 86901; 87086; 87088; 88305; 88312; 93005; 96365; 96375; 99285; C9113; G0378; J0696; J1720; J2704; J3475; J7030; J7120; J7512; J8597; Q9967

== ENCOUNTER 2021-03-04 00:12 | Emergency (ER) | payer OTHER ==
--- OUTSIDE RECORDS SUMMARY | 2021-03-04 00:19 | XMS REPORT | Continuity of Care Document ---
:1940 Author Organization [facility] t Address [address] [place] [address] Care Team Providers Name Role Phone Mika Camacho Primary Care Physician Rafiq Employee MD [place] Attending Clinician Unavailable Payers Payer Name Policy Type Policy Effective Date Expiration Date Sour ce Number AETNA - MEDICARE [id number] BAILEY Peralta L ukes MGD CAREAETNA 00:00:00 - Medical MEDICARE HMO Center [id number] [id number] [id number] Contracted Problems Condition Condition Condition Status Onset Resolution Last Treating Co mments Source Name Details Category Date Date Treatment Clinician Date Fatty Fatty Disease [facility] Center Osteoarthr Osteoarthr Disease Active Last [facility] - [facility]: t & Plan: Medical 00 Affecting Center most of her major joints. She was placed on steroids on 02/01 which have provided relief of her discomfor t. Further testing to exclude an autoimmun e process or cryoglobu linemia as a source of her discomfor t will be completed . She will be referred to her treating physician to consider other treatment options since steroids will enhance viral replicati on, thereby making combinati on antiviral therapy for the hepatitis C, more difficult . Hepatitis Hepatitis Disease Active [facility] C, chronic C, [facility] - [facility]: t & Plan: Medical Estimated Center duration of infection is 48 years. Genotype unknown. Current viral load 3 million IU/mL. Naive to therapy. A liver biopsy has not been obtained, but laborator y data including the transamin ase ratio of AST>ALT (52/45) and mild thrombocy topenia (134K) are suggestiv e of a more advanced liver disease. Laborator y tests will be requested to update her status and further character ize the hepatitis C infection . A baseline MRI will be scheduled and based on these data a decision will be made regarding the need to proceed with a liver biopsy to fully assess the extent of her liver disease and determine the need for antiviral therapy. Her concurren t co-morbid ities including osteoarth ritis currently treated with steroids and glaucoma may make combinati on antiviral therapy difficult and will need to be addressed prior to consideri ng any treatment options. Obesity Obesity Disease [facility] Medical Current Center weight 208 lbs, with a BMI of 36 meets the definitio n of obesity and she has abdominal distribut ion of fat consisten t with high probabili ty of visceral fat and risk for non-alcoh olic fatty liver disease which can be an acceleran t of hepatic fibrosis . We recommend a weight reduction program that is to include a healthy low carbohydr ate diet and exercise as tolerated . An initial goal should be a 10% total body weight loss since this dispropor tionately reduces visceral fat and can reverse fatty liver disease up to 90%. This should benefit not only her general health but also her liver disease by eliminati ng a risk factor for fatty liver. Glaucoma Glaucoma Disease [facility] t & Plan: Medical Treated Center and stable. Continued monitorin g and managemen t will be deferred to her ophthalmo logist. Immunity Immunity Disease Active 2013-0 Last [facility]08 [facility] - testing testing 00:00: t & Plan: Medic al 00 All Center patients with chronic liver disease, regardles s of etiology, should be immunized to prevent hepatitis A and hepatitis B if they are not already immune. We will test for immunity to both viruses - vaccine recommend ations will follow. Thrombocyt Thrombocyt Disease Active Last [facility] openia openia 06-08 Assessmen kes - 00:00: t & Plan: Medical 00 Laborator Center y data from 02/08/13 includes a platelet count of 134K. The etiology is not clear, but splenomeg any secondary to portal hypertens ion are suspected . A baseline MRI will be scheduled and based on these data further recommend ations will be made. Allergies, Adverse Reactions, Alerts Allergy Allergy Status Severity Reaction(s) Onset Inactive Treating Comm ents Source Name Type Date Date Clinician No Known DA Active [facility] All[facility]ie 8-16 Clear s 00:00: Marina 00 [facility] Salicyla Drug Active [facility] gagandeep Intolera 06-08 [facility] - nce 00:00: Medical 00 [place] Family History Family Member Diagnosis Comments Start Date Stop Date Source Natural sister Heart disease [facility] Natural sister Colon cancer [facility] Natural brother Kidney failure [facility] Natural father Heart disease [facility] Natural mother Diabetes [facility] Natural mother Heart disease [facility] Social History Social Habit Start Date Stop Date Quantity Comments Source Sex Assigned At [facility] Tobacco use and 2013-12-21 2013-12-21 Never used [facility] exposure 00:00:00 00:00:00 [facility] Alcohol intake 2013-12-21 2013-12-[address] [facility] 00:00:00 00:00:00 non-drinker of Medical nter alcohol (finding) Smoking Status Start Date Stop Date Source Never smoker [facility] Medications Ordered Filled Start Stop Current Ordering Indication Dosage Frequency Signature Comments Components Source Medication Medication Date Date Medication? Clinician (SIG) Name Name omeprazole Yes 20mg QD Take [address] (PRILOSEC) 1-31 by mouth [facility] - 20 MG 07:19: daily. Medical capsule 13 Center cyclobenzap Yes 5mg Take [address] rine 1-31 by mouth 3 [facility] - (FLEXERIL) 07:19: (three) Medi sahil 5 MG tablet 13 times Center daily as needed. ascorbic Yes 500mg QD Take [address] acid 1-31 mg by [facility] - (ASCORBIC 07:19: mouth Medical ACID WITH 13 daily. [place] GRACIELA HIPS) 500 MG tablet Ca cmb Yes QD Take by [facility] no.1-vit 1- mouth [facility] - D3-B6-FA-B1 07:19: daily. Medi sahil 2 13 Center 120-1,000-1 0 mg-unit-mg Tab calcium Yes 600mg Take 600 [facility] carbonate 1-31 mg by [facility] - (OS-SAHIL) 07:19: mouth 2 Medica l 600 mg 13 (two) Center (1,500 mg) times Tab daily with breakfast and dinner. travoprost, Yes 1[drp] QD [address] benzalkoniu - nightly. Leahke s - m, 07:19: Medical (TRAVATAN) 13 Center 0.004 % ophthalmic solution BRIMONIDINE Yes Apply to [facility] TARTRATE/TI 12-22 eye(s). [facility] - MOLOL 07:19: Medical (COMBIGAN 13 Center OPHT) pilocarpine Yes 1[drp] Q.25D [address] (PILOCAR) 4 12-22 (four) [facility] - % 07:19: times Medical ophthalmic 13 daily. [facility] solution potassium Yes Osteoarthri Take by [facility] gluconate 1-31 tis mouth. [facility] - 550 mg Tab 07:19: Medical 13 [place] meloxicam Yes Osteoarthri [facility] (MOBIC) 7.5 8-24 tis [facility] - MG tablet 00:00: Medical 00 Center traMADol Yes Osteoarthri [facility] (ULTRAM) 50 8-24 tis [facility] - mg tablet 00:00: Medical 00 [place] TRAVATAN Z Yes Osteoarthri [facility] 0.004 % 8-14 tis [facility] - Drop 00:00: Medical ophthalmic 00 Center drops cephalexin 2013-[address] [facility] (KEFELX) 05-22 tis [facility] - 500 MG 00:00: Medical capsule 00 Center Immunizations Ordered Immunization Filled Immunization Date Status Commen ts Source Name Name Covid-19 Vaccine 2021-02-[address] [facility] [facility] - Mrna(pf) (4-Tell) 00:00:00 Medica l Center Procedures This patient has no known procedures. Plan of Care Planned Activity Planned Date Details Comments Source Future Scheduled 2020-11-[address] [facility] - Test 00:00:00 (12+) [code = Medical Center DEPRESSION SCREENING (12+)] Future Scheduled 2020-07-[address] [facility] - Test 00:00:00 (#1) [code = Medical Center INFLUENZA VACCINE (#1)] Future Scheduled 2014-11-[address] [facility] - Test 00:00:00 WELLNESS (YEAR 2 or Medical Center FIRST YEAR if no IPPE) [code = MEDICARE ANNUAL WELLNESS (YEAR 2 or FIRST YEAR if no IPPE)] Future Scheduled 1989 SHINGLES VACCINES ([address] [facility] - Test 00:00:00 of 2) [code = Medical Center SHINGLES VACCINES (1 of 2)] Future Scheduled 1958 DTAP/TDAP/TD VACCINES [facility] - Test 00:00:00 (1 - Tdap) [code = Medical C enter DTAP/TDAP/TD VACCINES (1 - Tdap)] Results Test Description Test Time Test Comments Results Result Comments Source CBC W/AUTO DIFF 2019-07-18 04:58:00 Test Item Value Reference Range Interpretation Comme nts WHITE BLOOD CELL (test code = 5.2 K/mm3 3.5-11.0 N WBC) RED BLOOD CELL (test code = RBC) 2.61 M/mm3 4.70-6.10 L HEMOGLOBIN (test code = HGB) 7.6 G/DL 10.4-14.9 L HEMATOCRIT (test code = HCT) 25.4 % 31.5-44.1 L MEAN CELL VOLUME (test code = 97.3 Fl 84.5-98.6 N MCV) MEAN CELL HGB (test code = MCH) 29.1 pg 27.0-34.2 N MEAN CELL HGB CONCETRATION (test 29.9 G/DL 31.5-34.0 L code = MCHC) RED CELL DISTRIBUTION WIDTH 19.3 SD 11.5-14.5 H (test code = RDW) PLATELET COUNT (test code = PLT) 96.0 K/mm3 150-450 L MEAN PLATELET VOLUME (test code 11.30 fL 7.0-10.5 H = MPV) NEUTROPHIL % (test code = NT%) 47.7 % 40-76 N LYMPHOCYTE % (test code = LY%) 36.5 % 20.5-51.1 N MONOCYTE % (test code = MO%) 13.7 % 1.7-9.3 H EOSINOPHIL % (test code = EO%) 1.7 % 0.0-6.0 N BASOPHIL % (test code = BA%) 0.4 % 0.0-2.0 N NEUTROPHIL # (test code = NT#) 2.48 K/mm3 1.8-7.6 N LYMPHOCYTE # (test code = LY#) 1.9 K/mm3 0.6-3.2 N MONOCYTE # (test code = MO#) 0.7 K/mm3 0.3-1.1 N EOSINOPHIL # (test code = EO#) 0.1 K/mm3 0.0-0.4 N BASOPHIL # (test code = BA#) 0.0 K/mm3 0.0-0.1 N MANUAL DIFF REQUIRED (test code NO DIFF/SCN CRITERIA SLIDE REVIEW CONSISTANT WITH = MDIFF) AUTO DIFFERENTI AL.PLATELET COUNT REVIEWED AND VERIFIED. CBC W/AUTO [id number] 14:32:00 Test Item Value Reference Range Interpretation Comments WHITE BLOOD CELL (test code = 5.3 K/mm3 3.5-11.0 N WBC) RED BLOOD CELL (test code = RBC) 2.51 M/mm3 4.70-6.10 L HEMOGLOBIN (test code = HGB) 7.5 G/DL 10.4-14.9 L HEMATOCRIT (test code = HCT) 24.2 % 31.5-44.1 L MEAN CELL VOLUME (test code = 96.4 Fl 84.5-98.6 N MCV) MEAN CELL HGB (test code = MCH) 29.9 pg 27.0-34.2 N MEAN CELL HGB CONCETRATION (test 31.0 G/DL 31.5-34.0 L code = MCHC) RED CELL DISTRIBUTION WIDTH 19.5 SD 11.5-14.5 H (test code = RDW) PLATELET COUNT (test code = PLT) 83.0 K/mm3 150-450 L MEAN PLATELET VOLUME (test code 11.70 fL 7.0-10.5 H = MPV) MANUAL DIFF REQUIRED (test code YES DIFF/SCN CRITERIA = MDIFF) WBC [id number] 14:32:00 Test Item Value Reference Range Interpretation Comments SEGMENTED 72 % 40-75 N NEUTROPHILS (test code = SEG) LYMPHOCYTE (test 23 % 18.7-40.6 N code = LYMPH) MONOCYTE (test code 5 % 3.8-11.4 N = MON) PLATELET ESTIMATE DECREASED THOUSAND ADEQUATE PLAT ELET COUNT (test code = PLTEST) REVIEWE D AND VERIFIED. PLATELET MORPHOLOGY NORMAL (test code = PLTMORPH) CBC W/AUTO [id number] 11:35:00 Test Item Value Reference Range Interpretation Comments WHITE BLOOD CELL (test code = 5.3 K/mm3 3.5-11.0 N WBC) RED BLOOD CELL (test code = RBC) 2.51 M/mm3 4.70-6.10 L HEMOGLOBIN (test code = HGB) 7.5 G/DL 10.4-14.9 L HEMATOCRIT (test code = HCT) 24.2 % 31.5-44.1 L MEAN CELL VOLUME (test code = 96.4 Fl 84.5-98.6 N MCV) MEAN CELL HGB (test code = MCH) 29.9 pg 27.0-34.2 N MEAN CELL HGB CONCETRATION (test 31.0 G/DL 31.5-34.0 L code = MCHC) RED CELL DISTRIBUTION WIDTH 19.5 SD 11.5-14.5 H (test code = RDW) PLATELET COUNT (test code = PLT) 83.0 K/mm3 150-450 L MEAN PLATELET VOLUME (test code 11.70 fL 7.0-10.5 H = MPV) MANUAL DIFF REQUIRED (test code YES DIFF/SCN CRITERIA = MDIFF) WBC [id number] 11:35:00 Test Item Value Reference Range Interpretation Comments SEGMENTED NEUTROPHILS (test code = SEG) % 40-75 LYMPHOCYTE (test code = LYMPH) % 18.7-40.6 CBC W/AUTO [id number] 11:35:00 Test Item Value Reference Range Interpretation Comments WHITE BLOOD CELL (test code = 5.3 K/mm3 3.5-11.0 N WBC) RED BLOOD CELL (test code = RBC) 2.51 M/mm3 4.70-6.10 L HEMOGLOBIN (test code = HGB) 7.5 G/DL 10.4-14.9 L HEMATOCRIT (test code = HCT) 24.2 % 31.5-44.1 L MEAN CELL VOLUME (test code = 96.4 Fl 84.5-98.6 N MCV) MEAN CELL HGB (test code = MCH) 29.9 pg 27.0-34.2 N MEAN CELL HGB CONCETRATION (test 31.0 G/DL 31.5-34.0 L code = MCHC) RED CELL DISTRIBUTION WIDTH 19.5 SD 11.5-14.5 H (test code = RDW) PLATELET COUNT (test code = PLT) 83.0 K/mm3 150-450 L MEAN PLATELET VOLUME (test code 11.70 fL 7.0-10.5 H = MPV) MANUAL DIFF REQUIRED (test code YES DIFF/SCN CRITERIA = MDIFF) WBC [id number] 11:35:00 Test Item Value Reference Range Interpretation Comments SEGMENTED NEUTROPHILS (test code = SEG) % 40-75 LYMPHOCYTE (test code = LYMPH) % 18.7-40.6 BASIC METABOLIC [id number] 09:36:00 Test Item Value Reference Range Interpretation Comments SODIUM (test code = NA) 143 mmol/L 134-147 N POTASSIUM (test code = K) 4.2 mmol/L 3.4-5.0 N CHLORIDE (test code = CL) 111 mmol/L 100-108 H CARBON DIOXIDE (test code = CO2) 23 mmol/L 21-32 N ANION GAP (test code = GAP) 9.0 GAP calc 4.0-15.0 N GLUCOSE (test code = GLU) 103 MG/DL 70-110 N BLOOD UREA NITROGEN (test code = 16 MG/DL 7-18 N BUN) GLOMERULAR FILTRATION RATE (test 56 estGFR >60 L code = GFR) CREATININE (test code = CREAT) 1.2 MG/DL 0.6-1.0 H CALCIUM (test code = CA) 8.1 MG/DL 8.5-10.1 L CBC W/AUTO [id number] 09:13:00 Test Item Value Reference Range Interpretation Comments WHITE BLOOD CELL (test code = WBC) 5.3 K/mm3 3.5-11.0 N RED BLOOD CELL (test code = RBC) 2.51 M/mm3 4.70-6.10 L HEMOGLOBIN (test code = HGB) 7.5 G/DL 10.4-14.9 L HEMATOCRIT (test code = HCT) 24.2 % 31.5-44.1 L MEAN CELL VOLUME (test code = MCV) 96.4 Fl 84.5-98.6 N MEAN CELL HGB (test code = MCH) 29.9 pg 27.0-34.2 N MEAN CELL HGB CONCETRATION (test 31.0 G/DL 31.5-34.0 L code = MCHC) RED CELL DISTRIBUTION WIDTH (test 19.5 SD 11.5-14.5 H code = RDW) PLATELET COUNT (test code = PLT) 83.0 K/mm3 150-450 L MEAN PLATELET VOLUME (test code = 11.70 fL 7.0-10.5 H MPV) NEUTROPHIL % (test code = NT%) % 40-76 N LYMPHOCYTE % (test code = LY%) % 20.5-51.1 N MONOCYTE % (test code = MO%) % 1.7-9.3 H EOSINOPHIL % (test code = EO%) % 0.0-6.0 N BASOPHIL % (test code = BA%) % 0.0-2.0 N NEUTROPHIL # (test code = NT#) K/mm3 1.8-7.6 N LYMPHOCYTE # (test code = LY#) K/mm3 0.6-3.2 N MONOCYTE # (test code = MO#) K/mm3 0.3-1.1 N EOSINOPHIL # (test code = EO#) K/mm3 0.0-0.4 N BASOPHIL # (test code = BA#) K/mm3 0.0-0.1 N MANUAL DIFF REQUIRED (test code = DIFF/SCN CRITERIA MDIFF) CBC W/AUTO [id number] 08:23:00 Test Item Value Reference Range Interpretation Comments WHITE BLOOD CELL (test code = 4.8 K/mm3 3.5-11.0 N WBC) RED BLOOD CELL (test code = RBC) 2.52 M/mm3 4.70-6.10 L HEMOGLOBIN (test code = HGB) 7.4 G/DL 10.4-14.9 L HEMATOCRIT (test code = HCT) 24.5 % 31.5-44.1 L MEAN CELL VOLUME (test code = 97.2 Fl 84.5-98.6 N MCV) MEAN CELL HGB (test code = MCH) 29.4 pg 27.0-34.2 N MEAN CELL HGB CONCETRATION (test 30.2 G/DL 31.5-34.0 L code = MCHC) RED CELL DISTRIBUTION WIDTH (test 19.3 SD 11.5-14.5 H code = RDW) PLATELET COUNT (test code = PLT) 79.0 K/mm3 150-450 L MEAN PLATELET VOLUME (test code = 10.90 fL 7.0-10.5 H MPV) NEUTROPHIL % (test code = NT%) 50.3 % 40-76 N LYMPHOCYTE % (test code = LY%) 36.1 % 20.5-51.1 N MONOCYTE % (test code = MO%) 11.7 % 1.7-9.3 H EOSINOPHIL % (test code = EO%) 1.5 % 0.0-6.0 N BASOPHIL % (test code = BA%) 0.4 % 0.0-2.0 N NEUTROPHIL # (test code = NT#) 2.40 K/mm3 1.8-7.6 N LYMPHOCYTE # (test code = LY#) 1.7 K/mm3 0.6-3.2 N MONOCYTE # (test code = MO#) 0.6 K/mm3 0.3-1.1 N EOSINOPHIL # (test code = EO#) 0.1 K/mm3 0.0-0.4 N BASOPHIL # (test code = BA#) 0.0 K/mm3 0.0-0.1 N MANUAL DIFF REQUIRED (test code = NO DIFF/SCN CRITERIA MDIFF) RBC [id number] 08:23:00 Test Item Value Reference Range Interpretation Comments POLYCHROMASIA (test 2+ ON SCAN NONE A code = POLC) PLATELET ESTIMATE DECREASED ADEQUATE PLATELET C OUNT (test code = PLTEST) THOUSAND REVIEWE D AND VERIFIED. PLATELET MORPHOLOGY NORMAL (test code = PLTMORPH) CBC W/AUTO [id number] 08:22:00 Test Item Value Reference Range Interpretation Comments WHITE BLOOD CELL (test code = 4.8 K/mm3 3.5-11.0 N WBC) RED BLOOD CELL (test code = RBC) 2.52 M/mm3 4.70-6.10 L HEMOGLOBIN (test code = HGB) 7.4 G/DL 10.4-14.9 L HEMATOCRIT (test code = HCT) 24.5 % 31.5-44.1 L MEAN CELL VOLUME (test code = 97.2 Fl 84.5-98.6 N MCV) MEAN CELL HGB (test code = MCH) 29.4 pg 27.0-34.2 N MEAN CELL HGB CONCETRATION (test 30.2 G/DL 31.5-34.0 L code = MCHC) RED CELL DISTRIBUTION WIDTH (test 19.3 SD 11.5-14.5 H code = RDW) PLATELET COUNT (test code = PLT) 79.0 K/mm3 150-450 L MEAN PLATELET VOLUME (test code = 10.90 fL 7.0-10.5 H MPV) NEUTROPHIL % (test code = NT%) 50.3 % 40-76 N LYMPHOCYTE % (test code = LY%) 36.1 % 20.5-51.1 N MONOCYTE % (test code = MO%) 11.7 % 1.7-9.3 H EOSINOPHIL % (test code = EO%) 1.5 % 0.0-6.0 N BASOPHIL % (test code = BA%) 0.4 % 0.0-2.0 N NEUTROPHIL # (test code = NT#) 2.40 K/mm3 1.8-7.6 N LYMPHOCYTE # (test code = LY#) 1.7 K/mm3 0.6-3.2 N MONOCYTE # (test code = MO#) 0.6 K/mm3 0.3-1.1 N EOSINOPHIL # (test code = EO#) 0.1 K/mm3 0.0-0.4 N BASOPHIL # (test code = BA#) 0.0 K/mm3 0.0-0.1 N MANUAL DIFF REQUIRED (test code = NO DIFF/SCN CRITERIA MDIFF) CBC W/AUTO [id number] 08:22:00 Test Item Value Reference Range Interpretation Comments WHITE BLOOD CELL (test code = 4.8 K/mm3 3.5-11.0 N WBC) RED BLOOD CELL (test code = RBC) 2.52 M/mm3 4.70-6.10 L HEMOGLOBIN (test code = HGB) 7.4 G/DL 10.4-14.9 L HEMATOCRIT (test code = HCT) 24.5 % 31.5-44.1 L MEAN CELL VOLUME (test code = 97.2 Fl 84.5-98.6 N MCV) MEAN CELL HGB (test code = MCH) 29.4 pg 27.0-34.2 N MEAN CELL HGB CONCETRATION (test 30.2 G/DL 31.5-34.0 L code = MCHC) RED CELL DISTRIBUTION WIDTH (test 19.3 SD 11.5-14.5 H code = RDW) PLATELET COUNT (test code = PLT) 79.0 K/mm3 150-450 L MEAN PLATELET VOLUME (test code = 10.90 fL 7.0-10.5 H MPV) NEUTROPHIL % (test code = NT%) 50.3 % 40-76 N LYMPHOCYTE % (test code = LY%) 36.1 % 20.5-51.1 N MONOCYTE % (test code = MO%) 11.7 % 1.7-9.3 H EOSINOPHIL % (test code = EO%) 1.5 % 0.0-6.0 N BASOPHIL % (test code = BA%) 0.4 % 0.0-2.0 N NEUTROPHIL # (test code = NT#) 2.40 K/mm3 1.8-7.6 N LYMPHOCYTE # (test code = LY#) 1.7 K/mm3 0.6-3.2 N MONOCYTE # (test code = MO#) 0.6 K/mm3 0.3-1.1 N EOSINOPHIL # (test code = EO#) 0.1 K/mm3 0.0-0.4 N BASOPHIL # (test code = BA#) 0.0 K/mm3 0.0-0.1 N MANUAL DIFF REQUIRED (test code = NO DIFF/SCN CRITERIA MDIFF) BASIC METABOLIC [id number] 07:49:00 Test Item Value Reference Range Interpretation Comments SODIUM (test code = NA) 140 mmol/L 134-147 N POTASSIUM (test code = 3.6 mmol/L 3.4-5.0 N K) CHLORIDE (test code = 107 mmol/L 100-108 N CL) CARBON DIOXIDE (test 25 mmol/L 21-32 N code = CO2) ANION GAP (test code = 8.0 GAP calc 4.0-15.0 N GAP) GLUCOSE (test code = 91 MG/DL 70-110 N GLU) BLOOD UREA NITROGEN 16 MG/DL 7-18 N (test code = BUN) GLOMERULAR FILTRATION >=60 max estimate >60 RATE (test code = GFR) estGFR CREATININE (test code = 1.1 MG/DL 0.6-1.0 H CREAT) CALCIUM (test code = CA) 8.2 MG/DL 8.5-10.1 L CBC W/AUTO [id number] 07:40:00 Test Item Value Reference Range Interpretation Comments WHITE BLOOD CELL (test code = WBC) 4.8 K/mm3 3.5-11.0 N RED BLOOD CELL (test code = RBC) 2.52 M/mm3 4.70-6.10 L HEMOGLOBIN (test code = HGB) 7.4 G/DL 10.4-14.9 L HEMATOCRIT (test code = HCT) 24.5 % 31.5-44.1 L MEAN CELL VOLUME (test code = MCV) 97.2 Fl 84.5-98.6 N MEAN CELL HGB (test code = MCH) 29.4 pg 27.0-34.2 N MEAN CELL HGB CONCETRATION (test 30.2 G/DL 31.5-34.0 L code = MCHC) RED CELL DISTRIBUTION WIDTH (test 19.3 SD 11.5-14.5 H code = RDW) PLATELET COUNT (test code = PLT) 79.0 K/mm3 150-450 L MEAN PLATELET VOLUME (test code = 10.90 fL 7.0-10.5 H MPV) NEUTROPHIL % (test code = NT%) % 40-76 N LYMPHOCYTE % (test code = LY%) % 20.5-51.1 N MONOCYTE % (test code = MO%) % 1.7-9.3 H EOSINOPHIL % (test code = EO%) % 0.0-6.0 N BASOPHIL % (test code = BA%) % 0.0-2.0 N NEUTROPHIL # (test code = NT#) K/mm3 1.8-7.6 N LYMPHOCYTE # (test code = LY#) K/mm3 0.6-3.2 N MONOCYTE # (test code = MO#) K/mm3 0.3-1.1 N EOSINOPHIL # (test code = EO#) K/mm3 0.0-0.4 N BASOPHIL # (test code = BA#) K/mm3 0.0-0.1 N MANUAL DIFF REQUIRED (test code = DIFF/SCN CRITERIA MDIFF) UR SODIUM [id number] 14:09:00 Test Item Value Reference Range Interpretation Comments UR SODIUM RANDOM 88 MEQ/L () The Referen ce Range and (test code = MERI) Method Per formance specificationsh ave not been established for this fluid. The test result should be correlated into the clinical context forinte rpretation. UR POTASSIUM [id number] 14:09:00 Test Item Value Reference Range Interpretation Comments UR POTASSIUM 13.2 MEQ/L () The Reference R ladi and RANDOM (test code Method Per formance = KU) specificationsh ave not been establishe d for this fluid. The test resultshould be correlated into the clinic al context forinterpretati on. UR CHLORIDE [id number] 14:09:00 Test Item Value Reference Range Interpretation Comments UR CHLORIDE RANDOM 72 mmol/L Not Estab. Performed At: HD (test code = CLU) [facility] [id number] [place], [place] [id number] paulino Patricio MD [phone] UR PROTEIN [id number] 14:09:00 Test Item Value Reference Range Interpretation Comments UR PROTEIN TOTAL (test code = 5.6 MG/DL 0.0-12.0 N PROTU) UR CREATININE [id number] 14:09:00 Test Item Value Reference Range Interpretation Comments UR CREATININE RANDOM (test code = 36.4 MG/DL 30-125 N CREATU) UR OSMOLALITY [id number] 14:09:00 Test Item Value Reference Range Interpretation Comments UR OSMOLALITY RANDOM (test code = 284 MOS/KG [id number] L OSMOU) UR SODIUM [id number] 02:55:00 Test Item Value Reference Range Interpretation Comments UR SODIUM RANDOM 88 MEQ/L The Referen ce Range and (test code = MERI) Method Per formance specificationsh ave not been established for this fluid. The test result should be correlated into the clinical context forinte rpretation. UR POTASSIUM [id number] 02:55:00 Test Item Value Reference Range Interpretation Comments UR POTASSIUM 13.2 MEQ/L The Reference R ladi and RANDOM (test code Method Per formance = KU) specificationsh ave not been establishe d for this fluid. The test resultshould be correlated into the clinic al context forinterpretati on. UR OSMOLALITY [id number] 02:55:00 Test Item Value Reference Range Interpretation Comments UR OSMOLALITY RANDOM (test code = 284 MOS/KG 390-1090 L OSMOU) UR SODIUM [id number] 02:55:00 Test Item Value Reference Range Interpretation Comments UR SODIUM RANDOM 88 MEQ/L () The Referen ce Range and (test code = MERI) Method Per formance specificationsh ave not been established for this fluid. The test result should be correlated into the clinical context forinte rpretation. UR POTASSIUM [id number] 02:55:00 Test Item Value Reference Range Interpretation Comments UR POTASSIUM 13.2 MEQ/L () The Reference R ladi and RANDOM (test code Method Per formance = KU) specificationsh ave not been establishe d for this fluid. The test resultshould be correlated into the clinic al context forinterpretati on. UR CHLORIDE [id number] 02:55:00 Test Item Value Reference Range Interpretation Comments UR CHLORIDE RANDOM (test code = CLU) mmol/L >10 UR PROTEIN [id number] 02:55:00 Test Item Value Reference Range Interpretation Comments UR PROTEIN TOTAL (test code = 5.6 MG/DL 0.0-12.0 N PROTU) UR CREATININE [id number] 02:55:00 Test Item Value Reference Range Interpretation Comments UR CREATININE RANDOM (test code = 36.4 MG/DL 30-125 N CREATU) UR OSMOLALITY [id number] 02:55:00 Test Item Value Reference Range Interpretation Comments UR OSMOLALITY RANDOM (test code = 284 MOS/KG 390-1090 L OSMOU) UR OSMOLALITY [id number] 02:52:00 Test Item Value Reference Range Interpretation Comments UR OSMOLALITY RANDOM (test code = MOS/KG 390-1090 OSMOU) UR SODIUM [id number] 02:52:00 Test Item Value Reference Range Interpretation Comments UR SODIUM RANDOM 88 MEQ/L () The Referen ce Range and (test code = MERI) Method Per formance specificationsh ave not been established for this fluid. The test result should be correlated into the clinical context forinte rpretation. UR POTASSIUM [id number] 02:52:00 Test Item Value Reference Range Interpretation Comments UR POTASSIUM 13.2 MEQ/L () The Reference R ladi and RANDOM (test code Method Per formance = KU) specificationsh ave not been establishe d for this fluid. The test resultshould be correlated into the clinic al context forinterpretati on. UR CHLORIDE [id number] 02:52:00 Test Item Value Reference Range Interpretation Comments UR CHLORIDE RANDOM (test code = CLU) mmol/L >10 UR PROTEIN [id number] 02:52:00 Test Item Value Reference Range Interpretation Comments UR PROTEIN TOTAL (test code = 5.6 MG/DL 0.0-12.0 N PROTU) UR CREATININE [id number] 02:52:00 Test Item Value Reference Range Interpretation Comments UR CREATININE RANDOM (test code = 36.4 MG/DL 30-125 N CREATU) UR OSMOLALITY [id number] 02:52:00 Test Item Value Reference Range Interpretation Comments UR OSMOLALITY RANDOM (test code = MMO/KG 500-800 OSMOU) UR SODIUM [id number] 02:52:00 Test Item Value Reference Range Interpretation Comments UR SODIUM RANDOM 88 MEQ/L The Referen ce Range and (test code = MERI) Method Per formance specificationsh ave not been established for this fluid. The test result should be correlated into the clinical context forinte rpretation. UR POTASSIUM [id number] 02:52:00 Test Item Value Reference Range Interpretation Comments UR POTASSIUM 13.2 MEQ/L The Reference R ladi and RANDOM (test code Method Per formance = KU) specificationsh ave not been establishe d for this fluid. The test resultshould be correlated into the clinic al context forinterpretati on. UR SODIUM [id number] 16:08:00 Test Item Value Reference Range Interpretation Comments UR SODIUM RANDOM (test code = MERI) MEQ/L UR POTASSIUM [id number] 16:08:00 Test Item Value Reference Range Interpretation Comments UR POTASSIUM RANDOM (test code = KU) mmol/L >0 UR CHLORIDE [id number] 16:08:00 Test Item Value Reference Range Interpretation Comments UR CHLORIDE RANDOM (test code = CLU) mmol/L >10 UR PROTEIN [id number] 16:08:00 Test Item Value Reference Range Interpretation Comments UR PROTEIN TOTAL (test code = 5.6 MG/DL 0.0-12.0 N PROTU) UR CREATININE [id number] 16:08:00 Test Item Value Reference Range Interpretation Comments UR CREATININE RANDOM (test code = 36.4 MG/DL 30-125 N CREATU) UR OSMOLALITY [id number] 16:08:00 Test Item Value Reference Range Interpretation Comments UR OSMOLALITY RANDOM (test code = MMO/KG 500-800 OSMOU) CBC W/AUTO [id number] 04:37:00 Test Item Value Reference Range Interpretation Comments WHITE BLOOD CELL (test code = 7.9 K/mm3 3.5-11.0 N WBC) RED BLOOD CELL (test code = RBC) 2.93 M/mm3 4.70-6.10 L HEMOGLOBIN (test code = HGB) 8.8 G/DL 10.4-14.9 L HEMATOCRIT (test code = HCT) 27.7 % 31.5-44.1 L MEAN CELL VOLUME (test code = 94.5 Fl 84.5-98.6 N MCV) MEAN CELL HGB (test code = MCH) 30.0 pg 27.0-34.2 N MEAN CELL HGB CONCETRATION (test 31.8 G/DL 31.5-34.0 N code = MCHC) RED CELL DISTRIBUTION WIDTH 18.7 SD 11.5-14.5 H (test code = RDW) PLATELET COUNT (test code = PLT) 78.0 K/mm3 150-450 L MEAN PLATELET VOLUME (test code 11.60 fL 7.0-10.5 H = MPV) MANUAL DIFF REQUIRED (test code YES DIFF/SCN CRITERIA = MDIFF) WBC [id number] 04:37:00 Test Item Value Reference Range Interpretation Comments SEGMENTED NEUTROPHILS 69 % 40-75 N (test code = SEG) LYMPHOCYTE (test code 27 % 18.7-40.6 N = LYMPH) MONOCYTE (test code = 4 % 3.8-11.4 N MON) NUCLEATED RED BLOOD 8 #/100WBC 0-0 H CELL (test code = NRBC) ANISOCYTOSIS (test TRACE NONE code = ANISO) PLATELET ESTIMATE SLIGHTLY ADEQUATE PLATELET C OUNT (test code = PLTEST) DECREASED REVIEWE D AND THOUSAND VERIFIED. PLATELET MORPHOLOGY NORMAL (test code = PLTMORPH) CBC W/AUTO [id number] 04:36:00 Test Item Value Reference Range Interpretation Comments WHITE BLOOD CELL (test code = 7.9 K/mm3 3.5-11.0 N WBC) RED BLOOD CELL (test code = RBC) 2.93 M/mm3 4.70-6.10 L HEMOGLOBIN (test code = HGB) 8.8 G/DL 10.4-14.9 L HEMATOCRIT (test code = HCT) 27.7 % 31.5-44.1 L MEAN CELL VOLUME (test code = 94.5 Fl 84.5-98.6 N MCV) MEAN CELL HGB (test code = MCH) 30.0 pg 27.0-34.2 N MEAN CELL HGB CONCETRATION (test 31.8 G/DL 31.5-34.0 N code = MCHC) RED CELL DISTRIBUTION WIDTH 18.7 SD 11.5-14.5 H (test code = RDW) PLATELET COUNT (test code = PLT) 78.0 K/mm3 150-450 L MEAN PLATELET VOLUME (test code 11.60 fL 7.0-10.5 H = MPV) MANUAL DIFF REQUIRED (test code YES DIFF/SCN CRITERIA = MDIFF) WBC [id number] 04:36:00 Test Item Value Reference Range Interpretation Comments SEGMENTED NEUTROPHILS (test code = SEG) % 40-75 LYMPHOCYTE (test code = LYMPH) % 18.7-40.6 CBC W/AUTO [id number] 04:36:00 Test Item Value Reference Range Interpretation Comments WHITE BLOOD CELL (test code = 7.9 K/mm3 3.5-11.0 N WBC) RED BLOOD CELL (test code = RBC) 2.93 M/mm3 4.70-6.10 L HEMOGLOBIN (test code = HGB) 8.8 G/DL 10.4-14.9 L HEMATOCRIT (test code = HCT) 27.7 % 31.5-44.1 L MEAN CELL VOLUME (test code = 94.5 Fl 84.5-98.6 N MCV) MEAN CELL HGB (test code = MCH) 30.0 pg 27.0-34.2 N MEAN CELL HGB CONCETRATION (test 31.8 G/DL 31.5-34.0 N code = MCHC) RED CELL DISTRIBUTION WIDTH 18.7 SD 11.5-14.5 H (test code = RDW) PLATELET COUNT (test code = PLT) 78.0 K/mm3 150-450 L MEAN PLATELET VOLUME (test code 11.60 fL 7.0-10.5 H = MPV) MANUAL DIFF REQUIRED (test code YES DIFF/SCN CRITERIA = MDIFF) WBC [id number] 04:36:00 Test Item Value Reference Range Interpretation Comments SEGMENTED NEUTROPHILS (test code = SEG) % 40-75 LYMPHOCYTE (test code = LYMPH) % 18.7-40.6 CBC W/AUTO [id number] 04:18:00 Test Item Value Reference Range Interpretation Comments WHITE BLOOD CELL (test code = WBC) 7.9 K/mm3 3.5-11.0 N RED BLOOD CELL (test code = RBC) 2.93 M/mm3 4.70-6.10 L HEMOGLOBIN (test code = HGB) 8.8 G/DL 10.4-14.9 L HEMATOCRIT (test code = HCT) 27.7 % 31.5-44.1 L MEAN CELL VOLUME (test code = MCV) 94.5 Fl 84.5-98.6 N MEAN CELL HGB (test code = MCH) 30.0 pg 27.0-34.2 N MEAN CELL HGB CONCETRATION (test 31.8 G/DL 31.5-34.0 N code = MCHC) RED CELL DISTRIBUTION WIDTH (test 18.7 SD 11.5-14.5 H code = RDW) PLATELET COUNT (test code = PLT) 78.0 K/mm3 150-450 L MEAN PLATELET VOLUME (test code = 11.60 fL 7.0-10.5 H MPV) NEUTROPHIL % (test code = NT%) % 40-76 N LYMPHOCYTE % (test code = LY%) % 20.5-51.1 N MONOCYTE % (test code = MO%) % 1.7-9.3 N EOSINOPHIL % (test code = EO%) % 0.0-6.0 N BASOPHIL % (test code = BA%) % 0.0-2.0 N NEUTROPHIL # (test code = NT#) K/mm3 1.8-7.6 N LYMPHOCYTE # (test code = LY#) K/mm3 0.6-3.2 N MONOCYTE # (test code = MO#) K/mm3 0.3-1.1 N EOSINOPHIL # (test code = EO#) K/mm3 0.0-0.4 N BASOPHIL # (test code = BA#) K/mm3 0.0-0.1 N MANUAL DIFF REQUIRED (test code = DIFF/SCN CRITERIA MDIFF) CBC W/AUTO [id number] 05:22:00 Test Item Value Reference Range Interpretation Comments WHITE BLOOD CELL (test 8.4 K/mm3 3.5-11.0 N code = WBC) RED BLOOD CELL (test 2.86 M/mm3 4.70-6.10 L code = RBC) HEMOGLOBIN (test code 8.5 G/DL 10.4-14.9 L = HGB) HEMATOCRIT (test code 27.1 % 31.5-44.1 L = HCT) MEAN CELL VOLUME (test 94.8 Fl 84.5-98.6 N code = MCV) MEAN CELL HGB (test 29.7 pg 27.0-34.2 N code = MCH) MEAN CELL HGB 31.4 G/DL 31.5-34.0 L CONCETRATION (test code = MCHC) RED CELL DISTRIBUTION 18.3 SD 11.5-14.5 H WIDTH (test code = RDW) PLATELET COUNT (test 74.0 K/mm3 150-450 L code = PLT) MEAN PLATELET VOLUME 11.40 fL 7.0-10.5 H (test code = MPV) NEUTROPHIL % (test 57.3 % 40-76 N code = NT%) LYMPHOCYTE % (test 34.0 % 20.5-51.1 N code = LY%) MONOCYTE % (test code 8.0 % 1.7-9.3 N = MO%) EOSINOPHIL % (test 0.6 % 0.0-6.0 N code = EO%) BASOPHIL % (test code 0.1 % 0.0-2.0 N = BA%) NEUTROPHIL # (test 4.80 K/mm3 1.8-7.6 N code = NT#) LYMPHOCYTE # (test 2.9 K/mm3 0.6-3.2 N code = LY#) MONOCYTE # (test code 0.7 K/mm3 0.3-1.1 N = MO#) EOSINOPHIL # (test 0.1 K/mm3 0.0-0.4 N code = EO#) BASOPHIL # (test code 0.0 K/mm3 0.0-0.1 N = BA#) MANUAL DIFF REQUIRED NO DIFF/SCN CRITERIA SLIDE R NETTIEW (test code = MDIFF) CONSISTA NT WITH AUTO DIFFERENTIAL. THROMBOPLASTIN TIME [id number] 05:08:00 Test Item Value Reference Range Interpretation Comments THROMBOPLASTIN TIME PARTIAL 22.4 SECONDS 26-35 L (test code = PTT) CBC W/AUTO [id number] 05:07:00 Test Item Value Reference Range Interpretation Comments WHITE BLOOD CELL (test code = WBC) 8.4 K/mm3 3.5-11.0 N RED BLOOD CELL (test code = RBC) 2.86 M/mm3 4.70-6.10 L HEMOGLOBIN (test code = HGB) 8.5 G/DL 10.4-14.9 L HEMATOCRIT (test code = HCT) 27.1 % 31.5-44.1 L MEAN CELL VOLUME (test code = MCV) 94.8 Fl 84.5-98.6 N MEAN CELL HGB (test code = MCH) 29.7 pg 27.0-34.2 N MEAN CELL HGB CONCETRATION (test 31.4 G/DL 31.5-34.0 L code = MCHC) RED CELL DISTRIBUTION WIDTH (test 18.3 SD 11.5-14.5 H code = RDW) PLATELET COUNT (test code = PLT) 74.0 K/mm3 150-450 L MEAN PLATELET VOLUME (test code = 11.40 fL 7.0-10.5 H MPV) NEUTROPHIL % (test code = NT%) % 40-76 N LYMPHOCYTE % (test code = LY%) % 20.5-51.1 N MONOCYTE % (test code = MO%) % 1.7-9.3 N EOSINOPHIL % (test code = EO%) % 0.0-6.0 N BASOPHIL % (test code = BA%) % 0.0-2.0 N NEUTROPHIL # (test code = NT#) K/mm3 1.8-7.6 N LYMPHOCYTE # (test code = LY#) K/mm3 0.6-3.2 N MONOCYTE # (test code = MO#) K/mm3 0.3-1.1 N EOSINOPHIL # (test code = EO#) K/mm3 0.0-0.4 N BASOPHIL # (test code = BA#) K/mm3 0.0-0.1 N MANUAL DIFF REQUIRED (test code = DIFF/SCN CRITERIA MDIFF) CBC W/AUTO [id number] 21:56:00 Test Item Value Reference Range Interpretation Comments WHITE BLOOD CELL (test code = 10.5 K/mm3 3.5-11.0 N WBC) RED BLOOD CELL (test code = RBC) 3.07 M/mm3 4.70-6.10 L HEMOGLOBIN (test code = HGB) 9.1 G/DL 10.4-14.9 L HEMATOCRIT (test code = HCT) 28.8 % 31.5-44.1 L MEAN CELL VOLUME (test code = 93.8 Fl 84.5-98.6 N MCV) MEAN CELL HGB (test code = MCH) 29.6 pg 27.0-34.2 N MEAN CELL HGB CONCETRATION (test 31.6 G/DL 31.5-34.0 N code = MCHC) RED CELL DISTRIBUTION WIDTH (test 18.5 SD 11.5-14.5 H code = RDW) PLATELET COUNT (test code = PLT) 66.0 K/mm3 150-450 L MEAN PLATELET VOLUME (test code = 11.10 fL 7.0-10.5 H MPV) NEUTROPHIL % (test code = NT%) 62.7 % 40-76 LYMPHOCYTE % (test code = LY%) 30.2 % 20.5-51.1 N MONOCYTE % (test code = MO%) 6.8 % 1.7-9.3 N EOSINOPHIL % (test code = EO%) 0.2 % 0.0-6.0 N BASOPHIL % (test code = BA%) 0.1 % 0.0-2.0 N NEUTROPHIL # (test code = NT#) 6.60 K/mm3 1.8-7.6 N LYMPHOCYTE # (test code = LY#) 3.2 K/mm3 0.6-3.2 N MONOCYTE # (test code = MO#) 0.7 K/mm3 0.3-1.1 N EOSINOPHIL # (test code = EO#) 0.0 K/mm3 0.0-0.4 N BASOPHIL # (test code = BA#) 0.0 K/mm3 0.0-0.1 N MANUAL DIFF REQUIRED (test code = NO DIFF/SCN CRITERIA MDIFF) RBC [id number] 21:56:00 Test Item Value Reference Range Interpretation Comments PLATELET ESTIMATE MARKEDLY DECREASED ADEQUATE PLT EST (test code = THOUSAND 48,000-60,000 PLTEST) PLATELET MORPHOLOGY NORMAL (test code = PLTMORPH) CBC W/AUTO [id number] 21:54:00 Test Item Value Reference Range Interpretation Comments WHITE BLOOD CELL (test code = 10.5 K/mm3 3.5-11.0 N WBC) RED BLOOD CELL (test code = RBC) 3.07 M/mm3 4.70-6.10 L HEMOGLOBIN (test code = HGB) 9.1 G/DL 10.4-14.9 L HEMATOCRIT (test code = HCT) 28.8 % 31.5-44.1 L MEAN CELL VOLUME (test code = 93.8 Fl 84.5-98.6 N MCV) MEAN CELL HGB (test code = MCH) 29.6 pg 27.0-34.2 N MEAN CELL HGB CONCETRATION (test 31.6 G/DL 31.5-34.0 N code = MCHC) RED CELL DISTRIBUTION WIDTH (test 18.5 SD 11.5-14.5 H code = RDW) PLATELET COUNT (test code = PLT) 66.0 K/mm3 150-450 L MEAN PLATELET VOLUME (test code = 11.10 fL 7.0-10.5 H MPV) NEUTROPHIL % (test code = NT%) 62.7 % 40-76 LYMPHOCYTE % (test code = LY%) 30.2 % 20.5-51.1 N MONOCYTE % (test code = MO%) 6.8 % 1.7-9.3 N EOSINOPHIL % (test code = EO%) 0.2 % 0.0-6.0 N BASOPHIL % (test code = BA%) 0.1 % 0.0-2.0 N NEUTROPHIL # (test code = NT#) 6.60 K/mm3 1.8-7.6 N LYMPHOCYTE # (test code = LY#) 3.2 K/mm3 0.6-3.2 N MONOCYTE # (test code = MO#) 0.7 K/mm3 0.3-1.1 N EOSINOPHIL # (test code = EO#) 0.0 K/mm3 0.0-0.4 N BASOPHIL # (test code = BA#) 0.0 K/mm3 0.0-0.1 N MANUAL DIFF REQUIRED (test code = NO DIFF/SCN CRITERIA MDIFF) CBC W/AUTO [id number] 21:54:00 Test Item Value Reference Range Interpretation Comments WHITE BLOOD CELL (test code = 10.5 K/mm3 3.5-11.0 N WBC) RED BLOOD CELL (test code = RBC) 3.07 M/mm3 4.70-6.10 L HEMOGLOBIN (test code = HGB) 9.1 G/DL 10.4-14.9 L HEMATOCRIT (test code = HCT) 28.8 % 31.5-44.1 L MEAN CELL VOLUME (test code = 93.8 Fl 84.5-98.6 N MCV) MEAN CELL HGB (test code = MCH) 29.6 pg 27.0-34.2 N MEAN CELL HGB CONCETRATION (test 31.6 G/DL 31.5-34.0 N code = MCHC) RED CELL DISTRIBUTION WIDTH (test 18.5 SD 11.5-14.5 H code = RDW) PLATELET COUNT (test code = PLT) 66.0 K/mm3 150-450 L MEAN PLATELET VOLUME (test code = 11.10 fL 7.0-10.5 H MPV) NEUTROPHIL % (test code = NT%) 62.7 % 40-76 LYMPHOCYTE % (test code = LY%) 30.2 % 20.5-51.1 N MONOCYTE % (test code = MO%) 6.8 % 1.7-9.3 N EOSINOPHIL % (test code = EO%) 0.2 % 0.0-6.0 N BASOPHIL % (test code = BA%) 0.1 % 0.0-2.0 N NEUTROPHIL # (test code = NT#) 6.60 K/mm3 1.8-7.6 N LYMPHOCYTE # (test code = LY#) 3.2 K/mm3 0.6-3.2 N MONOCYTE # (test code = MO#) 0.7 K/mm3 0.3-1.1 N EOSINOPHIL # (test code = EO#) 0.0 K/mm3 0.0-0.4 N BASOPHIL # (test code = BA#) 0.0 K/mm3 0.0-0.1 N MANUAL DIFF REQUIRED (test code = NO DIFF/SCN CRITERIA MDIFF) BASIC METABOLIC [id number] 20:43:00 Test Item Value Reference Range Interpretation Comments SODIUM (test code = NA) 136 mmol/L 134-147 N POTASSIUM (test code = K) 4.0 mmol/L 3.4-5.0 N CHLORIDE (test code = CL) 100 mmol/L 100-108 N CARBON DIOXIDE (test code = 24 mmol/L 21-32 N CO2) ANION GAP (test code = GAP) 12.0 GAP calc 4.0-15.0 N GLUCOSE (test code = GLU) 224 MG/DL 70-110 H BLOOD UREA NITROGEN (test code 21 MG/DL 7-18 H = BUN) GLOMERULAR FILTRATION RATE 37 estGFR >60 L (test code = GFR) CREATININE (test code = CREAT) 1.7 MG/DL 0.6-1.0 H CALCIUM (test code = CA) 8.7 MG/DL 8.5-10.1 N BASIC METABOLIC [id number] 20:38:00 Test Item Value Reference Range Interpretation Comments SODIUM (test code = NA) 136 mmol/L 134-147 N POTASSIUM (test code = K) 4.0 mmol/L 3.4-5.0 N CHLORIDE (test code = CL) 100 mmol/L 100-108 N CARBON DIOXIDE (test code = 24 mmol/L 21-32 N CO2) ANION GAP (test code = GAP) 12.0 GAP calc 4.0-15.0 N GLUCOSE (test code = GLU) 224 MG/DL 70-110 H BLOOD UREA NITROGEN (test code 21 MG/DL 7-18 H = BUN) GLOMERULAR FILTRATION RATE estGFR >60 (test code = GFR) CREATININE (test code = CREAT) MG/DL 0.6-1.0 CALCIUM (test code = CA) 8.7 MG/DL 8.5-10.1 N CBC W/AUTO [id number] 20:38:00 Test Item Value Reference Range Interpretation Comments WHITE BLOOD CELL (test code = WBC) 10.5 K/mm3 3.5-11.0 N RED BLOOD CELL (test code = RBC) 3.07 M/mm3 4.70-6.10 L HEMOGLOBIN (test code = HGB) 9.1 G/DL 10.4-14.9 L HEMATOCRIT (test code = HCT) 28.8 % 31.5-44.1 L MEAN CELL VOLUME (test code = MCV) 93.8 Fl 84.5-98.6 N MEAN CELL HGB (test code = MCH) 29.6 pg 27.0-34.2 N MEAN CELL HGB CONCETRATION (test 31.6 G/DL 31.5-34.0 N code = MCHC) RED CELL DISTRIBUTION WIDTH (test 18.5 SD 11.5-14.5 H code = RDW) PLATELET COUNT (test code = PLT) 66.0 K/mm3 150-450 L MEAN PLATELET VOLUME (test code = 11.10 fL 7.0-10.5 H MPV) NEUTROPHIL % (test code = NT%) % 40-76 LYMPHOCYTE % (test code = LY%) % 20.5-51.1 N MONOCYTE % (test code = MO%) % 1.7-9.3 N EOSINOPHIL % (test code = EO%) % 0.0-6.0 N BASOPHIL % (test code = BA%) % 0.0-2.0 N NEUTROPHIL # (test code = NT#) K/mm3 1.8-7.6 N LYMPHOCYTE # (test code = LY#) K/mm3 0.6-3.2 N MONOCYTE # (test code = MO#) K/mm3 0.3-1.1 N EOSINOPHIL # (test code = EO#) K/mm3 0.0-0.4 N BASOPHIL # (test code = BA#) K/mm3 0.0-0.1 N MANUAL DIFF REQUIRED (test code = DIFF/SCN CRITERIA MDIFF) GLUCOSE BEDSIDE [id number] 20:21:00 Test Item Value Reference Range Interpretation Comments GLUCOSE BEDSIDE TESTING (test code 241 mg/dL 70-110 H = GLUBED) - XR CHEST 1 [id number] 20:13:00 Name: DAVID ULRICH [facility] : 1940 Age/S: 79 / F [id number] Unit #: [id number] Loc: [place] [address] Phys: Isma Faust MD Acct: [id number] Dis Date: Status: ADM IN PHONE #: [phone] Exam Date: 07/11/20191954 FAX #: Reason: RAPID RESPONSE, NEAR SYNCOPE EXAMS: CPT: [id number] XR CHEST 1 V [id number] Fluoro Time: DAP (Gy m2): Air Kerma (mGy): EXAMINATION: - XR CHEST 1 V. LOCATION: B2. HISTORY: RAPID RESPONSE, NEAR SYNCOPE. COMPARISON: Radiograph dated 07/07/2019. TECHNIQUE: Single AP view of the chest [...] Isma Faust MD PAGE 1 Signed ReportName: [facility] : 1940 Age/S: 79 / F [address] Unit #: [id number] Loc: [id number] Phys: Isma Faust MD Acct: [id number] Dis Date: Status: ADM IN PHONE #: [phone] Exam Date: 07/11/20191954 FAX #: Reason: RAPID RESPONSE, NEAR SYNCOPE EXAMS: CPT: [id number] XR CHEST 1 V [id number] Fluoro Time: DAP (Gy m2): Air Kerma (mGy): <Continued> Technologist: Vahid Dean RT(R)(CT)(MRI) Trnscb Date/Time: 07/11/2019 (2012) [id number] Orig Print D/T: S: 07/11/2019 (2015) PAGE 2 Signed ReportACUTE HEPATITIS PANEL 2019-07-11 06:09:00 Test Item Value Reference Range Interpretation Comments AB HEPATITIS A IGM Negative Negative (test code = HAVMAB) AG HEPATITIS B Negative Negative SURFACE (test code = HBSAG) AB HEPATITIS B CORE Negative Negative IGM (test code = HBCMAB) AB HEPATITIS C (test >11.0 0.0-0.9 A INFCE R esult Units: s/co code = HCVAB) ratio N egative: < 0.8 Indeterminate: 0.8 - 0.9 Positiv e: > 0.9 The CDC rec ommends that a positive HCV antibody result be followed up wit h a HCV Nucleic Acid Amplification t est ([id number]).Ltac, Located Within [facility] med At: [facility] [id number] [place], [place] [id number] paulino Patricio MD Ph:[phone] CBC W/AUTO [id number] 04:38:00 Test Item Value Reference Range Interpretation Comments WHITE BLOOD CELL 7.3 K/mm3 3.5-11.0 N (test code = WBC) RED BLOOD CELL (test 2.82 M/mm3 4.70-6.10 L code = RBC) HEMOGLOBIN (test code 8.3 G/DL 10.4-14.9 L = HGB) HEMATOCRIT (test code 26.7 % 31.5-44.1 L = HCT) MEAN CELL VOLUME 94.7 Fl 84.5-98.6 N (test code = MCV) MEAN CELL HGB (test 29.4 pg 27.0-34.2 N code = MCH) MEAN CELL HGB 31.1 G/DL 31.5-34.0 L CONCETRATION (test code = MCHC) RED CELL DISTRIBUTION 17.9 SD 11.5-14.5 H WIDTH (test code = RDW) PLATELET COUNT (test 68.0 K/mm3 150-450 L code = PLT) MEAN PLATELET VOLUME 10.90 fL 7.0-10.5 H (test code = MPV) NEUTROPHIL % (test 56.9 % 40-76 N code = NT%) LYMPHOCYTE % (test 35.1 % 20.5-51.1 N code = LY%) MONOCYTE % (test code 7.4 % 1.7-9.3 N = MO%) EOSINOPHIL % (test 0.5 % 0.0-6.0 N code = EO%) BASOPHIL % (test code 0.1 % 0.0-2.0 N = BA%) NUCLEATED RBC % (test 3.00 /100WBC% 0.0-1.0 H code = NRBC%) NEUTROPHIL # (test 4.17 K/mm3 1.8-7.6 N code = NT#) LYMPHOCYTE # (test 2.6 K/mm3 0.6-3.2 N code = LY#) MONOCYTE # (test code 0.5 K/mm3 0.3-1.1 N = MO#) EOSINOPHIL # (test 0.0 K/mm3 0.0-0.4 N code = EO#) BASOPHIL # (test code 0.0 K/mm3 0.0-0.1 N = BA#) MANUAL DIFF REQUIRED NO DIFF/SCN CRITERIA SLIDE R NETTIEW (test code = MDIFF) CONSISTA NT WITH AUTO DIFFERENTIAL.PL ATEL ET COUNT REVIEW ED AND VERIFIED. THROMBOPLASTIN TIME [id number] 04:28:00 Test Item Value Reference Range Interpretation Comments THROMBOPLASTIN TIME PARTIAL 16.6 SECONDS 26-35 L (test code = PTT) CBC W/AUTO [id number] 04:18:00 Test Item Value Reference Range Interpretation Comments WHITE BLOOD CELL (test code = WBC) 7.3 K/mm3 3.5-11.0 N RED BLOOD CELL (test code = RBC) 2.82 M/mm3 4.70-6.10 L HEMOGLOBIN (test code = HGB) 8.3 G/DL 10.4-14.9 L HEMATOCRIT (test code = HCT) 26.7 % 31.5-44.1 L MEAN CELL VOLUME (test code = MCV) 94.7 Fl 84.5-98.6 N MEAN CELL HGB (test code = MCH) 29.4 pg 27.0-34.2 N MEAN CELL HGB CONCETRATION (test 31.1 G/DL 31.5-34.0 L code = MCHC) RED CELL DISTRIBUTION WIDTH (test 17.9 SD 11.5-14.5 H code = RDW) PLATELET COUNT (test code = PLT) 68.0 K/mm3 150-450 L MEAN PLATELET VOLUME (test code = 10.90 fL 7.0-10.5 H MPV) NEUTROPHIL % (test code = NT%) % 40-76 N LYMPHOCYTE % (test code = LY%) % 20.5-51.1 N MONOCYTE % (test code = MO%) % 1.7-9.3 N EOSINOPHIL % (test code = EO%) % 0.0-6.0 N BASOPHIL % (test code = BA%) % 0.0-2.0 N NEUTROPHIL # (test code = NT#) K/mm3 1.8-7.6 N LYMPHOCYTE # (test code = LY#) K/mm3 0.6-3.2 N MONOCYTE # (test code = MO#) K/mm3 0.3-1.1 N EOSINOPHIL # (test code = EO#) K/mm3 0.0-0.4 N BASOPHIL # (test code = BA#) K/mm3 0.0-0.1 N MANUAL DIFF REQUIRED (test code = DIFF/SCN CRITERIA MDIFF) [id number] 15:08:00 Test Item Value Reference Range Interpretation Comments HAPTOGLOBIN (test code 110 mg/dL 34-200 Perfo rmed At: BN = HAPT) [facility] [address] [id number] L[place] Ph:[phone] THROMBOPLASTIN TIME [id number] 12:09:00 Test Item Value Reference Range Interpretation Comments THROMBOPLASTIN TIME PARTIAL 88.0 SECONDS 26-35 H (test code = PTT) CBC W/AUTO [id number] 05:05:00 Test Item Value Reference Range Interpretation Comments WHITE BLOOD CELL (test code = 8.2 K/mm3 3.5-11.0 N WBC) RED BLOOD CELL (test code = RBC) 2.75 M/mm3 4.70-6.10 L HEMOGLOBIN (test code = HGB) 8.0 G/DL 10.4-14.9 L HEMATOCRIT (test code = HCT) 25.5 % 31.5-44.1 L MEAN CELL VOLUME (test code = 92.7 Fl 84.5-98.6 N MCV) MEAN CELL HGB (test code = MCH) 29.1 pg 27.0-34.2 N MEAN CELL HGB CONCETRATION (test 31.4 G/DL 31.5-34.0 L code = MCHC) RED CELL DISTRIBUTION WIDTH 17.2 SD 11.5-14.5 H (test code = RDW) PLATELET COUNT (test code = PLT) 69.0 K/mm3 150-450 L MEAN PLATELET VOLUME (test code 11.00 fL 7.0-10.5 H = MPV) MANUAL DIFF REQUIRED (test code YES DIFF/SCN CRITERIA = MDIFF) WBC [id number] 05:05:00 Test Item Value Reference Range Interpretation Comments SEGMENTED NEUTROPHILS 69 % 40-75 N (test code = SEG) BAND NEUTROPHIL (test 4 % 0-8 N code = BAND) LYMPHOCYTE (test code 25 % 18.7-40.6 N = LYMPH) MONOCYTE (test code = 2 % 3.8-11.4 L MON) NUCLEATED RED BLOOD 6 #/100WBC 0-0 H CELL (test code = NRBC) ANISOCYTOSIS (test NORMAL NONE code = ANISO) PLATELET ESTIMATE DECREASED ADEQUATE PLATELET C OUNT (test code = PLTEST) THOUSAND REVIEWE D AND VERIFIED. PLATELET MORPHOLOGY NORMAL (test code = PLTMORPH) CBC W/AUTO [id number] 05:04:00 Test Item Value Reference Range Interpretation Comments WHITE BLOOD CELL (test code = 8.2 K/mm3 3.5-11.0 N WBC) RED BLOOD CELL (test code = RBC) 2.75 M/mm3 4.70-6.10 L HEMOGLOBIN (test code = HGB) 8.0 G/DL 10.4-14.9 L HEMATOCRIT (test code = HCT) 25.5 % 31.5-44.1 L MEAN CELL VOLUME (test code = 92.7 Fl 84.5-98.6 N MCV) MEAN CELL HGB (test code = MCH) 29.1 pg 27.0-34.2 N MEAN CELL HGB CONCETRATION (test 31.4 G/DL 31.5-34.0 L code = MCHC) RED CELL DISTRIBUTION WIDTH 17.2 SD 11.5-14.5 H (test code = RDW) PLATELET COUNT (test code = PLT) 69.0 K/mm3 150-450 L MEAN PLATELET VOLUME (test code 11.00 fL 7.0-10.5 H = MPV) MANUAL DIFF REQUIRED (test code YES DIFF/SCN CRITERIA = MDIFF) WBC [id number] 05:04:00 Test Item Value Reference Range Interpretation Comments SEGMENTED NEUTROPHILS (test code = SEG) % 40-75 LYMPHOCYTE (test code = LYMPH) % 18.7-40.6 CBC W/AUTO [id number] 05:04:00 Test Item Value Reference Range Interpretation Comments WHITE BLOOD CELL (test code = 8.2 K/mm3 3.5-11.0 N WBC) RED BLOOD CELL (test code = RBC) 2.75 M/mm3 4.70-6.10 L HEMOGLOBIN (test code = HGB) 8.0 G/DL 10.4-14.9 L HEMATOCRIT (test code = HCT) 25.5 % 31.5-44.1 L MEAN CELL VOLUME (test code = 92.7 Fl 84.5-98.6 N MCV) MEAN CELL HGB (test code = MCH) 29.1 pg 27.0-34.2 N MEAN CELL HGB CONCETRATION (test 31.4 G/DL 31.5-34.0 L code = MCHC) RED CELL DISTRIBUTION WIDTH 17.2 SD 11.5-14.5 H (test code = RDW) PLATELET COUNT (test code = PLT) 69.0 K/mm3 150-450 L MEAN PLATELET VOLUME (test code 11.00 fL 7.0-10.5 H = MPV) MANUAL DIFF REQUIRED (test code YES DIFF/SCN CRITERIA = MDIFF) WBC [id number] 05:04:00 Test Item Value Reference Range Interpretation Comments SEGMENTED NEUTROPHILS (test code = SEG) % 40-75 LYMPHOCYTE (test code = LYMPH) % 18.7-40.6 BASIC METABOLIC [id number] 04:33:00 Test Item Value Reference Range Interpretation Comments SODIUM (test code = NA) 140 mmol/L 134-147 N POTASSIUM (test code = K) 3.5 mmol/L 3.4-5.0 N CHLORIDE (test code = CL) 104 mmol/L 100-108 N CARBON DIOXIDE (test code = CO2) 28 mmol/L 21-32 N ANION GAP (test code = GAP) 8.0 GAP calc 4.0-15.0 N GLUCOSE (test code = GLU) 144 MG/DL 70-110 H BLOOD UREA NITROGEN (test code = 27 MG/DL 7-18 H BUN) GLOMERULAR FILTRATION RATE (test 43 estGFR >60 L code = GFR) CREATININE (test code = CREAT) 1.5 MG/DL 0.6-1.0 H CALCIUM (test code = CA) 8.0 MG/DL 8.5-10.1 L [id number] 04:33:00 Test Item Value Reference Range Interpretation Comments MAGNESIUM (test code = MAG) 1.5 MG/DL 1.8-2.4 L THROMBOPLASTIN TIME [id number] 04:27:00 Test Item Value Reference Range Interpretation Comments THROMBOPLASTIN TIME PARTIAL 92.9 SECONDS 26-35 H (test code = PTT) CBC W/AUTO [id number] 04:17:00 Test Item Value Reference Range Interpretation Comments WHITE BLOOD CELL (test code = WBC) 8.2 K/mm3 3.5-11.0 N RED BLOOD CELL (test code = RBC) 2.75 M/mm3 4.70-6.10 L HEMOGLOBIN (test code = HGB) 8.0 G/DL 10.4-14.9 L HEMATOCRIT (test code = HCT) 25.5 % 31.5-44.1 L MEAN CELL VOLUME (test code = MCV) 92.7 Fl 84.5-98.6 N MEAN CELL HGB (test code = MCH) 29.1 pg 27.0-34.2 N MEAN CELL HGB CONCETRATION (test 31.4 G/DL 31.5-34.0 L code = MCHC) RED CELL DISTRIBUTION WIDTH (test 17.2 SD 11.5-14.5 H code = RDW) PLATELET COUNT (test code = PLT) 69.0 K/mm3 150-450 L MEAN PLATELET VOLUME (test code = 11.00 fL 7.0-10.5 H MPV) NEUTROPHIL % (test code = NT%) % 40-76 N LYMPHOCYTE % (test code = LY%) % 20.5-51.1 N MONOCYTE % (test code = MO%) % 1.7-9.3 N EOSINOPHIL % (test code = EO%) % 0.0-6.0 N BASOPHIL % (test code = BA%) % 0.0-2.0 N NEUTROPHIL # (test code = NT#) K/mm3 1.8-7.6 N LYMPHOCYTE # (test code = LY#) K/mm3 0.6-3.2 N MONOCYTE # (test code = MO#) K/mm3 0.3-1.1 N EOSINOPHIL # (test code = EO#) K/mm3 0.0-0.4 N BASOPHIL # (test code = BA#) K/mm3 0.0-0.1 N MANUAL DIFF REQUIRED (test code = DIFF/SCN CRITERIA MDIFF) THROMBOPLASTIN TIME [id number] 21:58:00 Test Item Value Reference Range Interpretation Comments THROMBOPLASTIN TIME PARTIAL 68.4 SECONDS 26-35 H (test code = PTT) THROMBOPLASTIN TIME [id number] 14:02:00 Test Item Value Reference Range Interpretation Comments THROMBOPLASTIN TIME PARTIAL 37.8 SECONDS 26-35 H (test code = PTT) THROMBOPLASTIN TIME [id number] 09:13:00 Test Item Value Reference Range Interpretation Comments THROMBOPLASTIN TIME PARTIAL >400 SECONDS 26-35 HH (test code = PTT) THROMBOPLASTIN TIME [id number] 07:46:00 Test Item Value Reference Range Interpretation Comments THROMBOPLASTIN TIME PARTIAL >400 SECONDS 26-35 HH (test code = PTT) CBC W/AUTO [id number] 07:29:00 Test Item Value Reference Range Interpretation Comments WHITE BLOOD CELL (test code = 6.4 K/mm3 3.5-11.0 N WBC) RED BLOOD CELL (test code = RBC) 2.84 M/mm3 4.70-6.10 L HEMOGLOBIN (test code = HGB) 8.4 G/DL 10.4-14.9 L HEMATOCRIT (test code = HCT) 26.7 % 31.5-44.1 L MEAN CELL VOLUME (test code = 94.0 Fl 84.5-98.6 N MCV) MEAN CELL HGB (test code = MCH) 29.6 pg 27.0-34.2 N MEAN CELL HGB CONCETRATION (test 31.5 G/DL 31.5-34.0 N code = MCHC) RED CELL DISTRIBUTION WIDTH 17.2 SD 11.5-14.5 H (test code = RDW) PLATELET COUNT (test code = PLT) 66.0 K/mm3 150-450 L MEAN PLATELET VOLUME (test code 11.20 fL 7.0-10.5 H = MPV) MANUAL DIFF REQUIRED (test code YES DIFF/SCN CRITERIA = MDIFF) WBC [id number] 07:29:00 Test Item Value Reference Range Interpretation Comments SEGMENTED NEUTROPHILS 67 % 40-75 N (test code = SEG) BAND NEUTROPHIL (test 5 % 0-8 N code = BAND) LYMPHOCYTE (test code 26 % 18.7-40.6 N = LYMPH) MONOCYTE (test code = 2 % 3.8-11.4 L MON) NUCLEATED RED BLOOD 4 #/100WBC 0-0 H CELL (test code = NRBC) ANISOCYTOSIS (test NORMAL NONE code = ANISO) PLATELET ESTIMATE DECREASED ADEQUATE PLATELET C OUNT (test code = PLTEST) THOUSAND REVIEWE D AND VERIFIED. PLATELET MORPHOLOGY NORMAL (test code = PLTMORPH) CBC W/AUTO [id number] 07:28:00 Test Item Value Reference Range Interpretation Comments WHITE BLOOD CELL (test code = 6.4 K/mm3 3.5-11.0 N WBC) RED BLOOD CELL (test code = RBC) 2.84 M/mm3 4.70-6.10 L HEMOGLOBIN (test code = HGB) 8.4 G/DL 10.4-14.9 L HEMATOCRIT (test code = HCT) 26.7 % 31.5-44.1 L MEAN CELL VOLUME (test code = 94.0 Fl 84.5-98.6 N MCV) MEAN CELL HGB (test code = MCH) 29.6 pg 27.0-34.2 N MEAN CELL HGB CONCETRATION (test 31.5 G/DL 31.5-34.0 N code = MCHC) RED CELL DISTRIBUTION WIDTH 17.2 SD 11.5-14.5 H (test code = RDW) PLATELET COUNT (test code = PLT) 66.0 K/mm3 150-450 L MEAN PLATELET VOLUME (test code 11.20 fL 7.0-10.5 H = MPV) MANUAL DIFF REQUIRED (test code YES DIFF/SCN CRITERIA = MDIFF) WBC [id number] 07:28:00 Test Item Value Reference Range Interpretation Comments SEGMENTED NEUTROPHILS (test code = SEG) % 40-75 LYMPHOCYTE (test code = LYMPH) % 18.7-40.6 CBC W/AUTO [id number] 07:28:00 Test Item Value Reference Range Interpretation Comments WHITE BLOOD CELL (test code = 6.4 K/mm3 3.5-11.0 N WBC) RED BLOOD CELL (test code = RBC) 2.84 M/mm3 4.70-6.10 L HEMOGLOBIN (test code = HGB) 8.4 G/DL 10.4-14.9 L HEMATOCRIT (test code = HCT) 26.7 % 31.5-44.1 L MEAN CELL VOLUME (test code = 94.0 Fl 84.5-98.6 N MCV) MEAN CELL HGB (test code = MCH) 29.6 pg 27.0-34.2 N MEAN CELL HGB CONCETRATION (test 31.5 G/DL 31.5-34.0 N code = MCHC) RED CELL DISTRIBUTION WIDTH 17.2 SD 11.5-14.5 H (test code = RDW) PLATELET COUNT (test code = PLT) 66.0 K/mm3 150-450 L MEAN PLATELET VOLUME (test code 11.20 fL 7.0-10.5 H = MPV) MANUAL DIFF REQUIRED (test code YES DIFF/SCN CRITERIA = MDIFF) WBC [id number] 07:28:00 Test Item Value Reference Range Interpretation Comments SEGMENTED NEUTROPHILS (test code = SEG) % 40-75 LYMPHOCYTE (test code = LYMPH) % 18.7-40.6 CBC W/AUTO [id number] 06:18:00 Test Item Value Reference Range Interpretation Comments WHITE BLOOD CELL (test code = WBC) 6.4 K/mm3 3.5-11.0 N RED BLOOD CELL (test code = RBC) 2.84 M/mm3 4.70-6.10 L HEMOGLOBIN (test code = HGB) 8.4 G/DL 10.4-14.9 L HEMATOCRIT (test code = HCT) 26.7 % 31.5-44.1 L MEAN CELL VOLUME (test code = MCV) 94.0 Fl 84.5-98.6 N MEAN CELL HGB (test code = MCH) 29.6 pg 27.0-34.2 N MEAN CELL HGB CONCETRATION (test 31.5 G/DL 31.5-34.0 N code = MCHC) RED CELL DISTRIBUTION WIDTH (test 17.2 SD 11.5-14.5 H code = RDW) PLATELET COUNT (test code = PLT) 66.0 K/mm3 150-450 L MEAN PLATELET VOLUME (test code = 11.20 fL 7.0-10.5 H MPV) NEUTROPHIL % (test code = NT%) % 40-76 N LYMPHOCYTE % (test code = LY%) % 20.5-51.1 N MONOCYTE % (test code = MO%) % 1.7-9.3 N EOSINOPHIL % (test code = EO%) % 0.0-6.0 N BASOPHIL % (test code = BA%) % 0.0-2.0 N NEUTROPHIL # (test code = NT#) K/mm3 1.8-7.6 N LYMPHOCYTE # (test code = LY#) K/mm3 0.6-3.2 N MONOCYTE # (test code = MO#) K/mm3 0.3-1.1 N EOSINOPHIL # (test code = EO#) K/mm3 0.0-0.4 N BASOPHIL # (test code = BA#) K/mm3 0.0-0.1 N MANUAL DIFF REQUIRED (test code = DIFF/SCN CRITERIA MDIFF) PROTEIN ELECTROPHORESIS [id number] 05:53:00 Test Item Value Reference Range Interpretation Comments TOTAL PROTEIN TEST NOT PERFORMED () Please r efer to the (test code = g/dL following speci men PROTE) for additional labresults.Christian se see specimen # [id number] for testing. 019- [facility] ALBUMIN (test TEST NOT PERFORMED () Test not performed code = ALBE) [id number] TEST NOT PERFORMED () Test not performed (test code = A1G) [id number]-2-[id number] TEST NOT PERFORMED () Test not performed (test code = A2G) BETA GLOBULIN TEST NOT PERFORMED () Test not performed (test code = BG) GAMMA GLOBULIN TEST NOT PERFORMED () Test no t performed (test code = GG) LACTIC DEHYDROGENASE(LDH)2019-07-09 05:53:00 Test Item Value Reference Range Interpretation Comments LACTIC DEHYDROGENASE(LDH) (test 340 Unit/L 84-246 H code = LDH) FE W/TOTAL IRON BINDING CAP.2019-07-09 05:53:00 Test Item Value Reference Range Interpretation Comments SERUM IRON (test code = IRON) 110 mcG/DL 50-170 N TOTAL IRON BINDING CAPACITY (test 200 mcG/DL 250-450 L code = TIBC) IRON SATURATION (test code = 55 % calc 12-57 N FESAT) VITAMIN [id number] 05:53:00 Test Item Value Reference Range Interpretation Comments VITAMIN B12 (test code = VITB12) 2803 PG/ML 183-986 H FOLIC [id number] 05:53:00 Test Item Value Reference Range Interpretation Comments FOLIC ACID (test code = FOL) 14.70 NG/ML 3.10-17.50 N THYROID STIMULATING [id number] 05:53:00 Test Item Value Reference Range Interpretation Comments THYROID STIMULATING HORMONE 0.111 mcIU/ML 0.340-4.820 L (test code = TSH) THROMBOPLASTIN TIME [id number] 22:44:00 Test Item Value Reference Range Interpretation Comments THROMBOPLASTIN TIME PARTIAL 146.1 SECONDS 26-35 HH (test code = PTT) ANTINUCLEAR ANTIBODIES [id number] 15:28:00 Test Item Value Reference Range Interpretation Comments HARSH TITER (test code Negative () = ANATITR) Nega tive <1:80 Borderline 1:8 0 Positive >1:80Performed At: [facility] [address] [id number] Kyle L MD Ph:[phone] ANTINUCLEAR ANTIBODIES [id number] 13:09:00 Test Item Value Reference Range Interpretation Comments HARSH TITER (test code Negative () = ANATITR) Neg ative <1:80 Borderline 1:8 0 Positive >1:80Performed At: [facility] [id number] paulino Patricio MD Ph:[phone] HARSH COMMENT (test code = ANACOM) PROTEIN ELECTROPHORESIS [id number] 10:09:00 Test Item Value Reference Range Interpretation Comments TOTAL PROTEIN (test g/dL () Please r efer to the code = PROTE) following spec nuris for additional labresults.Plea se see specimen # [id number] for testing. [facility] ALBUMIN (test code = () Test no t performed ALBE) [id number] (test () Test not performed code = A1G) [id number] (test () Test not performed code = A2G) BETA GLOBULIN (test () Test not performed code = BG) GAMMA GLOBULIN (test () Test no t performed code = GG) LACTIC DEHYDROGENASE(LDH)2019-07-08 10:09:00 Test Item Value Reference Range Interpretation Comments LACTIC DEHYDROGENASE(LDH) (test 340 Unit/L 84-246 H code = LDH) FE W/TOTAL IRON BINDING CAP.2019-07-08 10:09:00 Test Item Value Reference Range Interpretation Comments SERUM IRON (test code = IRON) 110 mcG/DL 50-170 N TOTAL IRON BINDING CAPACITY (test 200 mcG/DL 250-450 L code = TIBC) IRON SATURATION (test code = 55 % calc 12-57 N FESAT) VITAMIN [id number] 10:09:00 Test Item Value Reference Range Interpretation Comments VITAMIN B12 (test code = VITB12) 2803 PG/ML 183-986 H FOLIC [id number] 10:09:00 Test Item Value Reference Range Interpretation Comments FOLIC ACID (test code = FOL) 14.70 NG/ML 3.10-17.50 N THYROID STIMULATING [id number] 10:09:00 Test Item Value Reference Range Interpretation Comments THYROID STIMULATING HORMONE 0.111 mcIU/ML 0.340-4.820 L (test code = TSH) CBC W/AUTO [id number] 08:39:00 Test Item Value Reference Range Interpretation Comments WHITE BLOOD CELL (test 7.6 K/mm3 3.5-11.0 N code = WBC) RED BLOOD CELL (test 2.91 M/mm3 4.70-6.10 L code = RBC) HEMOGLOBIN (test code 8.5 G/DL 10.4-14.9 L = HGB) HEMATOCRIT (test code 27.0 % 31.5-44.1 L = HCT) MEAN CELL VOLUME (test 92.8 Fl 84.5-98.6 N code = MCV) MEAN CELL HGB (test 29.2 pg 27.0-34.2 N code = MCH) MEAN CELL HGB 31.5 G/DL 31.5-34.0 N CONCETRATION (test code = MCHC) RED CELL DISTRIBUTION 17.2 SD 11.5-14.5 H WIDTH (test code = RDW) PLATELET COUNT (test 68.0 K/mm3 150-450 L code = PLT) MEAN PLATELET VOLUME 11.00 fL 7.0-10.5 H (test code = MPV) NEUTROPHIL % (test 68.4 % 40-76 code = NT%) LYMPHOCYTE % (test 24.8 % 20.5-51.1 N code = LY%) MONOCYTE % (test code 6.3 % 1.7-9.3 N = MO%) EOSINOPHIL % (test 0.4 % 0.0-6.0 N code = EO%) BASOPHIL % (test code 0.1 % 0.0-2.0 N = BA%) NEUTROPHIL # (test 5.18 K/mm3 1.8-7.6 N code = NT#) LYMPHOCYTE # (test 1.9 K/mm3 0.6-3.2 N code = LY#) MONOCYTE # (test code 0.5 K/mm3 0.3-1.1 N = MO#) EOSINOPHIL # (test 0.0 K/mm3 0.0-0.4 N code = EO#) BASOPHIL # (test code 0.0 K/mm3 0.0-0.1 N = BA#) MANUAL DIFF REQUIRED NO DIFF/SCN CRITERIA SLIDE R EVIEW (test code = MDIFF) CONSISTA NT WITH AUTO DIFFERENTIAL. RBC [id number] 08:39:00 Test Item Value Reference Range Interpretation Comments PLATELET ESTIMATE SLIGHTLY DECREASED ADEQUATE PLT ESTIMATE (test code = THOUSAND 88,000 TO 110,0 00 PLTEST) PLATELET MORPHOLOGY LARGE PLATELETS (test code = PLTMORPH) CBC W/AUTO [id number] 08:38:00 Test Item Value Reference Range Interpretation Comments WHITE BLOOD CELL (test 7.6 K/mm3 3.5-11.0 N code = WBC) RED BLOOD CELL (test 2.91 M/mm3 4.70-6.10 L code = RBC) HEMOGLOBIN (test code 8.5 G/DL 10.4-14.9 L = HGB) HEMATOCRIT (test code 27.0 % 31.5-44.1 L = HCT) MEAN CELL VOLUME (test 92.8 Fl 84.5-98.6 N code = MCV) MEAN CELL HGB (test 29.2 pg 27.0-34.2 N code = MCH) MEAN CELL HGB 31.5 G/DL 31.5-34.0 N CONCETRATION (test code = MCHC) RED CELL DISTRIBUTION 17.2 SD 11.5-14.5 H WIDTH (test code = RDW) PLATELET COUNT (test 68.0 K/mm3 150-450 L code = PLT) MEAN PLATELET VOLUME 11.00 fL 7.0-10.5 H (test code = MPV) NEUTROPHIL % (test 68.4 % 40-76 code = NT%) LYMPHOCYTE % (test 24.8 % 20.5-51.1 N code = LY%) MONOCYTE % (test code 6.3 % 1.7-9.3 N = MO%) EOSINOPHIL % (test 0.4 % 0.0-6.0 N code = EO%) BASOPHIL % (test code 0.1 % 0.0-2.0 N = BA%) NEUTROPHIL # (test 5.18 K/mm3 1.8-7.6 N code = NT#) LYMPHOCYTE # (test 1.9 K/mm3 0.6-3.2 N code = LY#) MONOCYTE # (test code 0.5 K/mm3 0.3-1.1 N = MO#) EOSINOPHIL # (test 0.0 K/mm3 0.0-0.4 N code = EO#) BASOPHIL # (test code 0.0 K/mm3 0.0-0.1 N = BA#) MANUAL DIFF REQUIRED NO DIFF/SCN CRITERIA SLIDE R EVIEW (test code = MDIFF) CONSISTA NT WITH AUTO DIFFERENTIAL. CBC W/AUTO [id number] 08:38:00 Test Item Value Reference Range Interpretation Comments WHITE BLOOD CELL (test 7.6 K/mm3 3.5-11.0 N code = WBC) RED BLOOD CELL (test 2.91 M/mm3 4.70-6.10 L code = RBC) HEMOGLOBIN (test code 8.5 G/DL 10.4-14.9 L = HGB) HEMATOCRIT (test code 27.0 % 31.5-44.1 L = HCT) MEAN CELL VOLUME (test 92.8 Fl 84.5-98.6 N code = MCV) MEAN CELL HGB (test 29.2 pg 27.0-34.2 N code = MCH) MEAN CELL HGB 31.5 G/DL 31.5-34.0 N CONCETRATION (test code = MCHC) RED CELL DISTRIBUTION 17.2 SD 11.5-14.5 H WIDTH (test code = RDW) PLATELET COUNT (test 68.0 K/mm3 150-450 L code = PLT) MEAN PLATELET VOLUME 11.00 fL 7.0-10.5 H (test code = MPV) NEUTROPHIL % (test 68.4 % 40-76 code = NT%) LYMPHOCYTE % (test 24.8 % 20.5-51.1 N code = LY%) MONOCYTE % (test code 6.3 % 1.7-9.3 N = MO%) EOSINOPHIL % (test 0.4 % 0.0-6.0 N code = EO%) BASOPHIL % (test code 0.1 % 0.0-2.0 N = BA%) NEUTROPHIL # (test 5.18 K/mm3 1.8-7.6 N code = NT#) LYMPHOCYTE # (test 1.9 K/mm3 0.6-3.2 N code = LY#) MONOCYTE # (test code 0.5 K/mm3 0.3-1.1 N = MO#) EOSINOPHIL # (test 0.0 K/mm3 0.0-0.4 N code = EO#) BASOPHIL # (test code 0.0 K/mm3 0.0-0.1 N = BA#) MANUAL DIFF REQUIRED NO DIFF/SCN CRITERIA SLIDE R NETTIEW (test code = MDIFF) CONSISTA NT WITH AUTO DIFFERENTIAL. COMPREHENSIVE METABOLIC [id number] 06:42:00 Test Item Value Reference Range Interpretation Comments SODIUM (test code = NA) 142 mmol/L 134-147 N POTASSIUM (test code = K) 3.7 mmol/L 3.4-5.0 N CHLORIDE (test code = CL) 107 mmol/L 100-108 N CARBON DIOXIDE (test code = CO2) 29 mmol/L 21-32 N ANION GAP (test code = GAP) 6.0 GAP calc 4.0-15.0 N GLUCOSE (test code = GLU) 147 MG/DL 70-110 H BLOOD UREA NITROGEN (test code = 43 MG/DL 7-18 H BUN) GLOMERULAR FILTRATION RATE (test 35 estGFR >60 L code = GFR) CREATININE (test code = CREAT) 1.8 MG/DL 0.6-1.0 H TOTAL PROTEIN (test code = PROT) 4.7 G/DL 6.4-8.2 L ALBUMIN (test code = ALB) 2.6 G/DL 3.4-5.0 L GLOBULIN (test code = GLOB) 2.1 GM/dL ALBUMIN/GLOBULIN RATIO (test 1.2 RATIO 1.2-2.2 N code = A/G) CALCIUM (test code = CA) 8.3 MG/DL 8.5-10.1 L BILIRUBIN TOTAL (test code = 0.60 MG/DL 0.2-1.2 N BILT) SGOT/AST (test code = AST) 40 Unit/L 15-37 H SGPT/ALT (test code = ALT) 77 Unit/L 12-78 N ALKALINE PHOSPHATASE TOTAL (test 34 Unit/L 45-117 L code = ALKP) PROTHROMBIN [id number] 06:41:00 Test Item Value Reference Range Interpretation Comments PT PATIENT (test code = PTP) 19.0 SECONDS 9.3-12.9 H INTERNATIONAL NORMAL RATIO 1.64 INR Unit 0.8-1.2 H (test code = INR) THROMBOPLASTIN TIME [id number] 06:41:00 Test Item Value Reference Range Interpretation Comments THROMBOPLASTIN TIME PARTIAL 20.4 SECONDS 26-35 L (test code = PTT) COMPREHENSIVE METABOLIC [id number] 06:37:00 Test Item Value Reference Range Interpretation Comments SODIUM (test code = NA) 142 mmol/L 134-147 N POTASSIUM (test code = K) 3.7 mmol/L 3.4-5.0 N CHLORIDE (test code = CL) 107 mmol/L 100-108 N CARBON DIOXIDE (test code = CO2) 29 mmol/L 21-32 N ANION GAP (test code = GAP) 6.0 GAP calc 4.0-15.0 N GLUCOSE (test code = GLU) 147 MG/DL 70-110 H BLOOD UREA NITROGEN (test code = 43 MG/DL 7-18 H BUN) GLOMERULAR FILTRATION RATE (test estGFR >60 code = GFR) CREATININE (test code = CREAT) MG/DL 0.6-1.0 TOTAL PROTEIN (test code = PROT) G/DL 6.4-8.2 ALBUMIN (test code = ALB) G/DL 3.4-5.0 GLOBULIN (test code = GLOB) GM/dL ALBUMIN/GLOBULIN RATIO (test RATIO 1.2-2.2 code = A/G) CALCIUM (test code = CA) 8.3 MG/DL 8.5-10.1 L BILIRUBIN TOTAL (test code = MG/DL 0.2-1.2 BILT) SGOT/AST (test code = AST) Unit/L 15-37 SGPT/ALT (test code = ALT) Unit/L 12-78 ALKALINE PHOSPHATASE TOTAL (test Unit/L 45-117 code = ALKP) CBC W/AUTO [id number] 06:30:00 Test Item Value Reference Range Interpretation Comments WHITE BLOOD CELL (test code = WBC) 7.6 K/mm3 3.5-11.0 N RED BLOOD CELL (test code = RBC) 2.91 M/mm3 4.70-6.10 L HEMOGLOBIN (test code = HGB) 8.5 G/DL 10.4-14.9 L HEMATOCRIT (test code = HCT) 27.0 % 31.5-44.1 L MEAN CELL VOLUME (test code = MCV) 92.8 Fl 84.5-98.6 N MEAN CELL HGB (test code = MCH) 29.2 pg 27.0-34.2 N MEAN CELL HGB CONCETRATION (test 31.5 G/DL 31.5-34.0 N code = MCHC) RED CELL DISTRIBUTION WIDTH (test 17.2 SD 11.5-14.5 H code = RDW) PLATELET COUNT (test code = PLT) 68.0 K/mm3 150-450 L MEAN PLATELET VOLUME (test code = 11.00 fL 7.0-10.5 H MPV) NEUTROPHIL % (test code = NT%) % 40-76 LYMPHOCYTE % (test code = LY%) % 20.5-51.1 N MONOCYTE % (test code = MO%) % 1.7-9.3 N EOSINOPHIL % (test code = EO%) % 0.0-6.0 N BASOPHIL % (test code = BA%) % 0.0-2.0 N NEUTROPHIL # (test code = NT#) K/mm3 1.8-7.6 N LYMPHOCYTE # (test code = LY#) K/mm3 0.6-3.2 N MONOCYTE # (test code = MO#) K/mm3 0.3-1.1 N EOSINOPHIL # (test code = EO#) K/mm3 0.0-0.4 N BASOPHIL # (test code = BA#) K/mm3 0.0-0.1 N MANUAL DIFF REQUIRED (test code = DIFF/SCN CRITERIA MDIFF) RETIC COUNT (AUTOMATED)2019-07-08 02:31:00 Test Item Value Reference Range Interpretation Comments RETIC COUNT (AUTOMATED) (test code = 2.6 % 0.3-2.3 H RETICA) RETIC COUNT (AUTOMATED)2019-07-08 02:30:00 Test Item Value Reference Range Interpretation Comments RETIC COUNT (AUTOMATED) (test code = 2.6 % 0.3-2.3 H RETICA) HGB [id number] 21:05:00 Test Item Value Reference Range Interpretation Comments HEMOGLOBIN (test code = HGB) 9.1 G/DL 10.4-14.9 L HEMATOCRIT (test code = HCT) 28.7 % 31.5-44.1 L PROTEIN ELECTROPHORESIS [id number] 17:59:00 Test Item Value Reference Range Interpretation Comments TOTAL PROTEIN (test code = PROTE) ALBUMIN (test code = ALBE) [id number] (test code = A1G) [id number] (test code = A2G) BETA GLOBULIN (test code = BG) GAMMA GLOBULIN (test code = GG) M-SPIKE,SERUM (test code = MSPIKES) GLOBULIN ELECT (test code = GLOBE) ALBUMIN/GLOBULIN RATIO (test code = AGE) PROT.ELECTROPH.INTERPRETATION (test code = ELEINT) LACTIC DEHYDROGENASE(LDH)2019-07-07 17:59:00 Test Item Value Reference Range Interpretation Comments LACTIC DEHYDROGENASE(LDH) (test 340 Unit/L 84-246 H code = LDH) FE W/TOTAL IRON BINDING CAP.2019-07-07 17:59:00 Test Item Value Reference Range Interpretation Comments SERUM IRON (test code = IRON) 110 mcG/DL 50-170 N TOTAL IRON BINDING CAPACITY (test 200 mcG/DL 250-450 L code = TIBC) IRON SATURATION (test code = 55 % calc 12-57 N FESAT) VITAMIN [id number] 17:59:00 Test Item Value Reference Range Interpretation Comments VITAMIN B12 (test code = VITB12) 2803 PG/ML 183-986 H FOLIC [id number] 17:59:00 Test Item Value Reference Range Interpretation Comments FOLIC ACID (test code = FOL) 14.70 NG/ML 3.10-17.50 N THYROID STIMULATING [id number] 17:59:00 Test Item Value Reference Range Interpretation Comments THYROID STIMULATING HORMONE 0.111 mcIU/ML 0.340-4.820 L (test code = TSH) PROTEIN ELECTROPHORESIS [id number] 17:07:00 Test Item Value Reference Range Interpretation Comments TOTAL PROTEIN (test code = PROTE) ALBUMIN (test code = ALBE) [id number] (test code = A1G) [id number] (test code = A2G) BETA GLOBULIN (test code = BG) GAMMA GLOBULIN (test code = GG) M-SPIKE,SERUM (test code = MSPIKES) GLOBULIN ELECT (test code = GLOBE) ALBUMIN/GLOBULIN RATIO (test code = AGE) PROT.ELECTROPH.INTERPRETATION (test code = ELEINT) LACTIC DEHYDROGENASE(LDH)2019-07-07 17:07:00 Test Item Value Reference Range Interpretation Comments LACTIC DEHYDROGENASE(LDH) (test 340 Unit/L 84-246 H code = LDH) FE W/TOTAL IRON BINDING CAP.2019-07-07 17:07:00 Test Item Value Reference Range Interpretation Comments SERUM IRON (test code = IRON) 110 mcG/DL 50-170 N TOTAL IRON BINDING CAPACITY (test 200 mcG/DL 250-450 L code = TIBC) IRON SATURATION (test code = 55 % calc 12-57 N FESAT) VITAMIN [id number] 17:07:00 Test Item Value Reference Range Interpretation Comments VITAMIN B12 (test code = VITB12) PG/ML 183-986 FOLIC [id number] 17:07:00 Test Item Value Reference Range Interpretation Comments FOLIC ACID (test code = FOL) 14.70 NG/ML 3.10-17.50 N THYROID STIMULATING [id number] 17:07:00 Test Item Value Reference Range Interpretation Comments THYROID STIMULATING HORMONE 0.111 mcIU/ML 0.340-4.820 L (test code = TSH) PROTEIN ELECTROPHORESIS [id number] 16:11:00 Test Item Value Reference Range Interpretation Comments TOTAL PROTEIN (test code = PROTE) ALBUMIN (test code = ALBE) [id number] (test code = A1G) [id number] (test code = A2G) BETA GLOBULIN (test code = BG) GAMMA GLOBULIN (test code = GG) M-SPIKE,SERUM (test code = MSPIKES) GLOBULIN ELECT (test code = GLOBE) ALBUMIN/GLOBULIN RATIO (test code = AGE) PROT.ELECTROPH.INTERPRETATION (test code = ELEINT) LACTIC DEHYDROGENASE(LDH)2019-07-07 16:11:00 Test Item Value Reference Range Interpretation Comments LACTIC DEHYDROGENASE(LDH) (test 340 Unit/L 84-246 H code = LDH) FE W/TOTAL IRON BINDING CAP.2019-07-07 16:11:00 Test Item Value Reference Range Interpretation Comments SERUM IRON (test code = IRON) 110 mcG/DL 50-170 N TOTAL IRON BINDING CAPACITY (test 200 mcG/DL 250-450 L code = TIBC) IRON SATURATION (test code = 55 % calc 12-57 N FESAT) VITAMIN [id number] 16:11:00 Test Item Value Reference Range Interpretation Comments VITAMIN B12 (test code = VITB12) PG/ML 183-986 FOLIC [id number] 16:11:00 Test Item Value Reference Range Interpretation Comments FOLIC ACID (test code = FOL) NG/ML 3.10-17.50 THYROID STIMULATING [id number] 16:11:00 Test Item Value Reference Range Interpretation Comments THYROID STIMULATING HORMONE 0.111 mcIU/ML 0.340-4.820 L (test code = TSH) - US GUIDANCE VASC [id number] 15:35:00 Name: DAVID ULRICH [facility] : 1940 Age/S: 79 / F [id number] Unit #: [id number] Loc: [place] [address] Phys: Isma Faust MD Acct: [id number] Dis Date: Status: ADM IN PHONE #: [phone] Exam Date: 07/07/2019 1500 FAX #: Reason: IV ACCESS EXAMS: CPT: [id number] US GUIDANCE VASC ACCESS 35221 C3 Central Venous Catheter Placement Under Ultrasound [...] image was stored to PACS. IMPRESSION: Successful image- guided placement of a central venous catheter as described above. PAGE 1 Signed Report (CONTINUED) Name: DAVID ULRICH : 1940 Age/S: 79 / F [address] Unit #: [id number] Loc: [place] [address] Phys: Isma Faust MD Acct: [id number] Dis Date: Status: ADM IN PHONE #: [phone] Exam Date: 07/07/2019 1500 FAX #: Reason: IV ACCESS EXAMS: CPT: [id number] US GUIDANCE VASC ACCESS [id number] <Continued> at 1535 Reported and signed by: Mazin Morales M.D.CC: Isma Faust MD Technologist: Ioana Townsend, RT(R),RDMS(AB) Trnrib Date/Time: 07/07/2019 (1535) t.[email or web address].[email or web address] PAGE 2 Signed Report Name: DAVID ULRICHland : 1940 Age/S: 79 / F [address] Unit #: [id number] Loc: [place] [address] Phys: Isma Faust MD Acct: [id number] Dis Date: Status: ADM IN PHONE #: [phone] Exam Date: 07/07/2019 1500 FAX #: Reason: IV ACCESS EXAMS: CPT: [id number] US GUIDANCE VASC ACCESS [id number] <Continued> Orig Print D/T: S: 07/07/2019 (1538) Probe: PAGE 3 Signed Report- XR CHEST 1 [id number] 15:33:00 Name: DAVID ULRICHland : 1940 Age/S: 79 / F [id number] Unit #: [id number] Loc: [place] [address] Phys: Mazin Morales MD Acct: [id number] Dis Date: Status: ADM IN PHONE #: [phone] Exam Date: 07/07/2019 1521 FAX #: Reason: S/P CENTRAL LINE PLACEMENT EXAMS: CPT: [id number] XR CHEST 1 V 53485 Fluoro Time: DAP (Gy m2): Air Kerma [...] vascular congestion. Bones: Cervical fusion hardware seen. IMPRESSION: 1. Right-sided central venous catheter in place with the tip at the atriocaval junction. No pneumothorax. at 1533 Reported and signed by: Mazin Morales M.D. CC: Mazin Morales MD; Isma Faust MD PAGE 1 Signed Report Name: DAVID ULRICH : 1940 Age/S: 79 / F [id number] Unit #: [id number] Loc: [place] [address] Phys: Mazin Morales MD Acct: [id number] Dis Date: Status: ADM IN PHONE #: [phone] Exam Date: 07/07/2019 1521 FAX #: Reason: S/P CENTRAL LINE PLACEMENT EXAMS: CPT: [id number] XR CHEST 1 V 13739 Fluoro Time: DAP (Gy m2): Air Kerma (mGy): <Continued> Technologist: Vahid Dean RT(R)(CT)(MRI) Trnscb Date/Time: 07/07/2019 (1533) EllieSI1 PAGE 2 Signed ReportFIBRINOGEN 2019-07-07 14:54:00 Test Item Value Reference Range Interpretation Comments FIBRINOGEN (test code = FIB) 141 mg/dL 185-453 L - US ABDOMEN [id number] 14:16:00 Name: DAVID ULRICH : 1940 Age/S: 79 / F [address] Unit #: [id number] Loc: [place] [address] Phys: Adela Bejarano MD Acct: [id number] Dis Date: Status: ADM IN PHONE #: [phone] Exam Date: 07/07/2019 1312 FAX #: Reason: thrombocytopenia, evaluate for liver disease EXAMS: CPT: [id number] US ABDOMEN LTD 99126 C3 TIME OF STUDY: 07/07/2019 8:44 AM REASON FOR EXAM: thrombocytopenia, evaluate for liver disease COMPARISON: None. TECHNIQUE: Liver/gallbladder ultrasound. B-mode grayscale, color Doppler, and spectral Doppler images [...] Ioana Townsend, RT(R),RDMS(AB) Trnscb Date/Time: 07/07/2019 (1416) t.SDR.[email or web address] PAGE 1 Signed Report Name: DAVID ULRICH [place] : 1940 Age/S: 79 / F [address] Unit #: [id number] Loc: [place] [address] Phys: Adela Bejarano MD Acct: [id number] Dis Date: Status: ADM IN PHONE #: [phone] Exam Date: 07/07/2019 1312 FAX #: Reason: thrombocytopenia, evaluate for liver disease EXAMS: CPT: [id number] US ABDOMEN LTD 54268 <Continued> Orig Print D/T: S: 07/07/2019 (4144) Probe: PAGE 2 Signed Report- DUP VEIN [id number] 14:16:00 Name: DAVID ULRICH : 1940 Age/S: 79 / F [address] Unit #: [id number] Loc: [place] [address] Phys: Isma Faust MD Acct: [id number] Dis Date: Status: ADM IN PHONE #: [phone] Exam Date: 07/07/2019 1350 FAX #: Reason: HX OF PE, BLE EDEMA EXAMS: CPT: [id number] DUP [place]IN CLIFF [address] C3 TIME OF STUDY: 07/07/2019 12:09 AM REASON FOR EXAM: HX [...] Malinda MARTIN; Isma Faust MD Technologist: Ioana Townsend RT(R),KAMAR(AB) Trnrib Date/Time: 07/07/2019 (1412) t.[email or web address] PAGE 1 Signed Report Name: DAVID ULRICH : 1940 Age/S: 79 / F [address] Unit #: [id number] Loc: [place] [address] Phys: Isma Faust MD Acct: [id number] Dis Date: Status: ADM IN PHONE #: [phone] Exam Date: 07/07/2019 1353 FAX #: Reason: HX OF PE, BLE EDEMA EXAMS: CPT: [id number] D[place] CL[place] [address] <Continued> Orig Print D/T: S: 07/07/2019 (6669) Probe: PAGE 2 Signed ReportPROTHROMBIN [id number] 14:10:00 Test Item Value Reference Range Interpretation Comments PT PATIENT (test code = PTP) 28.8 SECONDS 9.3-12.9 H INTERNATIONAL NORMAL RATIO 2.46 INR Unit 0.8-1.2 H (test code = INR) HGB [id number] 14:00:00 Test Item Value Reference Range Interpretation Comments HEMOGLOBIN (test code = HGB) 8.8 G/DL 10.4-14.9 L HEMATOCRIT (test code = HCT) 28.3 % 31.5-44.1 L HGB [id number] 07:53:00 Test Item Value Reference Range Interpretation Comments HEMOGLOBIN (test code = HGB) 10.1 G/DL 10.4-14.9 L HEMATOCRIT (test code = HCT) 31.8 % 31.5-44.1 N COMPREHENSIVE METABOLIC [id number] 01:03:00 Test Item Value Reference Range Interpretation Comments SODIUM (test code = NA) 143 mmol/L 134-147 N POTASSIUM (test code = K) 4.7 mmol/L 3.4-5.0 N CHLORIDE (test code = CL) 107 mmol/L 100-108 N CARBON DIOXIDE (test code = CO2) 28 mmol/L 21-32 N ANION GAP (test code = GAP) 8.0 GAP calc 4.0-15.0 N GLUCOSE (test code = GLU) 194 MG/DL 70-110 H BLOOD UREA NITROGEN (test code = 39 MG/DL 7-18 H BUN) GLOMERULAR FILTRATION RATE (test 31 estGFR >60 L code = GFR) CREATININE (test code = CREAT) 2.0 MG/DL 0.6-1.0 H TOTAL PROTEIN (test code = PROT) 5.3 G/DL 6.4-8.2 L ALBUMIN (test code = ALB) 2.9 G/DL 3.4-5.0 L GLOBULIN (test code = GLOB) 2.4 GM/dL ALBUMIN/GLOBULIN RATIO (test 1.2 RATIO 1.2-2.2 N code = A/G) CALCIUM (test code = CA) 8.6 MG/DL 8.5-10.1 N BILIRUBIN TOTAL (test code = 0.90 MG/DL 0.2-1.2 N BILT) SGOT/AST (test code = AST) 41 Unit/L 15-37 H SGPT/ALT (test code = ALT) 83 Unit/L 12-78 H ALKALINE PHOSPHATASE TOTAL (test 41 Unit/L 45-117 L code = ALKP) NT PRO-BRAIN NATRIURETIC [id number] 01:03:00 Test Item Value Reference Range Interpretation Comments NT PRO-BRAIN NATRIURETIC PEPTI 236 PG/ML 0-100 H (test code = PROBNP) CBC W/AUTO [id number] 01:02:00 Test Item Value Reference Range Interpretation Comments WHITE BLOOD CELL (test 9.0 K/mm3 3.5-11.0 N code = WBC) RED BLOOD CELL (test 3.78 M/mm3 4.70-6.10 L code = RBC) HEMOGLOBIN (test code 11.0 G/DL 10.4-14.9 N = HGB) HEMATOCRIT (test code 34.8 % 31.5-44.1 N = HCT) MEAN CELL VOLUME (test 92.1 Fl 84.5-98.6 N code = MCV) MEAN CELL HGB (test 29.1 pg 27.0-34.2 N code = MCH) MEAN CELL HGB 31.6 G/DL 31.5-34.0 N CONCETRATION (test code = MCHC) RED CELL DISTRIBUTION 17.4 SD 11.5-14.5 H WIDTH (test code = RDW) PLATELET COUNT (test 70.0 K/mm3 150-450 L code = PLT) MEAN PLATELET VOLUME 11.60 fL 7.0-10.5 H (test code = MPV) NEUTROPHIL % (test 85.6 % 40-76 H code = NT%) LYMPHOCYTE % (test 10.6 % 20.5-51.1 L code = LY%) MONOCYTE % (test code 3.8 % 1.7-9.3 N = MO%) EOSINOPHIL % (test 0.0 % 0.0-6.0 N code = EO%) BASOPHIL % (test code 0.0 % 0.0-2.0 N = BA%) NEUTROPHIL # (test 7.72 K/mm3 1.8-7.6 H code = NT#) LYMPHOCYTE # (test 1.0 K/mm3 0.6-3.2 N code = LY#) MONOCYTE # (test code 0.3 K/mm3 0.3-1.1 N = MO#) EOSINOPHIL # (test 0.0 K/mm3 0.0-0.4 N code = EO#) BASOPHIL # (test code 0.0 K/mm3 0.0-0.1 N = BA#) MANUAL DIFF REQUIRED NO DIFF/SCN CRITERIA SLIDE R NETTIEW (test code = MDIFF) CONSISTA NT WITH AUTO DIFFERENTIAL.PL ATELE T COUNT REVIEWE D AND VERIFIED. PROTHROMBIN [id number] 00:52:00 Test Item Value Reference Range Interpretation Comments PT PATIENT (test code = PTP) 40.0 SECONDS 9.3-12.9 H INTERNATIONAL NORMAL RATIO 3.39 INR Unit 0.8-1.2 H (test code = INR) THROMBOPLASTIN TIME [id number] 00:52:00 Test Item Value Reference Range Interpretation Comments THROMBOPLASTIN TIME PARTIAL 25.1 SECONDS 26-35 L (test code = PTT) CBC W/AUTO [id number] 00:50:00 Test Item Value Reference Range Interpretation Comments WHITE BLOOD CELL (test code = WBC) 9.0 K/mm3 3.5-11.0 N RED BLOOD CELL (test code = RBC) 3.78 M/mm3 4.70-6.10 L HEMOGLOBIN (test code = HGB) 11.0 G/DL 10.4-14.9 N HEMATOCRIT (test code = HCT) 34.8 % 31.5-44.1 N MEAN CELL VOLUME (test code = MCV) 92.1 Fl 84.5-98.6 N MEAN CELL HGB (test code = MCH) 29.1 pg 27.0-34.2 N MEAN CELL HGB CONCETRATION (test 31.6 G/DL 31.5-34.0 N code = MCHC) RED CELL DISTRIBUTION WIDTH (test 17.4 SD 11.5-14.5 H code = RDW) PLATELET COUNT (test code = PLT) 70.0 K/mm3 150-450 L MEAN PLATELET VOLUME (test code = 11.60 fL 7.0-10.5 H MPV) NEUTROPHIL % (test code = NT%) % 40-76 H LYMPHOCYTE % (test code = LY%) % 20.5-51.1 L MONOCYTE % (test code = MO%) % 1.7-9.3 N EOSINOPHIL % (test code = EO%) % 0.0-6.0 N BASOPHIL % (test code = BA%) % 0.0-2.0 N NEUTROPHIL # (test code = NT#) K/mm3 1.8-7.6 H LYMPHOCYTE # (test code = LY#) K/mm3 0.6-3.2 N MONOCYTE # (test code = MO#) K/mm3 0.3-1.1 N EOSINOPHIL # (test code = EO#) K/mm3 0.0-0.4 N BASOPHIL # (test code = BA#) K/mm3 0.0-0.1 N MANUAL DIFF REQUIRED (test code = DIFF/SCN CRITERIA MDIFF)
[2021-03-04] MEDS ORDERED: KETOROLAC 30 MG/ML INJ ONE (01:00)
[2021-03-04] MEDS ORDERED: predniSONE 20 MG TAB ONE (01:00)
--- NOTE | 2021-03-04 01:29 | ER ---
Nurse's Notes [facility] Name: Kimmy Gamez Age: 81 yrs Sex: Female : 1940 Arrival Date: 03/04/2021 Time: 00:14 Bed 16 Private MD: Diagnosis: Other specified arthritis, left wrist Presentation: 03/04 00:29 Chief complaint: Patient states: left hand/wrist pain since Wednesday, denies trauma. em Coronavirus screen: Client denies travel out of the [place] in the last 14 days. Ebola Screen: Patient negative for fever greater than or equal to 101.5 degrees Fahrenheit, and additional compatible Ebola Virus Disease symptoms Patient denies exposure to infectious person. Patient denies travel to an Ebola-affected area in the 21 days before illness onset. No symptoms or risks identified at this time. Initial Sepsis Screen: Does the patient meet any 2 criteria? No. Patient's initial sepsis screen is negative. Does the patient have a suspected source of infection? No. Patient's initial sepsis screen is negative. Risk Assessment: Do you want to hurt yourself or someone else? Patient reports no desire to harm self or others. Onset of symptoms was March 04, 2021. 00:29 Method Of Arrival: Wheelchair em 00:29 Acuity: DWIGHT 4 em Historical: - Allergies: 00:32 No Known Allergies; em - PMHx: 00:32 Arthritis; Bladder problem; Hypertension; Glaucoma; GERD; GI Bleed; wound RIGHT lower em leg; lymphedema; PE; - PSHx: 00:32 Hysterectomy; eye; Cholecystectomy; arm; Appendectomy; em - Immunization history:: Adult Immunizations up to date. - Social history:: Smoking status: Patient denies any tobacco usage or history of. - Family history:: not pertinent. Screenin:33 Abuse screen: Denies threats or abuse. Nutritional screening: No deficits noted. jb4 Tuberculosis screening: No symptoms or risk factors identified. Fall Risk None identified. Assessment: 00:33 General: Appears in no apparent distress. comfortable, Behavior is calm, cooperative, jb4 appropriate for age. Pain: Complains of pain in left arm Pain does not radiate. Pain currently is 10 out of 10 on a pain scale. Neuro: Level of Consciousness is awake, alert, Oriented to person, place, time, situation. Cardiovascular: Patient's skin is warm and dry. Respiratory: Airway is patent Respiratory effort is even, unlabored, Respiratory pattern is regular, symmetrical. GI: No signs and/or symptoms were reported involving the gastrointestinal system. : No signs and/or symptoms were reported regarding the genitourinary system. EENT: No signs and/or symptoms were reported regarding the EENT system. Derm: Skin is intact, Skin is pink, warm \T\ dry. Musculoskeletal: Circulation, motion, and sensation intact. Range of motion: intact in all extremities. 01:55 Reassessment: Patient and/or family updated on plan of care and expected duration. Pain ea level reassessed. Patient is alert, oriented x 3, equal unlabored respirations, skin warm/dry/pink. Patient states feeling better. Vital Signs: 00:29 BP 191 / 99; Pulse 79; Resp 18; Temp 98.4(O); Pulse Ox 100% on R/A; Weight 127.01 kg; em Height 5 ft. 3 in. (160.02 cm); Pain 8/10; 00:29 Body Mass Index 49.60 (127.01 kg, 160.02 cm) em ED Course: 00:14 Patient arrived in ED. ag3 00:18 Ida Foy MD is Attending Physician. ma2 00:31 Triage completed. em 00:32 Dylan Aguilera, RN is Primary Nurse. jb4 00:32 Arm band placed on. em 00:33 Patient has correct armband on for positive identification. Bed in low position. Call jb4 light in reach. Side rails up X 1. Pulse ox on. NIBP on. 01:05 Wrist Left (3 View) XRAY In Process Unspecified. EDMS 01:54 No provider procedures requiring assistance completed. Patient did not have IV access ea during this emergency room visit. Administered Medications: 00:51 Drug: TORadol (ketorolac) 60 mg Route: IM; Site: left gluteus; jb4 01:49 Follow up: Response: No adverse reaction; Marked relief of symptoms; Pain is decreased jb4 00:51 Drug: predniSONE 40 mg Route: PO; jb4 01:49 Follow up: Response: No adverse reaction; Marked relief of symptoms [facility] Outcome: 01:28 Discharge ordered by . ma2 01:55 Discharged to home via wheelchair, with family. reji 01:55 Condition: stable 01:55 Discharge instructions given to patient, Instructed on discharge instructions, follow up and referral plans. medication usage, Demonstrated understanding of instructions, follow-up care, medications, Prescriptions given X 2. 01:55 Patient left the ED. reji Signatures: Dispatcher [employer] Bharathi Flores RN RN em Bryson, James, RN RN jb4 Rayna Mallory RN RN ea Alzahri, Mohammad, MD MD ma2 Yulia Jones3
--- NOTE | 2021-03-04 01:29 | EDPHYS ---
Physician Documentation [facility] Name: Kimmy Gamez Age: 81 yrs Sex: Female : 1940 Arrival Date: 03/04/2021 Time: 00:14 Bed 16 Private MD: ED Physician dIa Foy HPI: 03/04 00:43 This 81 yrs old Black Female presents to ER via Wheelchair with complaints of Hand Pain.ma2 00:43 The patient or guardian reports pain. The complaints affect the [facility] of left thumb. ma2 Onset: The symptoms/episode began/occurred gradually, 2 day(s) ago. Associated signs and symptoms: Pertinent negatives: cyanosis distally, decreased sensation distally, fever, nausea, numbness distally, tingling distally, vomiting. Severity of symptoms: At their worst the symptoms were mild, in the emergency department the symptoms are unchanged. The patient has experienced similar episodes in the past, and the symptoms today are exactly the same, has poly arthritis . Historical: - Allergies: 00:32 No Known Allergies; em - PMHx: 00:32 Arthritis; Bladder problem; Hypertension; Glaucoma; GERD; GI Bleed; wound RIGHT lower em leg; lymphedema; PE; - PSHx: 00:32 Hysterectomy; eye; Cholecystectomy; arm; Appendectomy; em - Immunization history:: Adult Immunizations up to date. - Social history:: Smoking status: Patient denies any tobacco usage or history of. - Family history:: not pertinent. ROS: 00:43 Constitutional: Negative for fever, chills, and weight loss. ma2 00:43 All other systems are negative. Exam: 00:43 Constitutional: This is a well developed, well nourished patient who is awake, alert, ma2 and in no acute distress. ENT: Nares patent. No nasal discharge, no septal abnormalities noted. Tympanic membranes are normal and external auditory canals are clear. Oropharynx with no redness, swelling, or masses, exudates, or evidence of obstruction, uvula midline. Mucous membranes moist. Neck: Trachea midline, no thyromegaly or masses palpated, and no cervical lymphadenopathy. Supple, full range of motion without nuchal rigidity, or vertebral point tenderness. No Meningismus. Chest/axilla: Normal chest wall appearance and motion. Nontender with no deformity. No lesions are appreciated. Cardiovascular: Regular rate and rhythm with a normal S1 and S2. No gallops, murmurs, or rubs. Normal PMI, no JVD. No pulse deficits. Respiratory: Lungs have equal breath sounds bilaterally, clear to auscultation and percussion. No rales, rhonchi or wheezes noted. No increased work of breathing, no retractions or nasal flaring. Abdomen/GI: Soft, non-tender, with normal bowel sounds. No distension or tympany. No guarding or rebound. No evidence of tenderness throughout. Back: No spinal tenderness. No costovertebral tenderness. Full range of motion. Skin: Warm, dry with normal turgor. Normal color with no rashes, no lesions, and no evidence of cellulitis. MS/ Extremity: left wrist is tender, with no effusion or rendness or warm, pasive romis full, Pulses equal, no cyanosis. Neurovascular intact. Full, normal range of motion. Neuro: Awake and alert, GCS 15, oriented to person, place, time, and situation. Cranial nerves II-XII grossly intact. Motor strength 5/5 in all extremities. Sensory grossly intact. Cerebellar exam normal. Normal gait. Vital Signs: 00:29 BP 191 / 99; Pulse 79; Resp 18; Temp 98.4(O); Pulse Ox 100% on R/A; Weight 127.01 kg; em Height 5 ft. 3 in. (160.02 cm); Pain 8/10; 00:29 Body Mass Index 49.60 (127.01 kg, 160.02 cm) em MDM: 00:18 Patient medically screened. ma2 00:43 Differential diagnosis: contusion, abrasion, tendonitis, arthritis, unlikely septic ma2 wrist. 01:28 Data reviewed: vital signs, nurses notes. Counseling: I had a detailed discussion with ma2 the patient and/or guardian regarding: the historical points, exam findings, and any diagnostic results supporting the discharge/admit diagnosis, the presence of at least one elevated blood pressure reading (>120/80) during this emergency department visit, the need for outpatient follow up. Response to treatment: the patient's symptoms have markedly improved after treatment. 03/04 00:39 Order name: Wrist Left (3 View) XRAY ma2 03/04 01:29 Order name: Gonsalo wrap-joint; Complete Time: :49 ma2 Administered Medications: 00:51 Drug: TORadol (ketorolac) 60 mg Route: IM; Site: left gluteus; jb4 01:49 Follow up: Response: No adverse reaction; Marked relief of symptoms; Pain is decreased jb4 00:51 Drug: predniSONE 40 mg Route: PO; jb4 01:49 Follow up: Response: No adverse reaction; Marked relief of symptoms jb4 Disposition: 03/04/21 01:28 Discharged to Home. Impression: Other specified arthritis, left wrist. - Condition is Stable. - Discharge Instructions: Arthritis, [id number]. - Prescriptions for Diclofenac Sodium 75 mg Oral Tablet Sustained Release - take 1 tablet by ORAL route 2 times per day; 30 tablet. Medrol (Filipe) 4 mg Oral Tablets, Dose Pack - take 1 tablet by ORAL route as directed - follow package instructions; 1 packet. - Medication Reconciliation Form, Thank You Letter, Antibiotic Education, Prescription Opioid Use form. - Follow up: Private Physician; When: Tomorrow; Reason: If symptoms return, Continuance of care. Signatures: Dispatcher [employer] Bharathi Flores RN RN Dylan Lewis RN RN jb4 Rayna Mallory RN RN ea Alzahri, Mohammad, MD MD ma2 Corrections: (The following items were deleted from the chart) 01:55 01:28 03/04/2021 01:28 Discharged to Home. Impression: Other specified arthritis, left ea wrist. Condition is Stable. Prescriptions for Diclofenac Sodium 75 mg Oral Tablet Sustained Release - take 1 tablet by ORAL route 2 times per day; 30 tablet, Medrol (Filipe) 4 mg Oral Tablets, Dose Pack - take 1 tablet by ORAL route as directed - follow package instructions; 1 packet. and Forms are Medication Reconciliation Form, Thank You Letter, Antibiotic Education, Prescription Opioid Use. Follow up: Private Physician; When: Tomorrow; Reason: If symptoms return, Continuance of care. ma2
[2021-03-04 02:05] VITALS: BP 191/99; TEMP 98.4; O2SAT 100
--- NOTE | 2021-03-04 08:50 | RAD REPORT ---
EXAM DESCRIPTION: RAD - Wrist Left 3 View - 03/04/2021 1:05 am CLINICAL HISTORY: PAIN Pain COMPARISON: No comparisons FINDINGS: Diffuse osteopenia is present. Soft tissue swelling is seen about wrist and hand. No frac ture is seen.
== END 2021-03-04 01:55 | disposition home or self-care (01) ==
LOC: ER 00:12
DX: M13.832 Other specified arthritis, left wrist (principal); I10 Essential (primary) hypertension; K21.9 Gastro-esophageal reflux disease without esophagitis; H40.9 Unspecified glaucoma; Z86.711 Personal history of pulmonary embolism; I89.0 Lymphedema, not elsewhere classified
CPT/HCPCS: 96372; 99284; J7512

== ENCOUNTER 2022-10-21 07:35 | Day surgery (SDC) | payer OTHER ==
[2022-10-20 13:32] LABS: Potassium 3.7 mmol/L (3.5-5.1)
[2022-10-21] MEDS ORDERED: Ringers Lactate 1,000 ML IV ONE (07:45)
[2022-10-21] MEDS ORDERED: CEFAZOLIN SODIUM 2 GM/VIAL ONE (07:45)
[2022-10-21] MEDS ORDERED: BUPIVACAINE 0.25% PF 10 ML VIAL ONE (07:51)
[2022-10-21] MEDS ORDERED: propofoL 200 MG/20 ML VIAL IV ONE (08:10)
[2022-10-21] MEDS ORDERED: ONDANSETRON 4 MG/2 ML VIAL ONE (08:11)
[2022-10-21] MEDS ORDERED: LIDOCAINE 2% MPF 5 ML VIAL ONE (08:11)
[2022-10-21] MEDS ORDERED: FENTANYL CITR 100 MCG/2 ML ONE (08:11)
[2022-10-21] MEDS ORDERED: dexAMETHasone 4 MG/ML VIAL ONE (08:53)
--- NOTE | 2022-10-21 09:09 | P.OP ---
Preoperative diagnosis: RIGHT Leg Infected Cyst Postoperative diagnosis: RIGHT Leg infected Hematoma Primary procedure: Wide local excision of RIGHT lateral calf hematoma Anesthesia: GETA + Local Estimated blood loss: 150cc Specimen: Debridement tissue Findings: Cellulitis / hematoma, ruptured vein, severe lymphedema Complications: None Transferred to: Recovery Room Condition: Good
[2022-10-21] MEDS: FENTANYL CITR 100 MCG/2 ML ONE ×4 (09:25→09:44)
[2022-10-21 09:28] VITALS: O2SAT 100
[2022-10-21] MEDS ORDERED: MEPERIDINE HCL 25 MG/ML SYR ONE (09:48)
[2022-10-21] MEDS ORDERED: KETOROLAC 30 MG/ML INJ ONE (09:48)
[2022-10-21 11:40] VITALS: BP 143/76; TEMP 97.5
--- NOTE | 2022-10-21 16:27 | EKG ---
Test Date: 2022-10-20 Test Time: 12:56:05 Burrer Machine: SHMUEL MEASUREMENT RESULTS: Intervals: Rate: 77 VA: 180 QRSD: 78 QT: 386 QTc: 436 Bement: P: 65 VA: 180 QRS: 3 T: 54 INTERPRETIVE STATEMENTS: Normal sinus rhythm Low voltage QRS Borderline ECG Compared to ECG 12/27/2019 05:28:48 Atrial premature complex(es) no longer present Ventricular premature complex(es) no longer present Prolonged QT interval no longer present Electronically Signed On 10-21-22 16:23:11 [employer] by Nate Soares
--- NOTE | 2022-10-21 20:06 | OP ---
Date of Procedure: 10/21/2022 Surgeon: Agusto Stein MD, Preoperative Diagnosis: Right leg infected cyst. Postoperative Diagnosis: Right leg infected hematoma. Procedure Performed: Wide local excision of right lower extremity/lateral calf hematoma. Anesthesia: General endotracheal plus local with 0.25% Marcaine. Estimated Blood Loss: 150 cc. Specimen: Debridement tissue. Findings: Cellulitis/hematoma and ruptured vein and severe lymphedema with increased venous pressure . Complications: None. Disposition: Patient transferred to recovery room in good condition. Procedure In Detail: After informed consent was obtained, patient was brought to the operating room, prepped and draped in the usual fashion. After adequate anesthesia was achieved, I made a curviline ar incision around the lateral leg for approximately 5.5 to 6 cm around an area of significant tensio n cellulitis and a fluidity, and the skin on top had a necrotic appearance in the central portion of this area consistent with ischemic changes. Incision was carried down through subcutaneous tissues a nd subcutaneous fat. The patient has preexisting severe lymphedema in this area. Attempts at nonope rative management were unsuccessful after she had a traumatic blunt force injury to the lateral leg, which caused this wound to significantly worsen. She had significant weeping from all tissues. Duri ng dissection in the subcutaneous plane, large dilated veins were encountered. These had branching c onsistency and had increased venous pressure requiring individual ligation with 2-0 silk ties, which were carried out and multiple large superficial venous tributaries. All these were controlled with t he 2-0 silk ties and ultimately good hemostasis was achieved, but blood loss was approximately 150 cc throughout the procedure. The area was copiously irrigated at this point. All debridement tissue w as sent off for pathologic examination. She had significant friability to her skin with avulsions ex tending inferiorly and superiorly due to this tension. The area was reapproximated with 2-0 nylon matute tures in an interrupted fashion. The wound was then packed with lavage soaked Kerlix and a sterile d ressing placed over top. The patient had compression applied at the end of the procedure. Good hemo stasis was achieved at the end of the procedure. The patient tolerated the procedure without complic ation and transferred to PACU in good condition. All counts were correct at the end of the case. VISHNU/ESTEFANIA Voice ID: [id number] Report ID: [id number]
== END 2022-10-21 11:32 | disposition home or self-care (01) ==
LOC: OR 07:35
PROVIDERS: ATTEND Surgery
PROC: 0JBN0ZZ Excision of Right Lower Leg Subcutaneous Tissue and Fascia, Open Approach (ICD-10-PCS; principal; 2022-10-21 08:30)
DX: I87.311 Chronic venous hypertension (idiopathic) with ulcer of right lower extremity (principal); L97.211 Non-pressure chronic ulcer of right calf limited to breakdown of skin; L03.115 Cellulitis of right lower limb; R60.0 Localized edema; I89.0 Lymphedema, not elsewhere classified
CPT/HCPCS: 93005; 87070; 80048; 36415; 87205; 88304; 87075; 11406; J2704; J1100; J2001; J3010 ×2; J2175; J7120; J2405

== ENCOUNTER 2024-11-09 12:07 | Emergency (ER) | payer OTHER ==
--- NOTE | 2024-11-09 13:03 | RAD REPORT ---
Procedure: Chest Single View HISTORY: Cough COMPARISON: 2022 FINDINGS: Left lung base is hazy. Remainder lungs appear clear. No significant pleural effusion noted. The heart is mildly enlarged.. IMPRESSION: Left lung base is hazy probably secondary to overlying soft tissue rather than pleural effusion/infil trate. PA and lateral chest series may be helpful for confirmation.
[2024-11-09 13:44] LABS: SARS-CoV-2 Antigen CONTROL BLUE LINE VIS/BG OK; SARS-CoV-2 Antigen Rapid Res Negative (Negative)
[2024-11-09 13:53] LABS: Absolute Eosinophils 0.1 K/uL (0-0.5); Absolute Monocytes 0.6 K/uL (0.1-1.3); Absolute Neutrophil 3.4 K/uL (1.8-8.0); Basophils % 0.3 % (0-1.3); Eosinophils % 1.4 % (0-4.4); Hematocrit 45.6 % (36.0-45.0); Hemoglobin 14.5 g/dL (12.0-15.0); Lymphocytes % 19.4 % (15.3-44.8); MCH 28.6 pg (27.0-35.0); MCHC 31.8 g/dL (32.0-36.0); MCV 90.1 fL (80-100); MPV 10.1 fL (7.6-11.3); Monocytes % 11.7 % (3.3-12.3); Neutrophils % 67.2 % (41.7-73.7); Nucleated Red Blood Cells % 0.2 % (0-0); Platelets 49 thou/uL (152-406); RBC Red Blood Cell Count 5.07 M/uL (3.86-4.86); Red Cell Distribution Width 13.3 % (12.1-15.2)
[2024-11-09 13:58] LABS: Protime INR 1.07
[2024-11-09 14:13] LABS: Albumin 3.5 g/dL (3.4-5.0); Anion Gap 4.4 mEq/L (5.0-15.0); Bilirubin Direct 0.2 mg/dL (0-0.2); Bilirubin Indirect, Calculated 0.5 mg/dL (0.2-0.8); Bilirubin Total 0.7 mg/dL (0.2-1.0); Globulin 3.4 g/dL (2.3-3.5); Magnesium 1.7 mg/dL (1.6-2.4); Potassium 3.4 mEq/L (3.5-5.1); Protein, Total 6.9 g/dL (6.4-8.2); Troponin High Sensitivity 50.4 pg/mL (<58.9)
--- NOTE | 2024-11-09 14:44 | EDPHYS ---
Physician Documentation [facility] Name: Kimmy Gamez Age: 84 yrs Sex: Female : 1940 Arrival Date: 11/09/2024 Time: 12:07 Bed 8 Private MD: ED Physician Carmella Vo HPI: 11/09 13:26 This 84 yrs old Black Female presents to ER via EMS with complaints of General Weakness.sp3 13:26 84-year-old female with a history of prior GI bleed, hypertension, lymphedema, prior PE sp3 that presents with generalized weakness and near syncope while eating breakfast this morning. Patient just feels generally weak and has no other complaints. Vital signs normal for EMS. Patient denies any headache, fever, chest pain, shortness of breath, abdominal pain, vomiting, diarrhea or any other new symptoms other than the generalized weakness. Positive sick contact with flu also reported.. Historical: - Allergies: 12:45 No Known Allergies; tm6 - PMHx: 12:45 Arthritis; Bladder problem; GERD; GI Bleed; Glaucoma; Hypertension; lymphedema; PE; tm6 wound RIGHT lower leg; - Immunization history:: Adult Immunizations up to date. - Infectious Disease History:: Denies. - Social history:: Smoking status: Patient denies any tobacco usage or history of. ROS: 13:30 Eyes: Negative for injury, pain, redness, and discharge, ENT: Negative for injury, sp3 pain, and discharge, Neck: Negative for injury, pain, and swelling, Cardiovascular: Negative for chest pain, palpitations, and edema, Respiratory: Negative for shortness of breath, cough, wheezing, and pleuritic chest pain, Abdomen/GI: Negative for abdominal pain, nausea, vomiting, diarrhea, and constipation, Back: Negative for injury and pain, MS/Extremity: Negative for injury and deformity, Skin: Negative for injury, rash, and discoloration, Neuro: Negative for headache, weakness, numbness, tingling, and seizure, Psych: Negative for depression, anxiety, suicide ideation, homicidal ideation, and hallucinations, Allergy/Immunology: Negative for hives, rash, and allergies, Endocrine: Negative for neck swelling, polydipsia, polyuria, polyphagia, and marked weight changes, 13:30 All other systems are negative, Exam: 13:30 Constitutional: This is a well developed, well nourished patient who is awake, alert, sp3 and in no acute distress. Eyes: Pupils equal round and reactive to light, extra-ocular motions intact. Lids and lashes normal. Conjunctiva and sclera are non-icteric and not injected. Cornea within normal limits. Periorbital areas with no swelling, redness, or edema. Neck: Trachea midline, no thyromegaly or masses palpated, and no cervical lymphadenopathy. Supple, full range of motion without nuchal rigidity, or vertebral point tenderness. No Meningismus. Chest/axilla: Normal chest wall appearance and motion. Nontender with no deformity. No lesions are appreciated. Cardiovascular: Regular rate and rhythm with a normal S1 and S2. No gallops, murmurs, or rubs. Normal PMI, no JVD. No pulse deficits. Respiratory: Lungs have equal breath sounds bilaterally, clear to auscultation and percussion. No rales, rhonchi or wheezes noted. No increased work of breathing, no retractions or nasal flaring. Neuro: Awake and alert, GCS 15, oriented to person, place, time, and situation. Cranial nerves II-XII grossly intact. Motor strength 5/5 in all extremities. Sensory grossly intact. Cerebellar exam normal. Normal gait. Psych: Awake, alert, with orientation to person, place and time. Behavior, mood, and affect are within normal limits. 13:30 Unable to obtain exam due to Physical limited secondary to obesity and lymphedema.. 13:40 ECG was reviewed by the Attending Physician. EKG demonstrates normal sinus rhythm at 82 sp3 bpm with normal intervals, normal QRS, normal axis, nonspecific diffuse ST/T changes without evidence of acute ischemia. Vital Signs: 12:11 BP 116 / 83; Pulse 91; Resp 20; Pulse Ox 86% on R/A; MAP 91 mmHg; Pain 0/10; tm6 12:15 Pulse Ox 97% on 2 lpm NC; tm6 13:59 Pulse 83; Pulse Ox 94% on 1 lpm NC; tm6 14:54 Pulse 81; Temp 99.5(O); Pulse Ox 94% on R/A; tm6 15:05 BP 147 / 69; Pulse 77; Resp 18; Pulse Ox 94% on R/A; ll1 12:11 Pain Scale: Adult tm6 MDM: 12:13 Medical Screening Exam initiated sp3 13:31 Data reviewed: vital signs, nurses notes, lab test result(s), EKG, radiologic studies. 3 ED course: 84-year-old female with PMH above now with generalized weakness. Differential diagnosis includes viral illness, influenza, COVID-19, pneumonia, electrolyte abnormality and to lesser degree ACS or other pathology. Vital signs are normal. Patient is currently at her baseline. Workup will include general labs, chest x-ray, EKG, swabs and a UA. Disposition pending workup and patient course.. 14:43 ED course: Patient is positive for flu A.. 3 11/09 12:12 Order name: Basic Metabolic Panel; Complete Time: 14:42 3 11/09 12:12 Order name: CBC with Diff 3 11/09 12:12 Order name: LFT's; Complete Time: 14:42 3 11/09 12:12 Order name: Magnesium; Complete Time: 14:42 3 11/09 12:12 Order name: NT PRO-BNP; Complete Time: 14:42 3 11/09 12:12 Order name: PT-INR; Complete Time: 14:42 3 11/09 12:12 Order name: Troponin HS; Complete Time: 14:42 3 11/09 12:12 Order name: Lactate w/ 2H reflex if indic.; Complete Time: 14:42 3 11/09 12:12 Order name: SARS RAPID; Complete Time: 14:42 3 11/09 12:12 Order name: Flu; Complete Time: 14:42 3 11/09 12:12 Order name: Blood Culture Adult (2) 3 11/09 12:12 Order name: XRAY Chest (1 view); Complete Time: 13:11 3 11/09 12:12 Order name: EKG; Complete Time: 12:13 3 11/09 12:12 Order name: Cardiac monitoring; Complete Time: 13:59 3 11/09 12:12 Order name: EKG - Nurse/Tech; Complete Time: 13:59 3 11/09 12:12 Order name: IV Saline Lock; Complete Time: 13:42 3 11/09 12:12 Order name: Labs collected and sent; Complete Time: 13:42 [facility] 11/09 12:12 Order name: O2 Per Protocol; Complete Time: 13:42 sp3 11/09 12:12 Order name: O2 Sat Monitoring; Complete Time: 13:42 sp3 Administered Medications: No medications were administered Disposition Summary: 11/09/24 14:43 Discharge Ordered Notes: Location: Home sp3 Condition: Stable sp3 Diagnosis - Influenza A, near syncope, generalized weakness sp3 Followup: sp3 - With: Private Physician - When: Upon discharge from the Emergency Department - Reason: Continuance of care Discharge Instructions: - Discharge Summary Sheet sp3 - Influenza, Adult, [id number] sp3 Forms: - Medication Reconciliation Form sp3 - Antibiotic Education sp3 - Prescription Opioid Use sp3 - Patient Portal Instructions sp3 - Leadership Thank You Letter sp3 Prescriptions: - Tamiflu 75 mg Oral capsule - take 1 tablet ORAL route every 12 hours for 5 days; 10 tablet; Refills: 0, sp3 Product Selection Permitted Signatures: Dispatcher [employer] EDSven Simental RN RN ll1 Carmella Vo MD MD sp3 Nora Dejesus RN RN tm6 Corrections: (The following items were deleted from the chart) 12:13 12:13 BASIC METABOLIC PANEL+C.LAB.BRZ ordered. EDMS EDMS 12:13 12:13 CBC+H.LAB.BRZ ordered. EDMS EDMS 12:13 12:13 HEPATIC FUNCTION+C.LAB.BRZ ordered. EDMS EDMS 12:13 12:13 MAGNESIUM+C.LAB.BRZ ordered. EDMS EDMS 12:13 12:13 PROBNP+C.LAB.BRZ ordered. EDMS EDMS 12:13 12:13 PROTIME (+INR)+COAG.LAB.BRZ ordered. EDMS EDMS 12:13 12:13 Troponin High Sensitivity+C.LAB.BRZ ordered. EDMS EDMS 12:13 12:13 LACTATE+C.LAB.BRZ ordered. EDMS EDMS 12:13 12:13 SARS-COV-2 Antigen Rapid+I.LAB.BRZ ordered. EDMS EDMS 12:13 12:13 Influenza Screen (A \T\ B)+BA.LAB.BRZ ordered. EDMS EDMS 12:13 12:13 BLOOD CULTURE*+BA.LAB.BRZ ordered. EDMS EDMS
--- NOTE | 2024-11-09 14:44 | ER ---
Nurse's Notes [facility] Name: Kimmy Gamez Age: 84 yrs Sex: Female : 1940 Arrival Date: 11/09/2024 Time: 12:07 Bed 8 Private MD: Diagnosis: Influenza A, near syncope, generalized weakness Presentation: 11/09 12:11 Chief complaint: EMS states: general weakness since yesterday. Collapsed at table tm6 today. Didn't eat or drink anything yesterday. Coronavirus screen: Client denies travel out of the [place] in the last 14 days. Ebola Screen: Patient negative for fever greater than or equal to 101.5 degrees Fahrenheit, and additional compatible Ebola Virus Disease symptoms Patient denies exposure to infectious person. Patient denies travel to an Ebola-affected area in the 21 days before illness onset. No symptoms or risks identified at this time. 12:11 Method Of Arrival: EMS: [facility] tm6 12:15 Initial Sepsis Screen: Does the patient meet any 2 criteria? No. Patient's initial tm6 sepsis screen is negative. Does the patient have a suspected source of infection? No. Patient's initial sepsis screen is negative. Risk Assessment: Do you want to hurt yourself or someone else? Patient reports no desire to harm self or others. Onset of symptoms was November 08, 2024. 12:15 Acuity: DWIGHT 3 tm6 Triage Assessment: 12:11 General: Appears in no apparent distress. Behavior is calm, cooperative. Pain: Denies tm6 pain. EENT: No signs and/or symptoms were reported regarding the EENT system. Neuro: Level of Consciousness is awake, alert, obeys commands, Oriented to person, place, time, situation. Cardiovascular: Patient's skin is warm and dry. Respiratory: Airway is patent Respiratory effort is even, unlabored, Respiratory pattern is regular, symmetrical. GI: Abdomen is round non-distended, Reports diarrhea. : No signs and/or symptoms were reported regarding the genitourinary system. Derm: No signs and/or symptoms reported regarding the dermatologic system. Musculoskeletal: Reports general weakness x2 days. Historical: - Allergies: 12:45 No Known Allergies; tm6 - PMHx: 12:45 Arthritis; Bladder problem; GERD; GI Bleed; Glaucoma; Hypertension; lymphedema; PE; tm6 wound RIGHT lower leg; - Immunization history:: Adult Immunizations up to date. - Infectious Disease History:: Denies. - Social history:: Smoking status: Patient denies any tobacco usage or history of. Screenin:47 [facility] ED Fall Risk Assessment (Adult) History of falling in the last 3 months, tm6 including since admission Yes- physiologic fall (2 pts) Confusion or Disorientation No (0 pts) Intoxicated or Sedated No (0 pts) Impaired Gait Yes (1 pt) Mobility Assist Device Used Yes (1 pt) Altered Elimination No (0 pt) Score/Fall Risk Level 3 or more points = High Risk Oriented to surroundings, Maintained a safe environment, Educated pt \T\ family on fall prevention, incl call for assistance when getting out of bed. Abuse screen: Denies threats or abuse. Denies injuries from another. Nutritional screening: No deficits noted. Tuberculosis screening: No symptoms or risk factors identified. Assessment: 12:47 Reassessment: see triage assessment. tm6 13:59 Reassessment: Patient and/or family updated on plan of care and expected duration. Pain tm6 level reassessed. Patient is alert, oriented x 3, equal unlabored respirations, skin warm/dry/pink. 15:06 Reassessment: No changes from previously documented assessment. Patient and/or family ll1 updated on plan of care and expected duration. Pain level reassessed. Patient is alert, oriented x 3, equal unlabored respirations, skin warm/dry/pink. Vital Signs: 12:11 BP 116 / 83; Pulse 91; Resp 20; Pulse Ox 86% on R/A; MAP 91 mmHg; Pain 0/10; tm6 12:15 Pulse Ox 97% on 2 lpm NC; tm6 13:59 Pulse 83; Pulse Ox 94% on 1 lpm NC; tm6 14:54 Pulse 81; Temp 99.5(O); Pulse Ox 94% on R/A; tm6 15:05 BP 147 / 69; Pulse 77; Resp 18; Pulse Ox 94% on R/A; ll1 12:11 Pain Scale: Adult tm6 ED Course: 12:11 Patient arrived in ED. sp3 12:11 Carmella Vo MD is Attending Physician. sp3 12:13 Arm band placed on Patient placed in an exam room, on a stretcher. ll1 12:36 Nora Dejesus, RN is Primary Nurse. tm6 12:36 Cleaned of incontinence. Linen changed. tm6 12:36 Warm blanket given. Cleaned of incontinence. sa1 12:45 Triage completed. tm6 12:47 Patient has correct armband on for positive identification. Placed in gown. Bed in low tm6 position. Call light in reach. Side rails up X2. Provided Education on: use of call johnson. Client placed on continuous cardiac and pulse oximetry monitoring. NIBP monitoring applied. lunchroom monitor on. Pulse ox on. NIBP on. 12:53 XRAY Chest (1 view) In Process Unspecified. EDMS 13:30 EKG done, by ED staff, reviewed by Carmella Vo MD. tm6 13:32 Missed attempt(s): 22 gauge in left antecubital area. Bleeding controlled, band aid tm6 applied, catheter tip intact. 13:35 Initial lab(s) drawn, by me, sent to lab. First set of blood cultures drawn by me. ll1 13:42 Inserted saline lock: 22 gauge in left upper arm, using aseptic technique. Blood ll1 collected. Flushed with 10 mL NS. 15:06 No provider procedures requiring assistance completed. IV discontinued, intact, ll1 bleeding controlled, No redness/swelling at site. Pressure dressing applied. Administered Medications: No medications were administered Medication: 12:47 VIS not applicable for this client. tm6 Outcome: 14:43 Discharge ordered by . sp3 15:06 Discharged to home via wheelchair, ll1 15:06 Condition: stable 15:06 Discharge instructions given to patient, family, Instructed on discharge instructions, follow up and referral plans. medication usage, Demonstrated understanding of instructions, follow-up care, medications, Prescriptions given X 1, 15:07 Patient left the ED. ll1 Signatures: Dispatcher [employer] EDMS Sven Corona RN RN ll1 Carmella Vo MD MD sp3 Nora Dejesus RN RN tm6 Sultan Arielle 1
[2024-11-09 15:18] LABS: Blood Morphology Comment NOT SEEN (NOT SEEN); Platelet Estimate DECR; White Blood Cell Scan OK (OK)
[2024-11-09 15:30] VITALS: O2SAT 94
[2024-11-09 15:36] VITALS: TEMP 99.5
[2024-11-09 15:37] VITALS: BP 147/69
--- NOTE | 2024-11-10 15:42 | EKG ---
Test Date: 2024-11-09 Test Time: 13:23:17 Block Mechanic: AMY MEASUREMENT RESULTS: Intervals: Rate: 82 WY: 174 QRSD: 72 QT: 396 QTc: 462 Reliance: P: 42 WY: 174 QRS: -18 T: 42 INTERPRETIVE STATEMENTS: Normal sinus rhythm Normal ECG Compared to ECG 10/20/2022 12:56:05 No significant changes Electronically Signed On 11-10-24 15:40:06 WET PROCESS ASSISTANT HEAD MILLER by Wes Rodriguez
== END 2024-11-09 15:07 | disposition home or self-care (01) ==
LOC: ER 12:07
DX: J09.X2 Influenza due to identified novel influenza A virus with other respiratory manifestations (principal); R55 Syncope and collapse; R53.1 Weakness; I10 Essential (primary) hypertension; Z11.52 Encounter for screening for COVID-19
CPT/HCPCS: 36415; 71045; 80048; 80076; 83605; 83735; 83880; 84484; 85025; 85610; 87040; 87804; 87811; 93005; 99285

== ENCOUNTER 2024-12-01 15:48 | Emergency (ER) | payer OTHER ==
[2024-12-01 17:34] LABS: Absolute Eosinophils 0.1 K/uL (0-0.5); Absolute Lymphocytes (CBC) 2.1 K/uL (0.7-4.9); Absolute Monocytes 0.9 K/uL (0.1-1.3); Absolute Neutrophil 2.7 K/uL (1.8-8.0); Basophils % 0.3 % (0-1.3); Eosinophils % 1.4 % (0-4.4); Hematocrit 38.1 % (36.0-45.0); Hemoglobin 12.5 g/dL (12.0-15.0); Lymphocytes % 36.6 % (15.3-44.8); MCHC 32.7 g/dL (32.0-36.0); MCV 88.5 fL (80-100); MPV 10.1 fL (7.6-11.3); Monocytes % 15.3 % (3.3-12.3); Neutrophils % 46.4 % (41.7-73.7); Nucleated Red Blood Cells % 0.1 % (0-0); Platelets 62 thou/uL (152-406); RBC Red Blood Cell Count 4.31 M/uL (3.86-4.86); Red Cell Distribution Width 13.9 % (12.1-15.2)
[2024-12-01 17:44] LABS: Anion Gap 8.4 mEq/L (5.0-15.0); Potassium 3.4 mEq/L (3.5-5.1)
--- NOTE | 2024-12-01 17:52 | ER ---
Nurse's Notes [facility] Name: Kimmy Gamez Age: 84 yrs Sex: Female : 1940 Arrival Date: 12/01/2024 Time: 15:48 Bed 16 Private MD: Diagnosis: Other fatigue;Thrombocytopenia, unspecified Presentation: 12/01 16:07 Chief complaint: Patient states: BP was low at Dr. Engel's office and he sent me over tm6 here. I can't remember what the BP was. I feel out of sorts. Denies dizziness or lightheadedness. Coronavirus screen: Client denies travel out of the [place] in the last 14 days. Ebola Screen: Patient negative for fever greater than or equal to 101.5 degrees Fahrenheit, and additional compatible Ebola Virus Disease symptoms Patient denies exposure to infectious person. Patient denies travel to an Ebola-affected area in the 21 days before illness onset. No symptoms or risks identified at this time. Initial Sepsis Screen: Does the patient meet any 2 criteria? No. Patient's initial sepsis screen is negative. Does the patient have a suspected source of infection? No. Patient's initial sepsis screen is negative. Risk Assessment: Do you want to hurt yourself or someone else? Patient reports no desire to harm self or others. Onset of symptoms was December 01, 2024. 16:07 Method Of Arrival: Wheelchair tm6 16:07 Acuity: DWIGHT 3 tm6 Triage Assessment: 16:10 General: Appears in no apparent distress. Behavior is calm, cooperative. Pain: Denies tm6 pain. EENT: No signs and/or symptoms were reported regarding the EENT system. Neuro: Level of Consciousness is awake, alert, obeys commands, Oriented to person, place, time, situation. Cardiovascular: Patient's skin is warm and dry. Respiratory: Airway is patent Respiratory effort is even, unlabored, Respiratory pattern is regular, symmetrical. GI: No signs and/or symptoms were reported involving the gastrointestinal system. Abdomen is round non-distended. : No signs and/or symptoms were reported regarding the genitourinary system. Derm: No signs and/or symptoms reported regarding the dermatologic system. Musculoskeletal: No signs and/or symptoms reported regarding the musculoskeletal system. Historical: - Allergies: 16:09 No Known Allergies; tm6 - PMHx: 16:09 Arthritis; GERD; GI Bleed; Glaucoma; Hypertension; lymphedema; PE; wound RIGHT lower tm6 leg; Bladder problem; - PSHx: 16:10 Total abdominal hysterectomy; tm6 - Immunization history:: Flu vaccine is not up to date. - Infectious Disease History:: Denies. - Social history:: Smoking status: Patient denies any tobacco usage or history of. Screenin:20 [facility] ED Fall Risk Assessment (Adult) History of falling in the last 3 months, aa5 including since admission No falls in past 3 months (0 pts) Confusion or Disorientation No (0 pts) Intoxicated or Sedated No (0 pts) Impaired Gait Yes (1 pt) Mobility Assist Device Used Yes (1 pt) Altered Elimination No (0 pt) Score/Fall Risk Level 0 - 2 = Low Risk Oriented to surroundings, Maintained a safe environment, Educated pt \\T\\ family on fall prevention, incl call for assistance when getting out of bed. Abuse screen: Denies threats or abuse. Nutritional screening: No deficits noted. Tuberculosis screening: No symptoms or risk factors identified. Assessment: 17:20 General: Appears comfortable, Behavior is calm, cooperative. Pain: Denies pain. Neuro: aa5 Level of Consciousness is awake, alert, obeys commands, Oriented to person, place, time, situation, Miner are equal bilaterally Moves all extremities. Speech is normal, Facial symmetry appears normal, Reports fatigue and generalized weakness . Cardiovascular: Heart tones S1 S2 present Rhythm is regular. Respiratory: Airway is patent Respiratory effort is even, unlabored, Respiratory pattern is regular, symmetrical. GI: Reports has not eaten today, pt states "we just had a late start today and I was busy so I didn't eat anything". : No signs and/or symptoms were reported regarding the genitourinary system. EENT: No signs and/or symptoms were reported regarding the EENT system. Derm: Skin is dry, Skin is normal, Skin temperature is warm. Musculoskeletal: Range of motion: intact in all extremities, Swelling noted to ira lower legs with bandages in place noted. 17:55 Reassessment: Pt given crackers, chips, and water to eat at this time as requested. . aa5 18:40 Neuro: Level of Consciousness is awake, alert, obeys commands, Oriented to person, aa5 place, time, situation. Respiratory: Airway is patent Respiratory effort is even, unlabored, Respiratory pattern is regular, symmetrical. Derm: Skin is dry, Skin is normal, Skin temperature is warm. Vital Signs: 16:06 Pulse 73; Resp 18; Temp 98(O); Pulse Ox 100% on R/A; Weight 87.54 kg; Height 5 ft. 3 tm6 in. ; 16:06 BP 117 / 76; MAP 89 mmHg; Pain 0/10; tm6 17:20 BP 118 / 58; Pulse 66; Resp 16 S; Pulse Ox 99% on R/A; aa5 18:15 BP 108 / 71; Pulse 72; Resp 16 S; Temp 97.6(TE); Pulse Ox 98% on R/A; aa5 16:06 Body Mass Index 34.19 (87.54 kg, 160.02 cm) tm6 16:06 Pain Scale: Adult tm6 ED Course: 15:53 Patient arrived in ED. mr 15:54 Julius Chapin DO is Attending Physician. ms3 16:08 Triage completed. tm6 16:10 Arm band placed on left wrist. tm6 16:45 Nighat Parker, RN is Primary Nurse. aa5 17:20 Patient has correct armband on for positive identification. Bed in low position. Call aa5 light in reach. Side rails up X2. Adult w/ patient. Pulse ox on. NIBP on. 17:23 Initial lab(s) drawn, by me, sent to lab. Inserted saline lock: 22 gauge in left aa5 forearm, using aseptic technique. Blood collected. Flushed with 10 mL NS. 17:51 Adan Camacho MD is Referral Physician. ms3 18:40 No provider procedures requiring assistance completed. IV discontinued, intact, aa5 bleeding controlled, No redness/swelling at site. Pressure dressing applied. Administered Medications: No medications were administered Medication: 17:20 VIS not applicable for this client. aa5 Outcome: 17:52 Discharge ordered by . ms3 18:45 Discharged to home via wheelchair, with significant other, aa5 18:45 Condition: stable 18:45 Discharge instructions given to patient, Instructed on discharge instructions, follow up and referral plans. Demonstrated understanding of instructions, follow-up care, 18:46 Patient left the ED. aa5 Signatures: Milla Vidales, Reg Reg mr KeithNighat, RN RN aa5 Julius Chapin, DO ms3 Nora Dejesus RN RN tm6 Corrections: (The following items were deleted from the chart) 16: 16:07 Chief complaint: Patient states: BP was low at Dr. Engel's office and he sent me tm6 over here. I can't remember what the BP was. tm6 16:10 16:09 PSHx: None; tm6 tm6
--- NOTE | 2024-12-01 17:52 | EDPHYS ---
Physician Documentation [facility] Name: Kimmy Gamez Age: 84 yrs Sex: Female : 1940 Arrival Date: 12/01/2024 Time: 15:48 Bed 16 Private MD: ED Physician Julius Chapin HPI: 12/01 16:46 This 84 yrs old Black Female presents to ER via Wheelchair with complaints of Blood ms3 Pressure Problem. 16:46 Kimmy Gamez presents to the emergency department after being referred by Dr Engel for ms3 low BP after it was obtained via a wrist blood pressure cuff. She reports feeling fatigued, which she associates with not having eaten. She mentions having had the flu a few weeks ago. She is not experiencing chest pain, lightheadedness, or breathing problems.. Historical: - Allergies: 16:09 No Known Allergies; tm6 - PMHx: 16:09 Arthritis; GERD; GI Bleed; Glaucoma; Hypertension; lymphedema; PE; wound RIGHT lower tm6 leg; Bladder problem; - PSHx: 16:10 Total abdominal hysterectomy; tm6 - Immunization history:: Flu vaccine is not up to date. - Infectious Disease History:: Denies. - Social history:: Smoking status: Patient denies any tobacco usage or history of. ROS: 16:46 Constitutional: Negative for fever, and chills. Cardiovascular: Negative for chest ms3 pain, and palpitations. Respiratory: Negative for shortness of breath, cough, wheezing, and pleuritic chest pain, Abdomen/GI: Negative for abdominal pain, nausea, vomiting, diarrhea, and constipation, MS/Extremity: Negative for injury and deformity, Skin: Negative for injury, rash, and discoloration, Exam: 16:46 Constitutional: This is a well developed, well nourished patient who is awake, alert, ms3 and in no acute distress. Cardiovascular: Regular rate and rhythm with a normal S1 and S2. No gallops, murmurs, or rubs. Normal PMI, no JVD. No pulse deficits. Respiratory: Lungs have equal breath sounds bilaterally, clear to auscultation and percussion. No rales, rhonchi or wheezes noted. No increased work of breathing, no retractions or nasal flaring. Abdomen/GI: Soft, non-tender, with normal bowel sounds. No distension or tympany. No guarding or rebound. No evidence of tenderness throughout. Skin: Warm, dry with normal turgor. Normal color with no rashes, no lesions, and no evidence of cellulitis. Vital Signs: 16:06 Pulse 73; Resp 18; Temp 98(O); Pulse Ox 100% on R/A; Weight 87.54 kg; Height 5 ft. 3 tm6 in. ; 16:06 BP 117 / 76; MAP 89 mmHg; Pain 0/10; tm6 17:20 BP 118 / 58; Pulse 66; Resp 16 S; Pulse Ox 99% on R/A; aa5 18:15 BP 108 / 71; Pulse 72; Resp 16 S; Temp 97.6(TE); Pulse Ox 98% on R/A; aa5 16:06 Body Mass Index 34.19 (87.54 kg, 160.02 cm) tm6 16:06 Pain Scale: Adult tm6 MDM: 16:18 Medical Screening Exam initiated ms3 16:46 Differential Diagnosis BP reading error vs Anemia vs Electrolyte abnormality. ms3 17:55 Data reviewed: vital signs, nurses notes, lab test result(s), and as a result, I will ms3 discharge patient. Historians other than the Patient: Spouse/Significant Other: . External Records Reviewed: Inpatient record: Platelet count on 11/09/24 was 49. Counseling: I had a detailed discussion with the patient and/or guardian regarding the historical points, exam findings, and any diagnostic results supporting the discharge/admit diagnosis, lab results, the need for outpatient follow up, to return to the emergency department if symptoms worsen or persist or if there are any questions or concerns that arise at home. Special discussion: I discussed with the patient/guardian in detail that at this point there is no indication for admission to the hospital. It is understood, however, that if the symptoms persist or worsen the patient needs to return immediately for re-evaluation. ED course: Patient's blood pressure remains normotensive and heart rate remains normal while patient in the emergency department. Patient to follow-up with Dr. Camacho in 2 to 3 days. Patient and her understand and agree with plan. All questions were answered. Return precautions discussed include worsening symptoms, or any other concerns.. 12/01 16:20 Order name: CBC with Diff; Complete Time: 17:44 ms3 12/01 16:20 Order name: BMP; Complete Time: 17:44 ms3 Administered Medications: No medications were administered Disposition Summary: 12/01/24 17:52 Discharge Ordered Notes: Location: Home ms3 Condition: Stable ms3 Diagnosis - Other fatigue ms3 - Thrombocytopenia, unspecified ms3 Followup: ms3 - With: Adan Camacho MD - When: 2 - 3 days - Reason: Recheck today's complaints Discharge Instructions: - Discharge Summary Sheet ms3 - Fatigue ms3 - Thrombocytopenia, [id number] ms3 Forms: - Medication Reconciliation Form ms3 - Antibiotic Education ms3 - Prescription Opioid Use ms3 - Patient Portal Instructions ms3 - Leadership Thank You Letter ms3 Signatures: Dispatcher [employer] EDJulius Crowley DO DO ms3 Nora Dejesus, RN RN tm6 Corrections: (The following items were deleted from the chart) 16: 16:09 PSHx: None; tm6 tm6
[2024-12-01 19:29] VITALS: BP 117/76; TEMP 98; O2SAT 100
== END 2024-12-01 18:46 | disposition home or self-care (01) ==
LOC: ER 15:48
DX: D69.6 Thrombocytopenia, unspecified (principal); I10 Essential (primary) hypertension
CPT/HCPCS: 36415; 80048; 85025; 99284

== ENCOUNTER 2024-12-26 18:07 | Emergency (ER) | payer OTHER ==
--- NOTE | 2024-12-26 18:58 | RAD REPORT ---
EXAMINATION: LUMBAR SPINE 3 VIEWS CLINICAL INDICATION: Female, 84 years old. PAIN TECHNIQUE: AP, lateral, focused lateral lumbosacral views of the lumbar spine were obtained. [id number]. COMPARISON: No prior exam. FINDINGS: For purposes of this dictation, it is assumed that there are 5 lumbar type vertebral bodies. ALIGNMENT: There is normal alignment of the lumbar spine. BONES: Vertebral bodies are normal in height. No aggressive osseous lesions. Osteopenia. DISCS: Moderate to severe disc height loss at L5-S1. Mild disc height loss otherwise. SOFT TISSUE: No soft tissue abnormalities. IMPRESSION: No acute lumbar spine abnormality.
--- NOTE | 2024-12-26 19:39 | RAD REPORT ---
EXAMINATION: CT HEAD WITHOUT CONTRAST CT CERVICAL SPINE WITHOUT CONTRAST CLINICAL INDICATION: Female, 84 years old. Pain;Trauma TECHNIQUE: Axial CT images from the skull base to the vertex without intravenous contrast. Axial CT i mages through the cervical spine were obtained without intravenous contrast. Sagittal and coronal reformatted images were created from the data set. Coronal and sagittal reformatted images were creat ed from the data set. One or more of the following dose reduction techniques were used: Automated exposure control, adjustment of the mA and/or kV according to patient size, and/or iterative reconstr uction. Unless otherwise specified, incidental findings do not require dedicated imaging follow-up. [id number]. COMPARISON: 10/04/2019 FINDINGS: Head: INTRACRANIAL: No acute intracranial hemorrhage. No hydrocephalus. No mass effect or midline shift. Mo derate chronic small vessel ischemic changes. VASCULATURE: No visualized abnormalities in the arteries or dural venous sinuses. SCALP/SKULL: No significant soft tissue or osseous abnormalities. SINUSES: The visualized paranasal sinuses and mastoid air cells are predominantly clear. Cervical spine: ALIGNMENT: The cervical spine has normal alignment without scoliosis or spondylolisthesis. BONE: Vertebral body heights are maintained. No aggressive osseous lesions. Status post C3-C6 ACDF. 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 DEGENERATIVE CHANGES: Mild to moderate degenerative changes at C6-C7. SOFT TISSUE: No significant abnormalities in the soft tissue of the neck. The visualized lung apices are clear. IMPRESSION: No acute intracranial abnormality. No acute fracture or traumatic malalignment of the cervical spine.
--- NOTE | 2024-12-26 19:47 | RAD REPORT ---
EXAMINATION: Pelvis Wo Cont CLINICAL INDICATION: Female, 84 years old. Pain;Trauma TECHNIQUE: CT pelvis was performed, without IV contrast, as per department protocol. Axial, sagittal and coronal reconstructions were obtained. One or more of the following dose reduction techniques were used: Automated exposure control, adjustment of the mA and/or kV according to patient size, and/ or iterative reconstruction. Unless otherwise specified, incidental findings do not require dedicated imaging follow-up. [id number]. IV CONTRAST: Not administered. COMPARISON: No prior exam. FINDINGS: SMALL BOWEL/COLON: Small bowel has normal course and caliber. No colonic wall thickening or pericolon ic inflammatory changes.Normal appendix. Severe diverticulosis without acute diverticulitis. LYMPH NODES: No lymphadenopathy. ABDOMINAL AORTA AND OTHER VESSELS: Normal caliber aorta and IVC. PERITONEUM: No abnormal free fluid. No free air. ABDOMINAL WALL: No significant abnormality. REPRODUCTIVE ORGANS: No pathologic process. URINARY BLADDER: Underdistended but grossly unremarkable. MUSCULOSKELETAL: No acute or suspicious osseous abnormality. Degenerative changes in the lower spine. ADDITIONAL FINDINGS: None. IMPRESSION: No acute findings in the pelvis.
[2024-12-26] MEDS ORDERED: HYDROCODONE/APAP 5/325 MG TAB ONE (20:26)
[2024-12-26] MEDS ORDERED: NA CHLORIDE 0.9% 500 ML ONE (21:26)
[2024-12-26 21:56] LABS: Hemoglobin 13.2 g/dL (12.0-15.0)
[2024-12-26 22:01] LABS: Absolute Eosinophils 0.1 K/uL (0-0.5); Absolute Lymphocytes (CBC) 2.2 K/uL (0.7-4.9); Absolute Monocytes 0.6 K/uL (0.1-1.3); Absolute Neutrophil 1.9 K/uL (1.8-8.0); Basophils % 0.5 % (0-1.3); Eosinophils % 2.7 % (0-4.4); Hematocrit 39.9 % (36.0-45.0); Lymphocytes % 44.9 % (15.3-44.8); MCH 29.5 pg (27.0-35.0); MCV 89.2 fL (80-100); Monocytes % 11.9 % (3.3-12.3); Nucleated Red Blood Cells % 0.2 % (0-0); Platelets 77 thou/uL (152-406); RBC Red Blood Cell Count 4.48 M/uL (3.86-4.86); Red Cell Distribution Width 13.8 % (12.1-15.2)
[2024-12-26 22:05] LABS: ALT/SGPT 27 U/L (13-56); Albumin 3.2 g/dL (3.4-5.0); Albumin/Globulin Ratio 0.9 (1.1-1.8); Alkaline Phosphatase 92 U/L (45-117); BUN Blood Urea Nitrogen 18 mg/dL (7-18); Bicarbonate 29 mEq/L (21-32); Bilirubin Total 0.5 mg/dL (0.2-1.0); Globulin 3.5 g/dL (2.3-3.5); Glomerular Filtration Rate 41 ml/min (=/>90); Glucose Level 77 mg/dL (74-106); Protein, Total 6.7 g/dL (6.4-8.2); Sodium Level 139 mEq/L (136-145); Troponin High Sensitivity 7.3 pg/mL (<58.9)
[2024-12-26 22:07] LABS: AST/SGOT 27 U/L (15-37); Bilirubin Direct < 0.2 mg/dL (0-0.2); Bilirubin Indirect, Calculated 0.3 mg/dL (0.2-0.8); Magnesium 1.9 mg/dL (1.6-2.4)
[2024-12-26] MEDS ORDERED: cloNIDine HCL 0.1 MG TAB ONE (22:35)
--- NOTE | 2024-12-26 23:38 | ER ---
Nurse's Notes [facility] Name: Kimmy Gamez Age: 84 yrs Sex: Female : 1940 Arrival Date: 12/26/2024 Time: 18:07 Bed 19 Private MD: Diagnosis: Fall on same level, unspecified;Low back pain;Unspecified injury of head, initial encounter Presentation: 12/26 18:10 Chief complaint: EMS states: toned out for fall. Patient was on the ground for about an me1 hour. c/o mid lumbar back pain radiating down to buttocks. Refused IV and pain meds. Coronavirus screen: Vaccine status: Patient reports receiving the 2nd dose of the covid vaccine. Ebola Screen: No symptoms or risks identified at this time. Initial Sepsis Screen: Does the patient meet any 2 criteria? No. Patient's initial sepsis screen is negative. Does the patient have a suspected source of infection? No. Patient's initial sepsis screen is negative. Risk Assessment: Do you want to hurt yourself or someone else? Patient reports no desire to harm self or others. Onset of symptoms was December 26, 2024. 18:10 Method Of Arrival: EMS: [facility] me1 18:10 Acuity: DWIGHT 3 me1 Triage Assessment: 18:17 General: Appears in no apparent distress. uncomfortable, obese, well groomed, well me1 developed, Behavior is calm, cooperative, appropriate for age, Reports s/p fall with c/o lower back pain. Pain: Complains of pain in lumbar area and sacrum Pain does not radiate. Pain currently is 8 out of 10 on a pain scale. Quality of pain is described as aching, Pain began suddenly, Is continuous. EENT: No signs and/or symptoms were reported regarding the EENT system. Neuro: Level of Consciousness is awake, alert, obeys commands, Oriented to person, place, time, situation, Appropriate for age. Cardiovascular: Patient's skin is warm and dry. Respiratory: Airway is patent Trachea midline Respiratory effort is even, unlabored, Respiratory pattern is regular, symmetrical. GI: No signs and/or symptoms were reported involving the gastrointestinal system. : No signs and/or symptoms were reported regarding the genitourinary system. Derm: Skin is intact, is healthy with good turgor, Skin is pink, warm \T\ dry. Musculoskeletal: Swelling present in right leg and left leg Reports pain in back. Injury Description: trip and fall. Historical: - Allergies: 18:17 No Known Allergies; me1 - Home Meds: 23:46 Azopt 1 % ophthalmic drps 1 drop 3 times per day [Active]; Eliquis Oral [Active]; folic aa10 acid 1 mg Oral tab 1 tab once daily [Active]; Iron CR Oral [Active]; Lasix 40 mg Oral tab 1 tab [Active]; meclizine 25 mg Oral tab 1 tab 3 times per day [Active]; Myrbetriq Oral [Active]; omeprazole 40 mg Oral cpDR 1 cap once daily [Active]; potassium chloride 20 mEq Oral TbER 1 tab 2 times per day [Active]; prednisone 5 mg Oral tab 3 tabs once daily [Active]; prednisone 10 mg Oral tab once daily [Active]; Protonix 40 mg Oral TbEC 1 tab once daily [Active]; Travatan Z 0.004 % ophthalmic drop 1 drop once daily [Active]; - PMHx: 18:17 Arthritis; Bladder problem; GERD; GI Bleed; Glaucoma; Hypertension; lymphedema; PE; me1 wound RIGHT lower leg; - PSHx: 18:17 Total abdominal hysterectomy; me1 - Immunization history:: Adult Immunizations up to date. - Infectious Disease History:: Denies. - Social history:: Smoking status: Patient denies any tobacco usage or history of. Screenin:10 [facility] ED Fall Risk Assessment (Adult) History of falling in the last 3 months, me1 including since admission Yes- single mechanical fall (1 pt) Confusion or Disorientation No (0 pts) Intoxicated or Sedated No (0 pts) Impaired Gait Yes (1 pt) Mobility Assist Device Used Yes (1 pt) Altered Elimination No (0 pt) Score/Fall Risk Level 0 - 2 = Low Risk Maintained a safe environment, Provided non-skid footwear, Hourly rounding (assess needs \T\ fall precautionary measures) done. Abuse screen: Denies threats or abuse. Nutritional screening: No deficits noted. Tuberculosis screening: No symptoms or risk factors identified. Assessment: 18:10 General: See triage assessment.. me1 22:25 Reassessment: Patient appears in no apparent distress at this time. No changes from aa10 previously documented assessment. Patient and/or family updated on plan of care and expected duration. Pain level reassessed. Patient is alert, oriented x 3, equal unlabored respirations, skin warm/dry/pink. 22:29 Reassessment: patient blood pressure noted to be 183/93mmhg, MD informed, will continue aa10 plan of care. Vital Signs: 18:10 BP 144 / 71; Pulse 69; Resp 18; Temp 98.1; Pulse Ox 99% on R/A; Weight 89.81 kg; Height me1 5 ft. 3 in. ; Pain 8/10; 21:16 BP 156 / 80; Pulse 89; Resp 20 S; Temp 98.4; Pulse Ox 99% on R/A; aa10 22:24 BP 183 / 93; Pulse 66; Resp 11; Temp 98.6; Pulse Ox 95% on R/A; aa10 23:45 BP 151 / 68; Pulse 68; Resp 14; Temp 98; Pulse Ox 99% on R/A; aa10 18:10 Body Mass Index 35.07 (89.81 kg, 160.02 cm) me1 18:10 Pain Scale: Adult me1 ED Course: 18:10 Patient arrived in ED. me1 18:10 Viv[facility] Mak [facility]C [facility]. kb 18:10 Julius Chapin DO is Attending Physician. kb 18:10 Patient has correct armband on for positive identification. Bed in low position. Call me1 light in reach. Side rails up X2. Provided Education on: POC. Verbalized understanding.. Client placed on continuous cardiac and pulse oximetry monitoring. NIBP monitoring applied. Pulse ox on. NIBP on. 18:10 No provider procedures requiring assistance completed. Patient did not have IV access me1 during this emergency room visit. 18:16 Triage completed. me1 18:17 Arm band placed on Patient placed in an exam room. me1 18:41 Lumbar Spine (3 Views) XRAY In Process Unspecified. EDMS 18:46 Radha Godoy, RN is Primary Nurse. me1 19:21 CT Head C Spine In Process Unspecified. EDMS 19:[address] In Process Unspecified. EDMS 21:21 Inserted saline lock: 22 gauge in right forearm, using aseptic technique. aa10 21:44 Basic Metabolic Panel Sent. aa10 21:45 CBC with Diff Sent. aa10 21:45 Hepatic Function Sent. aa10 21:45 Magnesium Sent. aa10 21:45 Troponin High Sensitivity Sent. aa10 23:48 IV discontinued. aa10 Administered Medications: 20:38 Drug: HYDROcodone-acetaminophen PO 5 mg-325 mg 1 tabs PO once Route: PO; aa10 21:20 Follow up: Response: No adverse reaction; Marked relief of symptoms aa10 21:26 Drug: NS 0.9% IV 500 ml 500 ml IV at 1 bolus once; to be given as a bolus over 30 aa10 minutes Volume: 500 ml; Route: IV; Rate: 1 bolus; Site: left hand; 22:30 Follow up: IV Status: Completed infusion; IV Intake: 500ml aa10 22:30 Follow up: Response: No adverse reaction; Marked relief of symptoms aa10 22:41 Not Given (Duplicate Order): clonidine0.2 mg PO once kb 22:44 Drug: cloNIDine PO 0.1 mg PO once Route: PO; aa10 23:48 Follow up: Response: No adverse reaction; Marked relief of symptoms aa10 Medication: 18:10 VIS not applicable for this client. me1 Intake: 22:30 IV: 500ml; Total: 500ml. aa10 Outcome: 23:37 Discharge ordered by . kb 23:59 Discharged to home via wheelchair, aa10 23:59 Condition: good 23:59 Discharge instructions given to patient, Instructed on discharge instructions, 0205 00:00 Patient left the ED. aa10 Signatures: Dispatcher [employer] Vivian Aldrich, ALCOHOLIC COUNSELOR-C ALCOHOLIC COUNSELOR-Radha Sparks, RN RN me1 Chayito Putnam RN RN aa10 Corrections: (The following items were deleted from the chart) 12/26 18:49 18:10 Pulse 69bpm; Resp 18bpm; Pulse Ox 99% RA; Temp 98.1F; 89.81 kg; Height 5 ft. 3 me1 in.; BMI: 35.0; Pain 8/10, Adult; me1
--- NOTE | 2024-12-26 23:38 | EDPHYS ---
Physician Documentation [facility] Name: Kimmy Gamez Age: 84 yrs Sex: Female : 1940 Arrival Date: 12/26/2024 Time: 18:07 Bed 19 Private MD: ED Physician Julius Chapin HPI: 12/26 20:12 This 84 yrs old Black Female presents to ER via EMS with complaints of Fall Injury. kb 20:12 Pt is an 84 year old female who presents for back pain after a fall that occurred at kb 1600. States she was using her walker to go to her chair and lost her balance causing her to fall backwards. States she landed on her butt, then to her back and hit her head. Denies loc. Reports pain to low back. Denies hip pain. . Historical: - Allergies: 18:17 No Known Allergies; me1 - Home Meds: 23:46 Azopt 1 % ophthalmic drps 1 drop 3 times per day [Active]; Eliquis Oral [Active]; folic aa10 acid 1 mg Oral tab 1 tab once daily [Active]; Iron CR Oral [Active]; Lasix 40 mg Oral tab 1 tab [Active]; meclizine 25 mg Oral tab 1 tab 3 times per day [Active]; Myrbetriq Oral [Active]; omeprazole 40 mg Oral cpDR 1 cap once daily [Active]; potassium chloride 20 mEq Oral TbER 1 tab 2 times per day [Active]; prednisone 5 mg Oral tab 3 tabs once daily [Active]; prednisone 10 mg Oral tab once daily [Active]; Protonix 40 mg Oral TbEC 1 tab once daily [Active]; Travatan Z 0.004 % ophthalmic drop 1 drop once daily [Active]; - PMHx: 18:17 Arthritis; Bladder problem; GERD; GI Bleed; Glaucoma; Hypertension; lymphedema; PE; me1 wound RIGHT lower leg; - PSHx: 18:17 Total abdominal hysterectomy; me1 - Immunization history:: Adult Immunizations up to date. - Infectious Disease History:: Denies. - Social history:: Smoking status: Patient denies any tobacco usage or history of. ROS: 20:11 Constitutional: As per HPI kb Exam: 20:11 Constitutional: This is a well developed, well nourished patient who is awake, alert, kb and in no acute distress. Head/Face: Normocephalic, atraumatic. ENT: Moist Mucous membranes Neck: Trachea midline and no cervical lymphadenopathy. Supple, full range of motion without nuchal rigidity, or vertebral point tenderness. No Meningismus. Cardiovascular: Regular rate Respiratory: Respirations even and unlabored. No increased work of breathing. Talking in full sentences Abdomen/GI: Soft, non-tender. No distention Skin: Warm, dry with normal turgor. Normal color. MS/ Extremity: Pulses equal, no cyanosis. Neurovascular intact. Full, normal range of motion. Neuro: Awake and alert, GCS 15, oriented to person, place, time, and situation. 20:11 Back: pain, that is moderate, ROM is normal, normal spinal alignment noted, vertebral tenderness, is appreciated at lumbar spine and sacrum, 21:42 ECG was reviewed by the Attending Physician. Vital Signs: 18:10 BP 144 / 71; Pulse 69; Resp 18; Temp 98.1; Pulse Ox 99% on R/A; Weight 89.81 kg; Height me1 5 ft. 3 in. ; Pain 8/10; 21:16 BP 156 / 80; Pulse 89; Resp 20 S; Temp 98.4; Pulse Ox 99% on R/A; aa10 22:24 BP 183 / 93; Pulse 66; Resp 11; Temp 98.6; Pulse Ox 95% on R/A; aa10 23:45 BP 151 / 68; Pulse 68; Resp 14; Temp 98; Pulse Ox 99% on R/A; aa10 18:10 Body Mass Index 35.07 (89.81 kg, 160.02 cm) me1 18:10 Pain Scale: Adult me1 MDM: 18:11 Medical Screening Exam initiated kb 20:11 Differential diagnosis: contusion, fracture. Data reviewed: vital signs, nurses notes. kb Test considered but Not performed: Labs: cbc, cmp, cpk considered but pt does not want blood draw/IV/needle sticks. Requests we get imaging first. . Historians other than the Patient: EMS: [facility]. 20:50 ED course: Pt had some dizziness upon standing. Discussed labs and IV fluids with pt kb again. Pt now in agreement with IV, labs and fluids. . 23:36 Counseling: I had a detailed discussion with the patient and/or guardian regarding the kb historical points, exam findings, and any diagnostic results supporting the discharge/admit diagnosis, lab results, radiology results, the need for outpatient follow up, a family practitioner, to return to the emergency department if symptoms worsen or persist or if there are any questions or concerns that arise at home. ED course: Pt states she is feeling better and ready to go home. Family in agreement. 12/26 20:50 Order name: Basic Metabolic Panel; Complete Time: 22:11 kb 12/26 20:50 Order name: CBC with Diff kb 12/26 20:50 Order name: Hepatic Function; Complete Time: 22:11 kb 12/26 20:50 Order name: Magnesium; Complete Time: 22:11 kb 12/26 20:50 Order name: Troponin High Sensitivity; Complete Time: 22:11 kb 12/26 22:04 Order name: CBC Smear Scan EDMS 12/26 18:11 Order name: CT Head C Spine; Complete Time: 20:02 kb 12/26 18:11 Order name: Lumbar Spine (3 Views) XRAY; Complete Time: 19:00 kb 12/26 18:11 Order name: Pelvis Wo Cont CT; Complete Time: 20:02 kb 12/26 20:50 Order name: EKG; Complete Time: 20:51 kb 12/26 20:14 Order name: Misc. Order: ambulate pt; Complete Time: 20:38 kb 12/26 20:50 Order name: Cardiac monitoring; Complete Time: 21:15 kb 12/26 20:50 Order name: EKG - Nurse/Tech; Complete Time: 21:44 kb 12/26 20:50 Order name: IV Saline Lock; Complete Time: 21:15 kb 12/26 20:50 Order name: Labs collected and sent; Complete Time: 21:16 kb EC:42 Rate is 67 beats/min. Rhythm is regular. QRS [place] is Normal. [place] interval is normal at kb 196 msec. QRS interval is normal at 80 msec. QT interval is normal at 467 msec. Administered Medications: 20:38 Drug: HYDROcodone-acetaminophen PO 5 mg-325 mg 1 tabs PO once Route: PO; aa10 21:20 Follow up: Response: No adverse reaction; Marked relief of symptoms aa10 21:26 Drug: NS 0.9% IV 500 ml 500 ml IV at 1 bolus once; to be given as a bolus over 30 aa10 minutes Volume: 500 ml; Route: IV; Rate: 1 bolus; Site: left hand; 22:30 Follow up: IV Status: Completed infusion; IV Intake: 500ml aa10 22:30 Follow up: Response: No adverse reaction; Marked relief of symptoms aa10 22:41 Not Given (Duplicate Order): clonidine0.2 mg PO once kb 22:44 Drug: cloNIDine PO 0.1 mg PO once Route: PO; aa10 23:48 Follow up: Response: No adverse reaction; Marked relief of symptoms aa10 Disposition: 20:12 I was immediately available on-site in the Emergency Department for consultation in the ms3 care of the patient. Disposition Summary: 12/26/24 23:37 Discharge Ordered Notes: Location: Home kb Condition: Stable kb Diagnosis - Fall on same level, unspecified kb - Low back pain kb - Unspecified injury of head, initial encounter kb Followup: kb - With: Emergency Department - When: As needed - Reason: Worsening of condition Followup: kb - With: Private Physician - When: 2 - 3 days - Reason: Recheck today's complaints, Continuance of care, Re-evaluation by your physician Discharge Instructions: - Discharge Summary Sheet kb - Musculoskeletal Pain kb - Head Injury, Adult, [id number] kb Forms: - Medication Reconciliation Form kb - Antibiotic Education kb - Prescription Opioid Use kb - Patient Portal Instructions kb - Leadership Thank You Letter kb Signatures: Dispatcher [employer] EDMS Vivian Mak, LEGAL INSTRUMENTS EXAMINER-C LEGAL INSTRUMENTS EXAMINER-Julius Simons DO DO ms3 Bo Bo MD MD sp4 Radha Godoy, RN RN me1 Chayito Putnam, RN RN aa10 Corrections: (The following items were deleted from the chart) 18:12 18:12 Pelvis Wo Cont+CT.RAD.BRZ ordered. EDMS EDMS 20:51 20:51 BASIC METABOLIC PANEL+C.LAB.BRZ ordered. EDMS EDMS 20:51 20:51 CBC+H.LAB.BRZ ordered. EDMS EDMS 20:51 20:51 HEPATIC FUNCTION+C.LAB.BRZ ordered. EDMS EDMS 20:51 20:51 MAGNESIUM+C.LAB.BRZ ordered. EDMS EDMS 20:51 20:51 Troponin High Sensitivity+C.LAB.BRZ ordered. EDMD EDMS 20:51 20:51 Urinalysis+U.LAB.BRZ ordered. [facility] EDMS 22:45 20:11 Counseling: I had a detailed discussion with the patient and/or guardian pippa regarding the historical points, exam findings, and any diagnostic results supporting the discharge/admit diagnosis, radiology results, the need for outpatient follow up, a family practitioner, to return to the emergency department if symptoms worsen or persist or if there are any questions or concerns that arise at home, pippa
[2024-12-26 23:50] LABS: Anisocytosis SLIGHT; Blood Morphology Comment NOTED (NOT SEEN); Platelet Estimate DECR; White Blood Cell Scan OK (OK)
[2024-12-27 00:33] VITALS: BP 151/68; TEMP 98; O2SAT 99
--- NOTE | 2024-12-27 11:28 | EKG ---
Test Date: 2024-12-26 Test Time: 21:35:11 Tandem Operator: PIERO MEASUREMENT RESULTS: Intervals: Rate: 67 KS: 196 QRSD: 80 QT: 442 QTc: 467 Casey: P: 59 KS: 196 QRS: -10 T: 45 INTERPRETIVE STATEMENTS: Normal sinus rhythm Normal ECG Compared to ECG 11/09/2024 13:23:17 No significant changes Electronically Signed On 12-27-24 11:27:26 MUFFLE OPERATOR by Wes Rodriguez
== END 2024-12-27 | disposition home or self-care (01) ==
LOC: ER 18:07
DX: M54.50 Low back pain, unspecified (principal); S09.90XA Unspecified injury of head, initial encounter; W18.30XA Fall on same level, unspecified, initial encounter; I10 Essential (primary) hypertension; Z86.711 Personal history of pulmonary embolism; Z79.01 Long term (current) use of anticoagulants
CPT/HCPCS: 93005; 85025; 80048; 36415; 83735; 80076; 84484; 70450; 72125; 72192; 72100; 96360; 99284; J7040